=== PATIENT | male | born 1950 | race Caucasian/White ===

== ENCOUNTER → 2018-10-21 | Outpatient (CLI) | payer MEDICARE, OTHER, SELFPAY ==
[2018-10-21 14:57] VITALS: BMI 23.6
[2018-10-21 21:53] LABS: Absolute Neutrophil Count 5.4 X10^3/uL (2.0-7.7); Basophil# 0.03 X10^3/uL; Basophil% 0.3 % (0-1); Eosinophil# 0.18 X10^3/uL; Hematocrit 42.7 % (40-54); Hemoglobin 14.3 g/dl (13.0-16.5); Lymphocyte % 29.5 % (19-41); Mean Corp Hgb Conc 33.5 g/gl (32-36); Mean Corpuscular Hgb 30.6 pg (27.0-32.0); Mean Corpuscular Volume 91.4 fL (80-94); Mean Platelet Vol. 10.9 fl (6.2-12.0); Monocyte# 0.88 X10^3/uL; Monocyte% 9.6 % (0-10); Neutrophil # 5.36 X10^3/uL (2.7-7.7); Neutrophil % 58.5 % (47-70); POSITIVE COUNT NO; POSITIVE DIFFERENTIAL NO; POSITIVE MORPHOLOGY NO; Platelet Count 341 K/mm3 (150-450); RBC Distribution Width CV 13.1 % (11.6-14.6); RBC Distribution Width SD 43.5 fl (35.1-43.9); Red Blood Count 4.67 M/mm3 (4.6-6.2); White Blood Count 9.2 K/mm3 (4.4-11.0)
[2018-10-21 22:00] LABS: ALB/GLOB Ratio 1.2 RATIO (0.9-2.4); AST(SGOT) 18 U/L (15-37); Alanine Aminotransfer ALT/SGPT 17 U/L (16-61); Albumin, Serum 3.7 g/dL (3.2-5.0); Alkaline Phosphatase 93 U/L (45-117); Anion Gap 6 (5-15); BUN 10 mg/dL (7-18); BUN/Creat Ratio 10.4 RATIO (10-20); Calcium,Total 8.8 mg/dL (8.5-10.1); Chloride 107 mmol/L (98-107); Cholesterol 142 mg/dL (200); Creatinine, Serum 0.96 mg/dL (0.70-1.30); EST Glomerular Filtration Rate 82 mL/min (>60); Est Glom Filt Rate - Afr Amer 99 mL/min (>60); Globulin 3.1 g/dL (2.2-4.2); Glucose 111 mg/dL (74-106); High Density Lipoprotein 45 mg/dL; PSA,Total - Annual Screen 0.98 ng/mL (0.00-4.00); Potassium 3.7 mmol/L (3.5-5.1); Protein, Total 6.8 g/dL (6.4-8.2); Sodium Level 141 mmol/L (136-145); Triglycerides 172 mg/dL; Very Low Density Lipoprotein 34 mg/dL (5-40)
== END | disposition home or self-care (01) ==
PROVIDERS: Referring Provider Nurse Practitioner; Visit Provider Nurse Practitioner
DX: J01.00 Acute maxillary sinusitis, unspecified (principal); E78.00 Pure hypercholesterolemia, unspecified; N40.0 Benign prostatic hyperplasia without lower urinary tract symptoms; Z12.5 Encounter for screening for malignant neoplasm of prostate
CPT/HCPCS: 80053; 80061; 84153; 85025; G0103

== ENCOUNTER → 2019-11-19 | Outpatient (CLI) | payer MEDICARE, OTHER, SELFPAY ==
[2019-11-19 18:47] VITALS: BMI 22.7
[2019-11-19 20:58] LABS: Absolute Lymphocyte Count 2.67 X10^3/uL (0.83-4.51); Absolute Neutrophil Count 3.8 X10^3/uL (2.0-7.7); Basophil# 0.08 X10^3/uL; Basophil% 1.1 % (0-1); Eosinophil# 0.17 X10^3/uL; Eosinophils% 2.3 % (0-5); Hematocrit 42.2 % (40-54); Hemoglobin 13.9 g/dL (13.0-16.5); Lymphocyte # 2.67 X10^3/ul (4.0); Lymphocyte % 35.4 % (19-41); Mean Corp Hgb Conc 32.9 g/dL (32-36); Mean Corpuscular Hgb 30.8 pg (27.0-32.0); Mean Corpuscular Volume 93.4 fL (80-94); Mean Platelet Vol. 10.8 fl (6.2-12.0); Monocyte# 0.78 X10^3/uL; Monocyte% 10.3 % (0-10); NRBC Flagged by Analyzer 0 % (0-5); Neutrophil # 3.82 X10^3/uL (2.7-7.7); Neutrophil % 50.6 % (47-70); Platelet Count 313 K/mm3 (150-450); RBC Distribution Width CV 13.2 % (11.6-14.6); RBC Distribution Width SD 45.1 fl (35.1-43.9); Red Blood Count 4.52 M/mm3 (4.6-6.2); White Blood Count 7.5 K/mm3 (4.4-11.0)
[2019-11-19 21:19] LABS: ALB/GLOB Ratio 1.4 RATIO (0.9-2.4); AST(SGOT) 17 U/L (15-37); Alanine Aminotransfer ALT/SGPT 21 U/L (16-61); Albumin, Serum 3.8 g/dL (3.2-5.0); Alkaline Phosphatase 71 U/L (45-117); Anion Gap 3 (5-15); BUN 16 mg/dL (7-18); BUN/Creat Ratio 15.2 RATIO (10-20); Calcium,Total 8.9 mg/dL (8.5-10.1); Chloride 106 mmol/L (98-107); Cholesterol 127 mg/dL (200); Creatinine, Serum 1.05 mg/dL (0.70-1.30); EST Glomerular Filtration Rate 74 mL/min (>60); Est Glom Filt Rate - Afr Amer 90 mL/min (>60); Globulin 2.8 g/dL (2.2-4.2); Glucose 55 mg/dL (74-106); High Density Lipoprotein 43 mg/dL; PSA,Total - Annual Screen 0.87 ng/mL (0.00-4.00); Potassium 3.7 mmol/L (3.5-5.1); Protein, Total 6.6 g/dL (6.4-8.2); Sodium Level 142 mmol/L (136-145); Triglycerides 139 mg/dL; Very Low Density Lipoprotein 28 mg/dL (5-40)
[2019-11-21 16:08] LABS: Endomysial Antibody IgA Negative (Negative)
[2019-11-22 15:53] LABS: Immunoglobulin A 152 mg/dL (61-437); t-Transglutaminase IgA <2 U/mL (0-3)
== END | disposition home or self-care (01) ==
PROVIDERS: Visit Provider Nurse Practitioner
DX: E78.00 Pure hypercholesterolemia, unspecified (principal); K90.9 Intestinal malabsorption, unspecified; M19.90 Unspecified osteoarthritis, unspecified site; N40.0 Benign prostatic hyperplasia without lower urinary tract symptoms
CPT/HCPCS: 80053; 80061; 82784; 83516; 84153; 85025; 86255; G0103

== ENCOUNTER → 2020-11-29 21:59 | Outpatient (CLI) | payer MEDICARE, OTHER, SELFPAY ==
[2020-11-29 16:53] VITALS: BMI 22.7
[2020-11-29 22:14] LABS: Absolute Lymphocyte Count 2.93 X10^3/uL (0.83-4.51); Absolute Neutrophil Count 4.4 X10^3/uL (2.0-7.7); Basophil# 0.06 X10^3/uL; Basophil% 0.7 % (0-1); Eosinophil# 0.22 X10^3/uL; Eosinophils% 2.6 % (0-5); Hematocrit 44.1 % (40-54); Hemoglobin 14.4 g/dL (13.0-16.5); Lymphocyte # 2.93 X10^3/ul (0.83-4.51); Lymphocyte % 35.2 % (19-41); Mean Corp Hgb Conc 32.7 g/dL (32-36); Mean Corpuscular Volume 94.8 fL (80-94); Mean Platelet Vol. 11.3 fl (6.2-12.0); Monocyte# 0.69 X10^3/uL; Monocyte% 8.3 % (0-10); NRBC Flagged by Analyzer 0 % (0-5); Neutrophil # 4.39 X10^3/uL (2.7-7.7); Neutrophil % 52.7 % (47-70); Platelet Count 324 K/mm3 (150-450); RBC Distribution Width CV 13.4 % (11.6-14.6); Red Blood Count 4.65 M/mm3 (4.6-6.2); White Blood Count 8.3 K/mm3 (4.4-11.0)
[2020-11-29 22:35] LABS: ALB/GLOB Ratio 1.4 RATIO (0.9-2.4); AST(SGOT) 17 U/L (15-37); Alanine Aminotransfer ALT/SGPT 22 U/L (16-61); Albumin, Serum 3.9 g/dL (3.2-5.0); Alkaline Phosphatase 75 U/L (45-117); Anion Gap 5 (5-15); BUN 15 mg/dL (7-18); BUN/Creat Ratio 14.7 RATIO (10-20); Calcium,Total 8.9 mg/dL (8.5-10.1); Chloride 104 mmol/L (98-107); Cholesterol 150 mg/dL (200); Creatinine, Serum 1.02 mg/dL (0.70-1.30); EST Glomerular Filtration Rate 76 mL/min (>60); Est Glom Filt Rate - Afr Amer 92 mL/min (>60); Globulin 2.8 g/dL (2.2-4.2); Glucose 131 mg/dL (74-106); High Density Lipoprotein 50 mg/dL; PSA,Total - Annual Screen 0.89 ng/mL (0.00-4.00); Potassium 3.9 mmol/L (3.5-5.1); Protein, Total 6.7 g/dL (6.4-8.2); Sodium Level 139 mmol/L (136-145); Triglycerides 101 mg/dL; Very Low Density Lipoprotein 20 mg/dL (5-40)
== END ==
PROVIDERS: PCP Nurse Practitioner; Referring Provider Nurse Practitioner; Visit Provider Nurse Practitioner
DX: E78.00 Pure hypercholesterolemia, unspecified (principal); N40.0 Benign prostatic hyperplasia without lower urinary tract symptoms; B07.0 Plantar wart; Z12.5 Encounter for screening for malignant neoplasm of prostate
CPT/HCPCS: 80053; 80061; 84153; 85025; G0103

== ENCOUNTER → 2021-11-01 | Outpatient (CLI) | payer MEDICARE, OTHER, SELFPAY ==
[2021-11-01 23:36] LABS: Absolute Lymphocyte Count 3.49 X10^3/uL (0.83-4.51); Absolute Neutrophil Count 4.7 X10^3/uL (2.0-7.7); Basophil# 0.06 X10^3/uL; Basophil% 0.6 % (0-1); Eosinophil# 0.18 X10^3/uL; Eosinophils% 1.9 % (0-5); Hematocrit 42.4 % (40-54); Hemoglobin 14.2 g/dL (13.0-16.5); Lymphocyte # 3.49 X10^3/ul (0.83-4.51); Lymphocyte % 37.5 % (19-41); Mean Corp Hgb Conc 33.5 g/dL (32-36); Mean Corpuscular Hgb 30.3 pg (27.0-32.0); Mean Corpuscular Volume 90.6 fL (80-94); Mean Platelet Vol. 10.7 fl (6.2-12.0); Monocyte# 0.81 X10^3/uL; Monocyte% 8.7 % (0-10); NRBC Flagged by Analyzer 0 % (0-5); Neutrophil # 4.71 X10^3/uL (2.7-7.7); Neutrophil % 50.8 % (47-70); Platelet Count 357 K/mm3 (150-450); RBC Distribution Width CV 12.9 % (11.6-14.6); RBC Distribution Width SD 42.4 fl (35.1-43.9); Red Blood Count 4.68 M/mm3 (4.6-6.2); White Blood Count 9.3 K/mm3 (4.4-11.0)
[2021-11-01 23:39] LABS: ALB/GLOB Ratio 1.3 RATIO (0.9-2.4); AST(SGOT) 16 U/L (15-37); Alanine Aminotransfer ALT/SGPT 19 U/L (16-61); Albumin, Serum 3.7 g/dL (3.2-5.0); Alkaline Phosphatase 71 U/L (45-117); Anion Gap 6 (5-15); BUN 14 mg/dL (7-18); BUN/Creat Ratio 15.7 RATIO (10-20); Calcium,Total 8.8 mg/dL (8.5-10.1); Chloride 106 mmol/L (98-107); Cholesterol 148 mg/dL (200); Creatinine, Serum 0.89 mg/dL (0.70-1.30); EST Glomerular Filtration Rate 89 mL/min (>60); Est Glom Filt Rate - Afr Amer 108 mL/min (>60); Globulin 2.9 g/dL (2.2-4.2); Glucose 83 mg/dL (74-106); High Density Lipoprotein 48 mg/dL; PSA,Total- Diagnostic 1.03 ng/mL (0.0-4.0); Potassium 3.9 mmol/L (3.5-5.1); Protein, Total 6.6 g/dL (6.4-8.2); Sodium Level 138 mmol/L (136-145); Triglycerides 71 mg/dL; Very Low Density Lipoprotein 14 mg/dL (5-40)
== END | disposition home or self-care (01) ==
PROVIDERS: PCP Nurse Practitioner; Visit Provider Nurse Practitioner
DX: E78.00 Pure hypercholesterolemia, unspecified (principal); N40.0 Benign prostatic hyperplasia without lower urinary tract symptoms
CPT/HCPCS: 80053; 80061; 84153; 85025

== ENCOUNTER 2022-06-21 18:37 | Emergency (ER) | payer MEDICARE, OTHER, SELFPAY ==
[2022-06-21 18:38] VITALS: BP 164/120; PULSE 81; RESP 14; TEMP 36.3; O2SAT 96; BMI 24.1
== END 2022-06-21 21:15 | disposition left against medical advice (07) ==
LOC: ED 21:17
PROVIDERS: PCP Nurse Practitioner
DX: Z53.21 Procedure and treatment not carried out due to patient leaving prior to being seen by health care provider (principal)

== ENCOUNTER → 2022-08-03 | Outpatient (CLI) | payer MEDICARE, OTHER, SELFPAY ==
[2022-08-03 22:01] LABS: Absolute Lymphocyte Count 2.27 X10^3/uL (0.83-4.51); Absolute Neutrophil Count 10.2 X10^3/uL (2.0-7.7); Basophil# 0.04 X10^3/uL; Basophil% 0.3 % (0-1); Eosinophil# 0.06 X10^3/uL; Eosinophils% 0.4 % (0-5); Hematocrit 42.4 % (40-54); Hemoglobin 14.2 g/dL (13.0-16.5); Lymphocyte # 2.27 X10^3/ul (0.83-4.51); Lymphocyte % 16.2 % (19-41); Mean Corp Hgb Conc 33.5 g/dL (32-36); Mean Corpuscular Hgb 30.8 pg (27.0-32.0); Mean Platelet Vol. 10.6 fl (6.2-12.0); Monocyte# 1.38 X10^3/uL; Monocyte% 9.8 % (0-10); NRBC Flagged by Analyzer 0 % (0-5); Neutrophil # 10.19 X10^3/uL (2.7-7.7); Neutrophil % 72.5 % (47-70); Platelet Count 379 K/mm3 (150-450); RBC Distribution Width CV 13.2 % (11.6-14.6); Red Blood Count 4.61 M/mm3 (4.6-6.2); White Blood Count 14.1 K/mm3 (4.4-11.0)
[2022-08-03 22:14] LABS: ALB/GLOB Ratio 1.3 RATIO (0.9-2.4); AST(SGOT) 21 U/L (15-37); Alanine Aminotransfer ALT/SGPT 22 U/L (16-61); Albumin, Serum 3.9 g/dL (3.2-5.0); Alkaline Phosphatase 74 U/L (45-117); Anion Gap 6 (5-15); BUN 19 mg/dL (7-18); BUN/Creat Ratio 13.8 RATIO (10-20); Calcium,Total 9.2 mg/dL (8.5-10.1); Chloride 104 mmol/L (98-107); Cholesterol 153 mg/dL (200); Creatinine, Serum 1.38 mg/dL (0.70-1.30); EST Glomerular Filtration Rate 54 mL/min (>60); Est Glom Filt Rate - Afr Amer 65 mL/min (>60); Globulin 3.1 g/dL (2.2-4.2); Glucose 108 mg/dL (74-106); High Density Lipoprotein 58 mg/dL; Potassium 4.3 mmol/L (3.5-5.1); Sodium Level 139 mmol/L (136-145); Triglycerides 65 mg/dL; Very Low Density Lipoprotein 13 mg/dL (5-40)
== END | disposition home or self-care (01) ==
PROVIDERS: PCP Nurse Practitioner; Visit Provider Nurse Practitioner
DX: N20.0 Calculus of kidney (principal); E78.00 Pure hypercholesterolemia, unspecified; R10.9 Unspecified abdominal pain; G89.29 Other chronic pain
CPT/HCPCS: 80053; 80061; 85025; 87086

== ENCOUNTER → 2022-08-04 | Outpatient (CLI) | payer MEDICARE, OTHER, SELFPAY ==
--- NOTE | 2022-08-04 12:43 | RAD_ITS ---
STUDY: X-RAY CHEST REASON FOR EXAM: Male, 72 years old. Leukocytosis. TECHNIQUE: Frontal and lateral views of the chest. COMPARISON: None. FINDINGS: The lungs are clear and expanded. There is no demonstrated pleural abnormality. Normal size heart. Normal mediastinum and sravani. Normal visualized pulmonary arteries. Normal visualized aortic arch and descending thoracic aorta. Mild thoracic spondylosis. Normal visualized ribs, clavicles, and shoulders. There is no demonstrated abnormality of the visualized soft tissue structures of the upper abdomen. RAD/Chest PA and Lateral IMPRESSION: No active or acute cardiopulmonary disease. Electronically Signed: Marv Loya, at 9:50 EST ,
== END | disposition home or self-care (01) ==
LOC: RAD 12:38
PROVIDERS: PCP Nurse Practitioner; Visit Provider Nurse Practitioner
DX: R10.9 Unspecified abdominal pain (principal); G89.29 Other chronic pain
CPT/HCPCS: 71046

== ENCOUNTER → 2022-08-08 | Outpatient (CLI) | payer MEDICARE, OTHER, SELFPAY ==
--- NOTE | 2022-08-08 17:41 | CT_ITS ---
INDICATION: leukocytosis,L flank pain and Luq pain -- looks sick. PRIOR CHOLECYSTECTOMY EXAMINATION: CT ABDOMEN AND PELVIS WITHOUT CONTRAST - CT Abdomen And Pelvis W/O Contrast Injection TECHNIQUE: Helically acquired images were obtained of the abdomen and pelvis without oral or IV contrast. A radiation dose optimization technique was used for this scan. IV Contrast dosage and agent: None. Oral contrast: None. COMPARISON: None. FINDINGS: LOWER CHEST: Lung bases are clear. No cardiomegaly or pericardial effusion. LIVER: Homogeneous. No focal mass. GALLBLADDER AND BILIARY TREE: No calcified gallstones. No gallbladder distension or wall edema. No intra- or extrahepatic biliary ductal dilation. PANCREAS: No focal cystic or solid mass. SPLEEN: Normal size without focal cystic or solid mass. ADRENAL GLANDS: No nodules. KIDNEYS AND URETERS: Normal renal size and position. Moderate left hydronephrosis with normal variant extrarenal pelvis. 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 Right kidney no evidence of hydronephrosis. Abdominal aorta with moderate atherosclerotic vascular calcification with small infrarenal abdominal aortic aneurysm 2.17 x 2.3 cm. PERITONEUM: No ascites or free air. No other fluid collection. BOWEL: No evidence of acute appendicitis. No stomach or bowel distension. No focal inflammatory change. LYMPH NODES: No enlarged mesenteric or retroperitoneal lymph nodes. VESSELS: Aorta is non-dilated. URINARY BLADDER: Unremarkable. REPRODUCTIVE ORGANS: No pelvic masses. ABDOMINAL WALL: No discrete abdominal or pelvic wall hernia. BONES: No lytic or blastic abnormality. Severe degenerative disc disease L4-5 moderate L5-S1 with moderate bilateral facet arthropathy L4-S1. CT/Abdomen/Pelvis without Cont IMPRESSION: Moderate left hydronephrosis with normal variant extrarenal pelvis. 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 Other etiology cannot be excluded. Correlation advised. Small infrarenal abdominal aortic aneurysm. Degenerative changes lower lumbar spine. Electronically Signed: Jose Manuel Solorio MD, JAYSON at 8:07 EST ,
== END | disposition home or self-care (01) ==
LOC: CT 17:40
PROVIDERS: PCP Nurse Practitioner; Visit Provider Nurse Practitioner
DX: G89.29 Other chronic pain (principal); R10.9 Unspecified abdominal pain
CPT/HCPCS: 74176

== ENCOUNTER → 2022-08-21 | Outpatient (CLI) | payer MEDICARE, OTHER, SELFPAY ==
[2022-08-21 11:44] LABS: Anion Gap 4 (5-15); BUN 12 mg/dL (7-18); BUN/Creat Ratio 9.9 RATIO (10-20); Chloride 103 mmol/L (98-107); Creatinine, Serum 1.21 mg/dL (0.70-1.30); EST Glomerular Filtration Rate 62 mL/min (>60); Est Glom Filt Rate - Afr Amer 76 mL/min (>60); Glucose 101 mg/dL (74-106); PSA,Total- Diagnostic 2.01 ng/mL (0.0-4.0); Sodium Level 138 mmol/L (136-145)
== END | disposition home or self-care (01) ==
LOC: LAB 10:12
PROVIDERS: PCP Nurse Practitioner; Referring Provider Urology; Visit Provider Urology
DX: N40.1 Benign prostatic hyperplasia with lower urinary tract symptoms (principal)
CPT/HCPCS: 36415; 80048; 84153

== ENCOUNTER → 2022-08-28 | Outpatient (CLI) | payer MEDICARE, OTHER, SELFPAY ==
--- NOTE | 2022-08-28 11:13 | NM_ITS ---
CLINICAL: 72-year-old male with history of hydronephrosis. 99m Tc MAG3 DIURETIC RENAL SCINTIGRAPHY COMPARISON: CT of the abdomen-pelvis report 08/08/2022 FINDINGS: Following the intravenous administration of 10.2 mCi of 99m Tc MAG3, renal images reveal: 1. The flow study demonstrates delayed arterial phase distribution of the radiopharmaceutical to the bilateral kidneys left worse than right. 2. Immediate static delayed nephrogram images depict relatively prompt and homogeneous radiopharmaceutical concentration noted by the right kidney. Uptake in the left renal unit is delayed and decreased relative to the right kidney.. Collecting structure visualization is noted at 4 minutes post tracer injection bilaterally. Washout of the radiopharmaceutical by the renal compartment of the right kidney appears qualitatively normal. Washout of the radiotracer by the renal parenchyma of the left kidney is delayed and decreased. There is spontaneous drainage of the right kidney collecting system noted prior to progressive minor administration. Prominent collecting system is noted in the left kidney during 20 minutes of pre-Lasix sequential image acquisition. 3. The kzvet-[id number] ratio of total renal parenchymal function was calculated to be 60/40. Furosemide 20 mg was administered intravenously. The post Lasix T ? washout of the residual right kidney collecting system activity was calculated to be < 10 minutes in the right kidney and > 10 and < 20 minutes in the left kidney, (normal < 10 minutes). NM/Renal Scan w/ Pharm Intervent IMPRESSION: 1. There is normal renal parenchymal-cortical function involving the right kidney. Cortical dysfunction is defined in the left renal unit. 2. A normal physiologic response to induced diuresis is demonstrated in the right kidney collecting system. The left kidney collecting system demonstrates an indeterminate response to furosemide administration with the T ? > 10 and < 20 minutes. Electronically Signed: Chaim Thurman, at 22:33 EDT ,
== END | disposition home or self-care (01) ==
LOC: NM 11:03
PROVIDERS: PCP Nurse Practitioner; Visit Provider Urology
DX: Q62.11 Congenital occlusion of ureteropelvic junction (principal)
CPT/HCPCS: 78708; A9562; J1940

== ENCOUNTER → 2022-09-07 | Outpatient (CLI) | payer MEDICARE, OTHER, SELFPAY ==
[2022-09-07 13:06] LABS: Hematocrit 41.6 % (40-54); Mean Corp Hgb Conc 33.7 g/dL (32-36); Mean Platelet Vol. 10.6 fl (6.2-12.0); Platelet Count 308 K/mm3 (150-450); RBC Distribution Width CV 13.2 % (11.6-14.6); RBC Distribution Width SD 44.9 fl (35.1-43.9); Red Blood Count 4.52 M/mm3 (4.6-6.2); White Blood Count 9.9 K/mm3 (4.4-11.0)
[2022-09-07 13:30] LABS: Anion Gap 5 (5-15); BUN 15 mg/dL (7-18); BUN/Creat Ratio 17.1 RATIO (10-20); Calcium,Total 9.1 mg/dL (8.5-10.1); Chloride 108 mmol/L (98-107); Creatinine, Serum 0.88 mg/dL (0.70-1.30); EST Glomerular Filtration Rate 90 mL/min (>60); Est Glom Filt Rate - Afr Amer 109 mL/min (>60); Glucose 105 mg/dL (74-106); Sodium Level 142 mmol/L (136-145)
== END | disposition home or self-care (01) ==
PROVIDERS: PCP Nurse Practitioner; Referring Provider Urology; Visit Provider Urology
DX: Z01.810 Encounter for preprocedural cardiovascular examination (principal)
CPT/HCPCS: 36415; 80048; 85027; 93005

== ENCOUNTER 2022-10-08 08:22 | Observation (INO) | payer MEDICARE, OTHER, SELFPAY ==
[2022-10-08] VITALS (10 sets, daily range): BP systolic 99–157; BP diastolic 58–93; PULSE 59–103; RESP 16–18; TEMP 36.2–36.8; O2SAT 94–98; BMI 24.1
--- NOTE | 2022-10-08 08:32 | CT_ITS ---
EXAM: CT ABDOMEN AND PELVIS WITHOUT INTRAVENOUS CONTRAST CLINICAL INDICATION: Flank pain. TECHNIQUE: Helically acquired images were obtained of the abdomen and pelvis without intravenous contrast. This CT exam was performed using one or more of the following dose reduction techniques: automated exposure control, adjustment of the mA and/or kV according to patient size, and/or use of iterative reconstruction technique. This report was created using [employer] report generation technology. RADIATION DOSE: CTDIvol = 6.13 mGy, DLP = 301.45 mGy-cm COMPARISON: CT abdomen and pelvis without contrast 08/08/2022. FINDINGS: LOWER THORAX: Unremarkable. Lung bases are clear. No cardiomegaly. No significant pericardial effusion. ABDOMEN: LIVER: Unremarkable. Homogeneous. GALLBLADDER AND BILE DUCTS: Unremarkable. No intra- or extrahepatic biliary ductal dilation. No visible gallbladder presumably from laparoscopic cholecystectomy. PANCREAS: Unremarkable. No focal cystic mass. SPLEEN: Unremarkable. Normal size without focal cystic or solid mass. ADRENALS: Unremarkable. No nodules. KIDNEYS AND URETERS: Worsening of left hydronephrosis despite left double-J stent placement. Normal right kidney. Normal renal size and position. STOMACH AND BOWEL: Unremarkable. No stomach or bowel distention. No focal inflammatory change. PELVIS: APPENDIX: Normal. BLADDER: Unremarkable. REPRODUCTIVE: Unremarkable as visualized. No mass. ABDOMEN and PELVIS: INTRAPERITONEAL SPACE: Unremarkable. No ascites or other fluid collection. No free air. BONES/JOINTS: Pronounced L4-5 degenerative disc space height narrowing with endplate sclerosis is unchanged. No suspicious lytic or blastic abnormality. SOFT TISSUES: Unremarkable. No discrete abdominal or pelvic wall hernia. VASCULATURE: Unremarkable. Abdominal aorta is non-dilated. LYMPH NODES: Unremarkable. No enlarged lymph nodes. CT/Abdomen/Pelvis without Cont IMPRESSION: 1. Worsening of now more pronounced left hydronephrosis despite interval placement of left double-J stent. Double-J stent stent exchange will be helpful. 2. No other additional findings or changes. Electronically Signed: Carlitos Dalton MD at 9:53 EDT ,
--- NOTE | 2022-10-08 08:33 | EX.ED.DYSGE1 ---
HPI History of Present Illness Chief Complaint: Complaint Detail of Chief Complaint: Left flank pain, dysuria Informant: patient Narrative Narrative: Patient presents secondary to left flank pain and dysuria that started last evening. 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 He recently underwent CT scan which revealed hydronephrosis consistent with left UPJ obstruction. He had surgery with Dr. Starr on September 29 for balloon dilation and stent placement. Surgical procedure was performed at the outpatient center and I cannot see the surgical note. Patient states he was doing well until last evening when he started having burning with urination. He feels that he cannot empty his bladder. He has pain in the left flank that radiates into the left testicle. No fever or chills. He is not currently on an antibiotic. [facility] Medical History (Updated 10/08/22 @ 11:[address] 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 Ureteral stent present Home Medications tamsulosin 0.4 mg capsule 0.4 mg PO DAILY BPH 10/08/22 [History Last Taken 10/08/22] Allergy/AdvReac Type Severity Reaction Status Date / Time No Known Allergies Allergy Verified 10/08/22 08:25 Family History Other BPH (benign prostatic hyperplasia) Surgical History CHOLECYSTECTOMY W/ INTRAOPERATIVE CHOLANGIOGRAM Social History Smoking Status: Former smoker second hand exposure: No alcohol intake: current substance use type: does not use ROS ROS ED Constitutional Constitutional ED: Denies chills or fever(s) Eyes Eyes: Denies discharge from eye(s) ENT ENT ED: Denies discharge from eye(s), rhinorrhea or sore throat Cardiovascular Cardiovascular: Denies chest pain or palpitations Respiratory/Chest Respiratory/Chest: Denies cough or dyspnea Gastrointestinal Gastrointestinal: Reports abdominal pain; Denies diarrhea, nausea or vomiting Genitourinary Genitourinary ED: Reports difficulty urinating and dysuria Musculoskeletal Musculoskeletal: Reports back pain; Denies extremity pain Integumentary Denies Abrasions or rash Neurologic Neurologic: Denies headache(s) or weakness Allergic/Immunologic Allergic/Immunologic ED: Denies lip swelling or urticaria EXAM Physical Exam Const Vital Signs: 10/08/22 08:24 10/08/22 09:11 10/08/22 10:24 Temperature 97.1 F L 97.8 F Temperature Source Temporal Oral Pulse Rate 103 H 64 Respiratory Rate 16 16 16 Blood Pressure 146/93 H 131/75 H Blood Pressure Mean 110 93 Pulse Ox 97 94 Oxygen Delivery Method Room Air Room Air Positive well nourished and well developed General Appearance ED: well developed HEENT Reports normocephalic and head/scalp atraumatic Eyes PERRL and EOMs intact bilaterally Neck supple Chest Wall inspection of chest normal and palpation of chest normal Resp normal respiratory effort and clear to auscultation bilaterally Cardio regular rate and regular rhythm GI GI Narrative: Abdomen soft with mild suprapubic tenderness. Palpation: soft Extremity normal to inspection Neuro oriented x3 and no sensory deficits noted Sensorium / Orientation: alert Motor Exam: strength 5/5 throughout Psych mental status grossly normal Skin no rashes or lesions noted MDM MDM MDM Narrative Medical decision making narrative: Patient is given morphine and Zofran for pain control. Labwork obtained to evaluate for leukocytosis, anemia, and electrolyte derangement. Urinalysis obtained to evaluate for infection/hematuria. CT flank obtained to evaluate for renal stone, stent position, hydronephrosis. History & Record Review Additional record(s) reviewed:: Prior outpatient record and Prior labs Lab Data Attestation: I reviewed the patient's lab results. Labs: Laboratory Results - last 24 hr 10/08/22 10/08/22 10/08/22 08:47 08:47 08:47 WBC 13.6 H RBC 4.72 Hgb 14.2 Hct 44.5 MCV 94.3 H MCH 30.1 MCHC 31.9 L RDW Std Deviation 45.2 H RDW Coeff of Hector 13.0 Plt Count 348 MPV 10.3 Immature Gran % (Auto) 1.500 H Neut % (Auto) 64.7 Lymph % (Auto) 21.0 [place] % (Auto) 10.4 H Eos % (Auto) 1.4 Baso % (Auto) 1.0 Absolute Neuts (auto) 8.8 H Absolute Lymphs (auto) 2.86 Nucleated RBC % 0 Sodium 139 Potassium 3.8 Chloride 109 H Carbon Dioxide 28.0 Anion Gap 2 L BUN 15 Creatinine 0.98 Estim Creat Clear Calc 64.95 Est GFR (MDRD) Af Amer 96 Est GFR (MDRD) Non-Af 80 BUN/Creatinine Ratio 15.3 Glucose 109 H Calcium 9.2 Urine Color Yellow Urine Clarity Clear Urine pH 6.0 Ur Specific [place] 1.025 Urine Protein 100 H Urine Glucose (UA) Normal Urine Ketones Negative Urine Occult Blood 250 H Urine Nitrite Negative Urine Bilirubin Negative Urine Urobilinogen Normal Ur Leukocyte Esterase 500 H Urine RBC 5-10 SEEN Urine WBC 10-25 SEEN Ur Squamous Epith Cells 0 SEEN Urine Bacteria 1+ Urine Mucus 0 SEEN Radiography Diagnostic Testing: Clinical Impression(s) from Imaging Studies Abdomen/Pelvis CT 10/08/22 08:32 IMPRESSION: 1. Worsening of now more pronounced left hydronephrosis despite interval placement of left double-J stent. Double-J stent stent exchange will be helpful. 2. No other additional findings or changes. Electronically Signed: Carlitos Dalton MD at 9:53 EDT , Treatment and Re-Evaluation :: CBC does reveal a white count of 13.6 with no left shift noted. Chemistry studies unremarkable with normal renal function. Urinalysis does show 1+ bacteria with 25-50 white cells and 500 leukocyte esterase. He was covered with a dose of Rocephin here and urine culture has been sent. CT flank reveals worsening and now more pronounced hydronephrosis on the left despite stent placement. No evidence of ureteral stone. Patient did require second dose of pain medication for comfort. I spoke with Dr. Starr, his urologist. Patient will be admitted overnight with plan to go to the OR tomorrow for stent exchange. Discharge Plan Triage Chief Complaint: Complaint ED Provider: Billie Egan Dx/Rx/DC Orders Clinical Impression: Hydronephrosis Prescriptions: No Action tamsulosin 0.4 mg capsule 0.4 mg PO DAILY Primary Care Provider: Emilia Avina NP Referrals: Emilia Avina NP, [employer] [Primary Care Provider] - Disposition Disposition: Acute Care [facility]
[2022-10-08] MEDS: Ondansetron 4 MG/2 ML Vial IV ×2 (08:48→11:01)
[2022-10-08] MEDS: Morphine 4 MG/ML Syringe IV ×2 (08:50→10:58)
[2022-10-08 08:54] LABS: Mucous, Urine 0 SEEN /hpf (<or=2+); Squamous Epithelial Cells - UA 0 SEEN /hpf (0-5)
[2022-10-08 08:55] LABS: Absolute Lymphocyte Count 2.86 X10^3/uL (0.83-4.51); Absolute Neutrophil Count 8.8 X10^3/uL (2.0-7.7); Basophil# 0.14 X10^3/uL; Eosinophil# 0.19 X10^3/uL; Eosinophils% 1.4 % (0-5); Hematocrit 44.5 % (40-54); Hemoglobin 14.2 g/dL (13.0-16.5); Lymphocyte # 2.86 X10^3/ul (0.83-4.51); Mean Corp Hgb Conc 31.9 g/dL (32-36); Mean Corpuscular Hgb 30.1 pg (27.0-32.0); Mean Corpuscular Volume 94.3 fL (80-94); Mean Platelet Vol. 10.3 fl (6.2-12.0); Monocyte# 1.41 X10^3/uL; Monocyte% 10.4 % (0-10); NRBC Flagged by Analyzer 0 % (0-5); Neutrophil # 8.79 X10^3/uL (2.7-7.7); Neutrophil % 64.7 % (47-70); Platelet Count 348 K/mm3 (150-450); RBC Distribution Width SD 45.2 fl (35.1-43.9); Red Blood Count 4.72 M/mm3 (4.6-6.2); White Blood Count 13.6 K/mm3 (4.4-11.0)
[2022-10-08 08:58] LABS: Color, Urine Yellow (Yellow); Glucose, Dipstick Normal (Normal); Ketone-Dipstick Negative (Negative); Leukocyte Esterase-Dipstick 500 /ul (Negative); Nitrite-Dipstick Negative (Negative); Occult Blood-Urine 250 /ul (Negative); Protein-Dipstick 100 mg/dl (Negative); Specific Gravity, Urine 1.025 (1.002-1.030); Urine Bilirubin Dipstick Negative (Negative); Urine Clarity Clear (Clear); Urine Urobilinogen Normal (Normal)
--- NOTE | 2022-10-08 09:13 | ED.RN ---
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 UNABLE TO FIND BLADDER. DR. SARABIA NOTIFIED.
[2022-10-08 09:16] LABS: Anion Gap 2 (5-15); BUN 15 mg/dL (7-18); BUN/Creat Ratio 15.3 RATIO (10-20); Calcium,Total 9.2 mg/dL (8.5-10.1); Chloride 109 mmol/L (98-107); Creatinine, Serum 0.98 mg/dL (0.70-1.30); EST Glomerular Filtration Rate 80 mL/min (>60); Est Glom Filt Rate - Afr Amer 96 mL/min (>60); Estimated Creatinine Clearance 64.95 ml/min; Glucose 109 mg/dL (74-106); Potassium 3.8 mmol/L (3.5-5.1); Sodium Level 139 mmol/L (136-145)
[2022-10-08 09:26] LABS: Bacteria 1+ /hpf (None Seen); Red Blood Cells-Urine 5-10 SEEN /hpf (0-5); White Blood Cells 10-25 SEEN /hpf (0-5)
[2022-10-08] MEDS: Ceftriaxone 1 GM/50 ML BAG IV (10:23)
[2022-10-08] MEDS: Ketorolac 15 MG/ML Vial IV (11:03)
--- NOTE | 2022-10-08 11:43 | PCM.HP.STD ---
HPI - General HPI Narrative FEDERICO STACK, is a 72 M who presents has aknow UPJ stricture left, repaired long time ago and recurrence s/p balloon dilation and stent recently, I was planning to removed stent in 6 weeks but presented with severe flank pain, stent in proper position but worse hydro, plan to take to surgery today to up size stent. NPO team called. [facility] Medical History (Updated 10/08/22 @ 11:[address] 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 Ureteral stent present Home Medications tamsulosin 0.4 mg capsule 0.4 mg PO DAILY BPH 10/08/22 [History Last Taken 10/08/22] Allergy/AdvReac Type Severity Reaction Status Date / Time No Known Allergies Allergy Verified 10/08/22 08:25 Family History Other BPH (benign prostatic hyperplasia) Surgical History CHOLECYSTECTOMY W/ INTRAOPERATIVE CHOLANGIOGRAM Social History Smoking Status: Former smoker second hand exposure: No alcohol intake: current substance use type: does not use ROS Constitutional Constitutional: Denies chills, fever(s) or malaise Eyes Eyes: Denies blurry vision or change in vision ENT HEENT: Reports none Cardiovascular Cardiovascular: Denies chest pain or palpitations Respiratory/Chest Respiratory/Chest: Denies cough or shortness of breath with exertion Gastrointestinal Gastrointestinal: Denies abdominal pain, constipation or diarrhea Musculoskeletal Musculoskeletal: Denies back pain, joint stiffness or joint swelling Integumentary Integumentary: Denies dry skin, jaundice, lesions or rash Neurologic Neurologic: Denies confusion, syncope or weakness Psychiatric Psychiatric: Reports none; Denies anxiety or depression Endocrine Endocrinology: Denies excessive sweating, fatigue or flushing Hematologic/Lymphatic Hematologic/Lymphatic: Denies anemia, easy bleeding or easy bruising Vital Signs Vital Signs Vital Signs: 10/08/22 08:24 10/08/22 09:11 10/08/22 10:24 Temperature 97.1 F L 97.8 F Temperature Source Temporal Oral Pulse Rate 103 H 64 Respiratory Rate 16 16 16 Blood Pressure 146/93 H 131/75 H Blood Pressure Mean 110 93 Pulse Ox 97 94 Oxygen Delivery Method Room Air Room Air 10/08/22 11:19 Temperature 97.8 F Temperature Source Oral Pulse Rate 65 Respiratory Rate 18 Blood Pressure 133/69 H Blood Pressure Mean 90 Pulse Ox 97 Oxygen Delivery Method Room Air Weight Weight: 72.121 kg Body Mass Index (BMI) 24.1 Physical Exam Const alert and oriented x3 General Appearance: cooperative HEENT normocephalic, head/scalp atraumatic, EAC's normal and TM's normal bilaterally Eyes PERRL and EOMs intact bilaterally Pupil: sluggish Neck no lymphadenopathy, supple and no JVD General: trachea midline Lymph Lymphatic: no lymphadenopathy noted, lymphedema and lymphadenopathy Resp normal respiratory effort, normal air movement and clear to auscultation bilaterally Cardio regular rate, regular rhythm and peripheral pulses 2+ throughout GI soft to palpation, non-tender and non-distended Extremity normal capillary refill and no clubbing, cyanosis or edema General Extremity: no tenderness to palpation of joints or extremities Skin no rashes or lesions noted General Skin Exam: turgor normal Lesions: no lesions Rashes: no rashes Neuro CN's II-XII intact bilaterally Speech: speech normal Motor Exam: strength 5/5 throughout; Negative for general weakness Psych thought process normal, cooperative and affect normal Appearance: appropriate Results Lab / Micro Data Result Diagrams: 10/08/22 08:47 10/08/22 08:47 Labs: Laboratory Results - last 24 hr 10/08/22 08:47: WBC 13.6 H, RBC 4.72, Hgb 14.2, Hct 44.5, MCV 94.3 H, MCH 30.1, MCHC 31.9 L, RDW Std Deviation 45.2 H, RDW Coeff of Hector 13.0, Plt Count 348, MPV 10.3, Immature Gran % (Auto) 1.500 H, Neut % (Auto) 64.7, Lymph % (Auto) 21.0, [place] % (Auto) 10.4 H, Eos % (Auto) 1.4, Baso % (Auto) 1.0, Absolute Neuts (auto) 8.8 H, Absolute Lymphs (auto) 2.86, Nucleated RBC % 0 10/08/22 08:47: Sodium 139, Potassium 3.8, Chloride 109 H, Carbon Dioxide 28.0, Anion Gap 2 L, BUN 15, Creatinine 0.98, Estim Creat Clear Calc 64.95, Est GFR (MDRD) Af Amer 96, Est GFR (MDRD) Non-Af 80, BUN/Creatinine Ratio 15.3, Glucose 109 H, Calcium 9.2 10/08/22 08:47: Urine Color Yellow, Urine Clarity Clear, Urine pH 6.0, Ur Specific [place] 1.025, Urine Protein 100 H, Urine Glucose (UA) Normal, Urine Ketones Negative, Urine Occult Blood 250 H, Urine Nitrite Negative, Urine Bilirubin Negative, Urine Urobilinogen Normal, Ur Leukocyte Esterase 500 H, Urine RBC 5-10 SEEN, Urine WBC 10-25 SEEN, Ur Squamous Epith Cells 0 SEEN, Urine Bacteria 1+, Urine Mucus 0 SEEN Radiology Impression Abdomen/Pelvis CT 10/08/22 08:32 IMPRESSION: 1. Worsening of now more pronounced left hydronephrosis despite interval placement of left double-J stent. Double-J stent stent exchange will be helpful. 2. No other additional findings or changes. Electronically Signed: Carlitos Dalton MD at 9:53 EDT , Assessment & Plan Assessment/Plan (1) Obstruction of left ureteropelvic junction (UPJ): PLAN: plan to take to surgery today to decompress left kidney and place large stent. NPO surgery now
--- NOTE | 2022-10-08 12:25 | ED.RN ---
THIS RN CALLED INPATIENT PHARMACY TO LET THEM KNOW PT BEING TAKEN TO OR. PHARMACY TO SEND CEFAZOLIN STRAIGHT TO OR AT 1225. OR NURSE AWARE.
[2022-10-08] MEDS: Cefazolin 2 GM in 0.9% Normal Saline 100 ML IV (12:34)
[2022-10-08] MEDS: Lidocaine Jelly 2% 20 ML Syringe (URO-JET) 1 APPLIC (12:44)
--- NOTE | 2022-10-08 12:55 | OP.PCM_ITS ---
Report of Operation Date of Procedure: 10/08/22 Pre-Operative Diagnosis: Left UPJ stricture status post balloon dilation and pl acement of a 6 [place] stent Post-Operative Diagnosis: Left hydronephrosis poorly draining kidney Surgery/Procedure Performed:: Cystoscopy left retrograde pyelogram placement of an 8.5 [place] stent Description of Surgical Findings:: Indication is a 72-year-old male has a history of a left UPJ obstruction this was were corrected long time ago with an open repair he had been doing well for many years but then developed left flank pain and a swollen left kidney recently in consultation and we decided to do a balloon dilation of the UPJ stricture and stent placement he understands the success rate was not high but we would want to avoid a surgical procedure so this was done as an outpatient setting and then presented to the emergency room 2 weeks later with worsening left hydronephrosis stent was in good position somata take him to surgery today and exchanged stent from a 6 [place]ibian to an 8.5 [place]ibian to help with better draining hopefully allow the area to heal better to see if we can avoid surgical repair of the UPJ stricture 72-year-old male taken back to the operating room at the smooth induction of MAC local anesthesia by the anesthesiologist he was placed in dorsolithotomy position. The penis and testicles were prepped and draped in usual sterile fashion. Went into the bladder with a 21 [place] rigid cystourethroscope. Grabbed the existing stent with a grasper pulled it out to the meatus I then fed a wire through the stent all the way to the kidney then I backloaded a Pollick catheter over the wire performed a retrograde pyelogram can see contrast filling the kidney confirming that I was in the hydronephrotic kidney I then put a wire through the Pollick catheter backloaded the scope over the wire and then placed an 8.5 [place]ibian 26 cm stent, once I pulled the wire the stent coiled in the good position the kidney and bladder will be discharged home today with antibiotics continue with Flomax and then will follow-up in the office to review hopefully the larger stent will help with the drainage we will see if leaving the stent in for 6 weeks will alleviate the obstruction or if you will need eventual repair of the stricture. Surgeon: Mateus Starr Type of Anesthesia: MAC and Topical Anesth Drains: 8.5 stent x 26cm Estimated Blood Loss (mL): 0 Admit VTE Documentation VTE Present on Admission: No VTE Mechan Device Prophylaxis: SCD's VTE Pharm Prophylaxis ordered?: No
--- NOTE | 2022-10-08 12:55 | DCINST_ITS ---
Discharge Instructions Diet Discharge Diet: No restrictions, Light diet - advance as tolerated and Soft diet Activity Discharge Activity: Return to Normal Activity Follow Up Care Please Follow Up With: Mateus Starr MD When: call for appt. Test Results: Test results from this visit will be discussed in further detail at your follow- up appointment, if applicable. Discharge Plan Admission Primary Reason for Your Visit: stent placement Attending Provider: Mateus Starr Primary Care Provider: Emilia Avina NP Discharge Orders/Prescriptions Prescriptions: New cephalexin 500 mg capsule 500 mg PO BID Qty: 6 0RF No Action tamsulosin 0.4 mg capsule 0.4 mg PO DAILY Referrals / Follow Up: Mateus Starr MD [Med Staff - Active Staff] - Emilia Avina NP, CLINICAL PROGRAM MANAGER-C [Primary Care Provider] - Disposition Disposition (needs filled in before D/C Order can be placed): Home, Self Care
== END 2022-10-08 15:26 | disposition home or self-care (01) ==
LOC: ED 11:19 → SDC 11:49 → ACINP 11:50 → SDC 13:24 → MS3 15:34
PROVIDERS: Admitting Provider Urology; Emergency Provider Emergency Medicine; PCP Nurse Practitioner; Visit Provider Urology
PROC: (CPT 52332; principal; 2022-10-08 12:30)
DX: N40.1 Benign prostatic hyperplasia with lower urinary tract symptoms (principal); R30.0 Dysuria; E78.00 Pure hypercholesterolemia, unspecified; N13.30 Unspecified hydronephrosis; Z87.891 Personal history of nicotine dependence; N13.8 Other obstructive and reflux uropathy; Z79.899 Other long term (current) drug therapy
CPT/HCPCS: 52332; 00910; 74176; 76000; 80048; 81001; 85025; 87086; 87088; 96365; 96375; 96376; 99284; J7050; A4216; C1769; C2617; J2405

== ENCOUNTER 2023-06-30 22:44 | Emergency (ER) | payer MEDICARE, OTHER, SELFPAY ==
[2023-06-30 22:45] VITALS: BP 130/79; PULSE 72; RESP 15; TEMP 36.1; O2SAT 96; BMI 24.1
--- NOTE | 2023-06-30 23:00 | ED.VIS.DYS ---
HPI History of Present Illness Chief Complaint: Shortness of Breath Narrative Narrative: 73-year-old male presenting with cough, dyspnea. Patient states that he has been sick since he flew to [place] on an airplane a few days ago. Has not had a fever, chills, which is but does however complain of some nasal congestion. He tested himself for COVID with a home test but was negative. He also states he is not sure how to use it. Patient denies chest pain. When asked objectively about his shortness of breath he states he was able to walk all the way through both airports without any difficulty. He states his biggest complaint is congestion which is associated with rhinorrhea as well. Patient has tried DayQuil and NyQuil without relief. Patient's cough is not productive of sputum. 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 Ureteral stent present Home Medications gabapentin 100 mg capsule 200 mg (2 x 100 mg) PO .qid PRN burning pain 30 days #240 caps 10/20/22 [Rx Last Taken Unknown] tamsulosin 0.4 mg capsule 0.4 mg PO DAILY BPH #30 caps 10/20/22 [Rx Last Taken Unknown] amoxicillin 875 mg-potassium clavulanate 125 mg tablet 1 tab PO BID #20 tabs 02/14/23 [Rx Last Taken Unknown] prednisone 50 mg tablet 50 mg PO DAILY #4 tabs 07/01/23 [Rx Last Taken Unknown] Allergy/AdvReac Type Severity Reaction Status Date / Time No Known Allergies Allergy Verified 06/30/23 22:48 Family History Other BPH (benign prostatic hyperplasia) Surgical History CHOLECYSTECTOMY W/ INTRAOPERATIVE CHOLANGIOGRAM Social History Smoking Status: Former smoker second hand exposure: No alcohol intake: current substance use type: does not use ROS ROS ED Constitutional Constitutional ED: Denies chills, fever(s) or sweats Eyes Eyes: Denies blurry vision or change in vision ENT ENT ED: Reports rhinorrhea and sore throat; Denies ear pain Cardiovascular Cardiovascular: Denies chest pain, palpitations or racing heartbeat Respiratory/Chest Respiratory/Chest: Reports cough, dyspnea and dyspnea on exertion; Denies sputum Gastrointestinal Gastrointestinal: Denies abdominal pain, constipation, diarrhea, nausea or vomiting Genitourinary Genitourinary ED: Denies dysuria, hematuria or urinary frequency Musculoskeletal Musculoskeletal: Denies arthralgias, myalgias or neck pain Integumentary Denies abscess, Abrasions or rash Neurologic Neurologic: Denies headache(s), paresthesias or weakness Psychiatric Psychiatric: Denies anxiety, depression, suicidal ideation or suicidal thoughts Endocrine Endocrinology: Denies polydipsia or polyuria EXAM Physical Exam Const Vital Signs: 06/30/23 22:45 06/30/23 23:01 06/30/23 23:18 Temperature 97.0 F L Temperature Source Temporal Pulse Rate 72 64 Respiratory Rate 15 13 Respiratory Effort Normal Respiratory Pattern Normal Blood Pressure 130/79 H Blood Pressure Mean 96 Pulse Ox 96 Oxygen Delivery Method Room Air Positive well nourished General Appearance ED: NAD HEENT Reports other other Nose: nasal discharge clear Eyes PERRL and EOMs intact bilaterally Neck no lymphadenopathy and supple Resp normal respiratory effort Auscultation: wheezes scattered wheezes Cardio regular rate Extremity normal to inspection Neuro oriented x3 and CN's II-XII intact bilaterally Sensorium / Orientation: alert Motor Exam: strength 5/5 throughout Psych mental status grossly normal Skin no wounds MDM MDM MDM Narrative Medical decision making narrative: Patient presenting with mild respiratory symptoms. Vital signs are stable he is afebrile. He will be tested for COVID, influenza, RSV. He does have some scant scattered wheezes on examination. He will be treated with Solu-Medrol and breathing treatments. He is given Afrin for his nasal congestion. At this point I do not believe he needs any lab work or imaging. RSV came back positive. After breathing treatments the patient feels better. He states Afrin helped with his congestion. Patient will be given albuterol inhaler and a prednisone burst for home. Impression: 1. RSV 2. Bronchitis Lab Data Attestation: I reviewed the patient's lab results. Discharge Plan Triage Chief Complaint: Shortness of Breath ED Provider: Dario Suazo Dx/Rx/DC Orders Instructions: ED RSV Bronchiolitis, ED Bronchitis with Wheezing (Adult) Prescriptions: New prednisone 50 mg tablet 50 mg PO DAILY Qty: 4 0RF No Action tamsulosin 0.4 mg capsule 0.4 mg PO DAILY Qty: 30 12RF gabapentin 100 mg capsule 200 mg PO .qid PRN (Reason: burning pain ) 30 Days Qty: 240 2RF amoxicillin-pot clavulanate 875-125 mg tablet 1 tab PO BID Qty: 20 0RF Primary Care Provider: Emilia Avina NP Referrals: Emilia Avina NP, CURATORIAL ASSISTANT-C [Primary Care Provider] - Disposition Disposition: Home, Self Care
[2023-06-30] MEDS: MethylPREDNISolone 125 MG/2 ML Vial IV (23:04)
[2023-06-30] MEDS: Oxymetazoline 0.05% 1 SPRAY SPRAY.BTL 2 SPRAY NASAL (23:05)
--- OUTSIDE RECORDS SUMMARY | 2023-06-30 23:13 | XMS RPT_ITS | CCD ---
Author Name Unknown Address [address] [place] [id number] Organization [facility] Results Test Name Value Interpretation Reference Range Facil ity Summary Purpose Family History No Family History Records FoundNo Family History Records FoundNo Family History Records Found Advance Directives No Advanced Directives Records FoundNo Advanced Directives Records FoundNo Advanced Directives Records Found Additional Source Comments (unrecognized sect ion and content) No Status Records FoundNo Status Records FoundNo Status Records Found INFORMATION SOURCE (unrecogn ized section and content) DATE CREATED AUTHOR AUTHOR'S ORGANIZ ATION 03/05/2019 [facility] DATE CREATED AUTHOR AUTHOR'S ORGANIZ ATION 01/04/2020 [facility] FOR RECORDS PERTAINING TO PATIENTS WHO ARE OR HAVE BEEN ENROLLED IN A CHEMICAL DEPENDENCY/SUBSTANCEABUSE PROGRAM, SOME INFORMATION MAY BE OMITTED. This clinical summary was aggregated from multiple sources. Caution should be exercised in using it in the provision of clinical care. This summary normalizes information from multiple sources, and as a consequence, information in this document may materially change the coding, format and clinical context of patient data. In addition, data may be omitted in some cases. CLINICAL DECISIONS SHOULD BE BASED ON THE PRIMARY CLINICAL RECORDS. [employer] provides no warranty or guarantee of the accuracy or completeness of information in this document.
[2023-06-30] MEDS: Albuterol 2.5 MG/3 ML VIAL.NEB. INHALATION (23:17)
[2023-06-30] MEDS: Ipratropium/Albuterol Sulfate 3 ML AMPUL.NEB INHALATION (23:17)
[2023-06-30 23:18] VITALS: PULSE 64; RESP 13
[2023-07-01 00:52] VITALS: BP 102/58; PULSE 81; RESP 18; O2SAT 95
== END 2023-07-01 00:57 | disposition home or self-care (01) ==
PROVIDERS: Emergency Provider Student in an Organized Health Care Education/Training Program; PCP Nurse Practitioner; Visit Provider Student in an Organized Health Care Education/Training Program
DX: R09.81 Nasal congestion (principal); R06.2 Wheezing; B97.4 Respiratory syncytial virus as the cause of diseases classified elsewhere; Z87.891 Personal history of nicotine dependence; E78.00 Pure hypercholesterolemia, unspecified; N40.0 Benign prostatic hyperplasia without lower urinary tract symptoms; Z79.899 Other long term (current) drug therapy; Z90.49 Acquired absence of other specified parts of digestive tract; J40 Bronchitis, not specified as acute or chronic
CPT/HCPCS: 87631; 94640; 96374; 99283; A4216

== ENCOUNTER 2023-07-03 07:20 | Emergency (ER) | payer MEDICARE, OTHER, SELFPAY ==
[2023-07-03 07:21] VITALS: BP 141/75; PULSE 82; RESP 18; TEMP 35.6; O2SAT 95; BMI 24.3
[2023-07-03] MEDS: 0.9% Normal Saline (1000mL) 1,000 ML 999 ML IV ×2 (08:19→10:55)
[2023-07-03 08:24] LABS: Bacteria 0 SEEN /hpf (None Seen); Mucous, Urine 0 SEEN /hpf (<or=2+); Red Blood Cells-Urine 0 SEEN /hpf (0-5)
[2023-07-03 08:30] LABS: Absolute Lymphocyte Count 2.78 X10^3/uL (0.83-4.51); Absolute Neutrophil Count 12.9 X10^3/uL (2.0-7.7); Basophil# 0.04 X10^3/uL; Basophil% 0.2 % (0-1); Eosinophil# 0.01 X10^3/uL; Eosinophils% 0.1 % (0-5); Hematocrit 43.7 % (40-54); Hemoglobin 14.6 g/dL (13.0-16.5); Lymphocyte # 2.78 X10^3/ul (0.83-4.51); Lymphocyte % 15.6 % (19-41); Mean Corp Hgb Conc 33.4 g/dL (32-36); Mean Corpuscular Hgb 30.7 pg (27.0-32.0); Mean Platelet Vol. 10.3 fl (6.2-12.0); Monocyte# 1.88 X10^3/uL; Monocyte% 10.6 % (0-10); NRBC Flagged by Analyzer 0 % (0-5); Neutrophil # 12.93 X10^3/uL (2.7-7.7); Neutrophil % 72.7 % (47-70); POSITIVE DIFFERENTIAL YES; Platelet Count 323 K/mm3 (150-450); Red Blood Count 4.75 M/mm3 (4.6-6.2); White Blood Count 17.8 K/mm3 (4.4-11.0)
[2023-07-03 08:35] LABS: Color, Urine Yellow (Yellow); Glucose, Dipstick Normal (Normal); Ketone-Dipstick Negative (Negative); Leukocyte Esterase-Dipstick 25 /ul (Negative); Nitrite-Dipstick Negative (Negative); Occult Blood-Urine Negative /ul (Negative); Protein-Dipstick 30 mg/dl (Negative); Specific Gravity, Urine 1.025 (1.002-1.030); Urine Bilirubin Dipstick Negative (Negative); Urine Clarity Clear (Clear); Urine Urobilinogen Normal (Normal)
[2023-07-03 08:38] LABS: Anion Gap 3 (5-15); BUN 21 mg/dL (7-18); Calcium,Total 9.2 mg/dL (8.5-10.1); Chloride 105 mmol/L (98-107); EST Glomerular Filtration Rate 53 mL/min (>60); Est Glom Filt Rate - Afr Amer 64 mL/min (>60); Estimated Creatinine Clearance 44.79 ml/min; Glucose 92 mg/dL (74-106); Potassium 3.9 mmol/L (3.5-5.1); Sodium Level 138 mmol/L (136-145)
[2023-07-03 08:40] LABS: Squamous Epithelial Cells - UA 0-5 SEEN /hpf (0-5); White Blood Cells 0-5 SEEN /hpf (0-5)
[2023-07-03 08:41] LABS: Differential Indicated SCAN CRITERIA MET
--- OUTSIDE RECORDS SUMMARY | 2023-07-03 08:53 | XMS RPT_ITS | CCD ---
Author Name Unknown Address [address] [place] [id number] Organization [facility] Results Test Name Value Interpretation [...] DATE CREATED AUTHOR AUTHOR'S ORGANIZ ATION 03/05/2019 [facility] DATE CREATED AUTHOR AUTHOR'S ORGANIZ ATION 01/04/2020 [facility] FOR RECORDS PERTAINING TO PATIENTS WHO ARE [...] BE BASED ON THE PRIMARY CLINICAL RECORDS. [employer] provides no warranty or guarantee of the accuracy or completeness of information in this document.
[2023-07-03 08:57] LABS: Differential Comment SCANNED
--- NOTE | 2023-07-03 09:21 | CT_ITS ---
STUDY: CT ABDOMEN AND PELVIS WITHOUT CONTRAST REASON FOR EXAM: Male, 73 years old. left flank pain. History of kidney stones. RADIATION DOSAGE (If Supplied By Facility): CTDIvol = ( 6.13 ) mGy, DLP = ( 356.81 ) mGycm TECHNIQUE: Transaxial images were obtained from the dome of the diaphragm to the symphysis pubis without oral contrast, and without intravenous contrast. Sagittal and coronal images were reconstructed. Individualized dose optimization techniques were used for this CT. COMPARISON: Comparison is made with prior study dated October 08, 2022. FINDINGS: The visualized lung bases are unremarkable. Coronary artery calcification. Normal liver. The patient is status post cholecystectomy. Normal spleen. Normal pancreas. Normal bilateral adrenal glands. Normal right kidney. Stable marked degree of left hydronephrosis most likely secondary to left ureteropelvic obstruction. No ureteral calculus is seen. Normal visualized stomach. Normal small intestine. Normal colon. The appendix is visualized and appears normal. There is scattered atherosclerotic calcification of the abdominal aorta and its major visceral branches, without a demonstrated aneurysm. Normal inferior vena cava. Normal retroperitoneum. Normal urinary bladder. There is enlargement of the prostate gland. The prostate measures 5.1 cm x 4.2 cm. This causes indentation at the bladder base. There is a small umbilical hernia containing fat. There are degenerative changes of the visualized lumbar spine. CT/Abdomen/Pelvis without Cont IMPRESSION: Stable marked degree of a left hydronephrosis most likely secondary to possible left ureteral pelvic stenosis. No obstructive calculus is seen at this time. Prostatic enlargement. Status post cholecystectomy. Electronically Signed: Sung Durbin MD at 9:58 EST ,
--- NOTE | 2023-07-03 09:30 | ED.VIS.BACK ---
HPI History of Present Illness Chief Complaint: Back Narrative Narrative: 73-year-old male recently seen for treatment of RSV. Apparently had recent travel out of state and developed symptoms of viral URI. He was treated for this. Is been on prednisone as an outpatient and has an albuterol inhaler. He reports back pain which is worse on the left. Patient states that he has a history of hydronephrosis on the left which is not due to kidney stone. Previous had a stent placed by Dr. Starr. He states that he recently was in touch with the office status post to have a outpatient CT scan to assess his stent. Patient denies dysuria or hematuria. He does have some burning in his epigastrium. He states this is new. 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 Ureteral stent present Home Medications gabapentin 100 mg capsule 200 mg (2 x 100 mg) PO .qid PRN burning pain 30 days #240 caps 10/20/22 [Rx Last Taken Unknown] tamsulosin 0.4 mg capsule 0.4 mg PO DAILY BPH #30 caps 10/20/22 [Rx Last Taken Unknown] amoxicillin 875 mg-potassium clavulanate 125 mg tablet 1 tab PO BID #20 tabs 02/14/23 [Rx Last Taken Unknown] prednisone 50 mg tablet 50 mg PO DAILY #4 tabs 07/01/23 [Rx Last Taken Unknown] famotidine 20 mg tablet (Pepcid) 20 mg PO BID PRN epigastric pain 5 days #10 tabs 07/03/23 [Rx Last Taken Unknown] ondansetron 4 mg disintegrating tablet 4 mg PO Q8H PRN PRN Nausea #10 tabs 07/03/23 [Rx Last Taken Unknown] Allergy/AdvReac Type Severity Reaction Status Date / Time No Known Allergies Allergy Verified 06/30/23 22:48 Family History Other BPH (benign prostatic hyperplasia) Surgical History CHOLECYSTECTOMY W/ INTRAOPERATIVE CHOLANGIOGRAM Social History Smoking Status: Former smoker second hand exposure: No alcohol intake: current substance use type: does not use ROS ROS ED Constitutional Constitutional ED: Denies chills, fever(s) or sweats Eyes Eyes: Denies blurry vision or change in vision ENT ENT ED: Denies ear pain or sore throat Cardiovascular Cardiovascular: Denies chest pain, palpitations or racing heartbeat Respiratory/Chest Respiratory/Chest: Denies cough, dyspnea or sputum Gastrointestinal Gastrointestinal: Reports abdominal pain and other Details: Dyspepsia ; Denies constipation, diarrhea or vomiting Genitourinary Genitourinary ED: Denies dysuria, hematuria or urinary frequency Musculoskeletal Musculoskeletal: Reports back pain; Denies arthralgias, myalgias or neck pain Integumentary Denies abscess, Abrasions or rash Neurologic Neurologic: Denies headache(s), paresthesias or weakness Psychiatric Psychiatric: Denies anxiety, depression, suicidal ideation or suicidal thoughts Endocrine Endocrinology: Denies polydipsia or polyuria EXAM Physical Exam Const Vital Signs: 07/03/23 07:21 Temperature 96.0 F L Temperature Source Temporal Pulse Rate 82 Respiratory Rate 18 Blood Pressure 141/75 H Blood Pressure Mean 97 Pulse Ox 95 Oxygen Delivery Method Room Air Positive well nourished General Appearance ED: Negative for pallor HEENT Reports moist mucous membranes Eyes PERRL and EOMs intact bilaterally Resp normal respiratory effort Cardio regular rate and regular rhythm GI GI Narrative: Mild epigastric tenderness. Back/Spine General Back: CVA tenderness left Extremity normal to inspection Neuro oriented x3 Sensorium / Orientation: alert Motor Exam: strength 5/5 throughout Psych mental status grossly normal Skin no rashes or lesions noted General Skin Exam: Negative for jaundice or pallor MDM MDM MDM Narrative Medical decision making narrative: Patient presenting with epigastric tenderness and dyspepsia. He also has lower back pain on the left. He states he has a history of renal stent on the left secondary to hydronephrosis which was not caused by a kidney stone. Previous had a stent placed by Dr. Starr. Patient denies dysuria or hematuria. Differential includes UTI, pyelonephritis, kidney stone, obstructive uropathy, gastritis, GERD, peptic ulcer disease. Patient given GI cocktail. CBC was obtained to assess white blood cell count, hemoglobin, platelets. BMP to assess renal function, electrolytes, glucose. Urinalysis to assess for UTI and occult blood. CBC shows leukocytosis 17.8. Hemoglobin stable at 14.6. Creatinine is elevated 1.40 and patient was given IV fluids. Electrolytes are normal. Urinalysis negative for infection. Will obtain CT of the abdomen pelvis without contrast to assess for urinary outlet obstruction. CBC likely reactive due to recent prednisone. CT of the abdomen pelvis shows left-sided hydronephrosis which appears stable. Discussed the case with urology who recommended outpatient follow-up. Patient given GI cocktail here to help with his epigastric discomfort. Will be discharged home on Pepcid and Zofran. Return precautions discussed. Impression: 1. Gastritis 2. Left-sided hydronephrosis 3. Left ureteral stenosis Lab Data Labs: Laboratory Results - last 24 hr 07/03/23 07/03/23 08:14 08:16 WBC 17.8 H RBC 4.75 Hgb 14.6 Hct 43.7 MCV 92.0 MCH 30.7 MCHC 33.4 RDW Std Deviation 44.0 H RDW Coeff of Hector 13.0 Plt Count 323 MPV 10.3 Immature Gran % (Auto) 0.800 Neut % (Auto) 72.7 H Lymph % (Auto) 15.6 L [place] % (Auto) 10.6 H Eos % (Auto) 0.1 Baso % (Auto) 0.2 Absolute Neuts (auto) 12.9 H Absolute Lymphs (auto) 2.78 Nucleated RBC % 0 Differential Comment SCANNED Diff Path Review May foll Sodium 138 Potassium 3.9 Chloride 105 Carbon Dioxide 30.0 Anion Gap 3 L BUN 21 H Creatinine 1.40 H Estim Creat Clear Calc 44.79 Est GFR (MDRD) Af Amer 64 Est GFR (MDRD) Non-Af 53 L BUN/Creatinine Ratio 15.0 Glucose 92 Calcium 9.2 Urine Color Yellow Urine Clarity Clear Urine pH 6.0 Ur Specific [place] 1.025 Urine Protein 30 H Urine Glucose (UA) Normal Urine Ketones Negative Urine Occult Blood Negative Urine Nitrite Negative Urine Bilirubin Negative Urine Urobilinogen Normal Ur Leukocyte Esterase 25 H Urine RBC 0 SEEN Urine WBC 0-5 SEEN Ur Squamous Epith Cells 0-5 SEEN Urine Bacteria 0 SEEN Urine Mucus 0 SEEN Radiography Diagnostic Testing: Clinical Impression(s) from Imaging Studies Abdomen/Pelvis CT 07/03/23 09:21 IMPRESSION: Stable marked degree of a left hydronephrosis most likely secondary to possible left ureteral pelvic stenosis. No obstructive calculus is seen at this time. Prostatic enlargement. Status post cholecystectomy. Electronically Signed: Sung Durbin MD at 9:58 EST , Discharge Plan Triage Chief Complaint: Back ED Provider: Dario Suazo Dx/Rx/DC Orders Instructions: Understanding Hydronephrosis, ED Dehydration (Adult), ED Gastritis (Adult) Prescriptions: New famotidine [Pepcid] 20 mg tablet 20 mg PO BID PRN (Reason: epigastric pain) 5 Days Qty: 10 0RF ondansetron 4 mg tablet,disintegrating 4 mg PO Q8H PRN PRN (Reason: Nausea) Qty: 10 0RF No Action tamsulosin 0.4 mg capsule 0.4 mg PO DAILY Qty: 30 12RF gabapentin 100 mg capsule 200 mg PO .qid PRN (Reason: burning pain ) 30 Days Qty: 240 2RF amoxicillin-pot clavulanate 875-125 mg tablet 1 tab PO BID Qty: 20 0RF prednisone 50 mg tablet 50 mg PO DAILY Qty: 4 0RF Primary Care Provider: Emilia Avina NP Referrals: Mateus Starr MD [Med Staff - Active Staff] - 3-5 Days Emilia Avina NP, EQUIPMENT SERVICES ASSOCIATE-C [Primary Care Provider] - Disposition Disposition: Home, Self Care Capacity Legal Mounter [employer] Reflex Medical hold order details:: IF a medical hold is selected below, a suggested order for a MEDICAL HOLD will reflex upon signing the document. Next of kin: [place] law dictates a PRIORITY LIST for identifying legal decision-maker/legal next of kin in the following order (LNOK): 1st: The patient?s legal guardian, if any 2nd: The patient's spouse (if status is questionable, consult Risk Management) 3rd: The patient?s adult child(abhay) (majority, if multiple children) 4th: The patient?s parents 5th: The patient?s adult siblings (majority, if multiple children siblings)
[2023-07-03 10:21] VITALS: BP 136/64; PULSE 88; RESP 16; O2SAT 98
[2023-07-03] MEDS: Mag Hydrox/Al Hydrox/Simeth 30 ML UDC PO (10:59)
[2023-07-03 13:09] LABS: Pathologist Review Reviewed
== END 2023-07-03 11:06 | disposition home or self-care (01) ==
PROVIDERS: Emergency Provider Student in an Organized Health Care Education/Training Program; PCP Nurse Practitioner; Visit Provider Student in an Organized Health Care Education/Training Program
DX: K29.70 Gastritis, unspecified, without bleeding (principal); N13.1 Hydronephrosis with ureteral stricture, not elsewhere classified; Z87.891 Personal history of nicotine dependence; Z96.0 Presence of urogenital implants; E78.00 Pure hypercholesterolemia, unspecified; N40.0 Benign prostatic hyperplasia without lower urinary tract symptoms; Z79.899 Other long term (current) drug therapy
CPT/HCPCS: 74176; 80048; 81001; 85025; 96360; 96361; 99283; J7030; A4216

== ENCOUNTER → 2023-07-05 | Outpatient (CLI) | payer MEDICARE, OTHER, SELFPAY ==
--- NOTE | 2023-07-05 11:35 | NM_ITS ---
CLINICAL: 73-year-old male with history of ureteropelvic junction obstruction. 99m Tc MAG3 DIURETIC RENAL SCINTIGRAPHY COMPARISON: Previous diuretic renal scintigraphy study dated 08/28/2022 FINDINGS: Following the intravenous administration of 12.0 mCi of 99m Tc MAG3, renal images reveal: 1. The flow study demonstrates a delayed arterial phase distribution of the radiotracer to the bilateral kidneys. 2. Immediate static delayed nephrogram images depict relatively prompt tracer distribution to the right kidney. Uptake is delayed and decreased in the left renal unit. Washout of the radiopharmaceutical is delayed in the bilateral kidneys. A component of spontaneous drainage of the right kidney collecting system is noted prior to Lasix administration. Persistent collecting system is noted in the left renal unit prior to the provision of furosemide. 3. The yjjeg-ng-[id number] ratio of total renal parenchymal function was calculated to be 63/37 compared to 60/40 recorded on the prior examination. Furosemide 10 mg was administered intravenously. The post Lasix T ? washout of the right kidney collecting system activity was calculated to be < 10 minutes and > 20 minutes in the left kidney, (normal < 10 minutes). Analysis of the left kidney collecting system post Lasix time/activity curve demonstrates minimal decreasing count statistics. NM/Renal Scan w/ Pharm Intervent IMPRESSION: 1. There is scintigraphic evidence of bilateral renal parenchymal-cortical dysfunction, L worse than R. 2. An abnormal response to furosemide administration is demonstrated in the left kidney collecting system consistent with mechanical and/or functional obstruction. 3. Overall compared to the examination dated 08/28/2022, there is interim development of defined obstruction involving the left kidney collecting system as defined above. Electronically Signed: Chaim Thurman DO at 9:49 EST ,
== END | disposition home or self-care (01) ==
LOC: NM 11:30
PROVIDERS: PCP Nurse Practitioner; Referring Provider Urology; Visit Provider Urology
DX: Q62.11 Congenital occlusion of ureteropelvic junction (principal)
CPT/HCPCS: 78708; A9562; J1940

== ENCOUNTER 2023-08-08 14:16 | Inpatient (IN) | payer MEDICARE, OTHER, SELFPAY ==
--- NOTE | 2023-07-30 08:05 | EKG12_ITS ---
Test Reason : PREOP Blood Pressure : / mmHG Vent. Rate : 077 BPM Atrial Rate : 077 BPM P-R Int : 178 ms QRS Dur : 136 ms QT Int : 392 ms P-R-T Axes : 078 -80 055 degrees QTc Int : 443 ms Normal sinus rhythm with sinus arrhythmia Right bundle branch block LAFB Abnormal ECG Confirmed by Emerson Perez ([id number]), greeting card editor SOLOMON MIX ([id number]) on 07/31/2023 9:18:34 AM Referred By: CHERI Confirmed By:Emerson Perez
[2023-08-08] VITALS (12 sets, daily range): BP systolic 96–130; BP diastolic 50–72; PULSE 69–100; RESP 16–18; TEMP 36–37; O2SAT 92–98; BMI 23.6
[2023-08-08] MEDS: Lactated Ringers 1,000 ML 15 ML IV (10:07)
[2023-08-08] MEDS: Cefazolin 2 GM in 0.9% Normal Saline (100mL Bag) 100 ML IV (11:20)
--- NOTE | 2023-08-08 11:30 | URE_PTH ---
PATHOLOGY RESULTS PATIENT: FEDERICO STACK LOC: MS3 U#:[id number] AGE/SX: 73/M [place] [facility] [place]08/09/[address]: Dr. Mateus Starr MD : 1950 BED: 1 DIS: 08/10/2023 SPEC #: [id number] RECD: 08/09/23 07:10 STATUS: DANIELLE MIRTA #: [id number] VICKY: 08/08/23 11:[address]: Mateus Starr DEPT: SURGICAL PATHOLOGY RECD BY: Moon Scales ENTERED: 08/09/23 07:11 SP TYPE: URETER BX OTHR DR: Emilia Avina, OFFICE SUPERVISOR-C Tissues: Ureter, NOS Procedures: Surgery Specimen Level IV HEADER OPERATION: Laparoscopic robotic pyeloplasty, stent placement PRE-OP DIAGNOSIS: Obstruction left kidney collecting system TISSUE SUBMITTED: Ureteropelvic junction segment left side MICROSCOPIC DIAGNOSIS Ureteropelvic junction segment left side, biopsy: Chronic inflammation. Negative for malignancy. BHAKTI:janell 08/10/2023 MICROSCOPIC DESCRIPTION Slides are reviewed. GROSS DESCRIPTION Received in fixative is one container labeled with the patient's name and designated ureteropelvic junction segment left side. The specimen consists of tubular piece of lozada soft tissue measuring 0.5 cm in length and 0.5 cm in diameter. The specimen is inked and submitted entirely in one cassette. / BHAKTI:janell 08/09/2023 TC:3 CPT: 02498
--- NOTE | 2023-08-08 13:32 | PCM.HP.STD ---
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 Prostate disease Ureteral stent present Wears dentures Wears glasses Home Medications tamsulosin 0.4 mg capsule 0.4 mg PO DAILY BPH #30 caps 10/20/22 [Rx Last Taken Unknown] ciprofloxacin HCl 500 mg tablet (Cipro) 500 mg PO Q12H #10 tabs 08/08/23 [Rx Last Taken Unknown] oxycodone 5 mg tablet 5 mg PO Q6H PRN pain 7 days #14 tabs 08/08/23 [Rx Last Taken Unknown] phenazopyridine 100 mg tablet (Pyridium) 100 mg PO TID PRN burning #20 tabs 08/08/23 [Rx Last Taken Unknown] Allergy/AdvReac Type Severity Reaction Status Date / Time No Known Allergies Allergy Verified 08/08/23 09:48 Family History Other BPH (benign prostatic hyperplasia) Surgical History (Updated 07/25/23 @ 11:04 by Patti Keller) CHOLECYSTECTOMY W/ INTRAOPERATIVE CHOLANGIOGRAM History of cystoscopy Social History Smoking Status: Former smoker second hand exposure: No alcohol intake: current substance use type: does not use Vital Signs Vital Signs Vital Signs: 08/08/23 09:48 08/08/23 09:48 Temperature 97.8 F Temperature Source Temporal Pulse Rate 82 Respiratory Rate 16 Respiratory Pattern Normal Blood Pressure 129/71 H Blood Pressure Mean 90 Blood Pressure Source Monitor Blood Pressure Position Semi-Fowlers Blood Pressure Location Left Arm Pulse Ox 98 Oxygen Delivery Method Room Air Weight Weight: 70.307 kg Body Mass Index (BMI) 23.6
--- NOTE | 2023-08-08 13:33 | OP.PCM_ITS ---
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 long time ago via an open flank approach he been doing well with this for a long time and then presented to the emergency room several months ago with severe pain dilated ureter, we did a retrograde pyelogram that demonstrated a kink and stricture at the UPJ area a stent was placed we then tried balloon dilating the ureter and stent placement for 6 weeks the stent was removed he failed this approach had severe pain and we did Lasix renogram that demonstrated mechanical obstruction still good function of the left kidney and therefore recommended we proceed with a laparoscopic robotic assisted reoperative repair of the left UPJ stricture with a pyeloplasty. Patient was taken back to the operating room after smooth induction of general anesthesia he was placed in left flank position with the left flank up and full lateral position with axillary roll in place he was intubated Matthews catheter was placed. We then placed camera trocar right arm trocar left arm trocar after the pneumoperitoneum was obtained we placed an air seal port 8 mm. We used all 8 mm ports. We then started by reflected the colon off the kidney some adhesions were encountered as we are doing this after the colon was completely mobilized off the kidney then the dilated renal pelvis was identified and then I went when I went superiorly dissecting through the renal pelvis I did encounter 1 bleeding arterial branch at the be clipped in order to control this but after this was clipped there was no more bleeding from that. I then dilated the pelvis and is dissected out I then went down to the area of the UPJ basically found the dilated pelvis and an S shaped UPJ that was kinking off with a light dilation of the pelvis. And there was a lot of scar tissue around the anastomosis between the ureter and the UPJ area. I then dissected down the ureter completely so I could see the length of the ureter look like is going the 2 ends were going approximate quite nicely without having to do a flap so I then cut the UPJ stricture and I freshened up and cut the the ureter remove the segment of the UPJ stricture spatulated the ureter and then did anastomosis with 3-0 Monocryl. After 3 stay stitches were placed then I placed a wire down the ureter and over the wire advanced a stent and then once the stent was then pulled the wire and the stent coiled and then we put the coil in the upper part of the kidney I then finished the anastomosis between the ureter and the renal pelvis with i nterrupted 3-0 Monocryl's circumferentially we then checked and there was no major gaps there was 1 more stitch needed posteriorly and then once this was done it was a perfect anastomosis between the ureter and the renal pelvis tension-free watertight. Did not leave a drain. I then undocked the robot we desufflated the abdomen there was no bleeding then we removed all the trocars and patient's anesthetic was being reversed. Successful redo left pyeloplasty and stent placement he understands we will need to go home with a stent and have the stent removed in 6 weeks I will see him in 2 weeks for postop check. Surgeon: Mateus Starr Type of Anesthesia: General Drains: Matthews Estimated Blood Loss (mL): 25cc Admit VTE Documentation VTE Present on Admission: No VTE Mechan Device Prophylaxis: SCD's VTE Pharm Prophylaxis ordered?: No
--- NOTE | 2023-08-08 13:33 | DCINST_ITS ---
Discharge Instructions Diet Discharge Diet: No restrictions, Light diet - advance as tolerated and Soft diet Activity Discharge Activity: Return to Normal Activity Dressing / Incision Suture Line Care: Avoid Pulling/Pushing and Avoid Pinching/Bending Cleanse incision/area with: Soap & Water and Normal Saline Follow Up Care Please Follow Up With: Mateus Starr MD When: 2 weeks Test Results: Test results from this visit will be discussed in further detail at your follow- up appointment, if applicable. Discharge Plan Admission Primary Reason for Your Visit: Left robotic lap laparoscopic pyeloplasty repair Attending Provider: Mateus Starr Primary Care Provider: Emilia Avina NP Discharge Orders/Prescriptions Prescriptions: New oxycodone 5 mg tablet 5 mg PO Q6H PRN (Reason: pain) 7 Days Qty: 14 0RF ciprofloxacin HCl [Cipro] 500 mg tablet 500 mg PO Q12H Qty: 10 0RF phenazopyridine [Pyridium] 100 mg tablet 100 mg PO TID PRN (Reason: burning) Qty: 20 0RF No Action tamsulosin 0.4 mg capsule 0.4 mg PO DAILY Qty: 30 12RF Referrals / Follow Up: Mateus Starr MD [Med Staff - Active Staff] - Emilia Avina NP, FIELD TECHNICAL ASSISTANT-C [Primary Care Provider] - Disposition Disposition (needs filled in before D/C Order can be placed): Home, Self Care
[2023-08-08] MEDS: Bupivacaine Mpf 0.5% 30 ML VIAL (13:35)
--- NOTE | 2023-08-08 14:15 | SUR.PHASEI ---
RESTING QUIETLY, VSS, NO S/S DISTRESS BUT WHEN AROUSED AND ASKED ABOUT PAIN, REPORTS IT'S 9/10. REVIEWED PAIN SCALE w/ PATIENT WHO VERBALIZES UNDERSTANDING. STATES MY BELLY IS ON FIRE.
[2023-08-08] MEDS: Ketorolac 30 MG/ML Syringe IV (14:18)
[2023-08-08] MEDS: Lactated Ringers 1,000 ML 125 ML IV ×2 (16:06→23:55)
[2023-08-08] MEDS: oxyCODONE 5 MG Tablet PO ×3 (16:06→22:48)
[2023-08-08] MEDS: Tamsulosin HCl 0.4 MG Capsule 0.400000000000000022 MG PO (16:56)
[2023-08-08] MEDS: Cefazolin 1 GM/50 ML BAG IV (18:45)
--- OUTSIDE RECORDS SUMMARY | 2023-08-08 18:49 | XMS RPT_ITS | CCD ---
Author Name Unknown Address [address] [place] [id number] Organization [facility] Results Test Name Value Interpretation [...] DATE CREATED AUTHOR AUTHOR'S ORGANIZ ATION 03/05/2019 [facility] DATE CREATED AUTHOR AUTHOR'S ORGANIZ ATION 01/04/2020 [facility] FOR RECORDS PERTAINING TO PATIENTS WHO ARE [...] BE BASED ON THE PRIMARY CLINICAL RECORDS. [employer] provides no warranty or guarantee of the accuracy or completeness of information in this document.
[2023-08-08] MEDS: Ketorolac 15 MG/ML Vial IV (20:30)
[2023-08-08] MEDS: Docusate Sodium 100 MG Capsule 200 MG PO (20:30)
[2023-08-09] VITALS (10 sets, daily range): BP systolic 77–119; BP diastolic 40–96; PULSE 57–94; RESP 16; TEMP 36.6–37.1; O2SAT 92–95
[2023-08-09] MEDS: Cefazolin 1 GM/50 ML BAG IV (02:44)
[2023-08-09] MEDS: Ketorolac 15 MG/ML Vial IV ×4 (02:44→20:49)
[2023-08-09] MEDS: Lactated Ringers 1,000 ML 125 ML IV ×3 (06:57→22:32)
--- NOTE | 2023-08-09 07:24 | DCINST_ITS ---
Discharge Instructions Diet Discharge Diet: No restrictions, Light diet - advance as tolerated and Soft diet Dressing / Incision Suture Line Care: Avoid Pulling/Pushing and Avoid Pinching/Bending Cleanse incision/area with: Soap & Water and Normal Saline Catheter: Matthews to leg bag and Matthews to large bag Drain: [place] Follow Up Care Please Follow Up With: Mateus Starr MD When: 1 week for follow up Test Results: Test results from this visit will be discussed in further detail at your follow- up appointment, if applicable. Discharge Plan Admission Admit Date/Time: 08/08/23 14:16 Primary Reason for Your Visit: Left robotic lap laparoscopic pyeloplasty repair Attending Provider: Mateus Starr Primary Care Provider: Emilia Avina NP Discharge Orders/Prescriptions Prescriptions: New oxycodone 5 mg tablet 5 mg PO Q6H PRN (Reason: pain) 7 Days Qty: 14 0RF ciprofloxacin HCl [Cipro] 500 mg tablet 500 mg PO Q12H Qty: 10 0RF phenazopyridine [Pyridium] 100 mg tablet 100 mg PO TID PRN (Reason: burning) Qty: 20 0RF No Action tamsulosin 0.4 mg capsule 0.4 mg PO DAILY Qty: 30 12RF Referrals / Follow Up: Mateus Starr MD [Med Staff - Active Staff] - Emilia Avina NP, CHAIRMAN & CEO-C [Primary Care Provider] -
--- NOTE | 2023-08-09 07:24 | PCM.PN.GU ---
Subjective Subjective doing well s/p redo pyeloplasty repair. home wiht santo to leg bag Objective Data Objective Data Vital Signs: Vital Signs Temp Pulse Resp BP Pulse Ox O2 Del Method O2 Flow Rate 98 F 57 L 16 106/52 L 95 Room Air 2 08/09/23 06:42 08/09/23 06:42 08/09/23 06:42 08/09/23 06:42 08/09/23 06:42 08/09/23 06:42 08/08/23 14:58 Oxygen Flow Rate (L/min) 2 Oxygen Delivery Method Room Air Weight: 70.307 kg Body Mass Index (BMI) 23.6 Intake & Output: Intake and Output for Last 24 Hours 08/07/23 08/08/23 08/09/23 23:59 23:59 23:59 Intake Total 2430.92 / 2630.92 1329.17 / 1329.17 Output Total 475 / 825 1050 / 1050 Balance 1955.92 / 1805.92 279.17 / 279.17
--- NOTE | 2023-08-09 09:11 | CASEMGMT ---
MEY CM met with pt to discuss discharge. Pt is from home, independent at baseline. Pt feels comfortable managing the santo at home, is aware of the needed follow ups, and has no issues obtaining his medications. Pt reports he plans to stay with his daughter post discharge as her home is all one level. Pt reports he has a cane that he can use if needed. Pt has transportation home. Pt reports no concerns with discharge. Shira Esteves MSN, RN, CCM
[2023-08-09] MEDS: Docusate Sodium 100 MG Capsule 200 MG PO ×2 (10:01→21:00)
--- NOTE | 2023-08-09 10:47 | PHA.DC.MC.R ---
Pharmacy [facility] Pharmacy Service has performed discharge medication reconciliation and counseling for this patient. The patient's discharge medication list was reviewed for discrepancies and discrepancies were resolved. The patient was counseled on the following discharge medications and changes in medications for homegoing were reviewed. 1. CIPRO 2. PYRIDIUM 3. OXYCODONE The Reason for Use, instructions for use, and potential side effects were reviewed for all new medications. The patient's questions regarding all of their medications were answered. The patient was able to verbally demonstrate an understanding of their discharge medications. The patient was counselled by [place] PharmD Candidate
[2023-08-09 10:58] LABS: Absolute Lymphocyte Count 2.24 X10^3/uL (0.83-4.51); Basophil# 0.03 X10^3/uL; Basophil% 0.2 % (0-1); Eosinophil# 0.01 X10^3/uL; Eosinophils% 0.1 % (0-5); Hematocrit 35.8 % (40-54); Hemoglobin 11.8 g/dL (13.0-16.5); Lymphocyte # 2.24 X10^3/ul (0.83-4.51); Lymphocyte % 16.4 % (19-41); Mean Corpuscular Hgb 29.9 pg (27.0-32.0); Mean Corpuscular Volume 90.9 fL (80-94); Mean Platelet Vol. 10.6 fl (6.2-12.0); Monocyte# 1.36 X10^3/uL; Monocyte% 9.9 % (0-10); NRBC Flagged by Analyzer 0 % (0-5); Neutrophil # 9.98 X10^3/uL (2.7-7.7); Neutrophil % 72.8 % (47-70); Platelet Count 273 K/mm3 (150-450); RBC Distribution Width CV 12.6 % (11.6-14.6); RBC Distribution Width SD 41.8 fl (35.1-43.9); Red Blood Count 3.94 M/mm3 (4.6-6.2); White Blood Count 13.7 K/mm3 (4.4-11.0)
[2023-08-09 11:28] LABS: Anion Gap 2 (5-15); BUN 15 mg/dL (7-18); BUN/Creat Ratio 12.6 RATIO (10-20); Calcium,Total 8.8 mg/dL (8.5-10.1); Chloride 106 mmol/L (98-107); Creatinine, Serum 1.19 mg/dL (0.70-1.30); EST Glomerular Filtration Rate 63 mL/min (>60); Est Glom Filt Rate - Afr Amer 77 mL/min (>60); Estimated Creatinine Clearance 52.69 ml/min; Glucose 110 mg/dL (74-106); Sodium Level 137 mmol/L (136-145)
[2023-08-10] VITALS (10 sets, daily range): BP systolic 104–136; BP diastolic 60–80; PULSE 57–86; RESP 16; TEMP 36.5–37; O2SAT 82–96
[2023-08-10] MEDS: Ketorolac 15 MG/ML Vial IV (02:22)
[2023-08-10] MEDS: 0.9% Saline Lock 10 ML Syringe IV (02:23)
[2023-08-10] MEDS: Lactated Ringers 1,000 ML 125 ML IV (06:46)
--- NOTE | 2023-08-10 07:36 | PCM.PN.GU ---
Subjective Subjective pt kept one more night b/c low bp, h/h was okay this am bp is much better, pt doing well d/c zachary today Objective Data Objective Data Vital Signs: Vital Signs Temp Pulse Resp BP Pulse Ox O2 Del Method O2 Flow Rate 98 F 60 16 121/74 H 91 Room Air 2 08/10/23 05:29 08/10/23 05:29 08/10/23 05:29 08/10/23 05:29 08/10/23 06:48 08/10/23 06:48 08/10/23 06:19 Oxygen Flow Rate (L/min) 2 Oxygen Delivery Method Room Air Weight: 70.307 kg Body Mass Index (BMI) 23.6 Intake & Output: Intake and Output for Last 24 Hours 08/08/23 08/09/23 08/10/23 23:59 23:59 23:59 Intake Total 2430.92 / 2630.92 4027.09 / 4227.09 1400 / 1400 Output Total 475 / 825 1350 / 2000 1550 / 1550 Balance 1955.92 / 1805.92 2677.09 / 2227.09 -150 / -150 Lab / Micro Data 08/09/23 10:20 08/09/23 10:20 Labs: Laboratory Results - last 24 hr 08/09/23 10:20: WBC 13.7 H, RBC 3.94 L, Hgb 11.8 L, Hct 35.8 L, MCV 90.9, MCH 29.9, MCHC 33.0, RDW Std Deviation 41.8, RDW Coeff of Hector 12.6, Plt Count 273, MPV 10.6, Immature Gran % (Auto) 0.600, Neut % (Auto) 72.8 H, Lymph % (Auto) 16.4 L, [place] % (Auto) 9.9, Eos % (Auto) 0.1, Baso % (Auto) 0.2, Absolute Neuts (auto) 10.0 H, Absolute Lymphs (auto) 2.24, Nucleated RBC % 0, Sodium 137, Potassium 4.0, Chloride 106, Carbon Dioxide 29.0, Anion Gap 2 L, BUN 15, Creatinine 1.19, Estim Creat Clear Calc 52.69, Est GFR (MDRD) Af Amer 77, Est GFR (MDRD) Non-Af 63, BUN/Creatinine Ratio 12.6, Glucose 110 H, Calcium 8.8
== END 2023-08-10 09:03 | disposition home or self-care (01) | DRG 690 ==
LOC: SDC 14:36 → MS3 14:36
PROVIDERS: Admitting Provider Urology; PCP Nurse Practitioner; Referring Provider Urology; Visit Provider Urology
PROC: 8E0W4CZ Robotic Assisted Procedure of Trunk Region, Percutaneous Endoscopic Approach (ICD-10-PCS; CPT 50544; principal; 2023-08-08 11:00)
DX: N13.5 Crossing vessel and stricture of ureter without hydronephrosis (principal); Z87.891 Personal history of nicotine dependence; Z92.241 Personal history of systemic steroid therapy; Z96.0 Presence of urogenital implants
CPT/HCPCS: 36415; 80048; 85025; 88305; 93005; J7120; A4216; C1769; C2617; J2405

== ENCOUNTER 2023-08-24 03:16 | Inpatient (IN) | payer MEDICARE, OTHER, SELFPAY ==
[2023-08-24] VITALS (8 sets, daily range): BP systolic 109–143; BP diastolic 59–88; PULSE 61–81; RESP 13–18; TEMP 36.2–36.7; O2SAT 92–96; BMI 23.9; BMI 23.2
--- NOTE | 2023-08-24 03:23 | EKG12_ITS ---
Test Reason : CHEST/ABDOMINAL PAIN Blood Pressure : / mmHG Vent. Rate : 057 BPM Atrial Rate : 057 BPM P-R Int : 174 ms QRS Dur : 134 ms QT Int : 438 ms P-R-T Axes : 081 -71 045 degrees QTc Int : 426 ms Sinus bradycardia Right bundle branch block Left anterior fascicular block Bifascicular block Abnormal ECG Confirmed by Emerson Perez ([id number]), assistant editor ADAM BOWLING ([id number]) on 08/27/2023 2:11:23 PM Referred By: MASON Confirmed By:Emerson Perez
--- NOTE | 2023-08-24 03:23 | CT_ITS ---
INDICATION: upper abd pain s/p surgery COMPARISON: Abdominal CT 07/03/2023. IV Contrast dosage and agent: 100 cc [id number] IV. A radiation dose optimization technique was used for this scan. RADIATION DOSAGE (If Supplied By Facility): CTDIvol/DLP = ( 14.31 ) / ( 667.26 ) mGy/mGycm FINDINGS: Contrast enhanced serial CT axial images through the abdomen and pelvis with coronal and sagittal reformatted series. PANCREAS: No peripancreatic fat stranding. BOWEL/MESENTERY: No dilated bowel loops. No significant free fluid. No free air. GALLBLADDER: No pericholecystic fat stranding. LIVER/STOMACH: No obvious abnormality. URINARY COLLECTING SYSTEM/ KIDNEYS: No obstructing ureteral calculus. Left lower renal pole focal atrophy/scarring. Left-sided double-J stent is in place, which appears appropriately positioned, proximal pigtail coiled within the left renal pelvis and distal pigtail within the urinary bladder. Mild left hydronephrosis with associated peripelvic fat stranding. Urothelial enhancement as well. APPENDIX: Normal caliber gas containing appendix. SPLEEN: Wedge-shaped areas of diminished perfusion of the superior aspect of the spleen, consistent with splenic infarcts. No obvious associated splenic vascular abnormality of the large vessels. LUNG BASES: Thick linear consolidation bilaterally, likely atelectasis versus scarring, although somewhat atypical appearing. BONES: Unremarkable for age. CT/Abdomen/Pelvis W IV Cont ONLY IMPRESSION: Splenic infarcts. Left-sided double-J stent is in place, which appears appropriately positioned. Mild left hydronephrosis with associated peripelvic inflammatory change, which may be related to stent in place, although infection should be considered. Thick linear consolidation bilaterally, likely atelectasis versus scarring, although somewhat atypical appearing. Recommend follow-up to resolution is neoplastic process is not excluded. Electronically Signed: Yordan Spangler MD at 4:20 EST ,
--- NOTE | 2023-08-24 03:25 | EDS_ITS ---
HPI HPI - GI History of Present Illness Chief Complaint: Abd Pain Detail of Chief Complaint: Epigastric pain at 1 AM that awoke him from sleep. Informant: patient Abdominal Pain/Flank Pain Onset: Today and Hours Context: Sudden Onset Timing: Continuous Quality: Aching Location: Epigastric Current Severity: Moderate Maximum Severity: Moderate Worsened by: Nothing Relieved by: Nothing Nausea/Vomiting/Emesis GI Symptom: Positive for Nausea Severity: Mild Diarrhea/Melena/Hematochezia GI Symptom: Negative for Diarrhea, Melena or Hematochezia Associated Symptoms Associated Symptoms: Negative for Dysuria, Frequency, Hematuria or Urgency Narrative Narrative: 73-year-old male history of cholecystectomy and recent left ureter surgery due to stenosis and hydronephrosis on the left. That surgery was done here by urology and he was hospitalized for 2 days. Patient states has been doing well. He went to bed he was fine last night. At 1 AM this morning he awoke with epigastric abdominal pain. No radiation to his back. No prior history. Possibly some mild radiation to his lower chest. He has been peeing well. Having bowel movements. Denies any fever. He has been doing well since the surgery. Prior similar symptoms: No Recent Illness/Hospitalization: Yes PFSH PFSH Medical History (Updated 08/24/23 @ 04:[address] 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 Abel Reid MD) CHOLECYSTECTOMY W/ INTRAOPERATIVE CHOLANGIOGRAM History of cystoscopy S/P ureteral stent placement Social History household members: none Smoking Status: Former smoker second hand exposure: No alcohol intake: current substance use type: does not use ROS ROS ED ROS Narrative Epigastric pain. Mild nausea. Review of Systems ROS Unobtainable: Denies due to encephalopathy Constitutional Constitutional ED: Denies chills or fever(s) ENT ENT ED: Denies ear pain Cardiovascular Cardiovascular: Denies chest pain Respiratory/Chest Respiratory/Chest: Denies cough or dyspnea Gastrointestinal Gastrointestinal: Reports abdominal pain and nausea; Denies constipation, diarrhea, melena or vomiting Genitourinary Genitourinary ED: Denies dysuria or hematuria Musculoskeletal Musculoskeletal: Denies arthralgias or back pain Integumentary Denies abscess or Abrasions Neurologic Neurologic: Denies headache(s) Psychiatric Psychiatric: Denies anxiety or depression Endocrine Endocrinology: Denies polydipsia or polyphagia Hematologic/Lymphatic Hematologic/Lymphatic: Denies easy bleeding, easy bruising or lymphadenopathy Allergic/Immunologic Allergic/Immunologic ED: Denies mouth swelling, tongue swelling or urticaria EXAM Physical Exam Narrative Exam Narrative: 73-year-old male no acute distress. Vital signs stable afebrile. Pulse ox 93% on room air no signs hypoxia. HEENT exam unremarkable. Moist weeks membranes. Neck nontender no JVD. No lymphadenopathy. Lungs clear to auscultation bilaterally. Heart regular rhythm rate about 80 no murmur. Chest wall and ribs nontender. Abdomen soft nondistended normal bowel sounds no peritoneal signs. Well-healed laparoscopic incisions. Mild epigastric tenderness. No pulsatile mass. No right upper or right lower quadrant tenderness. No obstruction. Moving all 4 extremities. Nontender no edema no cords. Neurologically is awake and alert with no focal motor deficits. Answering questions and following commands. Const Vital Signs: 08/24/23 03:16 Temperature 97.5 F L Temperature Source Oral Pulse Rate 81 Respiratory Rate 14 Blood Pressure 143/88 H Blood Pressure Mean 106 Pulse Ox 93 Oxygen Delivery Method Room Air Positive well nourished and well developed; Negative for obese, cachectic, contractures or unkempt General Appearance ED: well developed and NAD; Negative for unkempt, cachectic, contractures or pallor Nutritional Appearance: Negative for cachectic or obese HEENT Reports moist mucous membranes; Denies dry mucous membranes normocephalic and atraumatic; Negative for trauma or tenderness Mouth ED: No dry mucous membranes Mouth: No dry mucous membranes Eyes PERRL and EOMs intact bilaterally General Eye ED: Negative for pale conjunctiva or scleral icterus Neck no lymphadenopathy, supple and no JVD General: Negative for tenderness Carotids: Negative for other Resp normal respiratory effort and clear to auscultation bilaterally Effort and Inspection: Negative for respiratory distress Auscultation: Negative for rales, rhonchi, wheezes or diminished lung sounds Cardio regular rate, regular rhythm, S1 normal heart sound, S2 normal heart sound and no murmurs Rate: Negative for bradycardia or tachycardic Rhythm: Negative for abnormal rhythm GI non-distended and no masses; Negative for non-tender Inspection: Negative for abdominal distention Auscultation: normoactive bowel sounds Palpation: soft and tender; Negative for guarding or rebound tenderness present Back/Spine no CVA tenderness General Back: Negative for CVA tenderness Cervical Spine: Negative for cervical spine tenderness Thoracic Spine / Upper Back: Negative for thoracic spinal tenderness Lumbar Spine / Lower Back: Negative for lumbar spinal tenderness Coccyx: Negative for other Extremity full ROM General Extremety ED: Negative for edema or tenderness General Extremity: Negative for edema Neuro CN's II-XII intact bilaterally and moves all extremities Sensorium / Orientation: alert, oriented to person, oriented to place and oriented to time; Negative for orientation impaired, confused, lethargic or stuporous Motor Exam: strength 5/5 throughout Psych mental status grossly normal and thought process normal Appearance: Negative for unkempt Attitude: No agitated Mood & Affect: Negative for depressed, anxious or tearful Skin no wounds General Skin Exam: Negative for jaundice or pallor Lesions: no lesions Rashes: no rashes Trauma: Negative for abrasion Nails: Negative for discolored MDM MDM MDM Narrative Medical decision making narrative: 73-year-old male status post recent left ureter surgery with a stent. Complain of epigastric abdominal pain that began abruptly tonight around 1 AM that awoke him from sleep. No prior history. Differential is wide. Could include gastritis, pancreatitis. His gallbladder is out. Could be a postop complication. I do not think this is cardiac but that is in the differential. Will undergo abdominal cardiac workup with an EKG and troponin. Abdominal labs and a CAT scan with IV contrast. Patient being treated with morphine and Zofran for pain and nausea. Repeat exam patient is doing well. I will give him a second dose of IV pain medication. The patient's CAT scan shows what appears to be a new splenic infarct. I have already discussed this with the patient the hospitalist. He will be admitted on a heparin bolus and drip. I will make his urologist aware since he had recent surgery. The urine does not look grossly infected nor is he having urinary symptoms. The inflammation is most likely from the stent. I will send a urine culture. Hospitalist will be down to evaluate the patient and admit him. History & Record Review Discussion w/independent historian: Patient Additional record(s) reviewed:: Prior inpatient record, Prior outpatient record, Prior ED visit and Prior labs Lab Data Attestation: I reviewed the patient's lab results. Lab results narrative: CBC unremarkable. White count of 10. H&H of 15 and 46. Platelets 405. EKG unchanged from prior Chemistries show a gap of 6. BUN 19 creatinine 1.1. Glucose 118. Liver enzymes unremarkable. Lipase normal at 39. Urinalysis is positive nitrates 10-25 red cells no white cells 1+ bacteria he does have a ureteral stent. Labs: Laboratory Results - last 24 hr 08/24/23 08/24/23 03:25 03:28 WBC 10.6 RBC 5.10 Hgb 15.3 Hct 46.8 MCV 91.8 MCH 30.0 MCHC 32.7 RDW Std Deviation 43.3 RDW Coeff of Hector 12.8 Plt Count 405 MPV 10.1 Immature Gran % (Auto) 1.200 H Neut % (Auto) 62.9 Lymph % (Auto) 25.1 [place] % (Auto) 8.1 Eos % (Auto) 1.7 Baso % (Auto) 1.0 Absolute Neuts (auto) 6.7 Absolute Lymphs (auto) 2.66 Nucleated RBC % 0 Sodium 140 Potassium 3.9 Chloride 104 Carbon Dioxide 30.0 Anion Gap 6 BUN 19 H Creatinine 1.10 Estim Creat Clear Calc 57.00 Est GFR (MDRD) Af Amer 84 Est GFR (MDRD) Non-Af 70 BUN/Creatinine Ratio 17.3 Glucose 118 H Calcium 9.5 Total Bilirubin 1.90 H AST 13 L ALT 14 L Alkaline Phosphatase 88 Troponin I High Sens 30 Total Protein 6.9 Albumin 3.7 Globulin 3.2 Albumin/Globulin Ratio 1.2 Lipase 39 Urine Color Shira Urine Clarity Clear Urine pH 5.0 Ur Specific Maxwell 1.030 Urine Protein 100 H Urine Glucose (UA) Normal Urine Ketones Negative Urine Occult Blood 250 H Urine Nitrite Positive H Urine Bilirubin 6 H Urine Urobilinogen 8 H Ur Leukocyte Esterase 25 H Urine RBC 10-25 SEEN Urine WBC 0-5 SEEN Ur Squamous Epith Cells 0 SEEN Urine Bacteria 1+ Urine Mucus 0 SEEN Radiography Chest X-Ray - ED: 1 View, Read by ED Physician, Heart, Lungs, Mediastinum, Bony Structures, No Acute Disease and Chronic Changes Diagnostic Testing: Clinical Impression(s) from Imaging Studies Abdomen/Pelvis CT 08/24/23 03:23 IMPRESSION: Splenic infarcts. Left-sided double-J stent is in place, which appears appropriately positioned. Mild left hydronephrosis with associated peripelvic inflammatory change, which may be related to stent in place, although infection should be considered. Thick linear consolidation bilaterally, likely atelectasis versus scarring, although somewhat atypical appearing. Recommend follow-up to resolution is neoplastic process is not excluded. Electronically Signed: Yordan Spangler MD at 4:20 EST , Rhythm Strip Rhythm Strip: Sinus bradycardia Rate: 57 Ectopy: None EKG Initial EKG: Attestation: I personally reviewed and interpreted this EKG as follows: Interpretation: Sinus Rhythm and Sinus Bradycardia Comments: Sinus bradycardia rate of 57. Right bundle branch block and left anterior fascicular block. No acute signs of [place] or ischemia. No acute change from prior EKG from July. Prior EKG tracings: available for review Prior: Unchanged Discharge Plan Triage Chief Complaint: Abd Pain ED Provider: Abel Reid Dx/Rx/DC Orders Clinical Impression: History of urologic surgery, Splenic infarct Prescriptions: No Action tamsulosin 0.4 mg capsule 0.4 mg PO DAILY Qty: 30 12RF phenazopyridine [Pyridium] 100 mg tablet 100 mg PO TID PRN (Reason: burning) Qty: 20 0RF Primary Care Provider: Emilia Avina NP Referrals: Emilia Avina NP, RELATIONS DIRECTOR-C [Primary Care Provider] - Disposition Disposition: Acute Care [facility]
[2023-08-24] MEDS: Ondansetron 4 MG/2 ML Vial IV (03:32)
[2023-08-24] MEDS: Morphine 4 MG/ML Syringe IV (03:32)
[2023-08-24 03:34] LABS: Mucous, Urine 0 SEEN /hpf (<or=2+); Squamous Epithelial Cells - UA 0 SEEN /hpf (0-5)
[2023-08-24 03:35] LABS: Absolute Lymphocyte Count 2.66 X10^3/uL (0.83-4.51); Absolute Neutrophil Count 6.7 X10^3/uL (2.0-7.7); Basophil# 0.11 X10^3/uL; Eosinophil# 0.18 X10^3/uL; Eosinophils% 1.7 % (0-5); Hematocrit 46.8 % (40-54); Hemoglobin 15.3 g/dL (13.0-16.5); Lymphocyte # 2.66 X10^3/ul (0.83-4.51); Lymphocyte % 25.1 % (19-41); Mean Corp Hgb Conc 32.7 g/dL (32-36); Mean Corpuscular Volume 91.8 fL (80-94); Mean Platelet Vol. 10.1 fl (6.2-12.0); Monocyte# 0.86 X10^3/uL; Monocyte% 8.1 % (0-10); NRBC Flagged by Analyzer 0 % (0-5); Neutrophil # 6.66 X10^3/uL (2.7-7.7); Neutrophil % 62.9 % (47-70); Platelet Count 405 K/mm3 (150-450); RBC Distribution Width CV 12.8 % (11.6-14.6); RBC Distribution Width SD 43.3 fl (35.1-43.9); White Blood Count 10.6 K/mm3 (4.4-11.0)
[2023-08-24 03:37] LABS: Color, Urine Amber (Yellow); Glucose, Dipstick Normal (Normal); Ketone-Dipstick Negative (Negative); Leukocyte Esterase-Dipstick 25 /ul (Negative); Nitrite-Dipstick Positive (Negative); Occult Blood-Urine 250 /ul (Negative); Protein-Dipstick 100 mg/dl (Negative); Urine Clarity Clear (Clear); Urine Urobilinogen 8 mg/dl (Normal)
[2023-08-24 03:52] LABS: Bacteria 1+ /hpf (None Seen); Red Blood Cells-Urine 10-25 SEEN /hpf (0-5); Urine Bilirubin Dipstick 6 mg/dL (Negative); White Blood Cells 0-5 SEEN /hpf (0-5)
--- NOTE | 2023-08-24 03:52 | RAD_ITS ---
INDICATION: post op epigastric pain EXAMINATION/TECHNIQUE: X-RAY - XR Chest 1 View COMPARISON: 08/04/2022 chest radiograph. Findings: Single frontal view of the chest. LUNG PARENCHYMA: No acute focal airspace disease or mass lesion. PLEURA: No pleural effusion. No pneumothorax. HEART/GREAT VESSELS: Cardiomediastinal silhouette is unremarkable. BONES: Osseous structures are unremarkable for age. RAD/Chest 1 View (Portable) IMPRESSION: Chest with no acute disease. Electronically Signed: Yordan Spangler MD at 4:42 EST ,
[2023-08-24 04:09] LABS: ALB/GLOB Ratio 1.2 RATIO (0.9-2.4); AST(SGOT) 13 U/L (15-37); Alanine Aminotransfer ALT/SGPT 14 U/L (16-61); Albumin, Serum 3.7 g/dL (3.2-5.0); Alkaline Phosphatase 88 U/L (45-117); Anion Gap 6 (5-15); BUN 19 mg/dL (7-18); BUN/Creat Ratio 17.3 RATIO (10-20); Calcium,Total 9.5 mg/dL (8.5-10.1); Chloride 104 mmol/L (98-107); EST Glomerular Filtration Rate 70 mL/min (>60); Est Glom Filt Rate - Afr Amer 84 mL/min (>60); Globulin 3.2 g/dL (2.2-4.2); Glucose 118 mg/dL (74-106); Lipase 39 U/L (13-75); Potassium 3.9 mmol/L (3.5-5.1); Protein, Total 6.9 g/dL (6.4-8.2); Sodium Level 140 mmol/L (136-145); Troponin-I HS 30 pg/mL (3.0-78.0)
--- OUTSIDE RECORDS SUMMARY | 2023-08-24 04:10 | XMS RPT_ITS | CCD ---
Author Name Unknown Address [address] [place] [id number] Organization [facility] Results Test Name Value Interpretation [...] DATE CREATED AUTHOR AUTHOR'S ORGANIZ ATION 03/05/2019 [facility] DATE CREATED AUTHOR AUTHOR'S ORGANIZ ATION 01/04/2020 [facility] FOR RECORDS PERTAINING TO PATIENTS WHO [...] BE BASED ON THE PRIMARY CLINICAL RECORDS. [employer] provides no warranty or guarantee of the accuracy or completeness of information in this document.
--- NOTE | 2023-08-24 04:50 | PCM.HP.STD ---
HPI - General General Date of Admission: 08/24/23 Date of Service: 08/24/23 Chief Complaint: Abdominal pain, nausea. HPI Narrative The patient is a 73 y/o M w/ PMHx: BPH, OA, Former tobacco use, HLD, Hx Hawkins's palsy, recent 08/08/23 laparoscopic robotic assisted left pyeloplasty and antegrade stent placement secondary to left UPJ obstruction recurrent who presents to the [facility] ED on 08/24/23 with history of onset of epigastric discomfort at approximately 1 AM that awoke him from sleep noted to be continuous, aching in nature with associated nausea with no emesis with mild radiation just to the lower chest with no recent dysuria or any issues with urination reporting that he has been doing well since surgery with no fevers however given ongoing discomfort prompted ED evaluation. He notes when the pain first woke him up it was 10 out of 10 in severity and has mildly improved since ED interventions currently rating it 4 out of 10 in severity. He denies any worsening of the pain with deep inspiratory effort. Workup in the ED included T97.5, heart rate 81, BP 143/88, respiratory rate 14, 93% on room air, CBC with WBC 10.6, and 115.3, platelets 405 with increased immature granulocytes, CMP with BUN/creatinine 19/1.10, glucose 118, T. bili 1.90, AST/ALT 13/14 otherwise hepatic profile not marked appearing, lipase 39, troponin 30, urinalysis with specific gravity 1.030, protein 100, ketone negative, occult blood 250, urine nitrite positive, urine bilirubin 6, urine urobilinogen 8, leukocyte Estrace 25, urine RBCs 10-25, urine WBC 0-5 with 1+ bacteria, urine culture pending per ED, CT abdomen and pelvis with splenic infarcts, left-sided double J stent in place appropriately positioned, mild left hydronephrosis with peripelvic inflammatory change possibly related to the stent in place although infection could be considered, thick linear consolidation bilaterally likely atelectasis versus scarring, although somewhat atypical appearing, chest x-ray with no acute cardiopulmonary findings. Discussed plan of care with ED physician and patient will be initiated on heparin drip with bolus. Additionally in the ED patient administered Zofran 4 mg IV x 1 and morphine 4 mg IV x 1. PENDING SALE TO [facility] Medical History (Updated 08/24/23 @ 04:[address] Debora Lamb MD) Arthritis BPH (benign prostatic hyperplasia) Former smoker Gastric reflux High cholesterol History of nephrolithiasis Hydronephrosis (Unknown) Left-sided Hawkins's palsy Ureteral stent present Wears dentures Wears glasses Home Medications tamsulosin 0.4 mg capsule 0.4 mg PO DAILY BPH #30 caps 10/20/22 [Rx Last Taken Unknown] phenazopyridine 100 mg tablet (Pyridium) 100 mg PO TID PRN burning #20 tabs 08/08/23 [Rx Last Taken Unknown] Allergy/AdvReac Type Severity Reaction Status Date / Time No Known Allergies Allergy Verified 08/24/23 03:19 Family History (Updated 08/24/23 @ 05:[address] Debora Lamb MD) Mother Parkinson's disease Father Lung disease, emphysema Surgical History CHOLECYSTECTOMY W/ INTRAOPERATIVE CHOLANGIOGRAM History of cystoscopy S/P ureteral stent placement Social History household members: none Smoking Status: Former smoker second hand exposure: No alcohol intake: current substance use type: does not use ROS ROS Narrative Admission Review of Systems: CONSTITUTIONAL: No weight loss, fever, chills, + weakness or fatigue. HEENT: Eyes: No visual loss, blurred vision, double vision or yellow sclerae. Ears, Nose, Throat: No hearing loss, sneezing, congestion, runny nose or sore throat. SKIN: No rash or itching, lesions, wounds. CARDIOVASCULAR: No chest pain, chest pressure or chest discomfort, palpitations, edema, orthopnea, syncopal events. RESPIRATORY: No shortness of breath, cough or sputum, wheezing, hemoptysis. GASTROINTESTINAL: + Nausea, abdominal pain, anorexia. No vomiting, diarrhea, melena, BRBPR. GENITOURINARY: + History of recent ureteral stent. Denies any recent dysuria, frequency, urgency or retention. NEUROLOGICAL: No headache, dizziness, syncope, paralysis, ataxia, numbness or tingling in the extremities, focal weakness, change in bowel or bladder control, seizure. MUSCULOSKELETAL: + muscle, back pain, joint pain or stiffness. HEMATOLOGIC: No anemia, bleeding or bruising. LYMPHATICS: No enlarged nodes. No history of splenectomy. PSYCHIATRIC: No history of depression or anxiety. ENDOCRINOLOGIC: No reports of sweating, cold or heat intolerance. No polyuria or polydipsia. ALLERGIES: No history of asthma, hives, eczema or rhinitis. Vital Signs Vital Signs Vital Signs: 08/24/23 03:16 Temperature 97.5 F L Temperature Source Oral Pulse Rate 81 Respiratory Rate 14 Blood Pressure 143/88 H Blood Pressure Mean 106 Pulse Ox 93 Oxygen Delivery Method Room Air Weight Weight: 157 lb 6.561 oz Body Mass Index (BMI) 23.9 Physical Exam Narrative Physical Examination: General: Awake, alert, oriented x 3 and cooperative, seated upright in the ED bed in no apparent distress, currently rates pain 4-10 in severity. Skin: Normal color, normal turgor, no icterus, no cyanosis. HEENT: AT/NC, EOMI, PERRLA, mildly dry MM, no carotid bruits or JVD noted. Lungs: CTA bilaterally, moderate effort, mild decrease BL bases, no rales, ronchi or wheezing. Heart: Regular rate and rhythm; no gallop, rub audible. Abdomen: Soft, unable to elicit any discomfort with palpation, no rebound or guarding, no distention, distant bowel sounds, no appreciated HSM. He describes his pain is more internal and unable to be reproduced with palpation even including again palpation of the left upper quadrant. He points primarily to the pain being in the right upper quadrant just beneath his ribs in the mid region. Extremities: No cyanosis, clubbing, or edema, no pain with calf palpation. Neurological: Patient awake, alert, oriented as noted, cognitive function intact; pupils equally reactive to light and accommodation, cranial nerves II-XII grossly normal, moving all 4 extremities, no focal deficits, strength mildly globally decreased secondary to acute presentation complaints. Psychiatric: Affect appears fatigued otherwise normal, no acute evidence of depressive or anxiety feelings. Results Lab / Micro Data 08/24/23 03:25 08/24/23 03:25 Labs: Laboratory Results - last 24 hr 08/24/23 03:25: WBC 10.6, RBC 5.10, Hgb 15.3, Hct 46.8, MCV 91.8, MCH 30.0, MCHC 32.7, RDW Std Deviation 43.3, RDW Coeff of Hector 12.8, Plt Count 405, MPV 10.1, Immature Gran % (Auto) 1.200 H, Neut % (Auto) 62.9, Lymph % (Auto) 25.1, [place] % (Auto) 8.1, Eos % (Auto) 1.7, Baso % (Auto) 1.0, Absolute Neuts (auto) 6.7, Absolute Lymphs (auto) 2.66, Nucleated RBC % 0, Sodium 140, Potassium 3.9, Chloride 104, Carbon Dioxide 30.0, Anion Gap 6, BUN 19 H, Creatinine 1.10, Estim Creat Clear Calc 57.00, Est GFR (MDRD) Af Amer 84, Est GFR (MDRD) Non-Af 70, BUN/Creatinine Ratio 17.3, Glucose 118 H, Calcium 9.5, Total Bilirubin 1.90 H, AST 13 L, ALT 14 L, Alkaline Phosphatase 88, Troponin I High Sens 30, Total Protein 6.9, Albumin 3.7, Globulin 3.2, Albumin/Globulin Ratio 1.2, Lipase 39 08/24/23 03:28: Urine Color Shira, Urine Clarity Clear, Urine pH 5.0, Ur Specific Sunflower 1.030, Urine Protein 100 H, Urine Glucose (UA) Normal, Urine Ketones Negative, Urine Occult Blood 250 H, Urine Nitrite Positive H, Urine Bilirubin 6 H, Urine Urobilinogen 8 H, Ur Leukocyte Esterase 25 H, Urine RBC 10-25 SEEN, Urine WBC 0-5 SEEN, Ur Squamous Epith Cells 0 SEEN, Urine Bacteria 1+, Urine Mucus 0 SEEN Rhythm Strip Rhythm Strip: Sinus bradycardia Rate: 57 Ectopy: None Imaging Radiology Impression Abdomen/Pelvis CT 08/24/23 03:23 IMPRESSION: Splenic infarcts. Left-sided double-J stent is in place, which appears appropriately positioned. Mild left hydronephrosis with associated peripelvic inflammatory change, which may be related to stent in place, although infection should be considered. Thick linear consolidation bilaterally, likely atelectasis versus scarring, although somewhat atypical appearing. Recommend follow-up to resolution is neoplastic process is not excluded. Electronically Signed: Yordan Spangler MD at 4:20 EST , Chest X-Ray 08/24/23 03:52 IMPRESSION: Chest with no acute disease. Electronically Signed: Yordan Spangler MD at 4:42 EST , Assessment & Plan Assessment/Plan (1) Splenic infarct: PLAN: Plan The patient is a 73 y/o M w/ PMHx: BPH, OA, Former tobacco use, HLD, Hx Hawkins's palsy, recent 08/08/23 laparoscopic robotic assisted left pyeloplasty and antegrade stent placement secondary to left UPJ obstruction recurrent who presents to the [facility] ED on 08/24/23 with history of onset of epigastric discomfort at approximately 1 AM that awoke him from sleep noted to be continuous, aching in nature with associated nausea with no emesis with mild radiation just to the lower chest with no recent dysuria or any issues with urination reporting that he has been doing well since surgery with no fevers however given ongoing discomfort prompted ED evaluation. #1. Abdominal pain, discomfort suspected secondary to acute splenic infarct: Will admit to PCU, maintain on cardiac telemetry, will continue heparin bolus with drip initiated in the ED pending further evaluation with plan transition following to NOAC once appropriate with case management/social work input for oral regimen cost, to be cautious would plan to obtain CTPA in 24 hours with continue judicious hydration to protect the kidneys, troponin 30, BNP will also be requested, will have as needed pain regimen and antiemetic regimen. #2. Recent left UPJ obstruction, recurrent: 08/08/23 laparoscopic robotic assisted left pyeloplasty and antegrade stent placement, will continue ED initiated consultation given CT imaging with noted peripelvic inflammatory changes possibly related with a stent to assure no antibiotic therapy necessary, UA not marked appearing, urine culture pending per ED. Urology consulted, pending. #3. Elevated BP without hypertensive diagnosis: BP mildly elevated upon presentation, likely pain related given acute presentation, will continue to monitor and if appropriate add oral regimen, in the interim as needed IV hydralazine. #4. Hyperlipidemia: Not on regimen, defer to outpatient. #5. Former tobacco use: Encourage continued tobacco cessation. #6. GERD: Not on any chronic regimen, will have as needed Mylanta. #7. BPH: We will continue patient home Flomax regimen. #8. DVT prophylaxis: Will continue heparin drip as noted. #9. CODE STATUS: Full code. Charges/Coding Visit Charges Inpatient E&M: 31069 Init Hosp L3
[2023-08-24 05:02] LABS: Prothrombin Time (Protime)PT. 12.8 SECONDS (11.7-14.9)
[2023-08-24 05:03] LABS: Partial Thromboplast Time 33.8 Seconds (24.1-36.2)
[2023-08-24] MEDS: HEPARIN/D5w 25,000 UNITS 25,000 UNITS/250 ML IV.SOLN. 11 UNITS CONT INF (05:09)
[2023-08-24] MEDS: Heparin Injection (Vial) 5,000 UNIT/ML VIAL 5000 UNIT IV (05:09)
--- OUTSIDE RECORDS SUMMARY | 2023-08-24 05:49 | XMS RPT_ITS | CCD ---
Author Name Unknown Address [address] [place] [id number] Organization [facility] Results Test Name Value Interpretation [...] DATE CREATED AUTHOR AUTHOR'S ORGANIZ ATION 03/05/2019 [facility] DATE CREATED AUTHOR AUTHOR'S ORGANIZ ATION 01/04/2020 [facility] FOR RECORDS PERTAINING TO PATIENTS WHO ARE [...] BE BASED ON THE PRIMARY CLINICAL RECORDS. [employer] provides no warranty or guarantee of the accuracy or completeness of information in this document.
[2023-08-24] MEDS: 0.9% Normal Saline (1000mL) 1,000 ML 100 ML IV ×2 (06:21→16:25)
[2023-08-24 07:37] LABS: Procalcitonin < 0.04 ng/mL (0.00-0.09)
--- NOTE | 2023-08-24 07:51 | ECHOD_ITS ---
Reason For Study: Emboli Procedure This was a 2D Doppler, Color Flow transthoracic echocardiogram. Exam performed portable in patient room. Left Ventricle Normal LV size. The estimated ejection fraction is 60 %. No evidence for diastolic dysfunction. No regional wall motion abnormalities noted. Right Ventricle Normal RV size. Normal systolic function. Atria The left and right atria are normal. No doppler evidence for ASD. Mitral Valve There is no mitral valve stenosis. Trivial mitral valve insufficiency. Tricuspid Valve There is no tricuspid stenosis. No tricuspid valve insufficiency. Aortic Valve Trisinus/trileaflet aortic valve. There is no aortic stenosis. Trivial aortic valve insufficiency. Pulmonic Valve There is no pulmonic valvular stenosis. No pulmonic valve insufficiency. Great Vessels Normal aortic root. Pericardium/Pleural No pericardial effusion. MMode/2D Measurements & Calculations LVIDd: 4.4 cm IVSd: 1.0 cm Ao root diam: 3.9 cm LVIDs: 2.8 cm LVPWd: 0.77 cm LA dimension: 3.5 cm FS: 36.1 % LAV(MOD-bp): 43.5 ml LA A4 area: 14.5 cm2 RA A4 area: 13.7 cm2 LAV(MOD-bp) Indexed: 23.9 ml/m2 LAV(MOD-sp2): 47.5 ml LAV(MOD-sp4): 35.3 ml TAPSE: 2.0 cm Doppler Measurements & Calculations Lat Peak E' Hernandez: 10.5 cm/sec Med Peak E' Hernandez: 9.4 cm/sec Ao V2 max: 84.5 cm/sec Ao max P.9 mmHg Ao V2 mean: 55.1 cm/sec Ao mean P.4 mmHg Ao V2 VTI: 19.9 cm AV (velocity ratio): 0.98 LV V1 max: 83.1 cm/sec PA V2 max: 73.3 cm/sec LV V1 max P.8 mmHg LV V1 mean P.4 mmHg LV V1 mean: 55.1 cm/sec LV V1 VTI: 19.5 cm ECHO/Echo Complete Interpretation Summary The estimated ejection fraction is 60 %. No evidence for diastolic dysfunction. Trivial mitral valve insufficiency. Trivial aortic valve insufficiency. Ordering Physician: Lalo Lindsay Performed By: Azar Espinal RCS
[2023-08-24] MEDS: Tamsulosin HCl 0.4 MG Capsule 0.400000000000000022 MG PO (09:43)
[2023-08-24] MEDS: Acetaminophen 325 MG Tablet 650 MG PO (09:43)
[2023-08-24 11:14] LABS: Partial Thromboplast Time 114.8 Seconds (24.1-36.2)
--- NOTE | 2023-08-24 11:46 | CASEMGMT ---
Social Work As per admitting RN, pt does not have LW/POA and declined additional information. DIMA Grace
--- NOTE | 2023-08-24 13:20 | CASEMGMT ---
RN CM ice cream server CM noted that the pt was here within the past 30 days and was on MS3. This RN CM noted that there is no assessment documentation on this pt from previous stay. This RN CM to pt room for initial assessment and review of readmission. See [facility] for readmission note. Face to Face with patient for initial transition planning/care coordination assessment. RN CM introduced self and role at [facility], pt voices understanding. Pt is A&Ox4 and is resting comfortably in bed and is calm. Care providers, pharmacy, and demographics verified. Admitting dx: ABD Pain, Splenic Infarct LACE Strata: 1 PCP: Emilia Avina ([employer]IDENT [employer]ELOPMENT) Specialists: Dr. Chaim Moctezuma (Gen Surgeon) [facility] Preferred Pharmacy: [facility] Insurance: [facility] A/B, [facility] Prescription Benefit: Yes LNOK: Sophia Lopez (AVILA) Living Arrangements: Pt lives with his AVILA and BHAVYA in a split level home with a single floor setup. Pt states that there are 6 steps he needs to manage to get down to his floor where he resides. Pt denies issues using these. Pt states there are 2 steps in the front of the home to enter. Pt states he also has access to entering his main floor through a side door with a flat entrance. ADLs/IADLs: Ind Transportation: Self, Family DME: Cane but does not use. Walk-in shower with GB and seat. Raised toilet seat. Pt denies all other DME uses or needs. HHC/SNF: Denies SNF history or needs. States history of HHC (PT) x 4 years ago for his knee. Pt?s goal: Home no additional needs. Plan: 6 click is 20. No therapy ordered on pt. Pt denies HHC or OP therapy at this time. Pt states that he feels safe and comfortable discharging home once medically ready. CM to follow for safe DC home. Azeem Richards RN, CM
--- NOTE | 2023-08-24 17:00 | CT_ITS ---
EXAM: CT ANGIOGRAPHY CHEST WITHOUT AND WITH INTRAVENOUS CONTRAST CLINICAL INDICATION: PE TECHNIQUE: Helically acquired angiography images were obtained of the chest without and with intravenous contrast. This CT exam was performed using one or more of the following dose reduction techniques: automated exposure control, adjustment of the mA and/or kV according to patient size, and/or use of iterative reconstruction technique. MIP reconstructed images were created and reviewed. CONTRAST: IV 100mL Isovue-370 RADIATION DOSE: CTDIvol = 13.39 mGy, DLP = 359.94 mGy-cm COMPARISON: No relevant prior studies available. FINDINGS: PULMONARY ARTERIES: Unremarkable. No demonstrated pulmonary embolism or arterial dissection. AORTA: There is atherosclerotic calcification of the aortic arch with tortuosity and elongation of the aortic arch and descending thoracic aorta. Normal in caliber. No evidence of dissection. GREAT VESSELS OF AORTIC ARCH: Unremarkable. Normal in caliber. No evidence of dissection. LUNGS AND PLEURAL SPACES: There is a right lower lobe infiltrate suggesting a pneumonia. No mass. No pleural effusion or thickening. HEART: There are calcifications of the coronary arteries. Heart size is normal. No pericardial effusion. MEDIASTINUM: Unremarkable. No mediastinal or hilar adenopathy. Esophagus is unremarkable. No hiatal hernia. THYROID: Unremarkable. No thyroid lesions. BONES/JOINTS: There are degenerative changes of the shoulders. There are multi-level degenerative changes of the thoracic spine. No suspicious lytic or blastic abnormality. OTHER FINDINGS: Post-processing of the angiographic images was performed, with axial imaging and 3D reconstruction. MIPS images were obtained. CT/CTA Chest W/WO Contrast IMPRESSION: 1. No demonstrated pulmonary embolism or arterial dissection. 2. There is a right lower lobe infiltrate suggesting a pneumonia. Electronically Signed: Ricky Uribe MD at 18:12 EST ,
--- NOTE | 2023-08-24 18:27 | PCM.HOSP.N ---
Hospitalist Note Patient presented earlier this morning with acute onset epigastric abdominal pain. He was found to have a splenic infarct on imaging of unclear etiology. He was given IV pain medications in the ED with good resolution of his pain. Was then started on heparin drip and admitted for further evaluation. I saw patient at the bedside later in the morning. At that time he was sitting up comfortably in bed, conversing normally and in no acute distress. Stated that his abdominal pain had essentially resolved at this point. He denied any pain or discomfort with urination. No other acute concerns at this time. Patient had TTE done today that showed a normal EF, no other concerning findings. Will continue heparin drip for now and plan to transition to an oral anticoagulant tomorrow if he remains stable overnight. Possible discharge tomorrow. Full progress note to follow tomorrow.
[2023-08-24 19:32] LABS: Partial Thromboplast Time 41.4 Seconds (24.1-36.2)
[2023-08-24] MEDS: HEPARIN/D5w 25,000 UNITS 25,000 UNITS/250 ML IV.SOLN. 8 UNITS CONT INF (20:30)
[2023-08-24] MEDS: Heparin Injection (Vial) 5,000 UNIT/ML VIAL IV (20:35)
[2023-08-24] MEDS: Temazepam 15 MG Capsule PO (22:17)
[2023-08-25 03:08] LABS: Absolute Lymphocyte Count 2.81 X10^3/uL (0.83-4.51); Absolute Neutrophil Count 5.7 X10^3/uL (2.0-7.7); Eosinophil# 0.21 X10^3/uL; Eosinophils% 2.1 % (0-5); Hematocrit 39.2 % (40-54); Hemoglobin 12.8 g/dL (13.0-16.5); Lymphocyte # 2.81 X10^3/ul (0.83-4.51); Lymphocyte % 28.6 % (19-41); Mean Corp Hgb Conc 32.7 g/dL (32-36); Mean Corpuscular Hgb 29.4 pg (27.0-32.0); Mean Corpuscular Volume 90.1 fL (80-94); Mean Platelet Vol. 10.4 fl (6.2-12.0); Monocyte# 0.99 X10^3/uL; Monocyte% 10.1 % (0-10); NRBC Flagged by Analyzer 0 % (0-5); Neutrophil # 5.66 X10^3/uL (2.7-7.7); Neutrophil % 57.6 % (47-70); Platelet Count 327 K/mm3 (150-450); RBC Distribution Width SD 43.1 fl (35.1-43.9); Red Blood Count 4.35 M/mm3 (4.6-6.2); White Blood Count 9.8 K/mm3 (4.4-11.0)
[2023-08-25 03:22] VITALS: BP 99/59; PULSE 66; RESP 18; TEMP 36.4; O2SAT 93
[2023-08-25 03:26] LABS: ALB/GLOB Ratio 1.1 RATIO (0.9-2.4); AST(SGOT) 16 U/L (15-37); Alanine Aminotransfer ALT/SGPT 11 U/L (16-61); Alkaline Phosphatase 69 U/L (45-117); Anion Gap 5 (5-15); BUN 12 mg/dL (7-18); BUN/Creat Ratio 13.4 RATIO (10-20); Calcium,Total 8.8 mg/dL (8.5-10.1); Chloride 107 mmol/L (98-107); EST Glomerular Filtration Rate 88 mL/min (>60); Est Glom Filt Rate - Afr Amer 107 mL/min (>60); Estimated Creatinine Clearance 69.67 ml/min; Globulin 2.7 g/dL (2.2-4.2); Glucose 84 mg/dL (74-106); Potassium 3.7 mmol/L (3.5-5.1); Protein, Total 5.7 g/dL (6.4-8.2); Sodium Level 140 mmol/L (136-145)
[2023-08-25] MEDS: Heparin Injection (Vial) 5,000 UNIT/ML VIAL IV (03:49)
[2023-08-25 05:01] VITALS: BMI 23.6
[2023-08-25 07:12] VITALS: O2SAT 95
[2023-08-25 09:18] VITALS: BP 122/77; PULSE 77; RESP 14; TEMP 36.6; O2SAT 96
[2023-08-25] MEDS: Tamsulosin HCl 0.4 MG Capsule 0.400000000000000022 MG PO (09:31)
[2023-08-25 10:21] LABS: Partial Thromboplast Time 60.8 Seconds (24.1-36.2)
[2023-08-25 10:33] VITALS: BP 111/63; PULSE 104; RESP 14; TEMP 36.6; O2SAT 92
--- NOTE | 2023-08-25 10:35 | EKG12_ITS ---
Test Reason : Blood Pressure : / mmHG Vent. Rate : 100 BPM Atrial Rate : 100 BPM P-R Int : 170 ms QRS Dur : 126 ms QT Int : 362 ms P-R-T Axes : 062 -75 052 degrees QTc Int : 466 ms Normal sinus rhythm Right bundle branch block Left anterior fascicular block Bifascicular block Cannot rule out Inferior infarct (masked by fascicular block?) , age undetermined Abnormal ECG When compared with ECG of 24-AUG-2023 03:29, MANUAL COMPARISON REQUIRED, DATA IS UNCONFIRMED Confirmed by Emerson Perez ([id number]), associate editor ADAM BOWLING ([id number]) on 08/28/2023 11:39:41 AM Referred By: Confirmed By:Emerson Perez
--- NOTE | 2023-08-25 11:59 | DCINST_ITS ---
Discharge Instructions Diet Discharge Diet: No restrictions Activity Discharge Activity: No Restrictions Weight Bearing Status: Full weight bearing Follow Up Care Test Results: Test results from this visit will be discussed in further detail at your follow- up appointment, if applicable. Discharge Plan Admission Admit Date/Time: 08/24/23 04:52 Primary Reason for Your Visit: abdominal pain Attending Provider: Lalo Lindsay Primary Care Provider: Emilia Avina NP Consulting Providers: Mateus Starr; Debora Lamb Instructions Additional Instructions / Restrictions: The 30-day event recorder will be mailed to you in the next few days, please use as instructed. Follow-up with your primary care doctor as needed. Discharge Orders/Prescriptions Prescriptions: Continued tamsulosin 0.4 mg capsule 0.4 mg PO DAILY Qty: 30 12RF phenazopyridine [Pyridium] 100 mg tablet 100 mg PO TID PRN (Reason: burning) Qty: 20 0RF Other Ambulatory Orders: 30 Day Event Recorder Preventi (Urgent) Timeframe: 1 Month Facility: [facility] - Location: Cardiovascular Services Ordered By: Dr. Lalo Lindsay Referrals / Follow Up: Emilia Avina NP, PIPELINE DISPATCH OPERATOR-C [Primary Care Provider] - Disposition Disposition (needs filled in before D/C Order can be placed): Home, Self Care
--- NOTE | 2023-08-25 12:01 | DS.PCM_ITS ---
Providers Date of Admission: 08/24/23 Date of Discharge: 08/25/23 Primary Care Physician: AGAPITO Craft Consultations 08/24/23 05:41 Consult: Urology Routine Consulting Provider: Mateus Starr Reason for Consult: mild left hydronephrosis with peripelvic inflammatory change EMERGENT Consult: No MD Notified: Yes Date Notified: 08/24/23 Time Notified: 04:53 Method of Notification: ED Physician Initiated Reason For Visit: ABDOMINAL PAIN, SPLENIC INFARCT Diagnosis Discharge Diagnosis (1) Splenic infarct: Status: Acute Code(s): D73.5 - Infarction of spleen Medications at Discharge Home Medications tamsulosin 0.4 mg capsule 0.4 mg PO DAILY BPH #30 caps 10/20/22 phenazopyridine 100 mg tablet (Pyridium) 100 mg PO TID PRN burning #20 tabs 08/08/23 Hospital Course Operations None Procedures EKG, Transthoracic echo and - (CTA chest, CT abdomen pelvis with IV contrast, chest x-ray) Summary of Care Provided Minutes Spent on Discharge: 35 Hospital Course: Patient is a 73-year-old male who presented to [facility] ED on 08/24/2023 with acute onset epigastric pain. Short hospital course as noted below. Patient was discharged home with no therapy needs in stable condition on 08/24. 1. Acute splenic infarcts with abdominal pain ? Presented with acute onset epigastric abdominal pain that woke him from sleep. Hemodynamically stable, labs fairly benign on admit. Found on CT abdomen pelvis w/ IV contrast to have wedge shaped areas of diminished perfusion in the superior aspect of the spleen consistent with splenic infarcts. ? Unclear etiology for the splenic infarcts. Patient was noninfectious appearing, minimal concern for infectious emboli. Patient had recent abdominal procedure as noted below that may have contributed to these infarcts but this is unclear. Other main consideration was for cardiac emboli or aortic or other large vessel disease causing his emboli. However, CT abdomen pelvis showed no obvious associated splenic vascular abnormality of the large vessels. CTA chest showed atherosclerotic calcification of the aortic arch with some tortuosity and elongation of the arch and descending thoracic aorta, but no evidence of dissection. TTE showed normal EF, no other abnormalities. Patient remained on telemetry during hospitalization and no A-fib was noted. ? Patient was started on anticoagulation on admission. I discussed with Dr. Perez with cardiology briefly over the phone regarding recommendations on disc aditi. He has no A-fib was noted during this admission and patient has no history of A-fib, he did not recommend anticoagulation on discharge. Ordered 30-day event monitor for the patient on discharge for further evaluation. 2. Recent recurrent left UPJ obstruction ? S/p laparoscopic robotic assisted left pyeloplasty and antegrade stent placement with urology on 08/08/2023. UA was benign on admit, urine culture with no growth. No urology needs while inpatient, okay for outpatient follow-up with urology as previously scheduled. Chronic medical conditions: ? BPH with obstructive symptoms: Continued home Flomax. ? Former tobacco use: Encouraged continued cessation. Total clinical time spent by myself addressing the patient's medical issues, reviewing all the data, and collaborating with patient's care team: 35 minutes. Physical Exam Const alert, oriented x3, no apparent distress, average body habitus, healthy appearing and well nourished General Appearance: cooperative, comfortable, well kempt and well developed HEENT normocephalic, head/scalp atraumatic, hearing grossly normal bilaterally, nasal mucous membranes and turbinates normal and moist oral mucous membranes Eyes PERRL, EOMs intact bilaterally and conjunctivae normal Neck full ROM Chest inspection of chest normal Resp normal respiratory effort, normal air movement, no use of accessory muscles and clear to auscultation bilaterally Cardio regular rate, regular rhythm, no murmurs and peripheral pulses 2+ throughout GI normal to inspection, nondistended, normoactive bowel sounds, soft to palpation, non-tender and non-distended Back/Spine normal ROM Extremity normal to inspection, full ROM and no pedal edema Skin no rashes or lesions noted Neuro no focal motor deficits and no sensory deficits noted Speech: speech normal Psych mental status grossly normal Weight / BMI Weight Weight: 70.3 kg Body Mass Index (BMI) 23.6 ABG / Lab / Microbiology Data 08/25/23 02:32 08/25/23 02:32 Laboratory: Laboratory Results - last 24 hr 08/24/23 19:10: APTT 41.4 H 08/25/23 02:32: WBC 9.8, RBC 4.35 L, Hgb 12.8 L, Hct 39.2 L, MCV 90.1, MCH 29.4, MCHC 32.7, RDW Std Deviation 43.1, RDW Coeff of Hector 13.0, Plt Count 327, MPV 10.4, Immature Gran % (Auto) 0.600, Neut % (Auto) 57.6, Lymph % (Auto) 28.6, [place] % (Auto) 10.1 H, Eos % (Auto) 2.1, Baso % (Auto) 1.0, Absolute Neuts (auto) 5.7, Absolute Lymphs (auto) 2.81, Nucleated RBC % 0, APTT 50.0 H, Sodium 140, Potassium 3.7, Chloride 107, Carbon Dioxide 28.0, Anion Gap 5, BUN 12, Creatinine 0.90, Estim Creat Clear Calc 69.67, Est GFR (MDRD) Af Amer 107, Est GFR (MDRD) Non-Af 88, BUN/Creatinine Ratio 13.4, Glucose 84, Calcium 8.8, Total Bilirubin 1.70 H, AST 16, ALT 11 L, Alkaline Phosphatase 69, Total Protein 5.7 L , Albumin 3.0 L, Globulin 2.7, Albumin/Globulin Ratio 1.1 08/25/23 09:30: APTT 60.8 H Microbiology: Microbiology 08/24/23 03:28 Urine, Clean Catch Urine Culture - Preliminary Culture exhibits no growth. Radiography Diagnostic Testing: Radiology Impression Echocardiogram 08/24/23 07:51 Interpretation Summary The estimated ejection fraction is 60 %. No evidence for diastolic dysfunction. Trivial mitral valve insufficiency. Trivial aortic valve insufficiency. Ordering Physician: Lalo Lindsay Performed By: Azar Espinal RCS Chest CTA 08/24/23 17:00 IMPRESSION: 1. No demonstrated pulmonary embolism or arterial dissection. 2. There is a right lower lobe infiltrate suggesting a pneumonia. Electronically Signed: Ricky Uribe MD at 18:12 EST , D/C Instructions Discharge Diet: No restrictions Weight Bearing Status: Full weight bearing Meaningful Use Info Meaningful Use Diagnoses (Choose all that apply): None applicable Discharge Plan Admission Admit Date/Time: 08/24/23 04:52 Primary Reason for Your Visit: abdominal pain Attending Provider: Lalo Lindsay Primary Care Provider: Emilia Avina NP Consulting Providers: Mateus Starr; Debora Lamb Instructions Additional Instructions / Restrictions: The 30-day event recorder will be mailed to you in the next few days, please use as instructed. Follow-up with your primary care doctor as needed. Discharge Orders/Prescriptions Prescriptions: Continued tamsulosin 0.4 mg capsule 0.4 mg PO DAILY Qty: 30 12RF phenazopyridine [Pyridium] 100 mg tablet 100 mg PO TID PRN (Reason: burning) Qty: 20 0RF Other Ambulatory Orders: 30 Day Event Recorder Preventi (Urgent) Timeframe: 1 Month Facility: [facility] - Location: Cardiovascular Services Ordered By: Dr. Lalo Lindsay Referrals / Follow Up: Emilia Avina NP, T[employer] PROTECTION SPECIALIST-C [Primary Care Provider] - Disposition Disposition (needs filled in before D/C Order can be placed): Home, Self Care Charges/Coding Visit Charges Inpatient E&M: 70277 Disch Hosp >30min
== END 2023-08-25 13:34 | disposition home or self-care (01) | DRG 815 ==
LOC: ED 04:47 → PCU 05:08
PROVIDERS: Admitting Provider Family Medicine; Emergency Provider Emergency Medicine; PCP Nurse Practitioner; Visit Provider Hospitalist
DX: D73.5 Infarction of spleen (principal); N13.8 Other obstructive and reflux uropathy; E78.00 Pure hypercholesterolemia, unspecified; K21.9 Gastro-esophageal reflux disease without esophagitis; Z87.891 Personal history of nicotine dependence; N40.0 Benign prostatic hyperplasia without lower urinary tract symptoms; Z79.899 Other long term (current) drug therapy; Z96.0 Presence of urogenital implants; Z90.49 Acquired absence of other specified parts of digestive tract; R10.9 Unspecified abdominal pain; R03.0 Elevated blood-pressure reading, without diagnosis of hypertension
CPT/HCPCS: 36415; 71045; 71275; 74177; 80053; 81001; 83690; 84145; 84484; 85025; 85610; 85730; 87086; 93005; 93306; 94668; 99283; J7030; Q9957; Q9967; A4216; J2405

== ENCOUNTER → 2023-10-31 | Outpatient (CLI) | payer MEDICARE, OTHER, SELFPAY ==
[2023-10-31 21:00] LABS: Absolute Lymphocyte Count 2.64 X10^3/uL (0.83-4.51); Absolute Neutrophil Count 5.8 X10^3/uL (2.0-7.7); Basophil# 0.08 X10^3/uL; Basophil% 0.8 % (0-1); Eosinophil# 0.21 X10^3/uL; Eosinophils% 2.2 % (0-5); Hematocrit 42.9 % (40-54); Hemoglobin 13.8 g/dL (13.0-16.5); Lymphocyte # 2.64 X10^3/ul (0.83-4.51); Lymphocyte % 27.1 % (19-41); Mean Corp Hgb Conc 32.2 g/dL (32-36); Mean Corpuscular Hgb 29.6 pg (27.0-32.0); Mean Corpuscular Volume 91.9 fL (80-94); Mean Platelet Vol. 11.1 fl (6.2-12.0); Monocyte# 0.97 X10^3/uL; Monocyte% 9.9 % (0-10); NRBC Flagged by Analyzer 0 % (0-5); Neutrophil # 5.83 X10^3/uL (2.7-7.7); Neutrophil % 59.8 % (47-70); Platelet Count 334 K/mm3 (150-450); RBC Distribution Width CV 13.3 % (11.6-14.6); RBC Distribution Width SD 45.2 fl (35.1-43.9); Red Blood Count 4.67 M/mm3 (4.6-6.2); White Blood Count 9.8 K/mm3 (4.4-11.0)
[2023-10-31 21:08] LABS: ALB/GLOB Ratio 1.2 RATIO (0.9-2.4); AST(SGOT) 15 U/L (15-37); Alanine Aminotransfer ALT/SGPT 15 U/L (16-61); Albumin, Serum 3.8 g/dL (3.2-5.0); Alkaline Phosphatase 84 U/L (45-117); Anion Gap 2 (5-15); BUN 18 mg/dL (7-18); BUN/Creat Ratio 16.5 RATIO (10-20); Calcium,Total 9.1 mg/dL (8.5-10.1); Chloride 109 mmol/L (98-107); Cholesterol 164 mg/dL (200); Creatinine, Serum 1.09 mg/dL (0.70-1.30); EST Glomerular Filtration Rate 70 mL/min (>60); Est Glom Filt Rate - Afr Amer 85 mL/min (>60); Globulin 3.2 g/dL (2.2-4.2); Glucose 94 mg/dL (74-106); High Density Lipoprotein 46 mg/dL; PSA,Total - Annual Screen 2.77 ng/mL (0.00-4.00); Potassium 4.2 mmol/L (3.5-5.1); Sodium Level 140 mmol/L (136-145); Triglycerides 170 mg/dL; Very Low Density Lipoprotein 34 mg/dL (5-40)
== END | disposition home or self-care (01) ==
PROVIDERS: PCP Nurse Practitioner; Visit Provider Nurse Practitioner
DX: E78.00 Pure hypercholesterolemia, unspecified (principal); N40.0 Benign prostatic hyperplasia without lower urinary tract symptoms; M47.27 Other spondylosis with radiculopathy, lumbosacral region; K21.9 Gastro-esophageal reflux disease without esophagitis; J40 Bronchitis, not specified as acute or chronic; Z12.5 Encounter for screening for malignant neoplasm of prostate
CPT/HCPCS: 80053; 80061; 84153; 85025; G0103

== ENCOUNTER → 2023-11-29 | Outpatient (CLI) | payer MEDICARE, OTHER, SELFPAY ==
[2023-11-29 11:06] LABS: Thyroid Stim Hormone (TSH) 1.49 uIU/mL (0.358-3.74)
== END | disposition home or self-care (01) ==
PROVIDERS: PCP Nurse Practitioner; Referring Provider Internal Medicine Cardiovascular Disease; Visit Provider Internal Medicine Cardiovascular Disease
DX: R00.1 Bradycardia, unspecified (principal); I49.5 Sick sinus syndrome; R00.2 Palpitations; R06.09 Other forms of dyspnea; I47.10 Supraventricular tachycardia, unspecified
CPT/HCPCS: 36415; 84443

== ENCOUNTER → 2023-12-13 | Outpatient (CLI) | payer MEDICARE, OTHER, SELFPAY ==
--- NOTE | 2023-12-13 09:58 | STRESSREP ---
Stress Test Report Date: 12/13/2023 Procedure: Exercise tolerance test/imaging study Indications: Palpitations Consent: Per the patient Procedure: The patient exercised on a Artie protocol for 9 minutes achieving a peak heart rate of 142 bpm (97% predicted maximal heart rate) with a peak blood pressure 172/58 mmHg and a peak MET capacity of 10.4 METs. The baseline ECG demonstrated sinus rhythm with right bundle branch block. The peak exercise ECG demonstrated no diagnostic ischemic changes. There were no cardiac dysrhythmias pretest, during exercise, or recovery. The functional capacity was considered excellent for age. There was no complaint of chest discomfort during exercise or recovery. The examination was discontinued secondary to target heart rate being achieved. The patient was injected with 11.4 mCi of technetium 99m Cardiolite and subsequently rest SPECT Cardiolite nuclear imaging was obtained in the horizontal long, vertical long, and short axis views. Post-exercise, the patient was injected with 33.1 mCi of technetium 99m Cardiolite and subsequently stress SPECT Cardiolite nuclear imaging was obtained in the horizontal long, vertical long, and short axis views. A gated Cardiolite study at peak stress was obtained. Rest and stress SPECT Cardiolite nuclear imaging status post realignment, normalization, and attenuation correction, demonstrates the appearance of relative uniform tracer uptake and myocardial perfusion appearing within normal limits. There is end systolic thickening and brightening. The gated Cardiolite study demonstrates myocardial thickening and inward wall motion. The reported LVEF is 71%. Impression: 1. Technically adequate (percent predicted maximal heart rate greater than 85%) exercise tolerance test 2. Peak exercise ECG with no diagnostic ischemic changes. Good chronotropic response to exercise 3. There were no cardiac dysrhythmias pretest, during exercise, or recovery 4. Rest and stress SPECT Cardiolite nuclear imaging demonstrate relative uniform tracer uptake and myocardial perfusion appearing within normal limits. 5. The gated Cardiolite study reports an LVEF of 71%. This note was generated with SocialF5ation software. It may contain incorrect words, spelling, and punctuation that were not noted in checking the note before signing.
== END | disposition home or self-care (01) ==
LOC: CVS 06:45
PROVIDERS: PCP Nurse Practitioner; Referring Provider Internal Medicine Cardiovascular Disease; Visit Provider Internal Medicine Cardiovascular Disease
DX: R00.1 Bradycardia, unspecified (principal); I49.5 Sick sinus syndrome; I47.10 Supraventricular tachycardia, unspecified; R06.09 Other forms of dyspnea; R00.2 Palpitations
CPT/HCPCS: 78452; 93017; A9500

== ENCOUNTER → 2024-07-15 | Outpatient (CLI) | payer MEDICARE, OTHER, SELFPAY ==
[2024-07-15 13:31] LABS: Cholesterol 159 mg/dL (200); High Density Lipoprotein 59 mg/dL; Triglycerides 109 mg/dL; Very Low Density Lipoprotein 22 mg/dL (5-40)
== END | disposition home or self-care (01) ==
LOC: LAB 11:49
PROVIDERS: PCP Nurse Practitioner; Referring Provider Internal Medicine Cardiovascular Disease; Visit Provider Internal Medicine Cardiovascular Disease
DX: E78.00 Pure hypercholesterolemia, unspecified (principal)
CPT/HCPCS: 36415; 80061

== ENCOUNTER → 2024-11-04 | Outpatient (CLI) | payer MEDICARE, OTHER, SELFPAY ==
[2024-11-04 10:09] LABS: PSA,Total - Annual Screen 0.91 ng/mL (0.02-4.00)
== END | disposition home or self-care (01) ==
LOC: LAB 09:04
PROVIDERS: PCP Nurse Practitioner; Referring Provider Urology; Visit Provider Urology
DX: Z12.5 Encounter for screening for malignant neoplasm of prostate (principal)
CPT/HCPCS: 36415; 84153; G0103

== ENCOUNTER → 2024-11-19 | Outpatient (CLI) | payer MEDICARE, OTHER, SELFPAY ==
--- OUTSIDE RECORDS SUMMARY | 2024-11-19 22:57 | XMS RPT_ITS | CCD ---
Author Organization [facility] CliniSyvt Care Team Providers Care Freight Trucker Name Role Phone Fabrice POST PRODUCTION ASSISTANT, POST PRODUCTION ASSISTANT-C Esperanza Primary Care Provider Dr. Felicita Suh Attending Provider [phone] Mateus Starr Referring Provider [phone] Fabrice GIBSON, POST PRODUCTION ASSISTANT-C Esperanza Primary Care Provider Dr. Emerson Perez Attending Provider Dr. Gavin Porter Referring Provider Dr. Kody Mcallister Attending Provider [phone] RANDY AVINAA Ladi Primary Care Unavailable Fabrice MARINE FIRER.INCIDENT HANDLER, Esperanza L Primary Care Provide r Felicita Suh MD Unavailable Group, [facility] Unavailable FABRICE ESPERANZA L Primary Care Unavailable GRANT, FELICITA Referring Unavailable GLORIA GRAVES Attending Unavailable Grant, Felicita Attending Unavailable Grant, Felicita Referring Unavailable Fabrice POST PRODUCTION ASSISTANT, Esperanza Primary Care Unavailable Grant, Felicita Attending Unavailable Grant, Felicita Referring Unavailable Fabrice POST PRODUCTION ASSISTANT, Esperanza Primary Care Unavailable Fabrice POST PRODUCTION ASSISTANT, Esperanza Primary Care Unavailable Grant, Felicita Referring Unavailable Grant, Felicita Attending Unavailable Mateus Starr Referring Unavailable Fabrice POST PRODUCTION ASSISTANT, Esperanza Primary Care Unavailable Mateus Starr Attending Unavailable Fabrice POST PRODUCTION ASSISTANT, Esperanza Referring Unavailable Grant, Felicita Attending Unavailable Fabrice POST PRODUCTION ASSISTANT, Esperanza Primary Care Unavailable Grant, Felicita Referring Unavailable Grant, Felicita Consulting Unavailable Grant, Felicita Attending Unavailable Fabrice POST PRODUCTION ASSISTANT, Esperanza Primary Care Unavailable Fabrice POST PRODUCTION ASSISTANT, Esperanza Primary Care Unavailable Esperanza Avina NP Referring Unavailable Felicita Suh Attending Unavailable Medications Current Medications Medication Drug Class(es) Dates Sig (Normalized) Sig (Original) aspirin 81 mg oral tablet (1 source) Platelet Aggregation Inhibitor, Nonsteroidal Anti-inflammatory Drug take 1 capsule by mouth once daily aspirin 81 mg cap Take 1 capsule by mouth once daily. 0 Active famotidine 20 mg oral tablet (2 sources) Histamine-2 Receptor Antagonist Start: 07-03-2023 take 1 tablet by mouth twice daily Famotidine (Pepcid) 20 mg tablet Active 20 MG PO TWICE A DAY 03 22July 03, 2023 10:44am folic acid 1 mg oral tablet (1 source) Start: 10-04-2023 take 1 tablet by mouth once daily folic acid 1 mg tablet Take 1 mg by mouth once daily. 0 10/04/2023 Active gabapentin 100 mg oral capsule (3 sources) Anti-epileptic Agent Start: 10-20-2022 take 200 mg by mouth four times daily Gabapentin Active 200 MG PO .qid 240 October 19, 2022 11:00pm ondansetron 4 mg disintegrating oral tablet (2 sources) Serotonin-3 Receptor Antagonist Start: 07-03-2023 take 4 mg by mouth every eight hours as needed Ondansetron Active 4 MG PO EVERY 8 HOURS NEEDED July 03, 2023 12:00am phenazopyridine hydrochloride 100 mg oral tablet (3 sources) Start: 08-08-2023 take 1 tablet by mouth three times daily Phenazopyridine (Pyridium) 100 mg tablet Active 100 MG PO THREE TIMES A DAY August 08, 2023 1:30pm Completed/Discontinued Medications Medication Drug Class(es) Dates Sig (Normalized) Sig (Original) acetaminophen 325 mg / HYDROcodone bitartrate 5 mg oral tablet (16 sources) Opioid Agonist Start: 03-05-2019 End: 07-30-2019 take 1 tablet by mouth every six hours Hydrocodone-Acetam inophen Discontinued 1 TABLET PO EVERY 6 HOURS March 04, 2019 11:00pm July 30, 2019 3:47pm amoxicillin 875 mg / clavulanate 125 mg oral tablet (20 sources) Penicillin-class Antibacterial Start: 02-14-2023 End: 07-03-2023 take 1 tablet by mouth twice daily Amoxicillin-Pot Clavulanate Discontinued 1 TABLET PO TWICE A DAY February 14, 2023 5:39pm July 03, 2023 4:36pm Start: 08-26-2018 End: 10-21-2018 take 1 tablet by mouth twice daily Amoxicillin-Pot Clavulanate Discontinued 1 TABLET PO TWICE A DAY August 25, 2018 11:00pm October 21, 2018 2:01pm azithromycin 250 mg oral tablet (16 sources) Macrolide Antimicrobial Start: 07-30-2019 End: 08-04-2019 Azithromycin Discontinued 250 MG PO daily 6 5 July 30, 2019 12:00am August 04, 2019 12:08am 2 po qd for 1 day then 1 po qd for 4 days with food or after eating cephalexin 500 mg oral capsule (20 sources) Cephalosporin Antibacterial Start: 10-08-2022 End: 10-20-2022 take 500 mg by mouth twice daily Cephalexin Discontinued 500 MG PO TWICE A DAY October 07, 2022 11:00pm October 20, 2022 2:57pm Start: 05-29-2018 End: 10-21-2018 take 500 mg by mouth twice daily Cephalexin Discontinued 500 MG PO TWICE A DAY May 29, 2018 12:00am October 21, 2018 2:01pm ciprofloxacin 500 mg oral tablet (10 sources) Quinolone Antimicrobial Start: 08-08-2023 End: 08-24-2023 take 1 tablet by mouth every twelve hours Ciprofloxacin Hcl (Cipro) 500 mg tablet Discontinued 500 MG PO Q12H August 08, 2023 12:00am August 24, 2023 3:24am Start: 07-03-2023 take 1 tablet by nilsa th twice daily Ciprofloxacin Hcl (Cipro) 500 mg tablet Active 500 MG PO TWICE A DAY July 03, 2023 12:00am Start: 08-03-2022 take 1 tablet by nilsa th twice daily Ciprofloxacin Hcl (Cipro) 500 mg tablet Active 500 MG PO TWICE A DAY August 03, 2022 1:00am citalopram 10 mg oral tablet (16 sources) Serotonin Reuptake Inhibitor Start: 05-29-2018 End: 10-21-2018 take 10 mg by mouth once daily Citalopram Discontinued 10 MG PO DAILY May 29, 2018 12:00am October 21, 2018 2:00pm cyclobenzaprine hydrochloride 7.5 mg oral tablet (20 sources) Muscle Relaxant Start: 08-03-2022 End: 09-02-2022 take 7.5 mg by mouth three times daily Cyclobenzaprine Discontinued 7.5 MG PO THREE TIMES A DAY August 03, 2022 12:00am September 01, 2022 11:13pm Start: 03-05-2019 End: 07-30-2019 take 10 mg by mouth three times daily Cyclobenzaprine Discontinued 10 MG PO THREE TIMES A DAY March 04, 2019 11:00pm July 30, 2019 3:47pm ibuprofen 600 mg oral tablet (16 sources) Nonsteroidal Anti-inflammatory Drug Start: 03-05-2019 End: 11-19-2019 take 600 mg by mouth every six hours Ibuprofen Discontinued 600 MG PO EVERY 6 HOURS March 04, 2019 11:00pm November 19, 2019 5:49pm lidocaine 0.05 mg/mg medicated patch (16 sources) Antiarrhythmic, Amide Local Anesthetic Start: 03-05-2019 End: 11-01-2021 apply 1 dose topically once daily Lidocaine Discontinued 1 PATCH TOPICAL DAILY March 04, 2019 11:00pm November 01, 2021 6:34pm meloxicam 15 mg oral tablet (16 sources) Nonsteroidal Anti-inflammatory Drug Start: 05-29-2018 End: 10-21-2018 take 1 tablet by mouth once daily Meloxicam (Mobic) 15 mg tablet Discontinued 15 MG PO DAILY May 29, 2018 12:00am October 21, 2018 2:01pm omeprazole 40 mg delayed release oral capsule (1 source) Proton Pump Inhibitor Start: 12-02-2019 End: 12-16-2023 take 1 capsule by mouth once daily omeprazole 40 mg capsule Take 1 capsule by mouth once daily. 30 capsule 2 12/02/2019 12/16/2023 Discontinued (Course of therapy completed) oseltamivir 75 mg oral capsule (16 sources) Neuraminidase Inhibitor Start: 08-19-2019 End: 11-19-2019 take 75 mg by mouth once daily Oseltamivir Discontinued 75 MG PO DAILY August 19, 2019 12:00am November 19, 2019 5:49pm oxyCODONE hydrochloride 5 mg oral tablet (3 sources) Opioid Agonist Start: 08-08-2023 End: 08-24-2023 take 5 mg by mouth every six hours Oxycodone Discontinued 5 MG PO EVERY 6 HOURS 14 7 August 08, 2023 August 24, 2023 3:24am predniSONE 50 mg oral tablet (20 sources) Start: 07-01-2023 End: 07-03-2023 take 50 mg by mouth once daily Prednisone Discontinued 50 MG PO DAILY July 01, 2023 12:00am July 03, 2023 4:37pm Start: 03-05-2019 End: 07-30-2019 take 20 mg by mouth once daily Prednisone Discontinued 20 MG PO DAILY March 04, 2019 11:00pm July 30, 2019 3:47pm tamsulosin hydrochloride 0.4 mg oral capsule (20 sources) alpha-Adrenergic Leroy Start: 07-02-2017 End: 10-20-2022 take 0.4 mg by mouth once daily Tamsulosin Discontinued 0.4 MG PO DAILY October 08, 2022 7:58am October 20, 2022 2:58pm Problems Active Problems Problem Classification Problem Date Documented Da te Episodic/Chronic Biliary tract disease (1 source) Gallstone; Translations: [Calculus of gallbladder without cholecystitis without obstruction] 05-14-2017 Episodic Calculus of urinary tract (14 sources) Kidney stone; Translations: [Calculus of kidney] 08-03-2022 Episodic Cardiac dysrhythmias (8 sources) Sick sinus syndrome; Translations: [Sick sinus syndrome] Onset: 4 12-16-2023 Chronic Chronic obstructive pulmonary disease and bronchiectasis (16 sources) Bronchitis; Translations: [Bronchitis, not specified as acute or chronic] 07-30-2019 Episodic Conduction disorders (3 sources) Right bundle branch block AND left anterior fascicular block; Translations: [Bifascicular block] Onset: 4 12-16-2023 Chronic Deficiency and other anemia (1 source) Anemia, unspecified; Translations: [Anemia, unspecified type] Onset: 4 Episodic Disorders of lipid metabolism (18 sources) Hypercholesterolemia; Translations: [Pure hypercholesterolemia, unspecified] Onset: 4 10-21-2018 Chronic Hyperplasia of prostate (20 sources) Benign prostatic hyperplasia; Translations: [Benign prostatic hyperplasia without lower urinary tract symptoms] Onset: 4 10-21-2018 Chronic Immunizations and screening for infectious disease (16 sources) Needs influenza immunization; Translations: [Encounter for immunization] 04-05-2020 Episodic Influenza (16 sources) Influenza due to Influenza B virus; Translations: [Influenza due to other identified influenza virus with other respiratory manifestations] 07-30-2019 Episodic Osteoarthritis (17 sources) Osteoarthritis; Translations: [Unspecified osteoarthritis, unspecified site] Onset: 4 03-05-2019 Chronic Other diseases of kidney and ureters (8 sources) Hydronephrosis; Translations: [Unspecified hydronephrosis] 10-08-2022 Episodic Other diseases of kidney and ureters (8 sources) Obstruction of pelviureteric junction; Translations: [Crossing vessel and stricture of ureter without hydronephrosis] 10-08-2022 Episodic Other diseases of kidney and ureters (2 sources) Unspecified hydronephrosis; Translations: [Hydronephrosis] 10-08-2022 Episodic Other diseases of kidney and ureters (2 sources) Crossing vessel and stricture of ureter without hydronephrosis; Translations: [Other ureteric obstruction] 10-08-2022 Episodic Other ear and sense organ disorders (1 source) Bilateral hearing loss; Translations: [Unspecified hearing loss, bilateral] Onset: 4 12-16-2023 Chronic Other ear and sense organ disorders (16 sources) Bilateral hearing loss; Translations: [Impacted cerumen, bilateral] 05-29-2018 Episodic Other gastrointestinal disorders (16 sources) Diarrhea; Translations: [Diarrhea, unspecified] 11-19-2019 Episodic Other gastrointestinal disorders (1 source) Diarrhea, unspecified; Translations: [Diarrhea of presumed infectious origin] Onset: 4 Episodic Other hematologic conditions (3 sources) Splenic infarction; Translations: [Infarction of spleen] Onset: 4 08-24-2023 Episodic Other hematologic conditions (2 sources) Infarction of spleen; Translations: [Other diseases of spleen] 08-24-2023 Episodic Other nervous system disorders (16 sources) Compression injury of nerve; Translations: [Other specified mononeuropathies] 03-05-2019 Chronic Other screening for suspected conditions (not mental disorders or infectious disease) (1 source) Encounter for screening for malignant neoplasm of prostate; Translations: [Encounter for screening for malignant neoplasm of prostate] Onset: 5 Episodic Other upper respiratory infections (16 sources) Acute maxillary sinusitis; Translations: [Acute maxillary sinusitis, unspecified] 08-26-2018 Episodic Otitis media and related conditions (20 sources) Otitis media; Translations: [Otitis media, unspecified, left ear] 07-30-2019 Episodic Peripheral and visceral atherosclerosis (1 source) Unspecified atherosclerosis; Translations: [Unspecified atherosclerosis] Onset: 4 Chronic Residual codes; unclassified (2 sources) Other specified postprocedural states; Translations: [Personal history of surgery to other organs] 08-24-2023 Episodic Unclassified (2 sources) Supraventricular tachycardia, unspecified; Translations: [Supraventricular tachycardia, unspecified] Onset: 4 Viral infection (16 sources) Verruca plantaris; Translations: [Plantar wart] 11-29-2020 Episodic Past or Other Problems Problem Classification Problem Date Documented Da te Episodic/Chronic Abdominal pain (15 sources) Left flank pain; Translations: [Unspecified abdominal pain] Onset: 09-09-2015 08-03-2022 Episodic Cardiac dysrhythmias (10 sources) Sinus bradycardia; Translations: [Bradycardia, unspecified] Onset: 11-29-2023 12-16-2023 Episodic Other and unspecified benign neoplasm (1 source) History of polyp of colon; Translations: [Personal history of colonic polyps] Onset: 09-09-2015 09-09-2015 Episodic Other circulatory disease (1 source) Elevated blood-pressure reading, without diagnosis of hypertension; Translations: [Elevated blood-pressure reading, without diagnosis of hypertension] Onset: 11-29-2023 Episodic Other gastrointestinal disorders (1 source) Abdominal bloating; Translations: [Abdominal distension (gaseous)] Onset: 09-09-2015 09-09-2015 Episodic Other lower respiratory disease (2 sources) Other forms of dyspnea; Translations: [Other forms of dyspnea] Onset: 11-29-2023 Episodic Unclassified (15 sources) CHOLECYSTECTOMY W/ INTRAOPERATIVE CHOLANGIOGRAM 01-16-2022 Unclassified (15 sources) MCA YEARS OLD FX LEG 01-16-2022 Results Test Name Value Interpretation Reference Range Facility PSA,Total - Annual Screenon 11-04-2024 PSA,TOT SCREEN 0.91 ng/mL Normal 0.02-4.00 [facility] Comment on above: Result Comment: This test was performed using the Liana Addy tPSA method. Measured values of a patient??sample can vary depending on the testing procedure used. PSA values determined on patient samples by different testing procedures cannot be used interchangeably. If there is a change in PSA assays while monitoring therapy, sequential testing should be performed to confirm baseline values. Performed By: #### L 501.9910 #### [facility] [address] [place], [address] Lipid Profileon 07-15-2024 Cholesterol [Mass/Vol] 159 mg/dL Normal 200 [facility] Comment on above: Result Comment: <200 mg/dL Desirable 200-240 mg/dL Borderline >240 mg/dL High Risk Performed By: #### L [id number] #### [facility] [address] [place], [address] Cholesterol in HDL [Mass/Vol] 59 mg/dL Normal [facility] Comment on above: Result Comment: The drugs N-Acetylcysteine and Metamizole may falsely depress this assay. Reference Range HDL <40 mg/dL Low HDL Cholesterol HDL >or= 60 mg/dL High HDL Cholesterol Performed By: #### L [id number] #### [facility] [address] [place], [address] Cholesterol in LDL [Mass/Vol] 78 mg/dL Normal 0-130 [facility] Comment on above: Performed By: #### L [id number] #### [facility] [address] [place], [address] Cholesterol in VLDL [Mass/Vol] 22 mg/dL Normal 5-40 [facility] Comment on above: Performed By: #### L [id number] #### [facility] [address] [place], [address] Triglyceride [Mass/Vol] 109 mg/dL Normal [facility] Comment on above: Result Comment: The drugs N-Acetylcysteine and Metamizole may falsely depress this assay. Serum Triglycerides Reference Interval Normal <150 mg/dL Borderline high 150 - 199 mg/dL High 200 - 499 mg/dL Very High > or = 500 mg/dL Performed By: #### L [id number] #### [facility] [address] [place], [address] Cardiology Visit Reporton Cardiology Visit Report [facility] [address] [place] [address] OFFICE VISIT Date of Service: 07/14/24 MR#: [id number] Acct: [id number] Name: FEDERICO LAMB Rep #: [id number] : 1950 Provider: Dr. Felicita Suh MD Age/Sex: 74/M Location: [facility] Status: Signed HPI HPI History of Present Illness Details: This gentleman is here for follow-up visit. Denies any complaints. No chest pains. No shortness of breath. Denies any palpitations. No lightheadedness or dizziness. No syncope or presyncope. 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 Accompanied by: Self Is patient in pain?: No Allergies No Known Allergies Allergy (Verified 07/14/24 12:51) Medications ???Medication ???Instructions ???Recorded ???Confirmed ???Type omeprazole 20 mg capsule,delayed 20 mg PO DAILY 10/31/23 07/14/24 History release tamsulosin 0.4 mg capsule 0.4 mg PO DAILY BPH #30 caps 10/31/23 07/14/24 Rx aspirin 81 mg tablet,delayed 81 mg PO DAILY #90 tabs 11/29/23 07/14/24 Rx release Ejection fraction %: 60 Have you fallen in the past year?: No PFSH Medical History Arthritis Bilateral hearing loss due to cerumen impaction BPH (benign prostatic hyperplasia) BPH (benign prostatic hyperplasia) Bronchitis Diarrhea Former smoker Gastric reflux High cholesterol History of nephrolithiasis Hydronephrosis (Unknown) Influenza B Left flank pain, chronic Left otitis media Left-sided Hawkins's palsy Maxillary sinusitis, acute Need for influenza vaccination Obstruction of left ureteropelvic junction (UPJ) Osteoarthritis Pinched vertebral nerve Plantar wart of right foot Right otitis media Splenic infarct SVT (supraventricular tachycardia) Ureteral stent present Wears dentures Wears glasses Surgical History CHOLECYSTECTOMY W/ INTRAOPERATIVE CHOLANGIOGRAM History of cystoscopy History of urologic surgery S/P ureteral stent placement Family History Mother Parkinson's disease Father Lung disease, emphysema Heart disease Social History household members: children and none housing: house number of children: 3 current occupational status: retired Smoking Status: Former smoker second hand exposure: No alcohol intake: current alcohol intake frequency: a few times a week substance use type: does not use caffeine: Yes Type: coffee Number of servings: 2 ROS Const Const: Negative for fatigue, weakness, headache(s) or weight gain ENT ENT: Negative for headache(s), dizziness, Nosebleed/epistaxis or balance problems Cardio Chest Pain: No Palpitations: No Edema: Bilateral (occasional) Muscle aches with walking: None Resp Respiratory: Positive for SOB with activity (w/extreme exertion); Negative for SOB at rest or SOB orthopnea SOB lying down GI GI: Positive for heartburn (diet dependent); Negative nausea or vomiting Musc Musc: Negative for muscle aches/ myalgia, muscle weakness, joint pain or balance problems Neuro Neuro: Negative for dizziness, lightheadedness, near syncope, syncope, headache(s) or weakness Endo Endo: Negative for fatigue Cardiology Exam Const Appearance: comfortable and no acute distress Nutritional Appearance: well nourished Neck Neck: no JVD Carotids: Negative bruit Chest Auscultation: Bilateral: Diminished Lung Sounds Cardio Rate: regular rate Rhythm: regular rhythm Heart sounds: S1 normal and S2 normal Neuro General: patient alert, patient awake and patient oriented x3 Extremities Lower Extremity Edema: None: Bilateral Supplemental Info Supplemental Information ECHOCARDIOGRAM 08/24/23: Interpretation Summary The estimated ejection fraction is 60 %. No evidence for diastolic dysfunction. Trivial mitral valve insufficiency. Trivial aortic valve insufficiency. Stress Test Report 12/13/2023 Procedure: Exercise tolerance test/imaging study Indications: Palpitations Consent: Per the patient Procedure: The patient exercised on a Artie protocol for 9 minutes achieving a peak heart rate of 142 bpm (97% predicted maximal heart rate) with a peak blood pressure 172/58 mmHg and a peak MET capacity of 10.4 METs. The baseline ECG demonstrated sinus rhythm with right bundle branch block. The peak exercise ECG demonstrated no diagnostic isch (more content not included)... Normal [facility] CNOVon 12-17-2023 CN Office Visit (AGCARDPOB) FEDERICO LAMB ([id number]) 1950 M Date Time Provider Department 12/17/23 10:20 AM GLORIA GRAVES AGCARDFELICIA During your visit today, we recorded the following information about you: Pulse Blood pressure Weight 64/minute 145/86 72.7 kg Gloria Graves MD 12/20/2023 10:36 AM Signed PRIMARY CARE PHYSICIAN: Esperanza Avina ([facility]) [address] [address] REFERRING PHYSICIAN: Felicita Suh [address] [place] [id number] Patient Care Team: Esperanza Avina, ERIN.INCIDENT HANDLER as PCP - General (Family Medicine) Felicita Suh MD as Specialty Filter Helper (Cardiology) Group, [facility] as Specialty Filter Helper (Cardiology) CHIEF COMPLAINT: Evaluation for arrhythmia HISTORY OF PRESENT ILLNESS: Mr. Lamb is a 73 year old male who presents today for evaluation of arrhythmia, referred by Dr. Suh of [facility]. He states at age 18 or 19 years of age he had kidney problem, had surgery on ureter. This became a chronic issue. He was having backaches last year, he needed to have a ureteral stent but didn't work. He had surgery to have the tube fixed. A few days after the surgery had abdominal pain, he states he had blood clots in his spleen. This was [facility]. He had some type of arrhythmia. He wore heart monitor for a few weeks. The monitor showed some abnormality so he was evaluated at [facility]. There is mention in Dr. Suh's notes that EKG showed sinus bradycardia, competing junctional rhythm. Mr. Lamb states Dr. Suh was concerned about his heart chambers and valves not being in sync. Dr. Suh was concerned about sinus node dysfunction and chronotropic incompetence. He had stress test completed 12/13/2023 (this was treadmill study to evaluate for chronotropic incompetence). He states that during the stress test he was told that he reached the target heart rate (presumably this was the usual 85% MPHR target). Cardiac monitoring for about 14 days in August 2023 revealed some moderate bradycardia, no high degree heart blocks, some brief PSVT (? Atrial tachycardia). Overall Mr. Lamb states he typically feels ok. No exertional symptoms, not unusually limited in his activities. He does get short of breath with more extreme physical activities, like running up the side of a mountain when he is hunting. No severe lightheadedness, near syncope or syncope. He has only occasional brief palpitations or rapid heart beats, not much bothered by this. I have confirmed and edited as necessary, the PFSH and ROS obtained by others. 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/16/2023 SSS (sick sinus syndrome) (HCC) 12/16/2023 SVT (supraventricular tachycardia) (HCC) 12/16/2023 PAST SURGICAL HISTORY Procedure Laterality Date ARTHRP KNE CONDYLEANDPLATU MEDIALANDLAT COMPARTMENTS Left 2019 COLONOSCOPY FLX DX W/COLLJ SPEC WHEN PFRMD 12/02/2019 Colonoscopy COLSC FLX W/RMVL OF TUMOR POLYP LESION SNARE TQ 2010 2 polyps - recommened follow up in 2014 COLSC FLX W/RMVL OF TUMOR POLYP LESION SNARE TQ 09/28/15 small adenomatous polyp - 5 year follow up EGD TRANSORAL BIOPSY SINGLE/MULTIPLE 09/28/15 normal ESOPHAGOGASTRODUODEN OSCOPY TRANSORAL DIAGNOSTIC 12/02/2019 EGD LAPAROSCOPY SURG CHOLECYSTECTOMY 05/23/2017 [place] TREAT LOWER LEG FRACTURE multiple additional fractures URETER DISSECTION Left 1968 SOCIAL HISTORY Social History Tobacco Use Smoking status: Former Packs/day: 1.25 Years: 40.00 Additional pack years: 0.00 Total pack years: 50.00 Types: Cigarettes Quit date: 06/18/2014 Years since quittin.5 Smokeless tobacco: Never Substance Use Topics Alcohol use: Yes Comment: occasional with bowling Drug use: No FAMILY HISTORY Problem Relation Age of Onset Arthritis Mother Parkinson?s Disease Mother other (Heart valve issue) Father Heart disease Father Emphysema Father worked in [employer], also a smoker No Known Problems Sister other ( in infancy) Brother Colon Cancer Daughter No Known Problems Son ALLERGIES: ALLERGIES No Known Allergies MEDICATIONS: folic acid 1 mg tablet Take 1 mg by mouth once daily. aspirin 81 mg cap Take 1 capsule by mouth once daily. tamsulosin ER (FLOMAX) 0.4 mg cp24 REVIEW OF SYSTEMS: Review of Systems Constitutional: Negative for chills and fever. Respiratory: Negative for cough, hemoptysis, sputum production and shortness of breath. Cardiovascular: Positive for palpitations. Negative for chest pain, orthopnea, (more content not included)... Normal [facility] ECG B/O W INTERP (MED OFFICE )on 12-17-2023 Interpretation and review of laboratory results Abnormal [facility] Unusual P wave axis, possible ectopic atrial bradycardia 54 bpm; normal IA interval 170 ms; right bundle branch block and left anterior fascicular block (QRS 130 ms); QTc 417 ms [facility] Stress Reporton 12-13-2023 Stress Report [facility] [address] [place] [address] MR#: [id number] Acct: [id number] Name: FEDERICO LAMB Rep #: [id number] : 1950 73 From: Felicita Suh MD Primary Care: AGAPITO Craft Status: REG CLI Referring Dr: Felicita Suh MD Sex: M C Stress Test Report Date: 12/13/2023 Procedure: Exercise tolerance test/imaging study Indications: Palpitations Consent: Per the patient Procedure: The patient exercised on a Artie protocol for 9 minutes achieving a peak heart rate of 142 bpm (97% predicted maximal heart rate) with a peak blood pressure 172/58 mmHg and a peak MET capacity of 10.4 METs. The baseline ECG demonstrated sinus rhythm with right bundle branch block. The peak exercise ECG demonstrated no diagnostic ischemic changes. There were no cardiac dysrhythmias pretest, during exercise, or recovery. The functional capacity was considered excellent for age. There was no complaint of chest discomfort during exercise or recovery. The examination was discontinued secondary to target heart rate being achieved. The patient was injected with 11.4 mCi of technetium 99m Cardiolite and subsequently rest SPECT Cardiolite nuclear imaging was obtained in the horizontal long, vertical long, and short axis views. Post-exercise, the patient was injected with 33.1 mCi of technetium 99m Cardiolite and subsequently stress SPECT Cardiolite nuclear imaging was obtained in the horizontal long, vertical long, and short axis views. A gated Cardiolite study at peak stress was obtained. Rest and stress SPECT Cardiolite nuclear imaging status post realignment, normalization, and attenuation correction, demonstrates the appearance of relative uniform tracer uptake and myocardial perfusion appearing within normal limits. There is end systolic thickening and brightening. The gated Cardiolite study demonstrates myocardial thickening and inward wall motion. The reported LVEF is 71%. Impression: 1. Technically adequate (percent predicted maximal heart rate greater than 85%) exercise tolerance test 2. Peak exercise ECG with no diagnostic ischemic changes. Good chronotropic response to exercise 3. There were no cardiac dysrhythmias pretest, during exercise, or recovery 4. Rest and stress SPECT Cardiolite nuclear imaging demonstrate relative uniform tracer uptake and myocardial perfusion appearing within normal limits. 5. The gated Cardiolite study reports an LVEF of 71%. This note was generated with [employer] Engines[employer] software. It may contain incorrect words, spelling, and punctuation that were not noted in checking the note before signing. 12/13/23 1001 Date Felicita Suh MD CC: AGAPITO Avina; Dr. Felicita Suh MD Date Dictated: 12/13/23957 Date Transcribed: 12/13/23957 Unix Consultant: RITESH Signed Normal [facility] 12 Lead EKG performed by [facility] on 11-29-2023 12 Lead EKG performed by [facility] [address] [place] [address] 12 Lead EKG performed by [facility] 11/29/23929 MR#: [id number] Acct: [id number] Name: FEDERICO LAMB Rep #: [id number] : 1950 73 From: Felicita Suh MD Attending Dr: Dr. Felicita Suh MD Status: DEP AMB Ordering Dr: Felicita Suh MD Date: 11/29/23 [place] [facility] [place] M C Admitted: [facility]/12 Lead EKG performed by [facility] ECG Report Interpretation ------Marked sinus Bradycardia -Right bundle branch block with left axis -bifascicular block. ABNORMAL Electronically signed on 07/14/2024 at 09:[address] Felicita Suh [employer] Software Version [id number] 07/14/24923 Date Felicita Suh MD CC: AGAPITO Avina Date Dictated: 11/29/23929 Date Transcribed: 11/29/23929 Unix Consultant: RITESH Signed Normal [facility] Cardiology Visit Reporton Cardiology Visit Report [facility] [address] [place] [address] OFFICE VISIT Date of Service: 11/29/23 MR#: [id number] Acct: [id number] Name: FEDERICO LAMB Rep #: [id number] : 1950 Provider: Dr. Felicita Suh MD Age/Sex: 73/M [facility] Status: Signed HPI [facility] History of Present Illness Details: This gentleman has been referred to us for evaluation and management of his SVT, discovered on an event monitor. Patient was admitted to the hospital with complaints of acute abdominal pain. He was noted to have splenic infarct. A 30-day event monitor was recommended after discharge to ensure that the patient does not have any atrial fibrillation. The event monitoring reported no atrial fibrillation however an episode of SVT was noted. Patient denies any chest pains either at rest or with exertion. He does complain of shortness of breath with strenuous exertion. No orthopnea PND. No ankle edema. Occasional palpitations that he describes as maybe once every 2 weeks or so. Last for a minute or less. Occasional lightheadedness, particularly in the mornings. No syncope or presyncope. 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) [employer] Required: No Accompanied by: Self Is patient in pain?: No Allergies No Known Allergies Allergy (Verified 11/29/23 09:23) Medications ???Medication ???Instructions ???Recorded ???Confirmed ???Type omeprazole 20 mg capsule,delayed 20 mg PO DAILY 10/31/23 11/06/23 History release tamsulosin 0.4 mg capsule 0.4 mg PO DAILY BPH #30 caps 10/31/23 11/06/23 Rx aspirin 81 mg tablet,delayed 81 mg PO DAILY #90 tabs 11/29/23 11/29/23 Rx release Ejection fraction %: 60 PFSH Medical History Bilateral hearing loss due to cerumen impaction Right otitis media Maxillary sinusitis, acute BPH (benign prostatic hyperplasia) Pinched vertebral nerve Osteoarthritis Influenza B Bronchitis Left otitis media Diarrhea Need for influenza vaccination Left flank pain, chronic Plantar wart of right foot 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 SVT (supraventricular tachycardia) High cholesterol History of nephrolithiasis Wears dentures Wears glasses Arthritis Gastric reflux Former smoker Hydronephrosis (Unknown) Ureteral stent present BPH (benign prostatic hyperplasia) Left-sided Hawkins's palsy Surgical History History of urologic surgery S/P ureteral stent placement History of cystoscopy CHOLECYSTECTOMY W/ INTRAOPERATIVE CHOLANGIOGRAM Family History Mother Parkinson's disease Father Lung disease, emphysema Heart disease Social History household members: children and none housing: house number of children: 3 current occupational status: retired Smoking Status: Former smoker second hand exposure: No alcohol intake: current alcohol intake frequency: a few times a week substance use type: does not use caffeine: Yes Type: coffee Number of servings: 2 ROS Const Const: Positive for fatigue, headache(s) and daytime sleepiness; Negative for weakness, frequent falls, difficulty sleeping or excessive sweating Eyes Eyes: Negative for loss of peripheral vision, transient loss of vision, blurry vision, double vision or tunnel vision ENT ENT: Positive for headache(s) and balance problems; Negative for dizziness or Nosebleed/epistaxis Cardio Chest Pain: No Palpitations: Yes feels like its: fast Edema: None Muscle aches with walking: None Resp Respiratory: Positive for SOB with activity; Negative for SOB at rest, SOB orthopnea SOB lying down, Cough or paroxysmal nocturnal dyspnea GI GI: Positive for heartburn; Negative nausea, vomiting or black,tarry stools : Negative for hematuria Musc Musc: Positive for joint pain and balance problems; Negative for muscle aches/ myalgia or muscle weakness Skin Skin: Negative non-healing lesions, rash or unusual bruising Neuro Neuro: Positive for lightheadedness (occ when gets up too fast ) and headache(s); Negative for dizziness, near syncope, syncope, frequent falls, weakness, blurry vision, double vision or lack of coordination Jason Hematologic/Lymphati c: Negative for easy bleeding or easy bruising Endo Endo: Positive for fatigue; Negative for excessive sweating or increased thirst/drinking Psych Psych: Negative for anxiety or depression (more content not included)... Normal [facility] Thyroid Stim Hormone (TSH)on 11-29-2023 TSH 1.49 uIU/mL Normal 0.358-3.74 [facility] Comment on above: Performed By: #### L [phone] #### [facility] [place], [address] C diff Tox gens Stl Ql JAS+p robeon 10-15-2023 C. difficile toxin genes JAS+probe Ql (Stl) Negative Normal Negative for C. difficile toxin by PCR [facility] Comment on above: Order Comment: Speci men Type: STOOL SPECIMEN Ordering Facility: [facility] Address: [address] [place] [address] Performed By: #### 4 8059-0, 11402-0 #### [facility] IA [id number] [address] [place] [address] [place] FECAL LACTOFERRIN/LEUKOCYTES on 10-15-2023 Lactoferrin IA Ql (Stl) Negative for lactoferrin, which may indicate the absence of fecal white blood cells Normal Negative [facility] Comment on above: Order Comment: Speci men Type: STOOL SPECIMEN Ordering Facility: [facility] Address: [address] [place] [address] Performed By: #### F ECWBC #### [facility] IA [id number] [address] [place] [address] [place] G lamblia+Cryptosp Ag Stl Ql IAon 10-15-2023 G. lamblia+Cryptosporidium sp Ag IA Ql (Stl) CRYPTOSPORIDIUM ANTIGEN BY EIA: Negative for Cryptosporidium by EIA. GIARDIA ANTIGEN BY EIA: Negative for Giardia lamblia by EIA. Normal [facility] Comment on above: Performed By: #### 4 8059-0, 08916-9 #### [facility] CLIA [id number] [address] [place] [address] [place] Gastrointestinal pathogens i dentified JAS+probe Nom (Stl)on 10-15-2023 Campylobacter sp DNA JAS+probe Nom (Unsp spec) Not detected Normal Not Detected [facility] Comment on above: Order Comment: Speci men Type: BLOOD SPECIMEN Ordering Facility: [facility] Address: [address] [place] [address] Performed By: #### 2 132-9, 2283-8 #### [facility] CLIA [id number] [address] Salmonella sp DNA JAS+probe Ql (Unsp spec) Not detected Normal Not Detected [facility] Comment on above: Order Comment: Speci men Type: BLOOD SPECIMEN Ordering Facility: [facility] Address: [address] [place] [address] Performed By: #### 2 132-9, 8 #### [facility] CLIA [id number] [address] Shiga toxin stx gene JAS+probe Nom (Unsp spec) Not detected Normal Not Detected [facility] Comment on above: Order Comment: [place] farooq Type: BLOOD SPECIMEN Ordering Facility: [facility] Address: [address] [place] [address] Performed By: #### 2 1329, 8 #### [facility] CLIA [id number] [address] Shigella sp DNA JAS+probe Ql (Unsp spec) Not detected Normal Not Detected [facility] Comment on above: Order Comment: Franciscoi men Type: BLOOD SPECIMEN Ordering Facility: [facility] Address: [address] [place] [address] Performed By: #### 2 1329, 8 #### [facility] CLIA [id number] [address] CBC W Auto Differential pane l (Bld)on 10-01-2023 Basophils (Bld) [#/Vol] 0.09 10*3/uL Normal <0.11 [facility] Comment on above: Order Comment: [place] men Type: BLOOD SPECIMEN Ordering Facility: [facility] Address: [address] [place] [address] Performed By: #### 2 132-9, 8 #### [facility] CLIA [id number] [address] Basophils/100 WBC (Bld) 1.2 % Normal [facility] Comment on above: Order Comment: Speci men Type: BLOOD SPECIMEN Ordering Facility: [facility] Address: [address] [place] [address] Performed By: #### 2 132-9, 2284-01 #### [facility] CLIA [id number] [address] [place] [address] [place] Differential cell count method Nom (Bld) Auto Normal [facility] Comment on above: Order Comment: Speci men Type: BLOOD SPECIMEN Ordering Facility: [facility] Address: [address] [place] [address] Performed By: #### 2 132-9, 2284-01 #### [facility] CLIA [id number] [address] [place] [address] [place] Eosinophils (Bld) [#/Vol] 0.44 10*3/uL Normal <0.46 [facility] Comment on above: Order Comment: Speci men Type: BLOOD SPECIMEN Ordering Facility: [facility] Address: [address] [place] [address] Performed By: #### 2 1329, 2284-01 #### [facility] CLIA [id number] [address] Eosinophils/100 WBC (Bld) 6.0 % Normal [facility] Comment on above: Order Comment: Speci men Type: BLOOD SPECIMEN Ordering Facility: [facility] Address: [address] [place] [address] Performed By: #### 2 1329, 2284-01 #### [facility] CLIA [id number] [address] [place] Erythrocyte distribution width (RBC) [Ratio] 13.4 % Normal 11.5-15.0 [facility] Comment on above: Order Comment: Speci men Type: BLOOD SPECIMEN Ordering Facility: [facility] Address: [address] [place] [address] Performed By: #### 2 132-9, 2284-01 #### [facility] CLIA [id number] [address] [place] [address] [place] Hematocrit (Bld) [Volume fraction] 42.6 % Normal 39.0-51.0 [facility] Comment on above: Order Comment: Speci men Type: BLOOD SPECIMEN Ordering Facility: [facility] Address: [address] [place] [address] Performed By: #### 2 1329, 2284-01 #### [facility] CLIA [id number] [address] [place] Hemoglobin (Bld) [Mass/Vol] 13.8 g/dL Normal 13.0-17.0 [facility] Comment on above: Order Comment: Franciscoi men Type: BLOOD SPECIMEN Ordering Facility: [facility] Address: [address] [place] [address] Performed By: #### 2 1329, 2284-01 #### [facility] CLIA [id number] [address] [place] Immature granulocytes (Bld) [#/Vol] 0.09 10*3/uL Normal <0.10 [facility] Comment on above: Order Comment: Speci men Type: BLOOD SPECIMEN Ordering Facility: [facility] Address: [address] [place] [address] Performed By: #### 2 1329, 2284-01 #### [facility] CLIA [id number] [address] Immature granulocytes/100 WBC (Bld) 1.2 % Normal [facility] Comment on above: Order Comment: Speci men Type: BLOOD SPECIMEN Ordering Facility: [facility] Address: [address] [place] [address] Performed By: #### 2 1329, 2284-01 #### [facility] CLIA [id number] [address] [place] [address] [place] Lymphocytes (Bld) [#/Vol] 2.39 10*3/uL Normal 1.00-4.0 0 [facility] Comment on above: Order Comment: Speci men Type: BLOOD SPECIMEN Ordering Facility: [facility] Address: [address] [place] [address] Performed By: #### 2 1329, 8 #### [facility] CLIA [id number] [address] [place] [address] [place] Lymphocytes/100 WBC (Bld) 32.5 % Normal [facility] Comment on above: Order Comment: Speci men Type: BLOOD SPECIMEN Ordering Facility: [facility] Address: [address] [place] [address] Performed By: #### 2 132-9, 8 #### [facility] CLIA [id number] [address] [place] MCH (RBC) [Entitic mass] 29.8 pg Normal 26.0-34.0 [facility] Comment on above: Order Comment: Speci men Type: BLOOD SPECIMEN Ordering Facility: [facility] Address: [address] [place] [address] Performed By: #### 2 132-9, 8 #### [facility] CLIA [id number] [address] [place] MCHC (RBC) [Mass/Vol] 32.4 g/dL Normal 30.5-36.0 [facility] Comment on above: Order Comment: Speci men Type: BLOOD SPECIMEN Ordering Facility: [facility] Address: [address] [place] [address] Performed By: #### 2 132-9, 8 #### [facility] CLIA [id number] [address] [place] MCV (RBC) [Entitic vol] 92.0 fL Normal 80.0-100.0 [facility] Comment on above: Order Comment: Speci men Type: BLOOD SPECIMEN Ordering Facility: [facility] Address: [address] [place] [address] Performed By: #### 2 132-9, 8 #### [facility] CLIA [id number] [address] [place] Monocytes (Bld) [#/Vol] 1.04 10*3/uL High <0.87 [facility] Comment on above: Order Comment: Speci men Type: BLOOD SPECIMEN Ordering Facility: [facility] Address: [address] [place] [address] Performed By: #### 2 132-9, 8 #### [facility] CLIA [id number] [address] [place] [address] [place] Monocytes/100 WBC (Bld) 14.1 % Normal [facility] Comment on above: Order Comment: Speci men Type: BLOOD SPECIMEN Ordering Facility: [facility] Address: [address] [place] [address] Performed By: #### 2 132-9, 2284-01 #### [facility] CLIA [id number] [address] [place] [address] [place] Neutrophils (Bld) [#/Vol] 3.31 10*3/uL Normal 1.45-7.5 0 [facility] Comment on above: Order Comment: Speci men Type: BLOOD SPECIMEN Ordering Facility: [facility] Address: [address] [place] [address] Performed By: #### 2 1329, 2284-01 #### [facility] CLIA [id number] [address] [place] [address] [place] Neutrophils/100 WBC (Bld) 45.0 % Normal [facility] Comment on above: Order Comment: Speci men Type: BLOOD SPECIMEN Ordering Facility: [facility] Address: [address] [place] [address] Performed By: #### 2 1329, 2284-01 #### [facility] CLIA [id number] [address] [place] [address] [place] Nucleated RBC (Bld) [#/Vol] 10*3/uL Normal <0.01 [facility] Comment on above: Order Comment: Speci men Type: BLOOD SPECIMEN Ordering Facility: [facility] Address: [address] [place] [address] Performed By: #### 2 1329, 2284-01 #### [facility] CLIA [id number] [address] [place] [address] [place] Nucleated RBC/100 WBC (Bld) [Ratio] 0.0 /100 WBC Normal [facility] Comment on above: Order Comment: Speci men Type: BLOOD SPECIMEN Ordering Facility: [facility] Address: [address] [place] [address] Performed By: #### 2 132-9, 8 #### [facility] CLIA [id number] [address] [place] Platelet mean volume (Bld) [Entitic vol] 10.5 fL Normal 9.0-12.7 [facility] Comment on above: Order Comment: Speci men Type: BLOOD SPECIMEN Ordering Facility: [facility] Address: [address] [place] [address] Performed By: #### 2 132-9, 2284-01 #### [facility] CLIA [id number] [address] [facility] Platelets (Bld) [#/Vol] 384 10*3/uL Normal 150-400 [facility] Comment on above: Order Comment: Speci men Type: BLOOD SPECIMEN Ordering Facility: [facility] Address: [address] [place] [address] Performed By: #### 2 132-9, 8 #### [facility] CLIA [id number] [address] [place] [address] [place] RBC (Bld) [#/Vol] 4.63 10*6/uL Normal 4.20-6.00 [facility] Comment on above: Order Comment: Speci men Type: BLOOD SPECIMEN Ordering Facility: [facility] Address: [address] [place] [address] Performed By: #### 2 132-9, 2284-01 #### [facility] CLIA [id number] [address] [place] WBC (Bld) [#/Vol] 7.36 10*3/uL Normal 3.70-11.00 [facility] Comment on above: Order Comment: Speci men Type: BLOOD SPECIMEN Ordering Facility: [facility] Address: [address] [place] [address] Performed By: #### 2 132-9, 8 #### [facility] CLIA [id number] [address] [place] [address] [place] CELIAC SCREENon 10-01-2023 GLIAD DEAMIDATED IGA QUAL Negative Normal Ne gative, Test not Indicated [facility] Comment on above: Order Comment: [place] farooq Type: BLOOD SPECIMEN Ordering Facility: [facility] Address: [address] [place] [address] Result Comment: This is used as an aid in diagnosis of celiac disease. Clinical correlation is required. The following results were obtained with an [employer] QUANTA Lite Gliadin IgA GET Gliadin. Gliadin IgA values obtained with different manufacturers' assay methods may not be used interchangeably. The magnitude of the reported IgA levels cannot be correlated to an endpoint titer. Performed By: #### L [id number] #### [facility] CLIA [id number] [address] [place] [address] [place] Gliadin peptide IgA Qn (S) 5 Units Normal <20 [facility] Comment on above: Order Comment: [place] [facility] Type: BLOOD SPECIMEN Ordering Facility: [facility] Address: [address] [place] [address] Performed By: #### L [id number] #### [facility] CLIA [id number] [address] [place] [address] [place] INTERPRETATION No serological evidence of celiac disease, however, if celiac disease is clinically suspected and patient is not on gluten-free diet, histological diagnosis may be considered. HLA testing may help with risk assessment. Normal [facility] Comment on above: Order Comment: [place] farooq Type: BLOOD SPECIMEN Ordering Facility: [facility] Address: [address] [place] [address] Performed By: #### L [id number] #### [facility] CLIA [id number] [address] [place] [address] [place] TRANSGLUTAMINASE IGA ABS INTERPRETATION Negative Normal Negative [facility] Comment on above: Order Comment: [place] [facility] Type: BLOOD SPECIMEN Ordering Facility: [facility] Address: [address] [place] [address] Result Comment: The following results were obtained with [employer] QUANTA Lite R h-tTG IgA GET.???R h-tTG IgA values obtained with different manufacturers' assay methods may not be used interchangeably. The magnitude of the reported IgA levels cannot be corelated to an endpoint???concentration. This is used as an aid in diagnosis of celiac disease. Clinical correlation is required. Performed By: #### L [id number] #### [facility] CLIA [id number] [address] [place] [address] [place] tTG IgA Qn (S) <2 Normal <4 [facility] Comment on above: Order Comment: [place] farooq Type: BLOOD SPECIMEN [facility] [facility] Address: [address] [place] [address] Performed By: #### L [id number] #### [facility] CLIA [id number] [address] [place] [address] [place] Ferritin SerPl-mCncon 2023 Ferritin [Mass/Vol] 259.4 ng/mL Normal 30.3-565.7 [facility] Comment on above: Order Comment: [place] farooq Type: BLOOD SPECIMEN Ordering Facility: [facility] Address: [address] [place] [address] Performed By: #### 5 0190-8, 2276-4, 3016-3 #### [facility] CLIA [id number] [address] [place] [address] [place] Folate SerPl-mCncon 10-01-19 Folate [Mass/Vol] 3.7 ng/mL Low >4.7 [facility] Comment on above: Order Comment: [place] farooq Type: BLOOD SPECIMEN Ordering Facility: [facility] Address: [address] [place] [address] Performed By: #### 2 132-9, 2284-8 #### [facility] CLIA [id number] [address] [place] [address] [place] IgA SerPl-mCncon 10-01-2023 IgA [Mass/Vol] 174 mg/dL Normal 70-400 [facility] Comment on above: Order Comment: Speci men Type: BLOOD SPECIMEN Ordering Facility: [facility] Address: [address] [place] [address] Performed By: #### 2 458-8 #### [facility] CLIA [id number] [address] [place] [address] [place] Iron and Iron binding capaci ty panelon 10-01-2023 Iron [Mass/Vol] 47 ug/dL Normal 41-186 [facility] Comment on above: Order Comment: Speci men Type: BLOOD SPECIMEN Ordering Facility: [facility] Address: [address] [place] [address] Performed By: #### 5 0190-8, 2276-4, 3016-3 #### [facility] CLIA [id number] [address] Iron binding capacity [Mass/Vol] 299 ug/dL Normal 232-386 [facility] Comment on above: Order Comment: Franciscoi men Type: BLOOD SPECIMEN Ordering Facility: [facility] Address: [address] [place] [address] Performed By: #### 5 0190-8, 2276-4, 3016-3 #### [facility] CLIA [id number] [address] Iron/TIBC [Molar ratio] 15.7 % Normal 15.0-57.0 [facility] Comment on above: Order Comment: [place] men Type: BLOOD SPECIMEN Ordering Facility: [facility] Address: [address] [place] [address] Performed By: #### 5 0190-8, 2276-4, 3016-3 #### [facility] CLIA [id number] [address] [place] bilirubin panel [Ma ss/Vol]on 10-01-2023 Bilirubin [Mass/Vol] 0.6 mg/dL Normal 0.2-1.3 [facility] Comment on above: Order Comment: Franciscoi men Type: BLOOD SPECIMEN Ordering Facility: [facility] Address: [address] [place] [address] Performed By: #### 2 132-9, 2284-8 #### [facility] CLIA [id number] [address] Bilirubin.conjugated [Mass/Vol] mg/dL Normal <0.2 [facility] Comment on above: Order Comment: [place] farooq Type: BLOOD SPECIMEN Ordering Facility: [facility] Address: [address] [place] [address] Performed By: #### 2 132-9, 228-8 #### [facility] CLIA [id number] [address] Bilirubin.indirect [Mass/Vol] mg/dL Normal <1.4 [facility] Comment on above: Order Comment: [place] farooq Type: BLOOD SPECIMEN Ordering Facility: [facility] Address: [address] [place] [address] Performed By: #### 2 132-9, 228-8 #### [facility] CLIA [id number] [address] [facility] TSH SerPl-aCncon 10-01-2023 TSH Qn 1.990 m[IU]/L Normal 0.270-4.200 [facility] Comment on above: Order Comment: [place] farooq Type: BLOOD SPECIMEN Ordering Facility: [facility] Address: [address] [place] [address] Performed By: #### 5 0190-8, 2276-4, 3016-3 #### [facility] CLIA [id number] [address] [facility] Vit B12 SerPl-mCncon 024 Cobalamin (Vitamin B12) [Mass/Vol] 467 pg/mL Normal 232-1245 [facility] Comment on above: Order Comment: [place] farooq Type: BLOOD SPECIMEN Ordering Facility: [facility] Address: [address] [place] [address] Performed By: #### 2 132-9, 2284-8 #### [facility] CLIA [id number] [address] Absolute lymphocyte countOrd ered By: Debora Lamb on 08-25-2023 Lymphocytes Auto (Unsp spec) [#/Vol] 2.81 10*3/uL 0.83-4.51 [facility] Activated partial thrombopla stin time (aPTT) in platelet poor plasma by coagulation aOrdered By: Debora Lamb on 08-25-2023 aPTT Coag (PPP) [Time] 60.8 s 24.1-36.2 [facility] Automated lymphocyte count a s percentage of total leukocytesOrdered By: Debora Adonis on 08-25-2023 Lymphocytes/100 WBC Auto (Unsp spec) 28.6 % 19-41 [facility] Basophil percentageOrdered B y: Debora Lamb on 08-25-2023 Basophils/100 WBC (Bld) 1.0 % 0-1 [facility] Bilirubin [Mass/Vol] 1.70 mg/dL 0.20-1.00 [facility] Comment on above: For patients on eltr ombopag therapy, use of Dimension [place] TBIL is not recommended. Chloride [Moles/Vol] 107 mmol/L 98-107 [facility] Eosinophils/100 WBC (Bld) 2.1 % 0-5 [facility] Glucose [Mass/Vol] 84 mg/dL 74-106 [facility] Hemoglobin (Bld) [Mass/Vol] 12.8 g/dL 13.0-16.5 [facility] Monocytes/100 WBC (Bld) 10.1 % 0-10 [facility] Neutrophils (Bld) [#/Vol] 5.7 10*3/uL 2.0-7.7 [facility] Neutrophils/100 WBC (Bld) 57.6 % 47-70 [facility] Potassium [Moles/Vol] 3.7 mmol/L 3.5-5.1 [facility] Protein [Mass/Vol] 5.7 g/dL 6.4-8.2 [facility] Sodium [Moles/Vol] 140 mmol/L 136-145 [facility] WBC (Bld) [#/Vol] 9.8 10*3/uL 4.4-11.0 [facility] Determination of erythrocyte mean corpuscular volume (MCV)Ordered By: Debora Lamb on 03-09-2024 MCV (RBC) [Entitic vol] 90.1 fL 80-94 [facility] Erythrocyte distribution wid th ratioOrdered By: Debora Adonis on 08-25-2023 Erythrocyte distribution width (RBC) [Ratio] 13.0 % 11.6-14.6 [facility] Erythrocyte distribution wid th standard deviationOrdered By: Debora Adonis on 08-25-2023 Erythrocyte distribution width (RBC) [Entitic vol] 43.1 fL 35.1-43.9 [facility] Hematocrit Auto (Bld) [Volum e fraction]Ordered By: Debora Lamb on 08-25-2023 Hematocrit (Bld) [Volume fraction] 39.2 % 40-54 [facility] Immature granulocytes/100 WB C Auto (Bld)Ordered By: [facility] Adonis on 08-25-2023 Immature granulocytes/100 WBC (Bld) 0.600 % 0.0-0.9 [facility] Comment on above: IG% - Immature Granu locytes (promyelocytes, myelocytes and metamyelocytes) > 1% indicates that a LEFT SHIFT is Present. Laboratory - Chemistry and C hemistry - challengeOrdered By: [facility] Adonis on 08-25-2023 Albumin/Globulin [Mass ratio] 1.1 {ratio} 0.9-2.4 [facility] ALP [Catalytic activity/Vol] 69 U/L 45-117 [facility] ALT [Catalytic activity/Vol] 11 U/L 16-61 [facility] CO2 [Moles/Vol] 28.0 mmol/L 21.0-32.0 [facility] Globulin (S) [Mass/Vol] 2.7 g/dL 2.2-4.2 [facility] Urea nitrogen/Creatinine [Mass ratio] 13.4 mg/mg 10-20 [facility] - Hematology and Cell countsOrdered By: [facility] Adonis on 08-25-2023 MCH (RBC) [Entitic mass] 29.4 pg 27.0-32.0 [facility] MCHC (RBC) [Mass/Vol] 32.7 g/dL 32-36 [facility] Nucleated RBC/100 WBC (Bld) [Ratio] 0 % 0-5 [facility] Platelet mean volume (Bld) [Entitic vol] 10.4 fL 6.2-12.0 [facility] Platelets (Bld) [#/Vol] 327 10*3/uL 150-450 [facility] No Panel InformationOrdered By: Debora Lamb on 08-25-2023 Estimated Creatinine Clearance Calc 69.67 ml/min [facility] Estimated GFR (MDRD) Amer 107 mL/min >60 [facility] Comment on above: GFR Calc Estimated GFR (MDRD) Non-Af Amer 88 mL/min >60 [facility] Comment on above: Non- GFR Calc RBC Auto (Bld) [#/Vol]Ordere d By: Debora Lamb on 08-25-2023 RBC (Bld) [#/Vol] 4.35 10*6/uL 4.6-6.2 [facility] Serum or plasma calcium carly urement (mass/volume)Ordered By: Debora Lamb on 08-25-2023 Calcium [Mass/Vol] 8.8 mg/dL 8.5-10.1 [facility] Serum or plasma creatinine m easurement (mass/volume)Ordered By: Debora Lamb on 08-25-2023 Creatinine [Mass/Vol] 0.90 mg/dL 0.70-1.30 [facility] Comment on above: The validity of the calculated GFR & GFRAA in patients over 70 years has not been determined. Clinical correlation is essential. Serum or plasma urea nitroge n measurement (mass/volume)Ordered By: Debora Lamb on 08-25-2023 Urea nitrogen [Mass/Vol] 12 mg/dL 7-18 [facility] Thin prep Papanicolaou smear with manual screeningOrdered By: Debora Lamb on 08-25-2023 Thin prep Papanicolaou smear with manual screening 3.0 g/dL 3.2-5.0 [facility] Thin prep Papanicolaou smear with manual screening 16 U/L 15-37 [facility] Thin prep Papanicolaou smear with manual screening 5 5-15 [facility] Absolute lymphocyte countOrd ered By: Abel Reid on 08-24-2023 Lymphocytes Auto (Unsp spec) [#/Vol] 2.66 10*3/uL 0.83-4.51 [facility] Activated partial thrombopla stin time (aPTT) in platelet poor plasma by coagulation aOrdered By: Abel Reid on 08-24-2023 aPTT Coag (PPP) [Time] 33.8 s 24.1-36.2 [facility] Automated lymphocyte count a s percentage of total leukocytesOrdered By: Abel Reid on 08-24-2023 Lymphocytes/100 WBC Auto (Unsp spec) 25.1 % 19-41 [facility] Basophil percentageOrdered B y: Abel Reid on 08-24-2023 Basophil percentage 0-5 SEEN /hpf 0-5 [facility] Basophils/100 WBC (Bld) 1.0 % 0-1 [facility] Bilirubin [Mass/Vol] 1.90 mg/dL 0.20-1.00 [facility] Comment on above: For patients on eltr ombopag therapy, use of Dimension [place] TBIL is not recommended. Chloride [Moles/Vol] 104 mmol/L 98-107 [facility] Eosinophils/100 WBC (Bld) 1.7 % 0-5 [facility] Glucose [Mass/Vol] 118 mg/dL 74-106 [facility] Comment on above: Fasting Glucose resu lt from 100 to 125 mg/dL suggests IMPAIRED HOMEOSTASIS per A.D.A. criteria. Hemoglobin (Bld) [Mass/Vol] 15.3 g/dL 13.0-16.5 [facility] Monocytes/100 WBC (Bld) 8.1 % 0-10 [facility] Neutrophils (Bld) [#/Vol] 6.7 10*3/uL 2.0-7.7 [facility] Neutrophils/100 WBC (Bld) 62.9 % 47-70 [facility] Potassium [Moles/Vol] 3.9 mmol/L 3.5-5.1 [facility] Protein [Mass/Vol] 6.9 g/dL 6.4-8.2 [facility] Sodium [Moles/Vol] 140 mmol/L 136-145 [facility] WBC (Bld) [#/Vol] 10.6 10*3/uL 4.4-11.0 [facility] Bilirubin Test strip Ql (U)O rdered By: Abel Reid on 08-24-2023 Bilirubin Ql (U) 6 mg/dL Negative [facility] Comment on above: COLOR OF URINE MAY A FFECT DIPSTICK RESULTS. Determination of erythrocyte mean corpuscular volume (MCV)Ordered By: Abel Reid on 08-24-2023 MCV (RBC) [Entitic vol] 91.8 fL 80-94 [facility] Erythrocyte distribution wid th ratioOrdered By: Abel Reid on 08-24-2023 Erythrocyte distribution width (RBC) [Ratio] 12.8 % 11.6-14.6 [facility] Erythrocyte distribution wid th standard deviationOrdered By: Abel Reid on 08-24-2023 Erythrocyte distribution width (RBC) [Entitic vol] 43.3 fL 35.1-43.9 [facility] Hematocrit Auto (Bld) [Volum e fraction]Ordered By: Abel Reid on 08-24-2023 Hematocrit (Bld) [Volume fraction] 46.8 % 40-54 [facility] Immature granulocytes/100 WB C Auto (Bld)Ordered By: Abel Reid on 08-24-2023 Immature granulocytes/100 WBC (Bld) 1.200 % 0.0-0.9 [facility] Comment on above: IG% - Immature Granu locytes (promyelocytes, myelocytes and metamyelocytes) > 1% indicates that a LEFT SHIFT is Present. Ketones Test strip Ql (U)Ord ered By: Abel Reid on 08-24-2023 Ketones Ql (U) Negative Negative [facility] - Chemistry and C hemistry - challengeOrdered By: Abel Reid on 08-24-2023 Albumin/Globulin [Mass ratio] 1.2 {ratio} 0.9-2.4 [facility] ALP [Catalytic activity/Vol] 88 U/L 45-117 [facility] ALT [Catalytic activity/Vol] 14 U/L 16-61 [facility] CO2 [Moles/Vol] 30.0 mmol/L 21.0-32.0 [facility] Globulin (S) [Mass/Vol] 3.2 g/dL 2.2-4.2 [facility] Lipase [Catalytic activity/Vol] 39 U/L 13-75 [facility] Comment on above: Please note:LIPASE r evised reference range effective 22. New Lipase methodology. Expected to produce lower values than the previous assay method. NEW Reference Range: 13 - 75 U/L Urea nitrogen/Creatinine [Mass ratio] 17.3 mg/mg 10-20 [facility] - CoagulationOrde red By: Abel Reid on 08-24-2023 INR Coag (Bld) [Relative time] 1.0 {INR} [facility] PT Coag (PPP) [Time] 12.8 s 11.7-14.9 [facility] - Hematology and Cell countsOrdered By: Abel Reid on 08-24-2023 MCH (RBC) [Entitic mass] 30.0 pg 27.0-32.0 [facility] MCHC (RBC) [Mass/Vol] 32.7 g/dL 32-36 [facility] Nucleated RBC/100 WBC (Bld) [Ratio] 0 % 0-5 [facility] Platelet mean volume (Bld) [Entitic vol] 10.1 fL 6.2-12.0 [facility] Platelets (Bld) [#/Vol] 405 10*3/uL 150-450 [facility] Mucus LM Ql (Urine sed)Order ed By: Abel Reid on 08-24-2023 Mucus Ql (Urine sed) 0 SEEN /hpf [facility] Nitrite Test strip Ql (U)Ord ered By: Abel Reid on 08-24-2023 Nitrite Ql (U) Positive Negative [facility] No Panel InformationOrdered By: Abel Reid on 08-24-2023 Urine RBC 10-25 SEEN /hpf 0-5 [facility] Estimated Creatinine Clearance Calc 57.00 ml/min [facility] Estimated GFR (MDRD) Amer 84 mL/min >60 [facility] Comment on above: GFR Calc Estimated GFR (MDRD) Non-Af Amer 70 mL/min >60 [facility] Comment on above: Non- GFR Calc Troponin I High Sensitivity 30 pg/mL 3.0-78.0 [facility] Comment on above: Please Note: New Monique t Units and Gender Specific Reference Ranges. For more information see Policy Stat Procedure [place] High Sensitivity Troponin (TNIH) and attachments. Protein Test strip Ql (U)Ord ered By: Abel Reid on 08-24-2023 Protein Ql (U) 100 mg/dl Negative [facility] RBC Auto (Bld) [#/Vol]Ordere d By: Abel Reid on 08-24-2023 RBC (Bld) [#/Vol] 5.10 10*6/uL 4.6-6.2 [facility] Serum or plasma calcium carly urement (mass/volume)Ordered By: Abel Reid on 08-24-2023 Calcium [Mass/Vol] 9.5 mg/dL 8.5-10.1 [facility] Serum or plasma creatinine m easurement (mass/volume)Ordered By: Abel Reid on 08-24-2023 Creatinine [Mass/Vol] 1.10 mg/dL 0.70-1.30 [facility] Comment on above: The validity of the calculated GFR & GFRAA in patients over 70 years has not been determined. Clinical correlation is essential. Serum or plasma urea nitroge n measurement (mass/volume)Ordered By: Abel Reid on 08-24-2023 Urea nitrogen [Mass/Vol] 19 mg/dL 7-18 [facility] Serum procalcitonin measurem entOrdered By: Debora Lamb on 08-24-2023 Procalcitonin [Mass/Vol] ng/mL 0.00-0.09 [facility] Comment on above: A procalcitonin (PCT ) level above 2.0 ng/mL on the first day of ICU admission is associated with a high risk for progression to severe sepsis and/or septic shock. A PCT level below 0.5 ng/mL on the first day of ICU admission is associated with a low risk for progression to severe and/or septic shock. Note: Concentrations <0.5 ng/mL do not exclude an infection on account of localized infections (without systemic signs) which can be associated with such low concentrations, or a systemic infection in its initial stages (<6 hours). Furthermore, increased procalcitonin can occur without infection. PCT concentrations between 0.5 and 2.0 ng/mL should be interpreted taking into account the patient's history. It is recommended to retest PCT within 6-24 hours if any concentrations <2 ng/mL are obtained. Squamous epithelial cells de tection in urine sediment by light microscopyOrdered By: Abel Reid on 08-24-2023 Epithelial cells.squamous LM Ql (Urine sed) 0 SEEN /hpf 0-5 [facility] Thin prep Papanicolaou smear with manual screeningOrdered By: Abel Reid on 08-24-2023 Thin prep Papanicolaou smear with manual screening 3.7 g/dL 3.2-5.0 [facility] Thin prep Papanicolaou smear with manual screening 13 U/L 15-37 [facility] Thin prep Papanicolaou smear with manual screening 6 5-15 [facility] Urine blood detectionOrdered By: Abel Reid on 08-24-2023 RBC Ql (U) 250 /ul Negative [facility] Urine clarityOrdered By: Jack Reid on 08-24-2023 Clarity (U) Clear Clear [facility] Urine color determinationOrd ered By: Abel Reid on 08-24-2023 Color (U) Shira Yellow [facility] Urine glucose detectionOrder ed By: Abel Reid on 08-24-2023 Glucose Ql (U) Normal mg/dl Normal [facility] Urine leukocyte esterase det ection by dipstickOrdered By: Abel Reid on 08-24-2023 Leukocyte esterase Test strip Ql (U) 25 /ul Negative [facility] Urine pHOrdered By: Abel shin on 08-24-2023 pH (U) 5.0 [pH] 5.0 - 8.0 [facility] Urine sediment bacteria coun t by microscopy (number/high power field)Ordered By: Abel Reid on 08-24-2023 Bacteria LM.HPF (Urine sed) [#/Area] 1 /[HPF] None Seen [facility] Urine specific gravity measu rementOrdered By: Abel Reid on 08-24-2023 Specific gravity (U) [Rel density] 1.030 1.002-1.030 [facility] Urine urobilinogen measureme ntOrdered By: Abel Reid on 08-24-2023 Urobilinogen Ql (U) 8 mg/dl Normal [facility] Absolute lymphocyte countOrd ered By: Mateus Starr on 08-09-2023 Lymphocytes Auto (Unsp spec) [#/Vol] 2.24 10*3/uL 0.83-4.51 [facility] Automated lymphocyte count a s percentage of total leukocytesOrdered By: Mateus Starr on 08-09-2023 Lymphocytes/100 WBC Auto (Unsp spec) 16.4 % 19-41 [facility] Basophil percentageOrdered B y: Mateus Starr on 08-09-2023 Basophils/100 WBC (Bld) 0.2 % 0-1 [facility] Chloride [Moles/Vol] 106 mmol/L 98-107 [facility] Eosinophils/100 WBC (Bld) 0.1 % 0-5 [facility] Glucose [Mass/Vol] 110 mg/dL 74-106 [facility] Comment on above: Fasting Glucose resu lt from 100 to 125 mg/dL suggests IMPAIRED HOMEOSTASIS per A.D.A. criteria. Hemoglobin (Bld) [Mass/Vol] 11.8 g/dL 13.0-16.5 [facility] Monocytes/100 WBC (Bld) 9.9 % 0-10 [facility] Neutrophils (Bld) [#/Vol] 10.0 10*3/uL 2.0-7.7 [facility] Neutrophils/100 WBC (Bld) 72.8 % 47-70 [facility] Potassium [Moles/Vol] 4.0 mmol/L 3.5-5.1 [facility] Sodium [Moles/Vol] 137 mmol/L 136-145 [facility] WBC (Bld) [#/Vol] 13.7 10*3/uL 4.4-11.0 [facility] Determination of erythrocyte mean corpuscular volume (MCV)Ordered By: Mateus Starr on 08-09-2023 MCV (RBC) [Entitic vol] 90.9 fL 80-94 [facility] Erythrocyte distribution wid th ratioOrdered By: Mateus Starr on 08-09-2023 Erythrocyte distribution width (RBC) [Ratio] 12.6 % 11.6-14.6 [facility] Erythrocyte distribution wid th standard deviationOrdered By: Mateus Starr on 08-09-2023 Erythrocyte distribution width (RBC) [Entitic vol] 41.8 fL 35.1-43.9 [facility] Hematocrit Auto (Bld) [Volum e fraction]Ordered By: Mateus Starr on 08-09-2023 Hematocrit (Bld) [Volume fraction] 35.8 % 40-54 [facility] Immature granulocytes/100 WB C Auto (Bld)Ordered By: Mateus Starr on 08-09-2023 Immature granulocytes/100 WBC (Bld) 0.600 % 0.0-0.9 [facility] Comment on above: IG% - Immature Granu locytes (promyelocytes, myelocytes and metamyelocytes) > 1% indicates that a LEFT SHIFT is Present. Laboratory - Chemistry and C hemistry - challengeOrdered By: Mateus Starr on 08-09-2023 CO2 [Moles/Vol] 29.0 mmol/L 21.0-32.0 [facility] Urea nitrogen/Creatinine [Mass ratio] 12.6 mg/mg 10-20 [facility] - Hematology and Cell countsOrdered By: Mateus Starr on 08-09-2023 MCH (RBC) [Entitic mass] 29.9 pg 27.0-32.0 [facility] MCHC (RBC) [Mass/Vol] 33.0 g/dL 32-36 [facility] Nucleated RBC/100 WBC (Bld) [Ratio] 0 % 0-5 [facility] Platelet mean volume (Bld) [Entitic vol] 10.6 fL 6.2-12.0 [facility] Platelets (Bld) [#/Vol] 273 10*3/uL 150-450 [facility] No Panel InformationOrdered By: Mateus Starr on 08-09-2023 Estimated Creatinine Clearance Calc 52.69 ml/min [facility] Estimated GFR (MDRD) Amer 77 mL/min >60 [facility] Comment on above: GFR Calc Estimated GFR (MDRD) Non-Af Amer 63 mL/min >60 [facility] Comment on above: Non- GFR Calc RBC Auto (Bld) [#/Vol]Ordere d By: Mateus Starr on 08-09-2023 RBC (Bld) [#/Vol] 3.94 10*6/uL 4.6-6.2 [facility] Serum or plasma calcium carly urement (mass/volume)Ordered By: Mateus Starr on 08-09-2023 Calcium [Mass/Vol] 8.8 mg/dL 8.5-10.1 [facility] Serum or plasma creatinine m easurement (mass/volume)Ordered By: Mateus Starr on 08-09-2023 Creatinine [Mass/Vol] 1.19 mg/dL 0.70-1.30 [facility] Comment on above: The validity of the calculated GFR & GFRAA in patients over 70 years has not been determined. Clinical correlation is essential. Serum or plasma urea nitroge n measurement (mass/volume)Ordered By: Mateus Starr on 08-09-2023 Urea nitrogen [Mass/Vol] 15 mg/dL 7-18 [facility] Thin prep Papanicolaou smear with manual screeningOrdered By: Mateus Starr on 08-09-2023 Thin prep Papanicolaou smear with manual screening 2 5-15 [facility] Absolute lymphocyte countOrd ered By: Dario Suazo on 07-03-2023 Lymphocytes Auto (Unsp spec) [#/Vol] 2.78 10*3/uL 0.83-4.51 [facility] Basophil percentageOrdered B y: Dario Suazo on 07-03-2023 Basophil percentage 0-5 SEEN /hpf 0-5 [facility] Basophils/100 WBC (Bld) 0.2 % 0-1 [facility] Chloride [Moles/Vol] 105 mmol/L 98-107 [facility] Eosinophils/100 WBC (Bld) 0.1 % 0-5 [facility] Glucose [Mass/Vol] 92 mg/dL 74-106 [facility] Neutrophils (Bld) [#/Vol] 12.9 10*3/uL 2.0-7.7 [facility] Neutrophils/100 WBC (Bld) 72.7 % 47-70 [facility] Potassium [Moles/Vol] 3.9 mmol/L 3.5-5.1 [facility] Sodium [Moles/Vol] 138 mmol/L 136-145 [facility] WBC (Bld) [#/Vol] 17.8 10*3/uL 4.4-11.0 [facility] Bilirubin Test strip Ql (U)O rdered By: Dario Suazo on 07-03-2023 Bilirubin Ql (U) Negative Negative [facility] Blood erythrocytes count (nu mber/volume)Ordered By: Dario Suazo on 07-03-2023 RBC (Bld) [#/Vol] 4.75 10*6/uL 4.6-6.2 [facility] Blood hemoglobin measurement (mass/volume)Ordered By: Dario Suazo on 07-03-2023 Hemoglobin (Bld) [Mass/Vol] 14.6 g/dL 13.0-16.5 [facility] Blood lymphocytes/100 leukoc ytesOrdered By: Dario Suazo on 07-03-2023 Lymphocytes/100 WBC (Bld) 15.6 % 19-41 [facility] Blood manual differential co mment interpretation (narrative result)Ordered By: Dario Suazo on 07-03-2023 Manual differential comment Luis Angel (Bld) [Interp] SCANNED [facility] Blood monocytes/100 leukocyt esOrdered By: Dario Suazo on 07-03-2023 Monocytes/100 WBC (Bld) 10.6 % 0-10 [facility] Blood platelet mean volumeOr dered By: Dario Suazo on 07-03-2023 Platelet mean volume (Bld) [Entitic vol] 10.3 fL 6.2-12.0 [facility] Determination of erythrocyte mean corpuscular volume (MCV)Ordered By: Dario Suazo on 07-03-2023 MCV (RBC) [Entitic vol] 92.0 fL 80-94 [facility] Hematocrit Auto (Bld) [Volum e fraction]Ordered By: Dario Suazo on 07-03-2023 Hematocrit (Bld) [Volume fraction] 43.7 % 40-54 [facility] Ketones Test strip Ql (U)Ord ered By: Dario Suazo on 07-03-2023 Ketones Ql (U) Negative Negative [facility] Laboratory - Chemistry and C hemistry - challengeOrdered By: Dario Suazo on 07-03-2023 CO2 [Moles/Vol] 30.0 mmol/L 21.0-32.0 [facility] Urea nitrogen/Creatinine [Mass ratio] 15.0 mg/mg 10-20 [facility] - Hematology and Cell countsOrdered By: Dario Suazo on 07-03-2023 Erythrocyte distribution width (RBC) [Entitic vol] 44.0 fL 35.1-43.9 [facility] Erythrocyte distribution width (RBC) [Ratio] 13.0 % 11.6-14.6 [facility] Immature granulocytes/100 WBC (Bld) 0.800 % 0.0-0.9 [facility] Comment on above: IG% - Immature Granu locytes (promyelocytes, myelocytes and metamyelocytes) > 1% indicates that a LEFT SHIFT is Present. MCH (RBC) [Entitic mass] 30.7 pg 27.0-32.0 [facility] Nucleated RBC/100 WBC (Bld) [Ratio] 0 % 0-5 [facility] MCHC Auto (RBC) [Mass/Vol]Or dered By: Dario Suazo on 07-03-2023 MCHC (RBC) [Mass/Vol] 33.4 g/dL 32-36 [facility] Mucus LM Ql (Urine sed)Order ed By: Dario Suazo on 07-03-2023 Mucus Ql (Urine sed) 0 SEEN /hpf [facility] Nitrite Test strip Ql (U)Ord ered By: Dario Suazo on 07-03-2023 Nitrite Ql (U) Negative Negative [facility] No Panel InformationOrdered By: Dario Suazo on 07-03-2023 Estimated Creatinine Clearance Calc 44.79 ml/min [facility] Estimated GFR (MDRD) Amer 64 mL/min >60 [facility] Comment on above: GFR Calc Estimated GFR (MDRD) Non-Af Amer 53 mL/min >60 [facility] Comment on above: Non- GFR Calc Platelets bldOrdered By: Waqas Suazo on 07-03-2023 Platelets (Bld) [#/Vol] 323 10*3/uL 150-450 [facility] Protein Test strip Ql (U)Ord ered By: Dario Suazo on 07-03-2023 Protein Ql (U) 30 mg/dl Negative [facility] Review by pathologistOrdered By: Dario Suazo on 07-03-2023 Pathologist review Luis Angel (Unsp spec) [Interp] Cande fan [facility] Pathologist review Luis Angel (Unsp spec) [Interp] Reviewed [facility] Comment on above: Previous reported re sult: Cande fan Edited by: RGOABENA on 07/03/23:1309Neutrophilic leukocytosis.Clinical correlation necessary.Howie Peres M.D. 07/03/23 AMENDED REPORT 07/03/23 1309 PATH REV previously reported as: Cande fan Serum or plasma calcium carly urement (mass/volume)Ordered By: Dario Suazo on 07-03-2023 Calcium [Mass/Vol] 9.2 mg/dL 8.5-10.1 [facility] Serum or plasma creatinine m easurement (mass/volume)Ordered By: Dario Suazo on 07-03-2023 Creatinine [Mass/Vol] 1.40 mg/dL 0.70-1.30 [facility] Comment on above: The validity of the calculated GFR & GFRAA in patients over 70 years has not been determined. Clinical correlation is essential. Serum or plasma urea nitroge n measurement (mass/volume)Ordered By: Dario Suazo on 07-03-2023 Urea nitrogen [Mass/Vol] 21 mg/dL 7-18 [facility] Squamous epithelial cells de tection in urine sediment by light microscopyOrdered By: Dario Suazo on 07-03-2023 Epithelial cells.squamous LM Ql (Urine sed) 0-5 SEEN /hpf 0-5 [facility] Thin prep Papanicolaou smear with manual screeningOrdered By: Dario Suazo on 07-03-2023 Thin prep Papanicolaou smear with manual screening 3 5-15 [facility] Urine blood detectionOrdered By: Dario Suazo on 07-03-2023 RBC Ql (U) Negative Negative [facility] RBC Ql (U) 0 SEEN /hpf 0-5 [facility] Urine clarityOrdered By: Waqas Suazo on 07-03-2023 Clarity (U) Clear Clear [facility] Urine color determinationOrd ered By: Dario Suazo on 07-03-2023 Color (U) Yellow Yellow [facility] Urine glucose detectionOrder ed By: Dario Suazo on 07-03-2023 Glucose Ql (U) Normal mg/dl Normal [facility] Urine leukocyte esterase det ection by dipstickOrdered By: Dario Suazo on 07-03-2023 Leukocyte esterase Test strip Ql (U) 25 /ul Negative [facility] Urine pHOrdered By: Dario guevara on 07-03-2023 pH (U) 6.0 [pH] 5.0 - 8.0 [facility] Urine sediment bacteria coun t by microscopy (number/high power field)Ordered By: Dario Suazo on 07-03-2023 Bacteria LM.HPF (Urine sed) [#/Area] 0 /[HPF] None Seen [facility] Urine specific gravity measu rementOrdered By: Dario Suazo on 07-03-2023 Specific gravity (U) [Rel density] 1.025 1.002-1.030 [facility] Urobilinogen Auto test strip Ql (U)Ordered By: Dario Suazo on 07-03-2023 Urobilinogen Ql (U) Normal mg/dl Normal [facility] Laboratory - Microbiology an d Antimicrobial susceptibilityOrdered By: Dario Suazo on 06-30-2023 SARS-CoV-2 (COVID-19) RNA JAS+probe Ql (Unsp spec) RSV [facility] Absolute lymphocyte countOrd ered By: Dr. Egan on 10-08-2022 Lymphocytes Auto (Unsp spec) [#/Vol] 2.86 10*3/uL 0.83-4.51 [facility] Basophil percentageOrdered B y: Dr. Egan on 10-08-2022 Basophil percentage 10-25 SEEN /hpf 0-5 [facility] Basophils/100 WBC (Bld) 1.0 % 0-1 [facility] Chloride [Moles/Vol] 109 mmol/L 98-107 [facility] Eosinophils/100 WBC (Bld) 1.4 % 0-5 [facility] Glucose [Mass/Vol] 109 mg/dL 74-106 [facility] Comment on above: Fasting Glucose resu lt from 100 to 125 mg/dL suggests IMPAIRED HOMEOSTASIS per A.D.A. criteria. Neutrophils (Bld) [#/Vol] 8.8 10*3/uL 2.0-7.7 [facility] Neutrophils/100 WBC (Bld) 64.7 % 47-70 [facility] Potassium [Moles/Vol] 3.8 mmol/L 3.5-5.1 [facility] Sodium [Moles/Vol] 139 mmol/L 136-145 [facility] WBC (Bld) [#/Vol] 13.6 10*3/uL 4.4-11.0 [facility] Bilirubin Test strip Ql (U)O rdered By: Dr. Egan on 10-08-2022 Bilirubin Ql (U) Negative Negative [facility] Blood erythrocytes count (nu mber/volume)Ordered By: Dr. Egan on 10-08-2022 RBC (Bld) [#/Vol] 4.72 10*6/uL 4.6-6.2 [facility] Blood hemoglobin measurement (mass/volume)Ordered By: Dr. Egan on 10-08-2022 Hemoglobin (Bld) [Mass/Vol] 14.2 g/dL 13.0-16.5 [facility] Blood lymphocytes/100 leukoc ytesOrdered By: Dr. Egan on 10-08-2022 Lymphocytes/100 WBC (Bld) 21.0 % 19-41 [facility] Blood monocytes/100 leukocyt esOrdered By: Dr. Egan on 10-08-2022 Monocytes/100 WBC (Bld) 10.4 % 0-10 [facility] Blood platelet mean volumeOr dered By: Dr. Egan on 10-08-2022 Platelet mean volume (Bld) [Entitic vol] 10.3 fL 6.2-12.0 [facility] Determination of erythrocyte mean corpuscular volume (MCV)Ordered By: Dr. Egan on 10-08-2022 MCV (RBC) [Entitic vol] 94.3 fL 80-94 [facility] Hematocrit Auto (Bld) [Volum e fraction]Ordered By: Dr. Egan on 10-08-2022 Hematocrit (Bld) [Volume fraction] 44.5 % 40-54 [facility] Ketones Test strip Ql (U)Ord ered By: Dr. Egan on 10-08-2022 Ketones Ql (U) Negative Negative [facility] Laboratory - Chemistry and C hemistry - challengeOrdered By: Dr. Egan on 10-08-2022 CO2 [Moles/Vol] 28.0 mmol/L 21.0-32.0 [facility] Urea nitrogen/Creatinine [Mass ratio] 15.3 mg/mg 10-20 [facility] - Hematology and Cell countsOrdered By: Dr. Egan on 10-08-2022 Erythrocyte distribution width (RBC) [Entitic vol] 45.2 fL 35.1-43.9 [facility] Erythrocyte distribution width (RBC) [Ratio] 13.0 % 11.6-14.6 [facility] Immature granulocytes/100 WBC (Bld) 1.500 % 0.0-0.9 [facility] Comment on above: IG% - Immature Granu locytes (promyelocytes, myelocytes and metamyelocytes) > 1% indicates that a LEFT SHIFT is Present. MCH (RBC) [Entitic mass] 30.1 pg 27.0-32.0 [facility] Nucleated RBC/100 WBC (Bld) [Ratio] 0 % 0-5 [facility] MCHC Auto (RBC) [Mass/Vol]Or dered By: Dr. Egan on 10-08-2022 MCHC (RBC) [Mass/Vol] 31.9 g/dL 32-36 [facility] Mucus LM Ql (Urine sed)Order ed By: Dr. Egan on 10-08-2022 Mucus Ql (Urine sed) 0 SEEN /hpf [facility] Nitrite Test strip Ql (U)Ord ered By: Dr. Egan on 10-08-2022 Nitrite Ql (U) Negative Negative [facility] No Panel InformationOrdered By: Dr. Egan on 10-08-2022 Estimated Creatinine Clearance Calc 64.95 ml/min [facility] Estimated GFR (MDRD) Amer 96 mL/min >60 [facility] Comment on above: GFR Calc Estimated GFR (MDRD) Non-Af Amer 80 mL/min >60 [facility] Comment on above: Non- GFR Calc Platelets bldOrdered By: Dr. Egan on 10-08-2022 Platelets (Bld) [#/Vol] 348 10*3/uL 150-450 [facility] Protein Test strip Ql (U)Ord ered By: Dr. Egan on 10-08-2022 Protein Ql (U) 100 mg/dl Negative [facility] Serum or plasma calcium carly urement (mass/volume)Ordered By: Dr. Egan on 10-08-2022 Calcium [Mass/Vol] 9.2 mg/dL 8.5-10.1 [facility] Serum or plasma creatinine m easurement (mass/volume)Ordered By: Dr. Egan on 10-08-2022 Creatinine [Mass/Vol] 0.98 mg/dL 0.70-1.30 [facility] Comment on above: The validity of the calculated GFR & GFRAA in patients over 70 years has not been determined. Clinical correlation is essential. Serum or plasma urea nitroge n measurement (mass/volume)Ordered By: Dr. Egan on 10-08-2022 Urea nitrogen [Mass/Vol] 15 mg/dL 7-18 [facility] Squamous epithelial cells de tection in urine sediment by light microscopyOrdered By: Dr. Egan on 10-08-2022 Epithelial cells.squamous LM Ql (Urine sed) 0 SEEN /hpf 0-5 [facility] Thin prep Papanicolaou smear with manual screeningOrdered By: Dr. Egan on 10-08-2022 Thin prep Papanicolaou smear with manual screening 2 5-15 [facility] Urine blood detectionOrdered By: Dr. Egan on 10-08-2022 RBC Ql (U) 250 /ul Negative [facility] RBC Ql (U) 5-10 SEEN /hpf 0-5 [facility] Urine clarityOrdered By: Dr. Egan on 10-08-2022 Clarity (U) Clear Clear [facility] Urine color determinationOrd ered By: Dr. Egan on 10-08-2022 Color (U) Yellow Yellow [facility] Urine glucose detectionOrder ed By: Dr. Egan on 10-08-2022 Glucose Ql (U) Normal mg/dl Normal [facility] Urine leukocyte esterase det ection by dipstickOrdered By: Dr. Egan on 10-08-2022 Leukocyte esterase Test strip Ql (U) 500 /ul Negative [facility] Urine pHOrdered By: Dr. Maynor alexandra on 10-08-2022 pH (U) 6.0 [pH] 5.0 - 8.0 [facility] Urine sediment bacteria coun t by microscopy (number/high power field)Ordered By: Dr. Egan on 10-08-2022 Bacteria LM.HPF (Urine sed) [#/Area] 1 /[HPF] None Seen [facility] Urine specific gravity measu rementOrdered By: Dr. Egan on 10-08-2022 Specific gravity (U) [Rel density] 1.025 1.002-1.030 [facility] Urobilinogen Auto test strip Ql (U)Ordered By: Dr. Egan on 10-08-2022 Urobilinogen Ql (U) Normal mg/dl Normal [facility] Basophil percentageOrdered B y: Dr. Starr on 09-07-2022 Chloride [Moles/Vol] 108 mmol/L 98-107 [facility] Glucose [Mass/Vol] 105 mg/dL 74-106 [facility] Comment on above: Fasting Glucose resu lt from 100 to 125 mg/dL suggests IMPAIRED HOMEOSTASIS per A.D.A. criteria. Potassium [Moles/Vol] 4.0 mmol/L 3.5-5.1 [facility] Sodium [Moles/Vol] 142 mmol/L 136-145 [facility] WBC (Bld) [#/Vol] 9.9 10*3/uL 4.4-11.0 [facility] Blood erythrocytes count (nu mber/volume)Ordered By: Dr. Starr on 09-07-2022 RBC (Bld) [#/Vol] 4.52 10*6/uL 4.6-6.2 [facility] Blood hemoglobin measurement (mass/volume)Ordered By: Dr. Starr on 09-07-2022 Hemoglobin (Bld) [Mass/Vol] 14.0 g/dL 13.0-16.5 [facility] Blood platelet mean volumeOr dered By: Dr. Starr on 09-07-2022 Platelet mean volume (Bld) [Entitic vol] 10.6 fL 6.2-12.0 [facility] Determination of erythrocyte mean corpuscular volume (MCV)Ordered By: Dr. Starr on 09-07-2022 MCV (RBC) [Entitic vol] 92.0 fL 80-94 [facility] Hematocrit Auto (Bld) [Volum e fraction]Ordered By: Dr. Starr on 09-07-2022 Hematocrit (Bld) [Volume fraction] 41.6 % 40-54 [facility] Laboratory - Chemistry and C hemistry - challengeOrdered By: Dr. Starr on 09-07-2022 CO2 [Moles/Vol] 29.0 mmol/L 21.0-32.0 [facility] Urea nitrogen/Creatinine [Mass ratio] 17.1 mg/mg 10-20 [facility] - Hematology and Cell countsOrdered By: Dr. Starr on 09-07-2022 Erythrocyte distribution width (RBC) [Entitic vol] 44.9 fL 35.1-43.9 [facility] Erythrocyte distribution width (RBC) [Ratio] 13.2 % 11.6-14.6 [facility] MCH (RBC) [Entitic mass] 31.0 pg 27.0-32.0 [facility] MCHC Auto (RBC) [Mass/Vol]Or dered By: Dr. Starr on 09-07-2022 MCHC (RBC) [Mass/Vol] 33.7 g/dL 32-36 [facility] No Panel InformationOrdered By: Dr. Starr on 09-07-2022 Estimated GFR (MDRD) Amer 109 mL/min >60 [facility] Comment on above: GFR Calc Estimated GFR (MDRD) Non-Af Amer 90 mL/min >60 [facility] Comment on above: Non- GFR Calc Platelets bldOrdered By: Dr. Starr on 09-07-2022 Platelets (Bld) [#/Vol] 308 10*3/uL 150-450 [facility] Serum or plasma calcium carly urement (mass/volume)Ordered By: Dr. Starr on 09-07-2022 Calcium [Mass/Vol] 9.1 mg/dL 8.5-10.1 [facility] Serum or plasma creatinine m easurement (mass/volume)Ordered By: Dr. Starr on 09-07-2022 Creatinine [Mass/Vol] 0.88 mg/dL 0.70-1.30 [facility] Comment on above: The validity of the calculated GFR & GFRAA in patients over 70 years has not been determined. Clinical correlation is essential. Serum or plasma urea nitroge n measurement (mass/volume)Ordered By: Dr. Starr on 09-07-2022 Urea nitrogen [Mass/Vol] 15 mg/dL 7-18 [facility] Thin prep Papanicolaou smear with manual screeningOrdered By: Dr. Starr on 09-07-2022 Thin prep Papanicolaou smear with manual screening 5 5-15 [facility] Basophil percentageOrdered B y: Dr. Strar on 08-21-2022 Chloride [Moles/Vol] 103 mmol/L 98-107 [facility] Glucose [Mass/Vol] 101 mg/dL 74-106 [facility] Comment on above: Fasting Glucose resu lt from 100 to 125 mg/dL suggests IMPAIRED HOMEOSTASIS per A.D.A. criteria. Potassium [Moles/Vol] 4.0 mmol/L 3.5-5.1 [facility] Sodium [Moles/Vol] 138 mmol/L 136-145 [facility] Laboratory - Chemistry and C hemistry - challengeOrdered By: Dr. Starr on 08-21-2022 CO2 [Moles/Vol] 31.0 mmol/L 21.0-32.0 [facility] Urea nitrogen/Creatinine [Mass ratio] 9.9 mg/mg 10-20 [facility] No Panel InformationOrdered By: Dr. Starr on 08-21-2022 Estimated GFR (MDRD) Amer 76 mL/min >60 [facility] Comment on above: GFR Calc Estimated GFR (MDRD) Non-Af Amer 62 mL/min >60 [facility] Comment on above: Non- GFR Calc Prostate Specific Antigen Total 2.01 ng/mL 0.0-4.0 [facility] Comment on above: This test was perfor med using the TPSA assay method for the[employer] chemistry system. Values obtained with differentassay methods cannot be used interchangably.When changing PSA assays in the course of monitoring apatient, additional sequential testing should be carriedout to confirm baseline values. Serum or plasma calcium carly urement (mass/volume)Ordered By: Dr. Starr on 08-21-2022 Calcium [Mass/Vol] 9.0 mg/dL 8.5-10.1 [facility] Serum or plasma creatinine m easurement (mass/volume)Ordered By: Dr. Starr on 08-21-2022 Creatinine [Mass/Vol] 1.21 mg/dL 0.70-1.30 [facility] Comment on above: The validity of the calculated GFR & GFRAA in patients over 70 years has not been determined. Clinical correlation is essential. Serum or plasma urea nitroge n measurement (mass/volume)Ordered By: Dr. Starr on 08-21-2022 Urea nitrogen [Mass/Vol] 12 mg/dL 7-18 [facility] Thin prep Papanicolaou smear with manual screeningOrdered By: Dr. Starr on 08-21-2022 Thin prep Papanicolaou smear with manual screening 4 5-15 [facility] Culture, urineOrdered By: Do ra Avina on 08-05-2022 Bacteria identified Cx Nom (U) Culture exhibits no growth. [facility] Absolute lymphocyte countOrd ered By: Esperanza Avina on 08-03-2022 Lymphocytes Auto (Unsp spec) [#/Vol] 2.27 10*3/uL 0.83-4.51 [facility] Basophil percentageOrdered B y: Esperanza Avina on 08-03-2022 Basophils/100 WBC (Bld) 0.3 % 0-1 [facility] Bilirubin [Mass/Vol] 1.80 mg/dL 0.20-1.00 [facility] Comment on above: For patients on eltr ombopag therapy, use of Dimension [place] TBIL is not recommended. Chloride [Moles/Vol] 104 mmol/L 98-107 [facility] Cholesterol [Mass/Vol] 153 mg/dL <200 [facility] Comment on above: <200 mg/dL Desirable 200-240 mg/dL Borderline >240 mg/dL High Risk Eosinophils/100 WBC (Bld) 0.4 % 0-5 [facility] Glucose [Mass/Vol] 108 mg/dL 74-106 [facility] Comment on above: Fasting Glucose resu lt from 100 to 125 mg/dL suggests IMPAIRED HOMEOSTASIS per A.D.A. criteria. Neutrophils (Bld) [#/Vol] 10.2 10*3/uL 2.0-7.7 [facility] Neutrophils/100 WBC (Bld) 72.5 % 47-70 [facility] Potassium [Moles/Vol] 4.3 mmol/L 3.5-5.1 [facility] Protein [Mass/Vol] 7.0 g/dL 6.4-8.2 [facility] Sodium [Moles/Vol] 139 mmol/L 136-145 [facility] Triglyceride [Mass/Vol] 65 mg/dL <199 [facility] Comment on above: The drugs N-Acetylcy steine and Metamizole may falsely depress this assay.Serum Triglycerides Reference Interval Normal <150 mg/dL Borderline high 150 - 199 mg/dL High 200 - 499 mg/dL Very High > or = 500 mg/dL WBC (Bld) [#/Vol] 14.1 10*3/uL 4.4-11.0 [facility] Blood erythrocytes count (nu mber/volume)Ordered By: Esperanza Avina on 08-03-2022 RBC (Bld) [#/Vol] 4.61 10*6/uL 4.6-6.2 [facility] Blood hemoglobin measurement (mass/volume)Ordered By: Esperanza Avina on 08-03-2022 Hemoglobin (Bld) [Mass/Vol] 14.2 g/dL 13.0-16.5 [facility] Blood lymphocytes/100 leukoc ytesOrdered By: Esperanza Avina on 08-03-2022 Lymphocytes/100 WBC (Bld) 16.2 % 19-41 [facility] Blood monocytes/100 leukocyt esOrdered By: Esperanza Avina on 08-03-2022 Monocytes/100 WBC (Bld) 9.8 % 0-10 [facility] Blood platelet mean volumeOr dered By: Esperanza Avina on 08-03-2022 Platelet mean volume (Bld) [Entitic vol] 10.6 fL 6.2-12.0 [facility] Determination of erythrocyte mean corpuscular volume (MCV)Ordered By: Esperanza Avina on 08-03-2022 MCV (RBC) [Entitic vol] 92.0 fL 80-94 [facility] Hematocrit Auto (Bld) [Volum e fraction]Ordered By: Esperanza Avina on 08-03-2022 Hematocrit (Bld) [Volume fraction] 42.4 % 40-54 [facility] - Chemistry and C hemistry - challengeOrdered By: Esperanza Avina on 08-03-2022 ALP [Catalytic activity/Vol] 74 U/L 45-117 [facility] ALT [Catalytic activity/Vol] 22 U/L 16-61 [facility] CO2 [Moles/Vol] 29.0 mmol/L 21.0-32.0 [facility] Globulin (S) [Mass/Vol] 3.1 g/dL 2.2-4.2 [facility] Urea nitrogen/Creatinine [Mass ratio] 13.8 mg/mg 10-20 [facility] - Chemistry and C hemistry - challengeon 08-03-2022 Bilirubin Ql (U) Negative [facility] Glucose Ql (U) Negative [facility] Ketones Ql (U) Small (15+) [facility] pH (U) 7.0 [pH] [facility] Specific gravity (U) [Rel density] 1.020 [facility] Urobilinogen (U) [Mass/Vol] 0.2466761 mg/dL [facility] Laboratory - Hematology and Cell countsOrdered By: Esperanza Avina on 08-03-2022 Erythrocyte distribution width (RBC) [Entitic vol] 45.0 fL 35.1-43.9 [facility] Erythrocyte distribution width (RBC) [Ratio] 13.2 % 11.6-14.6 [facility] Immature granulocytes/100 WBC (Bld) 0.800 % 0.0-0.9 [facility] Comment on above: IG% - Immature Granu locytes (promyelocytes, myelocytes and metamyelocytes) > 1% indicates that a LEFT SHIFT is Present. MCH (RBC) [Entitic mass] 30.8 pg 27.0-32.0 [facility] Nucleated RBC/100 WBC (Bld) [Ratio] 0 % 0-5 [facility] - Hematology and Cell countson 08-03-2022 Hemoglobin Ql (U) Negative [facility] - Specimen inform ationon 08-03-2022 Clarity (U) Clear [facility] Color (U) SHIRA [facility] Laboratory - Urinalysison Nitrite Ql (U) Negative [facility] Protein Ql (U) 2+ [facility] MCHC Auto (RBC) [Mass/Vol]Or dered By: Esperanza Avina on 08-03-2022 MCHC (RBC) [Mass/Vol] 33.5 g/dL 32-36 [facility] No Panel InformationOrdered By: Esperanza Avina on 08-03-2022 Estimated GFR (MDRD) Amer 65 mL/min >60 [facility] Comment on above: GFR Calc Estimated GFR (MDRD) Non-Af Amer 54 mL/min >60 [facility] Comment on above: Non- GFR Calc No Panel Informationon 08-03 Urine Leukocytes Negatve [facility] Urine Non-Hemolyzed Blood [facility] Platelets bldOrdered By: Randy Avina on 08-03-2022 Platelets (Bld) [#/Vol] 379 10*3/uL 150-450 [facility] Serum or plasma albumin carly urement (mass/volume)Ordered By: Esperanza Avina on 08-03-2022 Albumin [Mass/Vol] 3.9 g/dL 3.2-5.0 [facility] Serum or plasma albumin/glob ulin mass ratioOrdered By: Esperanza Avina on 08-03-2022 Albumin/Globulin [Mass ratio] 1.3 {ratio} 0.9-2.4 [facility] Serum or plasma calcium carly urement (mass/volume)Ordered By: Esperanza Avina on 08-03-2022 Calcium [Mass/Vol] 9.2 mg/dL 8.5-10.1 [facility] Serum or plasma cholesterol in HDL measurement (mass/volume)Ordered By: Esperanza Avina on 08-03-2022 Cholesterol in HDL [Mass/Vol] 58 mg/dL >40 [facility] Comment on above: The drugs N-Acetylcy steine and Metamizole may falsely depress this assay. Reference Range HDL <40 mg/dL Low HDL Cholesterol HDL >or= 60 mg/dL High HDL Cholesterol Serum or plasma cholesterol in VLDL measurement (mass/volume)Ordered By: Esperanza Avina on 08-03-2022 Cholesterol in VLDL [Mass/Vol] 13 mg/dL 5-40 [facility] Serum or plasma creatinine m easurement (mass/volume)Ordered By: Esperanza Avina on 08-03-2022 Creatinine [Mass/Vol] 1.38 mg/dL 0.70-1.30 [facility] Comment on above: The validity of the calculated GFR & GFRAA in patients over 70 years has not been determined. Clinical correlation is essential. Serum or plasma low density lipoprotein (LDL) cholesterol measurement (mass/volume)Ordered By: Esperanza Avina on 08-03-2022 Cholesterol in LDL [Mass/Vol] 82 mg/dL 0-130 [facility] Serum or plasma urea nitroge n measurement (mass/volume)Ordered By: Esperanza Avina on 08-03-2022 Urea nitrogen [Mass/Vol] 19 mg/dL 7-18 [facility] Thin prep Papanicolaou smear with manual screeningOrdered By: Esperanza Avina on 08-03-2022 Thin prep Papanicolaou smear with manual screening 21 U/L 15-37 [facility] Thin prep Papanicolaou smear with manual screening 6 5-15 [facility] Absolute lymphocyte counton 11-01-2021 Lymphocytes Auto (Unsp spec) [#/Vol] 3.49 10*3/uL 0.83-4.51 [facility] Work Phone: Basophil percentageon 2021 Basophils/100 WBC (Bld) 0.6 % 0-1 [facility] Work Phone: Bilirubin [Mass/Vol] 1.70 mg/dL 0.20-1.00 [facility] Work Phone: Comment on above: For patients on eltr ombopag therapy, use of [employer] [place] TBIL is not recommended. Chloride [Moles/Vol] 106 mmol/L 98-107 [facility] Work Phone: Cholesterol [Mass/Vol] 148 mg/dL <200 [facility] Work Phone: Comment on above: <200 mg/dL Desirable 200-240 mg/dL Borderline >240 mg/dL High Risk Eosinophils/100 WBC (Bld) 1.9 % 0-5 [facility] Work Phone: Glucose [Mass/Vol] 83 mg/dL 74-106 [facility] Work Phone: Neutrophils (Bld) [#/Vol] 4.7 10*3/uL 2.0-7.7 [facility] Work Phone: Neutrophils/100 WBC (Bld) 50.8 % 47-70 [facility] Work Phone: Potassium [Moles/Vol] 3.9 mmol/L 3.5-5.1 [facility] Work Phone: Protein [Mass/Vol] 6.6 g/dL 6.4-8.2 [facility] Work Phone: Sodium [Moles/Vol] 138 mmol/L 136-145 [facility] Work Phone: [phone] Triglyceride [Mass/Vol] 71 mg/dL [facility] Work Phone: [phone] Comment on above: The drugs N-Acetylcy steine and Metamizole may falsely depress this assay.Serum Triglycerides Reference Interval Normal <150 mg/dL Borderline high 150 - 199 mg/dL High 200 - 499 mg/dL Very High > or = 500 mg/dL WBC (Bld) [#/Vol] 9.3 10*3/uL 4.4-11.0 [facility] Work Phone: Blood erythrocytes count (nu mber/volume)on 11-01-2021 RBC (Bld) [#/Vol] 4.68 10*6/uL 4.6-6.2 [facility] Work Phone: [phone] Blood hemoglobin measurement (mass/volume)on 11-01-2021 Hemoglobin (Bld) [Mass/Vol] 14.2 g/dL 13.0-16.5 [facility] Work Phone: [phone] Blood lymphocytes/100 leukoc yteson 11-01-2021 Lymphocytes/100 WBC (Bld) 37.5 % 19-41 [facility] Work Phone: [phone] Blood monocytes/100 leukocyt eson 11-01-2021 Monocytes/100 WBC (Bld) 8.7 % 0-10 [facility] Work Phone: [phone] Blood platelet mean volumeon 11-01-2021 Platelet mean volume (Bld) [Entitic vol] 10.7 fL 6.2-12.0 [facility] Work Phone: [phone] Determination of erythrocyte mean corpuscular volume (MCV)on 11-01-2021 MCV (RBC) [Entitic vol] 90.6 fL 80-94 [facility] Work Phone: Hematocrit Auto (Bld) [Volum e fraction]on 11-01-2021 Hematocrit (Bld) [Volume fraction] 42.4 % 40-54 [facility] Work Phone: [phone] Laboratory - Chemistry and C hemistry - challengeon 11-01-2021 ALP [Catalytic activity/Vol] 71 U/L 45-117 [facility] Work Phone: [phone] ALT [Catalytic activity/Vol] 19 U/L 16-61 [facility] Work Phone: [phone] CO2 [Moles/Vol] 26.0 mmol/L 21.0-32.0 [facility] Work Phone: [phone] Globulin (S) [Mass/Vol] 2.9 g/dL 2.2-4.2 [facility] Work Phone: [phone] Urea nitrogen/Creatinine [Mass ratio] 15.7 mg/mg 10-20 [facility] Work Phone: [phone] Laboratory - Hematology and Cell countson 11-01-2021 Erythrocyte distribution width (RBC) [Entitic vol] 42.4 fL 35.1-43.9 [facility] Work Phone: [phone] Erythrocyte distribution width (RBC) [Ratio] 12.9 % 11.6-14.6 [facility] Work Phone: [phone] Immature granulocytes/100 WBC (Bld) 0.500 % 0.0-0.9 [facility] Work Phone: [phone] Comment on above: IG% - Immature Granu locytes (promyelocytes, myelocytes and metamyelocytes) > 1% indicates that a LEFT SHIFT is Present. MCH (RBC) [Entitic mass] 30.3 pg 27.0-32.0 [facility] Work Phone: [phone] Nucleated RBC/100 WBC (Bld) [Ratio] 0 % 0-5 [facility] Work Phone: [phone] MCHC Auto (RBC) [Mass/Vol]on 11-01-2021 MCHC (RBC) [Mass/Vol] 33.5 g/dL 32-36 [facility] Work Phone: [phone] No Panel Informationon 11-01 Estimated GFR (MDRD) Amer 108 mL/min >60 [facility] Work Phone: Comment on above: GFR Calc Estimated GFR (MDRD) Non-Af Amer 89 mL/min >60 [facility] Work Phone: Comment on above: Non- GFR Calc Prostate Specific Antigen Total 1.03 ng/mL 0.0-4.0 [facility] Work Phone: Comment on above: This test was perfor med using the TPSA assay method for [employer] chemistry system. Values obtained with differentassay methods cannot be used interchangably.When changing PSA assays in the course of monitoring apatient, additional sequential testing should be carriedout to confirm baseline values. Platelets bldon 11-01-2021 Platelets (Bld) [#/Vol] 357 10*3/uL 150-450 [facility] Work Phone: Serum or plasma albumin carly urement (mass/volume)on 11-01-2021 Albumin [Mass/Vol] 3.7 g/dL 3.2-5.0 [facility] Work Phone: [phone] Serum or plasma albumin/glob ulin mass ratioon 11-01-2021 Albumin/Globulin [Mass ratio] 1.3 {ratio} 0.9-2.4 [facility] Work Phone: Serum or plasma calcium carly urement (mass/volume)on 11-01-2021 Calcium [Mass/Vol] 8.8 mg/dL 8.5-10.1 [facility] Work Phone: [phone] Serum or plasma cholesterol in HDL measurement (mass/volume)on 11-01-2021 Cholesterol in HDL [Mass/Vol] 48 mg/dL [facility] Work Phone: [phone] Comment on above: The drugs N-Acetylcy steine and Metamizole may falsely depress this assay. Reference Range HDL <40 mg/dL Low HDL Cholesterol HDL >or= 60 mg/dL High HDL Cholesterol Serum or plasma cholesterol in VLDL measurement (mass/volume)on 11-01-2021 Cholesterol in VLDL [Mass/Vol] 14 mg/dL 5-40 [facility] Work Phone: [phone] Serum or plasma creatinine m easurement (mass/volume)on 11-01-2021 Creatinine [Mass/Vol] 0.89 mg/dL 0.70-1.30 [facility] Work Phone: Comment on above: The validity of the calculated GFR & GFRAA in patients over 70 years has not been determined. Clinical correlation is essential. Serum or plasma low density lipoprotein (LDL) cholesterol measurement (mass/volume)on 11-01-2021 Cholesterol in LDL [Mass/Vol] 86 mg/dL 0-130 [facility] Work Phone: Serum or plasma urea nitroge n measurement (mass/volume)on 11-01-2021 Urea nitrogen [Mass/Vol] 14 mg/dL 7-18 [facility] Work Phone: Thin prep Papanicolaou smear with manual screeningon 11-01-2021 Thin prep Papanicolaou smear with manual screening 16 U/L 15-37 [facility] Work Phone: Thin prep Papanicolaou smear with manual screening 6 5-15 [facility] Work Phone: PROGRESSon 12-16-2019 PROGRESS HNO ID: [id number] Author: Marilu Piedra Service: ? Author Type: Physician Desktop Manager Type: Progress Notes Filed: 12/15/2019 10:44 PM Note Text: In lieu of an in-person visit due to COVID-19 concerns, a telephone visit was performed on the patient. Patient is aware that I am not fully able to assess symptoms and do a full physical examination including vital signs assessment at this time. Patient consents to this encounter. No video was used in the evaluation of this patient, as the patient preferred a telephone call. I personally called patient by telephone. FOLLOW UP VISIT - ENDOSCOPY NAME: Federico Bledsoe [facility] NO.: [id number] DATE OF SERVICE: 12/08/2019 : 1950 REFERRING PHYSICIAN: Esperanza Avina NP Federico is a patient I am following with Dr. Moctezuma for diarrhea and history of adenomatous colon polyp. Dr. Moctezuma performed upper and lower endoscopy on 12/02/2019. The patient was found to have gastritis, normal appearing esophagus and normal examined portions of the jejunum and duodenum. Pathology demonstrated: FINAL DIAGNOSIS 1. Jejunum, biopsy (A) ?Duodenal mucosa with no diagnostic abnormality. - Villous architecture is preserved and there is no increase in intraepithelial lymphocytes. 2. Stomach, antrum, biopsy (B) ?Gastric antral and oxyntic mucosa with no diagnostic abnormality. - There is no evidence of active Helicobacter pylori infection. 3. Esophagus, distal, biopsy (C) ?Squamous mucosa with no diagnostic abnormality. 4. Esophagus, mid, biopsy (D) ?Squamous mucosa with no diagnostic abnormality. 5. Colon, biopsy (E) ?Colonic mucosa with no diagnostic abnormality. - Negative for active, granulomatous, and microscopic colitis. The patient notes no complaints since the procedure. No exam-telephone encounter Assessment IMPRESSION: gastritis, normal colonoscopy with prior history of adenomatous polyp PLAN: The operative findings and pathology report were reviewed with the patient, and the patient has had the opportunity to ask questions and have questions answered. Reviewed recommended dietary and lifestyle modifications for gastritis, in addition to treatment with PPI for 2-3 months. Recommend daily fiber supplement and probiotic. Follow up if symptoms worsen or persist despite these measures. If the patient notes any problems or changes in bowel function, the patient should contact me immediately. Otherwise I recommend follow up endoscopy in 5 years. HM updated and recall letter generated. Patient verbalized understanding of all above and agreed with the plan 9 minutes spent in phone call Diagnoses: (Z86.010) History of colonic polyps (primary encounter diagnosis) (R19.7) Diarrhea, unspecified type Marilu Piedra PA[facility] Office Visit (GENSWS) FEDERICO LAMB ([id number]) 1950 M Date Time Provider Department 12/08/19 2:30 PM MARILU PIEDRA During your visit today, we recorded the following information about you: Marilu Piedra PA-C 12/15/2019 10:44 PM Signed In lieu of an in-person visit due to COVID-19 concerns, a telephone visit was performed on the patient. Patient is aware that I am not fully able to assess symptoms and do a full physical examination including vital signs assessment at this time. Patient consents to this encounter. No video was used in the evaluation of this patient, as the patient preferred a telephone call. I personally called patient by telephone. FOLLOW UP VISIT - ENDOSCOPY NAME: Federico Lamb [facility] NO.: [id number] DATE OF SERVICE: 12/08/2019 : 1950 REFERRING PHYSICIAN: Esperanza Avina NP Federico is a patient I am following with Dr. Moctezuma for diarrhea and history of adenomatous colon polyp. Dr. Moctezuma performed upper and lower endoscopy on 12/02/2019. The patient was found to have gastritis, normal appearing esophagus and normal examined portions of the jejunum and duodenum. Pathology demonstrated: FINAL DIAGNOSIS 1. Jejunum, biopsy (A) ?Duodenal mucosa with no diagnostic abnormality. - Villous architecture is preserved and there is no increase in intraepithelial lymphocytes. 2. Stomach, antrum, biopsy (B) ?Gastric antral and oxyntic mucosa with no diagnostic abnormality. - There is no evidence of active Helicobacter pylori infection. 3. Esophagus, distal, biopsy (C) ?Squamous mucosa with no diagnostic abnormality. 4. Esophagus, mid, biopsy (D) ?Squamous mucosa with no diagnostic abnormality. 5. Colon, biopsy (E) ?Colonic mucosa with no diagnostic abnormality. - Negative for active, granulomatous, and microscopic colitis. The patient notes no complaints since the procedure. No exam-telephone encounter Assessment IMPRESSION: gastritis, normal colonoscopy with prior history of adenomatous polyp PLAN: The operative findings and pathology report were reviewed with the patient, and the patient has had the opportunity to ask questions and have questions answered. Reviewed recommended dietary and lifestyle modifications for gastritis, in addition to treatment with PPI for 2-3 months. Recommend daily fiber supplement and probiotic. Follow up if symptoms worsen or persist despite these measures. If the patient notes any problems or changes in bowel function, the patient should contact me immediately. Otherwise I recommend follow up endoscopy in 5 years. HM updated and recall letter generated. Patient verbalized understanding of all above and agreed with the plan 9 minutes spent in phone call Diagnoses: (Z86.010) History of colonic polyps (primary encounter diagnosis) (R19.7) Diarrhea, unspecified type Marilu Piedra PA-C Referring Provider: MARILU PIEDRA [[id number]] Allergies As of Date: 12/08/2019 (No Known Allergies) Date Reviewed: 12/08/2019 Reviewed by: Elisa Ruth LPN - Fully Assessed Reason for Visit: Post Op [174] Primary Visit Diagnosis:History of colonic polyps [Z86.010] Other Visit Diagnosis:Diarrhea, unspecified type [R19.7] Prescriptions as of 12/08/2019 Sig: OMEPRAZOLE 40 MG CAPSULE,KIRK* Take 1 capsule by mouth once * TAMSULOSIN 0.4 MG CAPSULE Problem List As Of Date 12/08/2019 Noted Resolved Personal history of colonic polyps [Z86.010] 09/09/2015 Abdominal bloating [R14.0] 09/09/2015 Epigastric pain [R10.13] 09/09/2015 Gallstones [K80.20] Medications Discontinued During This Encounter citalopram hydrobromide (CELEXA) 10 * 07/02/2017 12/15/2019 Class: Historical Med Sig: Disc: Reason for discontinue is not on file. lidocaine (LIDODERM) 5 % 7 Pa* 0 02/27/2019 12/15/2019 Class: Print RX Route: TRANSDERMAL Sig: Apply 1 Patch as directed every 24 hours. Disc: Reason for discontinue is not on file. predniSONE (DELTASONE) 20 mg tablet 10 t* 0 02/27/2019 12/15/2019 Class: Print RX Route: ORAL Sig: Take 1 tablet by mouth twice daily. Disc: Reason for discontinue is not on file. Encounter Status:Closed by MARILU PIEDRA PA-C on 12/15/19 [facility] HISTORY PHYSICALon 0 HISTORY PHYSICAL HNO ID: [id number] Author: Shyanne Moctezuma Service: General Surgery Author Type: Physician Type: HANDP Filed: 12/02/2019 10:09 AM Note Text: HISTORY AND PHYSICAL ? Federico Lamb 1950 ? REFERRING PHYSICIAN: Self ? CHIEF COMPLAINT: Consult (consult Diarrhea) ? HPI: The patient is a 69 year old male referred for diarrhea. The patient will note 5-7 bowel movements per day this is generally loose. It typically occurs after eating. He did note some blood which he thought was from anal irritation over the weekend but this is resolved. He denies black tarry stools. ? The patient denies any current upper GI complaints. ? Federico has undergone prior endoscopy. The patient went colonoscopy in 2016. At the time is for complaints of abdominal bloating and also some loose stools. The patient was found to have gastritis distal reflux esophagitis and a small polyp in the colon. BIopsy returned as chronic inactive gastritis. There is also distal esophagitis and the polyp returned as an adenomatous polyp. ? I performed laparoscopic cholecystectomy in 2017 and hemorrhoidal banding for hemorrhoidal bleeding in 2018 ? PAST MEDICAL HISTORY PAST MEDICAL HISTORY Diagnosis Date - Colonic polyp ? - Gallstones ? ? ? PAST SURGICAL HISTORY PAST SURGICAL HISTORY Procedure Laterality Date - COLONOS W/REM POLYP SNARE ? 2010 ? 2 polyps - recommened follow up in 2014 - COLONOS W/REM POLYP SNARE ? 09/28/15 ? small adenomatous polyp - 5 year follow up - EGD W/O [facility] SPECIMEN W/BX ? 09/28/15 ? normal - LAPAROSCOPIC CHOLEYCYSTECTOMY ? 05/23/2017 ? [facility] - TOTAL KNEE REPLACEMENT Left 2018 - TREAT LOWER LEG FRACTURE ? ? ? multiple additional fractures - URETER DISSECTION Left 1967 ? ? CURRENT MEDICATIONS Current Outpatient Medications Medication Sig - tamsulosin ER (FLOMAX) 0.4 mg cp24 ? - predniSONE (DELTASONE) 20 mg tablet Take 1 tablet by mouth twice daily. - lidocaine (LIDODERM) 5 % Apply 1 Patch as directed every 24 hours. - citalopram hydrobromide (CELEXA) 10 mg tablet ? - Omeprazole 40 mg capsule Take 1 capsule by mouth once daily. ? No current facility-administere d medications for this visit. ? ALLERGIES: Patient has no known allergies. ? PERSONAL HISTORY: SOCIAL HISTORY Social History ? Tobacco Use - Smoking status: Former Smoker ? ? Packs/day: 1.25 ? ? Years: 40.00 ? ? Pack years: 50.00 ? ? Types: Cigarettes ? ? Last attempt to quit: 06/18/2014 ? ? Years since quittin.4 - Smokeless tobacco: Never Used Substance Use Topics - Alcohol use: Yes ? ? Comment: occasional with bowling - Drug use: No ? FAMILY HISTORY: FAMILY HISTORY FAMILY HISTORY Problem Relation Age of Onset - Arthritis Mother ? - other (Heart valve issue) Father ? ? REVIEW OF SYMPTOMS: Review of systems noted below PHYSICAL EXAMINATION: ? General: The patient is 69 year old male, well nourished, well hydrated in no acute distress. The patient is oriented to time, place, and person. ? VITALS: Blood pressure 114/62, pulse 87, temperature 37.1 ?C (98.7 ?F), temperature source Temporal Artery, height 176.5 cm (5' 9.5), weight 69 kg (152 lb 3.2 oz), SpO2 96 %. Body mass index is 22.15 kg/m?. ? HEENT: Normal cephalic, ataumatic, pupils are equally round, sclera are anicteric, mucous membranes are moist, oropharynx is clear. Neck has no masses, asymmetry or lymphadenopathy. Thyroid is unremarkable. ? Respiratory: Clear to auscultation and percussion. Normal respiratory excursion and pattern. ? Cardiac: Examination is regular rate and rhythm. ? Abdominal exam: Soft, nontender, with no palpable masses. No hepatosplenomegaly. No palpable hernias. ? Rectal exam: exam deferred ? Extremities: no clubbing, cyanosis or edema. No adenopathy. ? Other: ? LABORATORY VALUES: As Noted ? RADIOLOGIC STUDIES: As Noted ? Assessment IMPRESSION: Loose stools, previous history of gastritis and distal esophagitis, history of adenomatous polyp ? PLAN: I plan to perform upper and lower endoscopy. We discussed the risks and benefits of the planned endoscopy. I have informed the patient that complications can occur including failure to complete the endoscopy and perforation. The patient had the opportunity to ask questions concerning the planned endoscopy. My staff has also explained the procedure to the patient in understandable terms and has given the patient printed material concerning the procedure. The patient freely consents to surgery. ? I plan to use golytely bowel preparation for endoscopy ? As a result of the 09/02/19 order by [facility] Director Ekta Suarez M.D. to cancel non-essential surgeries that would use PPE, unless special criteria are met, I have reviewed the clinical record for this patient and have determined that the scheduled procedure meets the criteria to go forward because there is a risk of rapidly worsening to severe symptoms if delayed. ? The patient was offered a surgery/procedure at a [facility] facility. The surgeon/proceduralis t and patient have discussed in detail the risk of exposure to and/or potential harm posed by the COVID-19 virus with having a surgery/procedure at this time versus the risk of? delaying the surgery/procedure. It is not possible to know either the risk of delaying the surgery or procedure or chance of getting an infection with perfect accuracy, but a joint decision was made between the patient and the surgeon/proceduralis t ?to proceed at this time with the scheduled surgery/procedure as indicated on the consent form. ? Diagnoses: (R19.7) Diarrhea, unspecified type (primary encounter diagnosis) (D12.5) Adenomatous polyp of sigmoid colon ? A letter was sent to Esperanza Avina NP indicating the above finding for this patient. Return to Clinic: The patient is instructed to follow-up with me after the testing has been completed. ? Shyanne Moctezuma MD ? [facility] NURSING PROGon 12-02-2019 NURSING PROG HNO ID: [id number] Author: Pato Ballard RN Service: Nursing Author Type: Registered Nurse Type: Nursing Progress Note Filed: 12/02/2019 12:37 PM Note Text: Patient did not experience a fall prior to discharge. Patient did not experience a burn prior to discharge. Pato Ballard RN [facility] NURSING PROG HNO ID: [id number] Author: Pato Ballard RN Service: Nursing Author Type: Registered Nurse Type: Nursing Progress Note Filed: 12/02/2019 12:20 PM Note Text: POST OP LEARNING RESPONSE INSTRUCTION PROVIDED TO: Patient METHOD OF INSTRUCTION: Individual instruction Group class instruction Written instruction - handouts PATIENT / FAMILY RESPONSE: Information received as demonstrated by interest and questions also given to dgtr. FOLLOW-UP PLAN: Patient instructed to call with any further issues SUPPLEMENTAL MATERIAL: None REFERRAL (RECOMMENDATION): None Electronically Signed By: Pato Ballard RN In Department: AMBULATORY SURGERY [facility] NURSING PROG HNO ID: [id number] Author: Pato Ballard RN Service: Nursing Author Type: Registered Nurse Type: Nursing Progress Note Filed: 12/02/2019 12:14 PM Note Text: Tolerating snack now. [facility] NURSING PROG HNO ID: [id number] Author: Pato Ballard RN Service: Nursing Author Type: Registered Nurse Type: Nursing Progress Note Filed: 12/02/2019 11:44 AM Note Text: Pt into Endo recovery room in satisfactory condition. Resting on left side. Pt. sleepy but arousable. Abdomen soft, no complaints. Will continue to monitor. [facility] NURSING PROG HNO ID: [id number] Author: Dee Ash RN Service: ? Author Type: Registered Nurse Type: Nursing Progress Note Filed: 12/02/2019 11:30 AM Note Text: Patient did not experience a fall within the Intraoperative area. Patient did not experience a burn within the Intraoperative area. Dee Ash RN [facility] NURSING PROG HNO ID: [id number] Author: Pato Ballard RN Service: Nursing Author Type: Registered Nurse Type: Nursing Progress Note Filed: 12/02/2019 10:58 AM Note Text: [facility] PRE-OP NURSING HAND OFF NOTE SBAR Hand off given to Dee Ash RN. Hand off was communicated verbally and at the patient's bedside and all questions were answered. FALLS/JANE Patient did not experience a fall within the Preoperative area. Patient did not experience a burn within the Preoperative area. Pato Ballard RN [facility] PT EDon 12-02-2019 PT ED HNO ID: [id number] Author: Pato Ballard RN Service: Nursing Author Type: Registered Nurse Type: Patient Education Filed: 12/02/2019 9:47 AM Note Text: PRE OP LEARNING ASSESSMENT PROCEDURE/SURGERY: GI PROCEDURES: Colonoscopy and EGD READINESS TO LEARN COGNITIVE ABILITY: Alert and oriented MOTIVATION TO LEARN: Eager Interested FAMILY SUPPORT: None - Unavailable/disinter ested PATIENT LEARNS BEST BY: Individual Instruction Verbal Instruction FACTORS AFFECTING LEARNING: None PHYSICAL LIMITATIONS AFFECTING LEARNING: None Electronically Signed By: Pato Ballard RN In Department: AMBULATORY SURGERY [facility] SURGICAL PATHOLOGYon 020 SURGICAL PATHOLOGY Specimen originated from [facility] Specimen #: [id number] Submitting Physician: SHYANNE MOCTEZUMA ([id number]) FINAL DIAGNOSIS 1. Jejunum, biopsy (A) Duodenal mucosa with no diagnostic abnormality. - Villous architecture is preserved and there is no increase in intraepithelial lymphocytes. 2. Stomach, antrum, biopsy (B) Gastric antral and oxyntic mucosa with no diagnostic abnormality. - There is no evidence of active Helicobacter pylori infection. 3. Esophagus, distal, biopsy (C) Squamous mucosa with no diagnostic abnormality. 4. Esophagus, mid, biopsy (D) Squamous mucosa with no diagnostic abnormality. 5. Colon, biopsy (E) Colonic mucosa with no diagnostic abnormality. - Negative for active, granulomatous, and microscopic colitis. Colin Moreira M.D., PhD (Electronic Signature) SPECIMEN SUBMITTED A: JEJUNUM, BIOPSY B: ANTRUM, BIOPSY H/H C: DISTAL ESOPHAGUS, BIOPSY D: MID ESOPHAGUS, BIOPSY E: RANDOM COLON, BIOPSY CLINICAL DATA D12.5, R19.7 GROSS DESCRIPTION A. Received in formalin is one piece of lozada, soft tissue measuring 0.4 x 0.2 x 0.2 cm. Totally submitted in one cassette. B. Received in formalin is one piece of lozada, soft tissue measuring 0.2 x 0.2 x 0.2 cm. Totally submitted in one cassette. C. Received in formalin is one piece of lozada-white, soft tissue measuring 0.3 x 0.2 x 0.2 cm. Totally submitted in one cassette. D. Received in formalin is one piece of lozada-white, soft tissue measuring 0.3 x 0.3 x 0.1 cm. Totally submitted in one cassette. E. Received in formalin are multiple pieces of lozada, soft tissue aggregating to 0.7 x 0.3 x 0.2 cm. Totally submitted in one cassette. Gross examination performed at [facility], [address] [address] JT 12/03/2019 1:24:28 AM Date of Report: 12/03/2019 Date of Procedure: 12/02/2019 Date of Receipt: 12/02/2019 Submitted by: SHYANNE MOCTEZUMA ([id number]) Location: W010 Diagnostic interpretation performed at [facility], [address] [place] [address]. CLIA Number: [id number] Normal [facility] 11-19-2019 CNPN Telephone (MelonS) FEDERICO LAMB ([id number]) 1950 M Date Time Provider Department 11/19/19 SHYANNE MOCTEZUMA During your visit today, we recorded the following information about you: Viji Whitten 11/19/2019 10:31 AM Signed 12-02-2019 Colon EGD, left message for patient to see if this date of service will work. Patient to return call to confirm Viji Whitten Allergies As of Date: 11/19/2019 (No Known Allergies) Date Reviewed: 11/19/2019 Reviewed by: Shyanne Moctezuma - Fully Assessed Reason for Visit: 12-02-2019 Colon EGD [facility] [Other] Prescriptions as of 11/19/2019 Sig: OMEPRAZOLE 40 MG CAPSULE,KIRK* Take 1 capsule by mouth once * PREDNISONE 20 MG TABLET Take 1 tablet by mouth twice * LIDOCAINE 5 % TOPICAL PATCH Apply 1 Patch as directed timmy* TAMSULOSIN 0.4 MG CAPSULE CITALOPRAM 10 MG TABLET X OMEPRAZOLE 40 MG CAPSULE,KIRK* Take 1 capsule by mouth once * Problem List As Of Date 11/19/2019 Noted Resolved Personal history of colonic polyps [Z86.010] 09/09/2015 Abdominal bloating [R14.0] 09/09/2015 Epigastric pain [R10.13] 09/09/2015 Gallstones [K80.20] Encounter Status:Closed by WHITTEN, VIJI on 12/12/19 Normal [facility] 11-19-2019 HOSP Patient:Federico Lamb MRN: Height:5' 9.5(1.765 m) Weight:152 lb 1.9 oz (69 kg) Outpatient Medications as of 12/02/19: predniSONE (DELTASONE) 20 mg tablet lidocaine (LIDODERM) 5 % tamsulosin ER (FLOMAX) 0.4 mg cp24 citalopram hydrobromide (CELEXA) 10 mg tablet Omeprazole 40 mg capsule Admission/Clinic Administered Medications as of 12/02/19: lactated ringers infusion Problem List: Personal history of colonic polyps [Z86.010] Abdominal bloating [R14.0] Epigastric pain [R10.13] Gallstones [K80.20] Allergies: No Known Allergies Date Verified:12/02/19 Lab Values No results within the last 30 days for the following basenames: K,HCT Progress Notes ([facility]): Viji Whitten 11/19/2019 10:31 AM Signed 12-02-2019 Colon EGD, left message for patient to see if this date of service will work. Patient to return call to confirm Viji Whitten Progress Notes ([facility]): Shyanne Moctezuma MD 11/18/2019 4:09 PM Signed Bowel Preparation Instructions for: Golytely, Nulytely, Trilyte or Colyte (polyethylene glycol 3350 and electrolytes) IF YOU DO NOT FOLLOW THESE DIRECTIONS, YOUR COLONOSCOPY WILL BE CANCELLED. Klein Instructions: ? Your bowel must be empty so that your doctor can clearly view your colon. Follow all of the instructions in this handout EXACTLY as they are written. ? Do NOT eat any solid food the ENTIRE day before your colonoscopy. Drink only clear liquids. ? Buy your bowel preparation at least 5 days before your colonoscopy. TRANSPORTATION on the Day of Your Exam A responsible person MUST be present with you at Check In prior to your colonoscopy and REMAIN in the endoscopy area until you are discharged. You are NOT ALLOWED to drive, take a taxi or bus, or leave the Endoscopy Center ALONE. If you do not have a responsible motor pool driver (family member or friend) with you to take you home, your exam cannot be done with sedation and will be cancelled. Please bring a list of all of your current medications, including any Over-the Counter medications with you. Medications If you take insulin, diabetic medications or blood thinners such as Coumadin (warfarin), Plavix (clopidogrel), Ticlid (ticlopidine hydrochloride), Agrylin (anagrelide), Xarelto (Rivaroxaban), Pradaxa (Dabigatran), Eliquis (Apixaban), and Effient (Prasugrel). You MUST call the doctors who orders those medicines for instructions on altering the dosage before your colonoscopy. All other medications should be taken the day of the exam with a sip of water including ASPIRIN. Five (5) Days Before Your Colonoscopy ? Do NOT take medicines that stop diarrhea - such as Imodium, Kaopectate, or Pepto Bismol. ? Do NOT take fiber supplements - such as Metamucil, Citrucel, or Perdiem. ? Do NOT take products that contain iron - such as multi-vitamins (the label lists what is in the products). ? Do NOT take Vitamin E. Buy the prescription bowel preparation solution at your local pharmacy or drugstore pharmacy. 05/2019 Bowel Preparation Instructions for: Golytely, Nulytely, Trilyte or Colyte (polyethylene glycol 3350 and electrolytes) Three (3) Days Before Your Colonoscopy ? Do NOT eat high-fiber foods - such as popcorn, beans, seeds (flax, sunflower, quinoa), multigrain bread, nuts, salad/vegetables, or fresh and dried fruit. One (1) Day Before Your Colonoscopy ? Only drink clear liquids the ENTIRE DAY before your colonoscopy. Do NOT eat any solid foods. Drink at least 8 ounces of clear liquids every hour after waking up. The clear liquids you can drink include: Clear Liquid (NO RED LIQUIDS) DO NOT DRINK Gatorade, Pedialyte or Powerade Clear broth or bouillon Coffee or tea (no milk or non-dairy creamer) Carbonated and non-carbonated soft drinks Jon-Aid or other fruit flavored drinks Strained fruit juices (no pulp) Jell-O, popsicles, hard candy Water Alcohol Milk or non-dairy creamers Noodles or vegetables in soup Juice with pulp Liquid you cannot see through The bowel preparation solution will be consumed in two parts. Mix the solution the evening before your colonoscopy and refrigerate before drinking. You may add the flavor pack that came with the bowel preparation. Do NOT add ice, sugar or any other flavorings to the solution. Part 1 ? At 6:00 PM - Evening before your colonoscopy ? Drink an 8-oz glass of bowel preparation every 10 minutes for a total of 8 glasses. ? You may continue to drink clear liquids until midnight. Part 2 ? On the day of your colonoscopy you may drink clear liquids up to (three) 3 hours before your procedure. ? 4 hours before your colonoscopy ? Drink an 8-oz glass of bowel preparation every 10 minutes for a total of 8 glasses. ? Fifteen (15) minutes later, drink an 8-oz glass of clear liquids every 15 minutes for a total of 2 glasses. ? You may continue to drink clear liquids up to (three) 3 hours before your exam. 3 05/2019 Shyanne Moctezuma MD 11/19/2019 9:02 AM Signed HISTORY AND PHYSICAL Federico Lamb 1950 REFERRING PHYSICIAN: Self CHIEF COMPLAINT: Consult (consult Diarrhea) HPI: The patient is a 69 year old male referred for diarrhea. The patient will note 5-7 bowel movements per day this is generally loose. It typically occurs after eating. He did note some blood which he thought was from anal irritation over the weekend but this is resolved. He denies black tarry stools. The patient denies any current upper GI complaints. Federico has undergone prior endoscopy. The patient went colonoscopy in 2015. At the time is for complaints of abdominal bloating and also some loose stools. The patient was found to have gastritis distal reflux esophagitis and a small polyp in the colon. BIopsy returned as chronic inactive gastritis. There is also distal esophagitis and the polyp returned as an adenomatous polyp. I performed laparoscopic cholecystectomy in 2016 and hemorrhoidal banding for hemorrhoidal bleeding in 2018 PAST MEDICAL HISTORY Diagnosis Date - Colonic polyp - Gallstones PAST SURGICAL HISTORY Procedure Laterality Date - COLONOS W/REM POLYP SNARE 2010 2 polyps - recommened follow up in 2014 - COLONOS W/REM POLYP SNARE 09/28/15 small adenomatous polyp - 5 year follow up - EGD W/O [facility] SPECIMEN W/BX 09/28/15 normal - LAPAROSCOPIC CHOLEYCYSTECTOMY 05/23/2017 [facility] - TOTAL KNEE REPLACEMENT Left 2019 - TREAT LOWER LEG FRACTURE multiple additional fractures - URETER DISSECTION Left 1967 Current Outpatient Medications Medication Sig - tamsulosin ER (FLOMAX) 0.4 mg cp24 - predniSONE (DELTASONE) 20 mg tablet Take 1 tablet by mouth twice daily. - lidocaine (LIDODERM) 5 % Apply 1 Patch as directed every 24 hours. - citalopram hydrobromide (CELEXA) 10 mg tablet - Omeprazole 40 mg capsule Take 1 capsule by mouth once daily. No current facility-administere d medications for this visit. ALLERGIES: Patient has no known allergies. PERSONAL HISTORY: Social History Tobacco Use - Smoking status: Former Smoker Packs/day: 1.25 Years: 40.00 Pack years: 50.00 Types: Cigarettes Last attempt to quit: 06/18/2014 Years since quittin.4 - Smokeless tobacco: Never Used Substance Use Topics - Alcohol use: Yes Comment: occasional with bowling - Drug use: No FAMILY HISTORY: FAMILY HISTORY Problem Relation Age of Onset - Arthritis Mother - other (Heart valve issue) Father REVIEW OF SYMPTOMS: Review of systems noted below PHYSICAL EXAMINATION: General: The patient is 69 year old male, well nourished, well hydrated in no acute distress. The patient is oriented to time, place, and person. VITALS: Blood pressure 114/62, pulse 87, temperature 37.1 ?C (98.7 ?F), temperature source Temporal Artery, height 176.5 cm (5' 9.5), weight 69 kg (152 lb 3.2 oz), SpO2 96 %. Body mass index is 22.15 kg/m?. HEENT: Normal cephalic, ataumatic, pupils are equally round, sclera are anicteric, mucous membranes are moist, oropharynx is clear. Neck has no masses, asymmetry or lymphadenopathy. Thyroid is unremarkable. Respiratory: Clear to auscultation and percussion. Normal respiratory excursion and pattern. Cardiac: Examination is regular rate and rhythm. Abdominal exam: Soft, nontender, with no palpable masses. No hepatosplenomegaly. No palpable hernias. Rectal exam: exam deferred Extremities: no clubbing, cyanosis or edema. No adenopathy. Other: LABORATORY VALUES: As Noted RADIOLOGIC STUDIES: As Noted Assessment IMPRESSION: Loose stools, previous history of gastritis and distal esophagitis, history of adenomatous polyp PLAN: I plan to perform upper and lower endoscopy. We discussed the risks and benefits of the planned endoscopy. I have informed the patient that complications can occur including failure to complete the endoscopy and perforation. The patient had the opportunity to ask questions concerning the planned endoscopy. My staff has also explained the procedure to the patient in understandable terms and has given the patient printed material concerning the procedure. The patient freely consents to surgery. I plan to use golytely bowel preparation for endoscopy As a result of the 09/02/19 order by [facility] Director Ekta Suarez M.D. to cancel non-essential surgeries that would use PPE, unless special criteria are met, I have reviewed the clinical record for this patient and have determined that the scheduled procedure meets the criteria to go forward because there is a risk of rapidly worsening to severe symptoms if delayed. The patient was offered a surgery/procedure at a [facility] facility. The surgeon/proceduralis t and patient have discussed in detail the risk of exposure to and/or potential harm posed by the COVID-19 virus with having a surgery/procedure at this time versus the risk of delaying the surgery/procedure. It is not possible to know either the risk of delaying the surgery or procedure or chance of getting an infection with perfect accuracy, but a joint decision was made between the patient and the surgeon/proceduralis t to proceed at this time with the scheduled surgery/procedure as indicated on the consent form. Diagnoses: (R19.7) Diarrhea, unspecified type (primary encounter diagnosis) (D12.5) Adenomatous polyp of sigmoid colon A letter was sent to Esperanza Avina NP indicating the above finding for this patient. Return to Clinic: The patient is instructed to follow-up with me after the testing has been completed. Shyanne Moctezuma MD REVIEW OF SYSTEMS: General: The patient denies fatigue, denies weight loss, denies weight gain, denies feeling hot, and denies feelings of cold. Eyes: The patient denies glaucoma, denies eye injury/surgery, wears glasses or contacts. Ear/Nose/Throat: The patient denies allergies, denies hayfever, denies ear infections, and denies bloody noses. Cardiovascular: The patient denies chest pain, denies heart disease, denies high blood pressure,denies cardiac stent, denies prior heart attack, denies irregular heart beat, denies high cholesterol, denies poor circulation, denies heart failure, other cardiac issues, denies claudication, denies cold feet, denies peripheral arterial stent. Respiratory: The patient denies tuberculosis, denies pneumonia, denies frequent cough, denies pulmonary embolism, denies shortness of breath, and denies coughing up blood. Gastrointestinal: The patient denies difficulty swallowing, denies acid reflux, denies ulcers, denies vomiting, denies jaundice/hepatitis, NOTES gallbladder problems, denies black or tarry stools, NOTES hemorrhoids, denies bleeding from rectum, denies diverticulitis, denies constipation, NOTES diarrhea, denies loss of stool control, and denies hernias. Kidney/Bladder: The patient denies kidney stones, denies urine infections, and denies bloody urine. Skin: The patient denies a history of skin cancer, denies bleeding/changing moles, and denies a history of skin rash. Neurologic: The patient denies a history of epilepsy/convulsions , denies headaches, denies head/spinal injuries, and denies stroke/TIA. Psychiatric: The patient denies psychiatric medications, denies depression, and denies voices, denies substance abuse. Endocrine: The patient denies thyroid disorders, denies diabetes, and denies hormonal problems. Hematologic: The patient denies a history of bruising, denies bleeding, and denies anemia, denies blood clots. Infections: The patient denies a history of measles and mumps, denies rheumatic fever, and denies sexually transmitted diseases. Musculoskeletal: The patient denies back pain/injury, denies back problems, denies sciatica, NOTES knee/foot trouble, denies arthritis, or denies gout. When was patient's last Mammogram screening? N/A Last Colonoscopy: 2015 Elisa Ruth LPN Previous Version Elisa Ruth LPN 11/19/2019 8:24 AM Signed REVIEW OF SYSTEMS: General: The patient denies fatigue, denies weight loss, denies weight gain, denies feeling hot, and denies feelings of cold. Eyes: The patient denies glaucoma, denies eye injury/surgery, wears glasses or contacts. Ear/Nose/Throat: The patient denies allergies, denies hayfever, denies ear infections, and denies bloody noses. Cardiovascular: The patient denies chest pain, denies heart disease, denies high blood pressure,denies cardiac stent, denies prior heart attack, denies irregular heart beat, denies high cholesterol, denies poor circulation, denies heart failure, other cardiac issues, denies claudication, denies cold feet, denies peripheral arterial stent. Respiratory: The patient denies tuberculosis, denies pneumonia, denies frequent cough, denies pulmonary embolism, denies shortness of breath, and denies coughing up blood. Gastrointestinal: The patient denies difficulty swallowing, denies acid reflux, denies ulcers, denies vomiting, denies jaundice/hepatitis, NOTES gallbladder problems, denies black or tarry stools, NOTES hemorrhoids, denies bleeding from rectum, denies diverticulitis, denies constipation, NOTES diarrhea, denies loss of stool control, and denies hernias. Kidney/Bladder: The patient denies kidney stones, denies urine infections, and denies bloody urine. Skin: The patient denies a history of skin cancer, denies bleeding/changing moles, and denies a history of skin rash. Neurologic: The patient denies a history of epilepsy/convulsions , denies headaches, denies head/spinal injuries, and denies stroke/TIA. Psychiatric: The patient denies psychiatric medications, denies depression, and denies voices, denies substance abuse. Endocrine: The patient denies thyroid disorders, denies diabetes, and denies hormonal problems. Hematologic: The patient denies a history of bruising, denies bleeding, and denies anemia, denies blood clots. Infections: The patient denies a history of measles and mumps, denies rheumatic fever, and denies sexually transmitted diseases. Musculoskeletal: The patient denies back pain/injury, denies back problems, denies sciatica, NOTES knee/foot trouble, denies arthritis, or denies gout. When was patient's last Mammogram screening? N/A Last Colonoscopy: 2015 Elisa Ruth LPN Normal [facility] CNOVon 11-18-2019 CNOV Office Visit (GENSWS) FEDERICO LAMB ([id number]) 1950 M Date Time Provider Department 11/18/19 3:00 PM SHYANNE MOCTEZUMA During your visit today, we recorded the following information about you: Temperature Pulse Blood pressure Weight 98.7 degrees 87/minute 114/62 69 kg Height 1.765 m Shyanne Moctezuma MD 11/18/2019 4:09 PM Signed Bowel Preparation Instructions for: Golytely, Nulytely, Trilyte or Colyte (polyethylene glycol 3350 and electrolytes) IF YOU DO NOT FOLLOW THESE DIRECTIONS, YOUR COLONOSCOPY WILL BE CANCELLED. Klein Instructions: ? Your bowel must be empty so that your doctor can clearly view your colon. Follow all of the instructions in this handout EXACTLY as they are written. ? Do NOT eat any solid food the ENTIRE day before your colonoscopy. Drink only clear liquids. ? Buy your bowel preparation at least 5 days before your colonoscopy. TRANSPORTATION on the Day of Your Exam A responsible person MUST be present with you at Check In prior to your colonoscopy and REMAIN in the endoscopy area until you are discharged. You are NOT ALLOWED to drive, take a taxi or bus, or leave the Endoscopy Center ALONE. If you do not have a responsible motor pool driver (family member or friend) with you to take you home, your exam cannot be done with sedation and will be cancelled. Please bring a list of all of your current medications, including any Over-the Counter medications with you. Medications If you take insulin, diabetic medications or blood thinners such as Coumadin (warfarin), Plavix (clopidogrel), Ticlid (ticlopidine hydrochloride), Agrylin (anagrelide), Xarelto (Rivaroxaban), Pradaxa (Dabigatran), Eliquis (Apixaban), and Effient (Prasugrel). You MUST call the doctors who orders those medicines for instructions on altering the dosage before your colonoscopy. All other medications should be taken the day of the exam with a sip of water including ASPIRIN. Five (5) Days Before Your Colonoscopy ? Do NOT take medicines that stop diarrhea - such as Imodium, Kaopectate, or Pepto Bismol. ? Do NOT take fiber supplements - such as Metamucil, Citrucel, or Perdiem. ? Do NOT take products that contain iron - such as multi-vitamins (the label lists what is in the products). ? Do NOT take Vitamin E. Buy the prescription bowel preparation solution at your local pharmacy or drugstore pharmacy. 05/2019 Bowel Preparation Instructions for: Golytely, Nulytely, Trilyte or Colyte (polyethylene glycol 3350 and electrolytes) Three (3) Days Before Your Colonoscopy ? Do NOT eat high-fiber foods - such as popcorn, beans, seeds (flax, sunflower, quinoa), multigrain bread, nuts, salad/vegetables, or fresh and dried fruit. One (1) Day Before Your Colonoscopy ? Only drink clear liquids the ENTIRE DAY before your colonoscopy. Do NOT eat any solid foods. Drink at least 8 ounces of clear liquids every hour after waking up. The clear liquids you can drink include: Clear Liquid (NO RED LIQUIDS) DO NOT DRINK Gatorade, Pedialyte or Powerade Clear broth or bouillon Coffee or tea (no milk or non-dairy creamer) Carbonated and non-carbonated soft drinks Jon-Aid or other fruit flavored drinks Strained fruit juices (no pulp) Jell-O, popsicles, hard candy Water Alcohol Milk or non-dairy creamers Noodles or vegetables in soup Juice with pulp Liquid you cannot see through The bowel preparation solution will be consumed in two parts. Mix the solution the evening before your colonoscopy and refrigerate before drinking. You may add the flavor pack that came with the bowel preparation. Do NOT add ice, sugar or any other flavorings to the solution. Part 1 ? At 6:00 PM - Evening before your colonoscopy ? Drink an 8-oz glass of bowel preparation every 10 minutes for a total of 8 glasses. ? You may continue to drink clear liquids until midnight. Part 2 ? On the day of your colonoscopy you may drink clear liquids up to (three) 3 hours before your procedure. ? 4 hours before your colonoscopy ? Drink an 8-oz glass of bowel preparation every 10 minutes for a total of 8 glasses. ? Fifteen (15) minutes later, drink an 8-oz glass of clear liquids every 15 minutes for a total of 2 glasses. ? You may continue to drink clear liquids up to (three) 3 hours before your exam. 3 05/2019 Shyanne Moctezuma MD 11/19/2019 9:02 AM Signed HISTORY AND PHYSICAL Federico Lamb 1950 REFERRING PHYSICIAN: Self CHIEF COMPLAINT: Consult (consult Diarrhea) HPI: The patient is a 69 year old male referred for diarrhea. The patient will note 5-7 bowel movements per day this is generally loose. It typically occurs after eating. He did note some blood which he thought was from anal irritation over the weekend but this is resolved. He denies black tarry stools. The patient denies any current upper GI complaints. Federico has undergone prior endoscopy. The patient went colonoscopy in 2015. At the time is for complaints of abdominal bloating and also some loose stools. The patient was found to have gastritis distal reflux esophagitis and a small polyp in the colon. BIopsy returned as chronic inactive gastritis. There is also distal esophagitis and the polyp returned as an adenomatous polyp. I performed laparoscopic cholecystectomy in 2016 and hemorrhoidal banding for hemorrhoidal bleeding in 2018 PAST MEDICAL HISTORY Diagnosis Date - Colonic polyp - Gallstones PAST SURGICAL HISTORY Procedure Laterality Date - COLONOS W/REM POLYP SNARE 2010 2 polyps - recommened follow up in 2014 - COLONOS W/REM POLYP SNARE 09/28/15 small adenomatous polyp - 5 year follow up - EGD W/O [facility] SPECIMEN W/BX 09/28/15 normal - LAPAROSCOPIC CHOLEYCYSTECTOMY 05/23/2017 [place] - TOTAL KNEE REPLACEMENT Left 2019 - TREAT LOWER LEG FRACTURE multiple additional fractures - URETER DISSECTION Left 1967 Current Outpatient Medications Medication Sig - tamsulosin ER (FLOMAX) 0.4 mg cp24 - predniSONE (DELTASONE) 20 mg tablet Take 1 tablet by mouth twice daily. - lidocaine (LIDODERM) 5 % Apply 1 Patch as directed every 24 hours. - citalopram hydrobromide (CELEXA) 10 mg tablet - Omeprazole 40 mg capsule Take 1 capsule by mouth once daily. No current facility-administere d medications for this visit. ALLERGIES: Patient has no known allergies. PERSONAL HISTORY: Social History Tobacco Use - Smoking status: Former Smoker Packs/day: 1.25 Years: 40.00 Pack years: 50.00 Types: Cigarettes Last attempt to quit: 06/18/2014 Years since quittin.4 - Smokeless tobacco: Never Used Substance Use Topics - Alcohol use: Yes Comment: occasional with bowling - Drug use: No FAMILY HISTORY: FAMILY HISTORY Problem Relation Age of Onset - Arthritis Mother - other (Heart valve issue) Father REVIEW OF SYMPTOMS: Review of systems noted below PHYSICAL EXAMINATION: General: The patient is 69 year old male, well nourished, well hydrated in no acute distress. The patient is oriented to time, place, and person. VITALS: Blood pressure 114/62, pulse 87, temperature 37.1 ?C (98.7 ?F), temperature source Temporal Artery, height 176.5 cm (5' 9.5), weight 69 kg (152 lb 3.2 oz), SpO2 96 %. Body mass index is 22.15 kg/m?. HEENT: Normal cephalic, ataumatic, pupils are equally round, sclera are anicteric, mucous membranes are moist, oropharynx is clear. Neck has no masses, asymmetry or lymphadenopathy. Thyroid is unremarkable. Respiratory: Clear to auscultation and percussion. Normal respiratory excursion and pattern. Cardiac: Examination is regular rate and rhythm. Abdominal exam: Soft, nontender, with no palpable masses. No hepatosplenomegaly. No palpable hernias. Rectal exam: exam deferred Extremities: no clubbing, cyanosis or edema. No adenopathy. Other: LABORATORY VALUES: As Noted RADIOLOGIC STUDIES: As Noted Assessment IMPRESSION: Loose stools, previous history of gastritis and distal esophagitis, history of adenomatous polyp PLAN: I plan to perform upper and lower endoscopy. We discussed the risks and benefits of the planned endoscopy. I have informed the patient that complications can occur including failure to complete the endoscopy and perforation. The patient had the opportunity to ask questions concerning the planned endoscopy. My staff has also explained the procedure to the patient in understandable terms and has given the patient printed material concerning the procedure. The patient freely consents to surgery. I plan to use golytely bowel preparation for endoscopy As a result of the 09/02/19 order by [facility] Director Ekta Suarez M.D. to cancel non-essential surgeries that would use PPE, unless special criteria are met, I have reviewed the clinical record for this patient and have determined that the scheduled procedure meets the criteria to go forward because there is a risk of rapidly worsening to severe symptoms if delayed. The patient was offered a surgery/procedure at a [facility] facility. The surgeon/proceduralis t and patient have discussed in detail the risk of exposure to and/or potential harm posed by the COVID-19 virus with having a surgery/procedure at this time versus the risk of delaying the surgery/procedure. It is not possible to know either the risk of delaying the surgery or procedure or chance of getting an infection with perfect accuracy, but a joint decision was made between the patient and the surgeon/proceduralis t to proceed at this time with the scheduled surgery/procedure as indicated on the consent form. Diagnoses: (R19.7) Diarrhea, unspecified type (primary encounter diagnosis) (D12.5) Adenomatous polyp of sigmoid colon A letter was sent to Esperanza Avina NP indicating the above finding for this patient. Return to Clinic: The patient is instructed to follow-up with me after the testing has been completed. Shyanne Moctezuma MD REVIEW OF SYSTEMS: General: The patient denies fatigue, denies weight loss, denies weight gain, denies feeling hot, and denies feelings of cold. Eyes: The patient denies glaucoma, denies eye injury/surgery, wears glasses or contacts. Ear/Nose/Throat: The patient denies allergies, denies hayfever, denies ear infections, and denies bloody noses. Cardiovascular: The patient denies chest pain, denies heart disease, denies high blood pressure,denies cardiac stent, denies prior heart attack, denies irregular heart beat, denies high cholesterol, denies poor circulation, denies heart failure, other cardiac issues, denies claudication, denies cold feet, denies peripheral arterial stent. Respiratory: The patient denies tuberculosis, denies pneumonia, denies frequent cough, denies pulmonary embolism, denies shortness of breath, and denies coughing up blood. Gastrointestinal: The patient denies difficulty swallowing, denies acid reflux, denies ulcers, denies vomiting, denies jaundice/hepatitis, NOTES gallbladder problems, denies black or tarry stools, NOTES hemorrhoids, denies bleeding from rectum, denies diverticulitis, denies constipation, NOTES diarrhea, denies loss of stool control, and denies hernias. Kidney/Bladder: The patient denies kidney stones, denies urine infections, and denies bloody urine. Skin: The patient denies a history of skin cancer, denies bleeding/changing moles, and denies a history of skin rash. Neurologic: The patient denies a history of epilepsy/convulsions , denies headaches, denies head/spinal injuries, and denies stroke/TIA. Psychiatric: The patient denies psychiatric medications, denies depression, and denies voices, denies substance abuse. Endocrine: The patient denies thyroid disorders, denies diabetes, and denies hormonal problems. Hematologic: The patient denies a history of bruising, denies bleeding, and denies anemia, denies blood clots. Infections: The patient denies a history of measles and mumps, denies rheumatic fever, and denies sexually transmitted diseases. Musculoskeletal: The patient denies back pain/injury, denies back problems, denies sciatica, NOTES knee/foot trouble, denies arthritis, or denies gout. When was patient's last Mammogram screening? N/A Last Colonoscopy: 2015 Elisa Ruth LPN 11/19/2019 8:24 AM Signed REVIEW OF SYSTEMS: General: The patient denies fatigue, denies weight loss, denies weight gain, denies feeling hot, and denies feelings of cold. Eyes: The patient denies glaucoma, denies eye injury/surgery, wears glasses or contacts. Ear/Nose/Throat: The patient denies allergies, denies hayfever, denies ear infections, and denies bloody noses. Cardiovascular: The patient denies chest pain, denies heart disease, denies high blood pressure,denies cardiac stent, denies prior heart attack, denies irregular heart beat, denies high cholesterol, denies poor circulation, denies heart failure, other cardiac issues, denies claudication, denies cold feet, denies peripheral arterial stent. Respiratory: The patient denies tuberculosis, denies pneumonia, denies frequent cough, denies pulmonary embolism, denies shortness of breath, and denies coughing up blood. Gastrointestinal: The patient denies difficulty swallowing, denies acid reflux, denies ulcers, denies vomiting, denies jaundice/hepatitis, NOTES gallbladder problems, denies black or tarry stools, NOTES hemorrhoids, denies bleeding from rectum, denies diverticulitis, denies constipation, NOTES diarrhea, denies loss of stool control, and denies hernias. Kidney/Bladder: The patient denies kidney stones, denies urine infections, and denies bloody urine. Skin: The patient denies a history of skin cancer, denies bleeding/changing moles, and denies a history of skin rash. Neurologic: The patient denies a history of epilepsy/convulsions , denies headaches, denies head/spinal injuries, and denies stroke/TIA. Psychiatric: The patient denies psychiatric medications, denies depression, and denies voices, denies substance abuse. Endocrine: The patient denies thyroid disorders, denies diabetes, and denies hormonal problems. Hematologic: The patient denies a history of bruising, denies bleeding, and denies anemia, denies blood clots. Infections: The patient denies a history of measles and mumps, denies rheumatic fever, and denies sexually transmitted diseases. Musculoskeletal: The patient denies back pain/injury, denies back problems, denies sciatica, NOTES knee/foot trouble, denies arthritis, or denies gout. When was patient's last Mammogram screening? N/A Last Colonoscopy: 2015 Elisa Ruth LPN Referring Provider: SELF [[id number]] Allergies As of Date: 11/18/2019 (No Known Allergies) Date Reviewed: 11/18/2019 Reviewed by: Basim Tomlinson LPN - Fully Assessed Reason for Visit: Consult [173] Cmt: consult Diarrhea Reason For Visit History Recorded Primary Visit Diagnosis:Diarrhea, unspecified type [R19.7] Other Visit Diagnosis:Adenomatou s polyp of sigmoid colon [D12.5] Order(s):[] peg 3350-Electrolytes (GOLYTELY) 236-22.74-6.74 -5.86 gram suspensionTake 4,000 mL by mouth one time only for 1 dose. Refer to printed prep instructions from your doctor.Disp: 1 BottleRfl: 0 INSERT IV ([place]) [[id number]] Order #: [id number]: 1 FUTURE IV DISCONTINUE [[id number]] Order #: [id number]: 1 FUTURE INSERT IV ([place]) [[id number]] Order #: [id number]: 1 COLONOSCOPY - DIAGNOSTIC [[id number]] Order #: [id number] FUTURE EGD [[id number]] Order #: [id number] FUTURE Prescriptions as of 11/18/2019 Sig: TAMSULOSIN 0.4 MG CAPSULE PEG 3350-ELECTROLYTES 236 GRA* Take 4,000 mL by mouth one ti* PREDNISONE 20 MG TABLET Take 1 tablet by mouth twice * LIDOCAINE 5 % TOPICAL PATCH Apply 1 Patch as directed timmy* CITALOPRAM 10 MG TABLET OMEPRAZOLE 40 MG CAPSULE,KIRK* Take 1 capsule by mouth once * Medication notes this encounter PREDNISONE 20 MG TABLET >> Basim Tomlinson LPN 11/18/2019 3:28 PM >> BASIM TOMLINSON LPN SunNov 18, 2019 3:28 PM please d/c LIDOCAINE 5 % TOPICAL PATCH >> Basim Tomlinson CRM COORDINATOR 11/18/2019 3:29 PM >> BASIM TOMLINSON LPN SunNov 18, 2019 3:29 PM Please dvictor manuel CITALOPRAM 10 MG TABLET >> Basim Tomlinson CRM COORDINATOR 11/18/2019 3:29 PM >> BASIM TOMLINSON LPN e Nov 18, 2019 3:29 PM Please d.nhi OMEPRAZOLE 40 MG CAPSULE,DELAYED RELEASE >> Basim Tomlinson LPN 11/18/2019 3:29 PM >> BASIM TOMLINSON LPN SunNov 18, 2019 3:29 PM Please annette Problem List As Of Date 11/18/2019 Noted Resolved Personal history of colonic polyps [Z86.010] 09/09/2015 Abdominal bloating [R14.0] 09/09/2015 Epigastric pain [R10.13] 09/09/2015 Gallstones [K80.20] Other instructions from your clinician: Bowel Preparation Instructions for: Golytely, Nulytely, Trilyte or Colyte (polyethylene glycol 3350 and electrolytes) IF YOU DO NOT FOLLOW THESE DIRECTIONS, YOUR COLONOSCOPY WILL BE CANCELLED. Klein Instructions: ? Your bowel must be empty so that your doctor can clearly view your colon. Follow all of the instructions in this handout EXACTLY as they are written. ? Do NOT eat any solid food the ENTIRE day before your colonoscopy. Drink only clear liquids. ? Buy your bowel preparation at least 5 days before your colonoscopy. TRANSPORTATION on the Day of Your Exam A responsible person MUST be present with you at Check In prior to your colonoscopy and REMAIN in the endoscopy area until you are discharged. You are NOT ALLOWED to drive, take a taxi or bus, or leave the Endoscopy Center ALONE. If you do not have a responsible motor pool driver (family member or friend) with you to take you home, your exam cannot be done with sedation and will be cancelled. Please bring a list of all of your current medications, including any Over-the Counter medications with you. Medications If you take insulin, diabetic medications or blood thinners such as Coumadin (warfarin), Plavix (clopidogrel), Ticlid (ticlopidine hydrochloride), Agrylin (anagrelide), Xarelto (Rivaroxaban), Pradaxa (Dabigatran), Eliquis (Apixaban), and Effient (Prasugrel). You MUST call the doctors who orders those medicines for instructions on altering the dosage before your colonoscopy. All other medications should be taken the day of the exam with a sip of water including ASPIRIN. Five (5) Days Before Your Colonoscopy ? Do NOT take medicines that stop diarrhea - such as Imodium, Kaopectate, or Pepto Bismol. ? Do NOT take fiber supplements - such as Metamucil, Citrucel, or Perdiem. ? Do NOT take products that contain iron - such as multi-vitamins (the label lists what is in the products). ? Do NOT take Vitamin E. Buy the prescription bowel preparation solution at your local pharmacy or drugstore pharmacy. 05/2019 Bowel Preparation Instructions for: Golytely, Nulytely, Trilyte or Colyte (polyethylene glycol 3350 and electrolytes) Three (3) Days Before Your Colonoscopy ? Do NOT eat high-fiber foods - such as popcorn, beans, seeds (flax, sunflower, quinoa), multigrain bread, nuts, salad/vegetables, or fresh and dried fruit. One (1) Day Before Your Colonoscopy ? Only drink clear liquids the ENTIRE DAY before your colonoscopy. Do NOT eat any solid foods. Drink at least 8 ounces of clear liquids every hour after waking up. The clear liquids you can drink include: Clear Liquid (NO RED LIQUIDS) DO NOT DRINK Gatorade, Pedialyte or Powerade Clear broth or bouillon Coffee or tea (no milk or non-dairy creamer) Carbonated and non-carbonated soft drinks Jon-Aid or other fruit flavored drinks Strained fruit juices (no pulp) Jell-O, popsicles, hard candy Water Alcohol Milk or non-dairy creamers Noodles or vegetables in soup Juice with pulp Liquid you cannot see through The bowel preparation solution will be consumed in two parts. Mix the solution the evening before your colonoscopy and refrigerate before drinking. You may add the flavor pack that came with the bowel preparation. Do NOT add ice, sugar or any other flavorings to the solution. Part 1 ? At 6:00 PM - Evening before your colonoscopy ? Drink an 8-oz glass of bowel preparation every 10 minutes for a total of 8 glasses. ? You may continue to drink clear liquids until midnight. Part 2 ? On the day of your colonoscopy you may drink clear liquids up to (three) 3 hours before your procedure. ? 4 hours before your colonoscopy ? Drink an 8-oz glass of bowel preparation every 10 minutes for a total of 8 glasses. ? Fifteen (15) minutes later, drink an 8-oz glass of clear liquids every 15 minutes for a total of 2 glasses. ? You may continue to drink clear liquids up to (three) 3 hours before your exam. 3 05/2019 Visit Notes: >> Elisa Ruth LPN Wed Nov 19, 2019 8:24 AM Status: Signed REVIEW OF SYSTEMS: General: The patient denies fatigue, denies weight loss, denies weight gain, denies feeling hot, and denies feelings of cold. Eyes: The patient denies glaucoma, denies eye injury/surgery, wears glasses or contacts. Ear/Nose/Throat: The patient denies allergies, denies hayfever, denies ear infections, and denies bloody noses. Cardiovascular: The patient denies chest pain, denies heart disease, denies high blood pressure,denies cardiac stent, denies prior heart attack, denies irregular heart beat, denies high cholesterol, denies poor circulation, denies heart failure, other cardiac issues, denies claudication, denies cold feet, denies peripheral arterial stent. Respiratory: The patient denies tuberculosis, denies pneumonia, denies frequent cough, denies pulmonary embolism, denies shortness of breath, and denies coughing up blood. Gastrointestinal: The patient denies difficulty swallowing, denies acid reflux, denies ulcers, denies vomiting, denies jaundice/hepatitis, NOTES gallbladder problems, denies black or tarry stools, NOTES hemorrhoids, denies bleeding from rectum, denies diverticulitis, denies constipation, NOTES diarrhea, denies loss of stool control, and denies hernias. Kidney/Bladder: The patient denies kidney stones, denies urine infections, and denies bloody urine. Skin: The patient denies a history of skin cancer, denies bleeding/changing moles, and denies a history of skin rash. Neurologic: The patient denies a history of epilepsy/convulsions , denies headaches, denies head/spinal injuries, and denies stroke/TIA. Psychiatric: The patient denies psychiatric medications, denies depression, and denies voices, denies substance abuse. Endocrine: The patient denies thyroid disorders, denies diabetes, and denies hormonal problems. Hematologic: The patient denies a history of bruising, denies bleeding, and denies anemia, denies blood clots. Infections: The patient denies a history of measles and mumps, denies rheumatic fever, and denies sexually transmitted diseases. Musculoskeletal: The patient denies back pain/injury, denies back problems, denies sciatica, NOTES knee/foot trouble, denies arthritis, or denies gout. When was patient's last Mammogram screening? N/A Last Colonoscopy: 2015 Elisa Ruth CRM COORDINATOR Prescriptions ordered this encounter Disp Refills Start End PEG 3350-ELECTROLYTES 236 GRAM-22.74* 1 Herbie* 0 11/18/2019 11/18/2019 Route: ORAL Sig: Take 4,000 mL by mouth one time only for 1 dose. Refer to printed prep instructions from your doctor. Letter Text Encounter Status:Closed by SHYANNE MOCTEZUMA MD on 11/19/19 Normal [facility] PROGRESSon 11-18-2019 PROGRESS HNO ID: [id number] Author: Shyanne Moctezuma Service: ? Author Type: Physician Type: Progress Notes Filed: 11/19/2019 9:02 AM Note Text: HISTORY AND PHYSICAL Federico Lamb 1950 REFERRING PHYSICIAN: Self CHIEF COMPLAINT: Consult (consult Diarrhea) HPI: The patient is a 69 year old male referred for diarrhea. The patient will note 5-7 bowel movements per day this is generally loose. It typically occurs after eating. He did note some blood which he thought was from anal irritation over the weekend but this is resolved. He denies black tarry stools. The patient denies any current upper GI complaints. Federico has undergone prior endoscopy. The patient went colonoscopy in 2015. At the time is for complaints of abdominal bloating and also some loose stools. The patient was found to have gastritis distal reflux esophagitis and a small polyp in the colon. BIopsy returned as chronic inactive gastritis. There is also distal esophagitis and the polyp returned as an adenomatous polyp. I performed laparoscopic cholecystectomy in 2016 and hemorrhoidal banding for hemorrhoidal bleeding in 2018 PAST MEDICAL HISTORY Diagnosis Date - Colonic polyp - Gallstones PAST SURGICAL HISTORY Procedure Laterality Date - COLONOS W/REM POLYP SNARE 2010 2 polyps - recommened follow up in 2014 - COLONOS W/REM POLYP SNARE 09/28/15 small adenomatous polyp - 5 year follow up - EGD W/O BRSH SPECIMEN W/BX 09/28/15 normal - LAPAROSCOPIC CHOLEYCYSTECTOMY 05/23/2017 [facility] - TOTAL KNEE REPLACEMENT Left 2018 - TREAT LOWER LEG FRACTURE multiple additional fractures - URETER DISSECTION Left 1967 Current Outpatient Medications Medication Sig - tamsulosin ER (FLOMAX) 0.4 mg cp24 - predniSONE (DELTASONE) 20 mg tablet Take 1 tablet by mouth twice daily. - lidocaine (LIDODERM) 5 % Apply 1 Patch as directed every 24 hours. - citalopram hydrobromide (CELEXA) 10 mg tablet - Omeprazole 40 mg capsule Take 1 capsule by mouth once daily. No current facility-administere d medications for this visit. ALLERGIES: Patient has no known allergies. PERSONAL HISTORY: Social History Tobacco Use - Smoking status: Former Smoker Packs/day: 1.25 Years: 40.00 Pack years: 50.00 Types: Cigarettes Last attempt to quit: 06/18/2014 Years since quittin.4 - Smokeless tobacco: Never Used Substance Use Topics - Alcohol use: Yes Comment: occasional with bowling - Drug use: No FAMILY HISTORY: FAMILY HISTORY Problem Relation Age of Onset - Arthritis Mother - other (Heart valve issue) Father REVIEW OF SYMPTOMS: Review of systems noted below PHYSICAL EXAMINATION: General: The patient is 69 year old male, well nourished, well hydrated in no acute distress. The patient is oriented to time, place, and person. VITALS: Blood pressure 114/62, pulse 87, temperature 37.1 ?C (98.7 ?F), temperature source Temporal Artery, height 176.5 cm (5' 9.5), weight 69 kg (152 lb 3.2 oz), SpO2 96 %. Body mass index is 22.15 kg/m?. HEENT: Normal cephalic, ataumatic, pupils are equally round, sclera are anicteric, mucous membranes are moist, oropharynx is clear. Neck has no masses, asymmetry or lymphadenopathy. Thyroid is unremarkable. Respiratory: Clear to auscultation and percussion. Normal respiratory excursion and pattern. Cardiac: Examination is regular rate and rhythm. Abdominal exam: Soft, nontender, with no palpable masses. No hepatosplenomegaly. No palpable hernias. Rectal exam: exam deferred Extremities: no clubbing, cyanosis or edema. No adenopathy. Other: LABORATORY VALUES: As Noted RADIOLOGIC STUDIES: As Noted Assessment IMPRESSION: Loose stools, previous history of gastritis and distal esophagitis, history of adenomatous polyp PLAN: I plan to perform upper and lower endoscopy. We discussed the risks and benefits of the planned endoscopy. I have informed the patient that complications can occur including failure to complete the endoscopy and perforation. The patient had the opportunity to ask questions concerning the planned endoscopy. My staff has also explained the procedure to the patient in understandable terms and has given the patient printed material concerning the procedure. The patient freely consents to surgery. I plan to use golytely bowel preparation for endoscopy As a result of the 09/02/19 order by [facility] Director Ekta Suarez M.D. to cancel non-essential surgeries that would use PPE, unless special criteria are met, I have reviewed the clinical record for this patient and have determined that the scheduled procedure meets the criteria to go forward because there is a risk of rapidly worsening to severe symptoms if delayed. The patient was offered a surgery/procedure at a [facility]. The surgeon/proceduralis t and patient have discussed in detail the risk of exposure to and/or potential harm posed by the COVID-19 virus with having a surgery/procedure at this time versus the risk of delaying the surgery/procedure. It is not possible to know either the risk of delaying the surgery or procedure or chance of getting an infection with perfect accuracy, but a joint decision was made between the patient and the surgeon/proceduralis t to proceed at this time with the scheduled surgery/procedure as indicated on the consent form. Diagnoses: (R19.7) Diarrhea, unspecified type (primary encounter diagnosis) (D12.5) Adenomatous polyp of sigmoid colon A letter was sent to Esperanza Avina NP indicating the above finding for this patient. Return to Clinic: The patient is instructed to follow-up with me after the testing has been completed. Shyanne Moctezuma MD REVIEW OF SYSTEMS: General: The patient denies fatigue, denies weight loss, denies weight gain, denies feeling hot, and denies feelings of cold. Eyes: The patient denies glaucoma, denies eye injury/surgery, wears glasses or contacts. Ear/Nose/Throat: The patient denies allergies, denies hayfever, denies ear infections, and denies bloody noses. Cardiovascular: The patient denies chest pain, denies heart disease, denies high blood pressure,denies cardiac stent, denies prior heart attack, denies irregular heart beat, denies high cholesterol, denies poor circulation, denies heart failure, other cardiac issues, denies claudication, denies cold feet, denies peripheral arterial stent. Respiratory: The patient denies tuberculosis, denies pneumonia, denies frequent cough, denies pulmonary embolism, denies shortness of breath, and denies coughing up blood. Gastrointestinal: The patient denies difficulty swallowing, denies acid reflux, denies ulcers, denies vomiting, denies jaundice/hepatitis, NOTES gallbladder problems, denies black or tarry stools, NOTES hemorrhoids, denies bleeding from rectum, denies diverticulitis, denies constipation, NOTES diarrhea, denies loss of stool control, and denies hernias. Kidney/Bladder: The patient denies kidney stones, denies urine infections, and denies bloody urine. Skin: The patient denies a history of skin cancer, denies bleeding/changing moles, and denies a history of skin rash. Neurologic: The patient denies a history of epilepsy/convulsions , denies headaches, denies head/spinal injuries, and denies stroke/TIA. Psychiatric: The patient denies psychiatric medications, denies depression, and denies voices, denies substance abuse. Endocrine: The patient denies thyroid disorders, denies diabetes, and denies hormonal problems. Hematologic: The patient denies a history of bruising, denies bleeding, and denies anemia, denies blood clots. Infections: The patient denies a history of measles and mumps, denies rheumatic fever, and denies sexually transmitted diseases. Musculoskeletal: The patient denies back pain/injury, denies back problems, denies sciatica, NOTES knee/foot trouble, denies arthritis, or denies gout. When was patient's last Mammogram screening? N/A Last Colonoscopy: 2016 Elisa Ruth LPN Normal [facility] Basic Panelon 02-26-2019 Calcium [Mass/Vol] 9.8 mg/dL Normal 8.5-10.1 [facility] Comment on above: Performed By: #### L P8 #### [place] [address] CO2 Blood 32 mEq/L Normal 21-32 [facility] Comment on above: Performed By: #### L P8 #### [place] [address] Creatinine [Mass/Vol] 0.98 mg/dL Normal 0.67-1.17 [facility] Comment on above: Performed By: #### L P8 #### [address] [address] Glucose [Mass/Vol] 106 mg/dL High 70-99 [facility] Comment on above: Performed By: #### L P8 #### [place] [address] Urea nitrogen [Mass/Vol] 15 mg/dL Normal 7-18 [facility] Comment on above: Performed By: #### L P8 #### [address] [address] Chloride [Moles/Vol] 101 mmol/L Normal 98-109 [facility] Comment on above: Result Comment: Test ing performed on an [employer] i-STAT. Performed By: #### L P8 #### [address] [address] Potassium [Moles/Vol] 4.0 mmol/L Normal 3.5-4.9 [facility] Comment on above: Result Comment: Test ing performed on an [employer] i-STAT. Performed By: #### L P8 #### [facility] [address], [place] [address] Sodium [Moles/Vol] 139 mmol/L Normal 138-146 [facility] Comment on above: Result Comment: Test ing performed on an citysocializer i-STAT. Performed By: #### L P8 #### [facility] [address], [place] [address] CT FLANK WO IVCONon 02-27-[address] FLANK WO IVCON * * *Final Report* * * DATE OF EXAM: Feb 26 2019 6:13PM [facility] 0529 - CT FLANK WO IVCON / PROCEDURE REASON: Flank pain, stone disease suspected * * * * Physician Interpretation * * * * EXAMINATION: CT ABDOMEN AND PELVIS WITHOUT IV CONTRAST, 02/26/2019 CLINICAL HISTORY: Left flank pain. Stone disease suspected. TECHNIQUE: Non-IV contrast imaging of the abdomen and pelvis was performed using standard technique, scanning from just above the dome of the diaphragm to the symphysis pubis. Unenhanced imaging is limited for the evaluation of some intra-abdominal and pelvic pathology. MQ: [id number]_3 Contrast: IV: None Oral: None CT Radiation dose: Integrated Dose-length product (DLP) for this visit = 940.06 mGy*cm. CT Dose Reduction Employed: Automated exposure control (AEC) COMPARISON: CT chest 09/07/2015. RESULT: Abdomen / Pelvis: Liver: Normal size. Evaluation of liver and other solid organs is limited without IV contrast. Biliary: Status post cholecystectomy. Spleen: Normal size. Small accessory splenule. Pancreas: Normal size. No peripancreatic inflammatory change. Adrenals: Normal bilateral adrenal glands. Kidneys: Normal size kidneys. 2 mm nonobstructing stone right mid kidney. No left renal stones, ureteral stones, or bladder stones. No hydronephrosis. Prominent left extrarenal pelvis, consistent with normal variant, unchanged since 09/07/2015. Mild chronic cortical thinning lower pole left kidney. Evaluation of renal parenchyma limited without contrast. GI Tract: No bowel distention or focal bowel abnormalities seen. Normal appendix. Lymph Nodes: No lymphadenopathy. Mesentery/peritoneum : No ascites. Retroperitoneum: No mass. Vasculature: Aorta normal caliber. Moderate atherosclerotic calcifications. Pelvis: Bladder nondistended. No free fluid or focal fluid collection. Bones/Soft Tissues: Osseous structures intact. No lytic or blastic bone lesions. Prominent degenerative changes L4/L5 disc space. Partial sacralization L5. No acute abnormality. Lower thorax: Within normal limits. No acute changes. IMPRESSION: 1. 2 mm nonobstructing stone right kidney. No other urinary tract stones. No hydronephrosis. 2. No acute changes seen in the abdomen or pelvis. Evaluation limited without contrast. 3. Status post cholecystectomy. 4. Moderate degenerative changes in the lower lumbar spine. Unix Consultant: PSCB Transcribe Date/Time: Feb 26 2019 6:32P Dictated by : LEWIS HENRY MD This examination was interpreted and the report reviewed and electronically signed by: LEWIS HNERY MD on Feb 26 2019 6:42PM EST Normal [facility] ED NOTEon 02-26-2019 ED NOTE HNO ID: [id number] Author: Sadaf MaiRn) MEY [place]brook Service: Emergency Medicine Author Type: Registered Nurse Type: ED Notes Filed: 02/27/2019 10:11 AM Note Text: Patient Call Back Information ? How are you doing ? no change ? Did we appropriately manage your pain? Yes ? Did you understand your discharge instructions? Yes ? Did you get your prescriptions filled? n/a Were you able to make a follow-up appointment with your physician? Yes, today ? Were you comfortable during your stay here? Yes ? Did a member of the ER nursing team round on you during your visit? Yes ? You will receive a patient satisfaction survey in the mail in the nest 2 weeks, please take the time to fill out the survey as your input from your ER visit is very important to us. Yes ? Can we do anything else to help you? No Normal [facility] ED NOTE HNO ID: [id number] Author: Thuy MaiRn) MEY Chase Service: Emergency Medicine Author Type: Registered Nurse Type: ED Notes Filed: 02/26/2019 8:13 PM Note Text: Dc instr to leroy marshall pmd, return prn. Family at bedside with questions about diagnosis. Answered by physician to the satisfaction of patient and family. Verb will fu w pcp. Pt reports improved pain. Ambulates from ER. Normal [facility] ED NOTE HNO ID: [id number] Author: Thuy MaiRn) MEY Chase Service: Emergency Medicine Author Type: Registered Nurse Type: ED Notes Filed: 02/26/2019 7:55 PM Note Text: Patient informed: the name of medication, why we are giving it, possible side effects, what they may expect to feel, and was offered a chance to ask questions, prior to the administration of morphine Normal [facility] ED NOTE HNO ID: [id number] Author: Devante MaiRn) MEY Rosado Service: Emergency Medicine Author Type: Registered Nurse Type: ED Notes Filed: 02/26/2019 7:17 PM Note Text: Change of shift report received from MEY Castro. This RN assumed patient care at this time. [facility] ED NOTE HNO ID: [id number] Author: Matthew MaiRn) MEY Chavarria Service: Emergency Medicine Author Type: Registered Nurse Type: ED Notes Filed: 02/26/2019 6:04 PM Note Text: Patient transported to radiology with Tech. [facility] INR Coag (Bld) [Relative time] HNO ID: [id number] Author: Matthew MaiRnRamon Chavarria RN Service: Emergency Medicine Author Type: Registered Nurse Type: ED Notes Filed: 02/26/2019 5:54 PM Note Text: Patient informed: the name of medication, why we are giving it, possible side effects, what they may expect to feel, and was offered a chance to ask questions, prior to the administration of toradol Normal [facility] ED NOTE HNO ID: [id number] Author: Matthew MaiRnRamon Chavarria RN Service: Emergency Medicine Author Type: Registered Nurse Type: ED Notes Filed: 02/26/2019 5:54 PM Note Text: Clean catch urine specimen obtained and sent. [facility] ED NOTE HNO ID: [id number] Author: Matthew Chavarria RN Service: Emergency Medicine Author Type: Registered Nurse Type: ED Notes Filed: 02/26/2019 5:02 PM Note Text: Pt presents with left sided pain from back to groin after playing golf over the weekend. [facility] ED PROV NOTEon 02-26-2019 ED PROV NOTE HNO ID: [id number] Author: Karis West Service: Emergency Medicine Author Type: Physician Type: ED Provider Notes Filed: 02/26/2019 8:12 PM Note Text: ED Provider Note Patient Name: Federico Lamb SERVICE DATE: 02/26/19 History Patient presents with: Back Pain Federico Lamb is a 68 year old male with history of no chronic medical problems who presents with Back Pain. Patient took nothing for this prior to arrival. - Symptoms began 1 weeks prior to arrival. - Severity: moderate - Timing: constant - Quality: sore and aching - Back Pain is exacerbated by movement palpation. - Back Pain is not exacerbated by rest. - Symptoms are associated with back pain. - Symptoms are not associated with chills and fever. - Improved by rest. - Not improved by palpation. PAST MEDICAL HISTORY Diagnosis Date - Colonic polyp - Gallstones PAST SURGICAL HISTORY Procedure Laterality Date - COLONOS W/REM POLYP SNARE 2010 2 polyps - recommened follow up in 2014 - COLONOS W/REM POLYP SNARE 09/28/15 small adenomatous polyp - 5 year follow up - EGD W/O BRSH SPECIMEN W/BX 09/28/15 normal - LAPAROSCOPIC CHOLEYCYSTECTOMY 05/23/2017 [place] - TREAT LOWER LEG FRACTURE multiple additional fractures - URETER DISSECTION Left 1968 FAMILY HISTORY Problem Relation Age of Onset - Arthritis Mother - other (Heart valve issue) Father Social History Tobacco Use - Smoking status: Former Smoker Packs/day: 1.25 Years: 40.00 Pack years: 50.00 Types: Cigarettes Last attempt to quit: 06/18/2014 Years since quittin.6 - Smokeless tobacco: Never Used Substance and Sexual Activity - Alcohol use: Yes Comment: occasional with bowling - Drug use: No - Sexual activity: Not on file ALLERGIES No Known Allergies Review of Systems Constitutional: Negative for chills and fatigue. HENT: Negative for congestion and ear pain. Eyes: Negative for pain and redness. Respiratory: Negative for cough and shortness of breath. Cardiovascular: Negative for chest pain and palpitations. Gastrointestinal: Negative for abdominal pain and constipation. Genitourinary: Negative for difficulty urinating and dysuria. Musculoskeletal: Positive for back pain. Neurological: Negative for dizziness and headaches. Psychiatric/Behavior al: Negative for agitation and confusion. All other systems reviewed and are negative. Physical Exam BP 122/74 Pulse 84 Temp 98 Resp 18 Ht 5' 9 (1.75m) Wt 159 lb (72.1kg) SpO2 97% BMI 23.47 kg/(m2). O2 Therapy: Room Air Physical Exam Constitutional: He is oriented to person, place, and time. He appears well-developed and well-nourished. HENT: Head: Normocephalic and atraumatic. Right Ear: External ear normal. Left Ear: External ear normal. Nose: Nose normal. Mouth/Throat: Oropharynx is clear and moist. Eyes: Pupils are equal, round, and reactive to light. Conjunctivae and EOM are normal. Neck: Normal range of motion. Neck supple. Cardiovascular: Normal rate, regular rhythm, normal heart sounds and intact distal pulses. Pulmonary/Chest: Effort normal and breath sounds normal. Abdominal: Soft. Bowel sounds are normal. Musculoskeletal: He exhibits tenderness. Arms: Neurological: He is alert and oriented to person, place, and time. Skin: Skin is warm. Capillary refill takes less than 2 seconds. Psychiatric: He has a normal mood and affect. His behavior is normal. Nursing note and vitals reviewed. Diagnostic Testing ED Labs Ordered and Reviewed - No data to display Procedures ED Course / Clinical Impression Clinical Impressions as of Feb 26 2003 Flank pain MDM / Disposition / Plan Patient presents with flank pain. His UA does not show any acute changes. Ct abdomen/pelvis no acute changes kidney stone in the right kidney. The patients CBC and BMP was reviewed and does not show any acute changes. The patient was given Tordol 15mg IV for pain and 1 liter NS for pain. Morphine 4mg IV given because the patient still had pain. He will be discharged home and will follow up in 2 days with his doctor. If his symptoms change or get worse he will return to the ER. The patient was DISCHARGED: Counseled patient regarding lab results AND radiology results AND suspected diagnosis AND need for follow-up. Discharged home with verbal and written instructions. They were instructed to return as needed for persistent or worsening symptoms or any new concerns. Condition at time of disposition: stable SIGNATURE: DO Karis Ellsworth 02/26/192011 Normal [facility] Hemogram/Diffon 02-26-2019 Abs. Baso 0.03 thou/cmm Normal 0.00-0.08 [facility] Comment on above: Performed By: #### L CBCD #### [facility] [address] [address] Abs. [place] 1.22 thou/cmm High 0.20-1.00 [facility] Comment on above: Performed By: #### L CBCD #### [facility] [address] [address] Abs. Neut (ANC) 8.11 thou/cmm High 3.00-5.67 [facility] Comment on above: Performed By: #### L CBCD #### [facility] [address] [address] Basophils/100 WBC (Bld) 0.2 % Normal [facility] Comment on above: Performed By: #### L CBCD #### [facility] [address] [address] Eosinophils (Bld) [#/Vol] 0.23 thou/cmm Normal 0.00-0. 41 [facility] Comment on above: Performed By: #### L CBCD #### [place] [address] Eosinophils/100 WBC (Bld) 1.8 % Normal [facility] Comment on above: Performed By: #### L CBCD #### [facility] [address] [address] Erythrocyte distribution width (RBC) [Ratio] 14.0 % Normal 11.5-15.9 [facility] Comment on above: Performed By: #### L CBCD #### [facility] [address] [address] Hematocrit (Bld) [Volume fraction] 48.1 % Normal 42.0-52.0 [facility] Comment on above: Performed By: #### L CBCD #### [facility] [address] [address] Hemoglobin (Bld) [Mass/Vol] 16.0 g/dL Normal 14.0-18.0 [facility] Comment on above: Performed By: #### L CBCD #### [place] [address] Lymphocytes (Bld) [#/Vol] 3.11 thou/cmm Normal 1.50-3. 65 [facility] Comment on above: Performed By: #### L CBCD #### [facility] [address], [place] [address] Lymphocytes/100 WBC (Bld) 24.5 % Normal [facility] Comment on above: Performed By: #### L CBCD #### [facility] [address] [address] MCH (RBC) [Entitic mass] 30.1 pg Normal 27.0-31.0 [facility] Comment on above: Performed By: #### L CBCD #### [facility] [address] [address] MCHC (RBC) [Mass/Vol] 33.3 % Normal 32.0-36.0 [facility] Comment on above: Performed By: #### L CBCD #### [place] [address] MCV (RBC) [Entitic vol] 90.4 fL Normal 80.0-94.0 [facility] Comment on above: Performed By: #### L CBCD #### [place] [address] Monocytes/100 WBC (Bld) 9.6 % Normal [facility] Comment on above: Performed By: #### L CBCD #### [place] [address] Platelet mean volume (Bld) [Entitic vol] 10.7 fL High 7.1-10.5 [facility] Comment on above: Performed By: #### L CBCD #### [facility] [address] [address] Platelets (Bld) [#/Vol] 373 thou/cmm Normal 150-400 [facility] Comment on above: Performed By: #### L CBCD #### [place] [address] RBC (Bld) [#/Vol] 5.32 mil/cmm Normal 4.60-6.20 [facility] Comment on above: Performed By: #### L CBCD #### [facility] [address] [place] [address] Seg Neutrophil 63.9 % Normal [facility] Comment on above: Performed By: #### L CBCD #### [facility] [address] [address] WBC (Bld) [#/Vol] 12.7 thou/cmm High 4.8-10.5 [facility] Comment on above: Performed By: #### L CBCD #### [facility] [address] [address] MDRD eGFRon 02-26-2019 GFR/1.73 sq M predicted among non-blacks MDRD (S/P/Bld) [Vol rate/Area] mL/min/{1.73_m2} Normal >60mL/min/1.7 3m2 [facility] Comment on above: Result Comment: If t he patient is , multiply the result by 1.210. Performed By: #### L GFR #### [place] [address] Macroscopic Urinalysison Appearance (U) CLEAR Normal [facility] Comment on above: Performed By: #### L MACU #### [place] [address] Bilirubin Urine Negative Normal Negative [facility] Comment on above: Performed By: #### L MACU #### [place] [address] Color (U) YELLOW Normal [facility] Comment on above: Performed By: #### L MACU #### [place] [address] Glucose Ql (U) Negative Normal Negative [facility] Comment on above: Performed By: #### L MACU #### [place] [address] Hemoglobin,Urine Negative Normal Negative [facility] Comment on above: Performed By: #### L MACU #### [place] [id number] Ketone Urine Negative Normal Negative [facility] Comment on above: Performed By: #### L MACU #### [facility] [address] [place] [address] Leukocytes Esterase Negative Normal Negative [facility] Comment on above: Performed By: #### L MACU #### [facility] [address] [place] [address] Nitrites Urine Negative Normal Negative [facility] Comment on above: Performed By: #### L MACU #### [facility] [address] [address] pH (U) 5.0 [pH] Normal 5.0-8.0 [facility] Comment on above: Performed By: #### L MACU #### [facility] [address] [address] Protein (U) [Mass/Vol] Negative Normal Negative [facility] Comment on above: Performed By: #### L MACU #### [place] [address] Specific [place], Ur >=1.030 Normal 1.005-1.030 [facility] Comment on above: Performed By: #### L MACU #### [facility] [address] [place] [address] Urobilinogen,Ur 0.2 EU/dL Normal 0.2-1.0 [facility] Comment on above: Performed By: #### L MACU #### [place] [address] Vital Signs Date Time Vital Sign Value Performing Clinician Ildefonso lares 12-17-2023 10:10 Body mass index (BMI) [Ratio] 23.32 kg/m2 Gloria Graves MD Work Phone: [facility] 12-17-2023 10:10-040 Body weight 72.67 kg Gloria Graves MD Work Phone: [facility] 12-17-2023 10:10-040 Diastolic blood pressure 86 mm[Hg] Gloria Graves MD Work Phone: [facility] 12-17-2023 10:10-0400 Heart rate 64 /min Gloria Graves MD Work Phone: [facility] 12-17-2023 10:10-0400 SaO2% (BldA) [Mass fraction] 95 % Gloria Graves MD Work Phone: [facility] 12-17-2023 10:10-0400 Systolic blood pressure 145 mm[Hg] Gloria Graves MD Work Phone: [facility] 08-25-2023 10:33-0500 Body temperature 97.9 [degF] POST PRODUCTION ASSISTANT-C Esperanza Avina POST PRODUCTION ASSISTANT Work Phone: [facility] 08-25-2023 10:33-0500 Diastolic blood pressure 63 mm[Hg] POST PRODUCTION ASSISTANT-C Esperanza Avina POST PRODUCTION ASSISTANT Work Phone: [facility] 08-25-2023 10:33-0500 Heart rate 104 /min POST PRODUCTION ASSISTANT-C Esperanza Avina POST PRODUCTION ASSISTANT Work Phone: [facility] 08-25-2023 10:33-0500 Respiratory rate 14 /min POST PRODUCTION ASSISTANT-C Esperanza Avina POST PRODUCTION ASSISTANT Work Phone: [facility] 08-25-2023 10:33-0500 SaO2% (BldA) [Mass fraction] 92 % POST PRODUCTION ASSISTANT-C Esperanza Avina POST PRODUCTION ASSISTANT Work Phone: [facility] 08-25-2023 10:33-0500 Systolic blood pressure 111 mm[Hg] POST PRODUCTION ASSISTANT-C Esperanza Avina POST PRODUCTION ASSISTANT Work Phone: [facility] 08-25-2023 05:01-0500 Body mass index (BMI) [Ratio] 23.6 kg/m2 POST PRODUCTION ASSISTANT-C Esperanza Avina POST PRODUCTION ASSISTANT Work Phone: [facility] 08-25-2023 05:01-0500 Body weight 70.3 kg POST PRODUCTION ASSISTANT-C Esperanza Avina POST PRODUCTION ASSISTANT Work Phone: [facility] 08-24-2023 05:42-0500 Body height 172.72 cm POST PRODUCTION ASSISTANT-C Esperanza Avina POST PRODUCTION ASSISTANT Work Phone: [facility] 08-24-2023 05:22-0500 Diastolic blood pressure 69 mm[Hg] POST PRODUCTION ASSISTANT-C Esperanza Avina POST PRODUCTION ASSISTANT Work Phone: [facility] 08-24-2023 05:22-0500 Heart rate 70 /min POST PRODUCTION ASSISTANT-C Esperanza Avina POST PRODUCTION ASSISTANT Work Phone: [facility] 08-24-2023 05:22-0500 Respiratory rate 13 /min POST PRODUCTION ASSISTANT-C Esperanza Avina POST PRODUCTION ASSISTANT Work Phone: [facility] 08-24-2023 05:22-0500 SaO2% (BldA) [Mass fraction] 94 % POST PRODUCTION ASSISTANT-C Esperanza Avina POST PRODUCTION ASSISTANT Work Phone: [facility] 08-24-2023 05:22-0500 Systolic blood pressure 135 mm[Hg] POST PRODUCTION ASSISTANT-C Esperanza Avina POST PRODUCTION ASSISTANT Work Phone: [facility] 08-24-2023 04:51-0500 Body temperature 97.5 [degF] POST PRODUCTION ASSISTANT-C Esperanza Avina POST PRODUCTION ASSISTANT Work Phone: [facility] 08-24-2023 03:16-0500 Body height 172.72 cm POST PRODUCTION ASSISTANT-C Esperanza Avina POST PRODUCTION ASSISTANT Work Phone: [facility] 08-24-2023 03:16-0500 Body mass index (BMI) [Ratio] 23.9 kg/m2 POST PRODUCTION ASSISTANT-C Esperanza Avina POST PRODUCTION ASSISTANT Work Phone: [facility] 08-24-2023 03:16-0500 Body weight 71.4 kg POST PRODUCTION ASSISTANT-C Esperanza Avina POST PRODUCTION ASSISTANT Work Phone: [facility] 08-10-2023 08:24-0500 Body temperature 97.7 [degF] POST PRODUCTION ASSISTANT-C Esperanza Avina POST PRODUCTION ASSISTANT Work Phone: [facility] 08-10-2023 08:24-0500 Diastolic blood pressure 80 mm[Hg] POST PRODUCTION ASSISTANT-C Esperanza Avina POST PRODUCTION ASSISTANT Work Phone: [facility] 08-10-2023 08:24-0500 Heart rate 57 /min POST PRODUCTION ASSISTANT-C Esperanza Avina POST PRODUCTION ASSISTANT Work Phone: [facility] 08-10-2023 08:24-0500 Respiratory rate 16 /min POST PRODUCTION ASSISTANT-C Esperanza Avina POST PRODUCTION ASSISTANT Work Phone: [facility] 08-10-2023 08:24-0500 SaO2% (BldA) [Mass fraction] 95 % POST PRODUCTION ASSISTANT-C Esperanza Avina POST PRODUCTION ASSISTANT Work Phone: [facility] 08-10-2023 08:24-0500 Systolic blood pressure 136 mm[Hg] POST PRODUCTION ASSISTANT-C Esperanza Avina POST PRODUCTION ASSISTANT Work Phone: [facility] 08-10-2023 06:19-0500 Inhaled oxygen flow rate 2 L/min POST PRODUCTION ASSISTANT-C Esperanza Avina POST PRODUCTION ASSISTANT Work Phone: [facility] 08-08-2023 15:27-0500 Body height 172.72 cm POST PRODUCTION ASSISTANT-C Esperanza Avina POST PRODUCTION ASSISTANT Work Phone: [facility] 08-08-2023 15:27-0500 Body mass index (BMI) [Ratio] 23.6 kg/m2 POST PRODUCTION ASSISTANT-C Esperanza Avina POST PRODUCTION ASSISTANT Work Phone: [facility] 08-08-2023 15:27-0500 Body weight 70.3 kg POST PRODUCTION ASSISTANT-C Esperanza Avina POST PRODUCTION ASSISTANT Work Phone: [facility] 07-03-2023 10:21-0500 Diastolic blood pressure 64 mm[Hg] [facility] 07-03-2023 10:21-0500 Heart rate 88 /min [facility] 07-03-2023 10:21-0500 Respiratory rate 16 /min [facility] 07-03-2023 10:21-0500 SaO2% (BldA) [Mass fraction] 98 % [facility] 07-03-2023 10:21-0500 Systolic blood pressure 136 mm[Hg] [facility] 07-03-2023 07:21-0500 Body height 172.72 cm [facility] 07-03-2023 07:21-0500 Body mass index (BMI) [Ratio] 24.3 kg/m2 [facility] 07-03-2023 07:21-0500 Body temperature 96 [degF] [facility] 07-03-2023 07:21-0500 Body weight 72.4 kg [facility] 07-01-2023 00:52-0500 Diastolic blood pressure 58 mm[Hg] [facility] 07-01-2023 00:52-0500 Heart rate 81 /min [facility] 07-01-2023 00:52-0500 Respiratory rate 18 /min [facility] 07-01-2023 00:52-0500 SaO2% (BldA) [Mass fraction] 95 % [facility] 07-01-2023 00:52-0500 Systolic blood pressure 102 mm[Hg] [facility] 06-30-2023 22:45-0500 Body height 172.72 cm [facility] 06-30-2023 22:45-0500 Body mass index (BMI) [Ratio] 24.1 kg/m2 [facility] 06-30-2023 22:45-0500 Body temperature 97 [degF] [facility] 06-30-2023 22:45-0500 Body weight 72.12 kg [facility] 10-08-2022 13:37-0400 Body height 172.72 cm AGAPITO Avina POST PRODUCTION ASSISTANT Work Phone: [facility] 10-08-2022 13:37-0400 Body mass index (BMI) [Ratio] 24.1 kg/m2 AGAPITO Avina POST PRODUCTION ASSISTANT Work Phone: [facility] 10-08-2022 13:37-0400 Body temperature 97.7 [degF] AGAPITO Avina POST PRODUCTION ASSISTANT Work Phone: [facility] 10-08-2022 13:37-0400 Body weight 72.12 kg AGAPITO Avina POST PRODUCTION ASSISTANT Work Phone: [facility] 10-08-2022 13:37-0400 Diastolic blood pressure 58 mm[Hg] POST PRODUCTION ASSISTANT-C Esperanza Avina POST PRODUCTION ASSISTANT Work Phone: [facility] 10-08-2022 13:37-0400 Heart rate 59 /min POST PRODUCTION ASSISTANT-C Esperanza Avina POST PRODUCTION ASSISTANT Work Phone: [facility] 10-08-2022 13:37-0400 Respiratory rate 18 /min POST PRODUCTION ASSISTANT-C Esperanza Avina POST PRODUCTION ASSISTANT Work Phone: [facility] 10-08-2022 13:37-0400 SaO2% (BldA) [Mass fraction] 96 % POST PRODUCTION ASSISTANT-C Esperanza Avina POST PRODUCTION ASSISTANT Work Phone: [facility] 10-08-2022 13:37-0400 Systolic blood pressure 103 mm[Hg] POST PRODUCTION ASSISTANT-C Esperanza Avina POST PRODUCTION ASSISTANT Work Phone: [facility] 10-08-2022 11:52-0400 Body height 172.72 cm POST PRODUCTION ASSISTANT-C Esperanza Avina POST PRODUCTION ASSISTANT Work Phone: [facility] 10-08-2022 11:52-0400 Body mass index (BMI) [Ratio] 24.1 kg/m2 POST PRODUCTION ASSISTANT-C Esperanza Avina POST PRODUCTION ASSISTANT Work Phone: [facility] 10-08-2022 11:52-0400 Body temperature 97.9 [degF] POST PRODUCTION ASSISTANT-C Esperanza Avina POST PRODUCTION ASSISTANT Work Phone: [facility] 10-08-2022 11:52-0400 Body weight 72.12 kg POST PRODUCTION ASSISTANT-C Esperanza Avina POST PRODUCTION ASSISTANT Work Phone: [facility] 10-08-2022 11:52-0400 Diastolic blood pressure 75 mm[Hg] POST PRODUCTION ASSISTANT-C Esperanza Avina POST PRODUCTION ASSISTANT Work Phone: [facility] 10-08-2022 11:52-0400 Heart rate 94 /min POST PRODUCTION ASSISTANT-C Esperanza Avina POST PRODUCTION ASSISTANT Work Phone: [facility] 10-08-2022 11:52-0400 Respiratory rate 18 /min POST PRODUCTION ASSISTANT-C Esperanza Ruckerson POST PRODUCTION ASSISTANT Work Phone: [facility] 10-08-2022 11:52-0400 SaO2% (BldA) [Mass fraction] 97 % POST PRODUCTION ASSISTANTIdris Avina POST PRODUCTION ASSISTANT Work Phone: [facility] 10-08-2022 11:52-0400 Systolic blood pressure 157 mm[Hg] POST PRODUCTION ASSISTANTIdris Avina POST PRODUCTION ASSISTANT Work Phone: [facility] 08-03-2022 19:29-0500 Body height 172.72 cm [facility] 08-03-2022 19:29-0500 Body mass index (BMI) [Ratio] 22.5 kg/m2 [facility] 08-03-2022 19:29-0500 Body temperature 97.3 [degF] [facility] 08-03-2022 19:29-0500 Body weight 67.13 kg [facility] 08-03-2022 19:29-0500 Diastolic blood pressure 60 mm[Hg] [facility] 08-03-2022 19:29-0500 Heart rate 90 /min [facility] 08-03-2022 19:29-0500 Respiratory rate 18 /min [facility] 08-03-2022 19:29-0500 SaO2% (BldA) [Mass fraction] 95 % [facility] 08-03-2022 19:29-0500 Systolic blood pressure 130 mm[Hg] [facility] 06-21-2022 18:38-0500 Body height 172.72 cm [facility] Work Phone: 06-21-2022 18:38-0500 Body mass index (BMI) [Ratio] 24.1 kg/m2 [facility] 06-21-2022 18:38-0500 Body temperature 97.3 [degF] [facility] 06-21-2022 18:38-0500 Body weight 72.12 kg [facility] 06-21-2022 18:38-0500 Diastolic blood pressure 120 mm[Hg] [facility] 06-21-2022 18:38-0500 Heart rate 81 /min [facility] 06-21-2022 18:38-0500 Respiratory rate 14 /min [facility] 06-21-2022 18:38-0500 SaO2% (BldA) [Mass fraction] 96 % [facility] 06-21-2022 18:38-0500 Systolic blood pressure 164 mm[Hg] [facility] 11-01-2021 16:31-0400 Body height 175.26 cm [facility] Work Phone: 11-01-2021 16:31-0400 Body mass index (BMI) [Ratio] 22.1 kg/m2 [facility] Work Phone: 11-01-2021 16:31-0400 Body temperature 97.5 [degF] [facility] Work Phone: 11-01-2021 16:31-0400 Body weight 68.03 kg [facility] Work Phone: 11-01-2021 16:31-0400 Diastolic blood pressure 80 mm[Hg] [facility] Work Phone: 11-01-2021 16:31-0400 Heart rate 67 /min [facility] Work Phone: 11-01-2021 16:31-0400 Respiratory rate 18 /min [facility] Work Phone: 11-01-2021 16:31-0400 SaO2% (BldA) [Mass fraction] 97 % [facility] Work Phone: 11-01-2021 16:31-0400 Systolic blood pressure 128 mm[Hg] [facility] Work Phone: Encounters Encounter Date Encounter Type Care Provider Facility Start: 11-04-2024 End: 11-04-2024 ambulatory Mateus Starr Facility:[facility] Start: 07-14-2024 End: 07-15-2024 ambulatory Esperanza Avina NP Facility:[facility] Start: 12-17-2023 End: 12-17-2023 Office outpatient new 45 minutes Gloria Graves MD Work Phone: [facility] Cardiology [place] Comment on above: SSS (sick sinus synd abrahan) (HCC) (Primary Dx); Sinus bradycardia; SVT (supraventricular tachycardia) (HCC); Palpitations; Right bundle branch block (RBBB) with left anterior fascicular block (LAFB) Start: 12-17-2023 End: 12-17-2023 ambulatory ESPERANZA AVINA Facility:[facility] Start: 12-13-2023 ambulatory Felicita Grant Facility:[facility] Start: 12-13-2023 End: 12-13-2023 ambulatory Felicita Grant Facility:[facility] Start: 11-29-2023 End: 11-29-2023 ambulatory Esperanza Avina POST PRODUCTION ASSISTANT Facility:[facility] Start: 11-29-2023 End: 11-29-2023 ambulatory Felicita Grant Facility:[facility] Start: 10-01-2023 End: 10-02-2023 ambulatory ESPERANZA AVINA Facility:[facility] Start: 08-24-2023 Non-patient / Non-visit POST PRODUCTION ASSISTANT-C Figueroa Avina POST PRODUCTION ASSISTANT Work Phone: [facility] Start: 08-24-2023 End: 08-25-2023 Evaluation and management of inpatient POST PRODUCTION ASSISTANT-C Esperanza Avina POST PRODUCTION ASSISTANT Work Phone: [facility]-Progressive Care Unit Work Phone: Start: 08-09-2023 End: 08-10-2023 Evaluation and management of inpatient POST PRODUCTION ASSISTANT-C Esperanza Avina POST PRODUCTION ASSISTANT Work Phone: [facility]-Medical Surgical 3 Work Phone: Start: 07-30-2023 End: 07-30-2023 Non-patient / Non-visit POST PRODUCTION ASSISTANT-C Esperanza Avina POST PRODUCTION ASSISTANT Work Phone: [facility] Work Phone: Start: 07-05-2023 End: 07-05-2023 ambulatory [facility] Work Phone: Start: 07-05-2023 End: 07-05-2023 Patient encounter procedure [facility]-Nuclear Medicine, [facility] Work Phone: Start: 07-03-2023 End: 07-03-2023 Emergency department patient visit [facility]Emergency Department Work Phone: Start: 06-30-2023 End: 07-01-2023 Emergency department patient visit [facility]Emergency Department Work Phone: Start: 10-08-2022 End: 10-08-2022 Evaluation and management of inpatient POST PRODUCTION ASSISTANT-C Esperanza Avina POST PRODUCTION ASSISTANT Work Phone: [facility]Medical Surgical 3 Start: 10-08-2022 End: 10-08-2022 observation encounter POST PRODUCTION ASSISTANT-C Esperanza Avina POST PRODUCTION ASSISTANT Work Phone: [facility] Work Phone: Start: 10-08-2022 [facility] POST PRODUCTION ASSISTANT-C Esperanza Avina POST PRODUCTION ASSISTANT Work Phone: [facility]-Production Editor Inpatients Start: 10-08-2022 ambulatory POST PRODUCTION ASSISTANT-C Esperanza cruz POST PRODUCTION ASSISTANT Work Phone: [facility] Work Phone: Start: 09-07-2022 End: 09-07-2022 Non-patient / Non-visit POST PRODUCTION ASSISTANT-C Esperanza Avina POST PRODUCTION ASSISTANT Work Phone: [facility] Start: 09-07-2022 End: 09-07-2022 ambulatory POST PRODUCTION ASSISTANT-C Esperanza Avina POST PRODUCTION ASSISTANT Work Phone: [facility] Work Phone: Start: 09-07-2022 End: 09-07-2022 Patient encounter procedure POST PRODUCTION ASSISTANT-C Esperanza Avina POST PRODUCTION ASSISTANT Work Phone: [facility]-Pulmonary Services/Neurology Start: 08-28-2022 End: 08-28-2022 ambulatory [facility] Work Phone: Start: 08-28-2022 End: 08-28-2022 Patient encounter procedure [facility]-Nuclear Medicine, [facility] Start: 08-21-2022 End: 08-21-2022 ambulatory [facility] Work Phone: Start: 08-21-2022 End: 08-21-2022 Patient encounter procedure [facility]-Laboratory Start: 08-08-2022 End: 08-08-2022 ambulatory [facility] Work Phone: Start: 08-08-2022 End: 08-08-2022 Patient encounter procedure [facility]-Cat Scan, [facility] Start: 08-04-2022 End: 08-04-2022 ambulatory [facility] Work Phone: Start: 08-04-2022 End: 08-04-2022 Patient encounter procedure [facility]-Radiology, [facility] Start: 08-03-2022 End: 08-03-2022 ambulatory [facility] Work Phone: Start: 08-03-2022 End: 08-03-2022 Patient encounter procedure [facility]-Laboratory, Specimen Start: 06-21-2022 End: 06-21-2022 Emergency department patient visit [facility]-Emergency Department Start: 11-01-2021 End: 11-01-2021 [facility] Procedures Date Procedure Procedure Detail Performing Clinician Start: 12-17-2023 Ecg routine ecg w/le ast 12 lds w/i&r Gloria Graves MD Work Phone: Start: 08-24-2023 CT angiography of ch est with contrast POST PRODUCTION ASSISTANTIdris Avina POST PRODUCTION ASSISTANT Work Phone: Start: 08-24-2023 Plain chest X-ray POST PRODUCTION ASSISTANTIdris Avina POST PRODUCTION ASSISTANT Work Phone: Start: 08-24-2023 Computed tomography of abdomen and pelvis with intravenous contrast AGAPITO Avina POST PRODUCTION ASSISTANT Work Phone: Start: 08-08-2023 Lap Robotic Pyelopla sty (Left) POST PRODUCTION ASSISTANTIdris Avina POST PRODUCTION ASSISTANT Work Phone: Start: 07-05-2023 Renal isotope studies Start: 07-03-2023 CT of abdomen and pe lvis without contrast Start: 06-30-2023 SARS-CoV-2, Influenz a & RSV (PCR) Start: 10-08-2022 Introduction to urin darby tract POST PRODUCTION ASSISTANTIdris Avina POST PRODUCTION ASSISTANT Work Phone: Start: 10-08-2022 Fluoroscopic guidance N P-Nhi Avina POST PRODUCTION ASSISTANT Work Phone: Start: 10-08-2022 CT of abdomen and pe lvis without contrast POST PRODUCTION ASSISTANTIdris Avina POST PRODUCTION ASSISTANT Work Phone: Start: 08-28-2022 Renal isotope studies Start: 08-08-2022 CT of abdomen and pe lvis without contrast Start: 08-04-2022 Plain chest X-ray Start: 12-02-2019 Colonoscopy Gloria ramirez MD Work Phone: H/O: surgery History of urolo gic surgery POST PRODUCTION ASSISTANTIdris Avina POST PRODUCTION ASSISTANT Work Phone: Urine culture Plan of Treatment Date Care Activity Detail Author Start: 12-01-2024 Screening for malignant neoplasm of colon [facility] Start: 02-17-2024 Influenza vaccination Influenza Vaccine (#1) [facility] Start: 09-24-2023 Covid-19 Vaccine ( season) Covid-19 Vaccine ( season) [facility] Start: 08-25-2023 Patient discharge [facility] Start: 08-24-2023 Urine culture Urine Culture [facility] Start: 08-24-2023 Following clinical pathway protocol [facility] Start: 08-24-2023 Assessment of risk of venous thromboembolism [facility] Start: 08-24-2023 Consultation [facility] Start: 08-24-2023 Inhalation therapy procedure [facility] Start: 08-24-2023 Insertion of catheter into peripheral vein [facility] Start: 08-24-2023 Introduction of urinary catheter [facility] Start: 08-24-2023 Measuring intake and output [facility] Start: 08-24-2023 Oxygen therapy [facility] Start: 08-24-2023 Providing care according to standard [facility] Start: 08-24-2023 Provision of activity privileges [facility] Start: 08-24-2023 Referral to service [facility] Start: 08-24-2023 End: 08-24-2023 [facility] Start: 08-24-2023 Verification routine [facility] Start: 08-24-2023 Admission procedure [facility] Start: 08-24-2023 Hospital admission, emergency, from emergency room, medical nature [facility] Start: 08-24-2023 [facility] Start: 08-10-2023 Patient discharge [facility] Start: 08-10-2023 Oxygen therapy [facility] Start: 08-09-2023 Admission procedure [facility] Start: 08-08-2023 Application of intermittent pneumatic compression device [facility] Start: 08-08-2023 Following clinical pathway protocol [facility] Start: 08-08-2023 Measuring intake and output [facility] Start: 08-08-2023 Patient education [facility] Start: 08-08-2023 Taking patient vital signs [facility] Start: 08-08-2023 Vital signs measurements [facility] Start: 08-08-2023 [facility] Start: 08-08-2023 Admission procedure [facility] Start: 08-08-2023 [facility] Start: 07-03-2023 End: 07-03-2023 [facility] Start: 07-01-2023 [facility] Start: 06-18-2023 Advance Directive Discussion Advance Directive Discussion [facility] Start: 06-18-2023 Behavioral Health Screening Behavioral Health Screening [facility] Start: 10-08-2022 Admission procedure [facility] Start: 10-08-2022 Following clinical pathway protocol [facility] Start: 10-08-2022 Introduction to urinary tract Cysto,Insertion Stent (Left) [facility] Start: 10-08-2022 Fluoroscopic guidance O.R. Fluoro for C-Arm [facility] Start: 10-08-2022 [facility] Start: 10-08-2022 Patient discharge [facility] Start: 06-21-2022 Blood chemistry [facility] Work Phone: Start: 02-26-2022 Diabetes Screening Diabetes Screening [facility] Start: 2014 Pneumococcal Vaccine: 65+ (1 of 1 - PCV) Pneumococcal Vaccine: 65+ (1 of 1 - PCV) [facility] Start: 2009 RSV Vaccine (1 - 1-dose 60+ series) RSV Vaccine (1 - 1-dose 60+ series) [facility] Start: 1999 Screening for malignant neoplasm of lung Lung Cancer Screening [facility] Start: 1999 Shingrix Vaccine (1 of 2) Shingrix Vaccine (1 of 2) [facility] Start: 1994 Screening for malignant neoplasm of colon [facility] Start: 1984 Lipid panel Lipid Screening [facility] Start: 1968 Urine microalbumin profile DTaP,Tdap,Td Vaccine (1 - Tdap) [facility] Start: 1967 Hepatitis C screening Hepatitis C Screening [facility] Start: 1949 Abdominal aortic aneurysm screening Abdominal Aortic Aneurysm Screening [facility] Anion gap measurement [facility] Work Phone: Bacteria identified in Urine by Culture Urine Culture [facility] Bacteria identified in Urine by Culture [facility] BUN/Creatinine ratio [facility] Work Phone: Calcium [Mass/volume ] in Serum or Plasma [facility] Work Phone: Carbon dioxide, tota l [Moles/volume] in Serum or Plasma [facility] Work Phone: Cardiac event recording [facility] Chloride [Moles/volu me] in Serum or Plasma [facility] Work Phone: Creatinine [Moles/vo lume] in Serum or Plasma [facility] Work Phone: Glucose [Mass/volume ] in Serum or Plasma [facility] Work Phone: Hematocrit [Volume Fraction] of Blood [facility] Work Phone: Hemoglobin [Mass/vol ume] in Blood [facility] Work Phone: Leukocytes [#/volume ] in Blood [facility] Work Phone: Mean corpuscular hemoglobin concentration determination [facility] Work Phone: Mean corpuscular hemoglobin determination [facility] Work Phone: Measurement of renal function [facility] Work Phone: Neutrophil count [facility] Work Phone: Neutrophil percent differential count [facility] Work Phone: Patient Education [facility] Work Phone: Patient referral [facility] Work Phone: Platelets [#/volume] in Blood [facility] Work Phone: Potassium [Moles/vol ume] in Serum or Plasma [facility] Work Phone: Procalcitonin [Mass/volume] in Serum or Plasma [facility] Red blood cell count [facility] Work Phone: Red cell distributio n width determination [facility] Work Phone: Sodium [Moles/volume ] in Serum or Plasma [facility] Work Phone: Urea nitrogen [Mass/volume] in Serum or Plasma [facility] Work Phone: Immunizations Immunization Date Immunization Notes Care Provider [facility] 05-25-2023 influenza (HD-IIV4) vaccine, age 65+ yr, high dose, quadrivalent, PF (FLUZONE HIGH-DOSE) Gloria Graves MD Work Phone: [facility] 05-25-2023 influenza virus vaccine, unspecified formulation Gloria Graves MD Work Phone: [facility] 04-17-2022 influenza (HD-IIV4) vaccine, age 65+ yr, high dose, quadrivalent, PF (FLUZONE HIGH-DOSE) lGoria Graves MD Work Phone: [facility] 04-04-2021 influenza (HD-IIV4) vaccine, age 65+ yr, high dose, quadrivalent, PF (FLUZONE HIGH-DOSE) Gloria Graves MD Work Phone: [facility] 04-05-2020 Fluzone Quad 2020-20 21 (PF) (flu vacc [id number] 6mos up(PF)) 60 mcg (15 mcg x [facility] Work Phone: 05-26-2019 flu vac qs 2018(4 yr up)CD(PF) [facility] Work Phone: Payers Date Payer Category Payer Self-pay [id number] 2023 Unknown [id number] 2020 Unknown [employer]IC[employer] SUPPLEMENT [id number] 2020-Present [phone] [id number] [place] [address] [employer] [id number] 2020 Medicare [id number] 2014 Medicare MEDICARE MEDICAR E A AND B [id number] 2014-Present [phone] [address] [address] [place] [address] Medicare [id number] 2014 Medicare [id number] Unknown [id number] Unknown [id number] Unknown [id number] Unknown [id number] Unknown [id number] Unknown [id number] Unknown [id number] Social History Date Type Detail Facility Start: 11-01-2021 End: 08-24-2023 Tobacco smoking status SCIS Unknown if ever smoked [facility] Start: 1950 Sex Assigned At Male [facility] Start: 12-05-2023 Tobacco smoking stat us SCIS Ex-smoker [facility] End: 06-18-2014 History of tobacco use Current smoker [facility] End: 06-18-2014 History of tobacco use Cigarette Smoker [facility] Start: 12-05-2023 End: 12-17-2023 Cigarettes smoked current (pack per day) - Reported 1.3 [facility] Start: 12-05-2023 Tobacco use and exposure Smokeless tobacco non-user [facility] Start: 12-17-2023 Alcohol intake Current drinke r of alcohol (finding) [facility] Start: 02-27-2019 End: 12-17-2023 Tobacco use panel [facility] PHQ2 Score 0 [facility] Start: 05-14-2017 Alcohol Comment occasional with bowl ing [facility] Start: 10-03-2023 Gender identity Identifies as male gender (finding) [facility] Start: 10-03-2023 Sexual orientation Heterosexual (sandi riddle) [facility] Medical Equipment Procedure Code Equipment Code Equipment Origin al Text Equipment Identifier Dates Cystoscopic insertion of stent Polymeric ureteral stent [id number] FDA Start: 10-08-2022 ([id number]) Polymeric ureter al stent [id number] FDA Start: 08-08-2023 Ligation clip, synthetic polymer, non-bioabsorbable [id number] FDA Start: 08-08-2023 Goals Date Patient Goal Desired Activity /State Personal health goal Functional Status Date Assessment Result Facility 08-25-2023 Functional status Ambulates;Up ad tami [facility] Work Phone: 08-10-2023 Functional status [facility] Work Phone: Mental Status Date Assessment Result Facility 08-25-2023 Cognitive function Voice/Name [facility] Work Phone: 08-10-2023 Cognitive function Voice/Name [facility] Work Phone: 10-08-2022 Cognitive function Voice/Name [facility] Work Phone: Clinical Notes 10-08-2022 to 12-17-2023 Gloria Graves MD - 12/17/2023 10:20 AM EDT Note Date & Type Note Facility 12-17-2023 History of Present illness Narrative PRIMARY CARE PHYSICIAN: Esperanza Avina ([facility]) [address] [address] REFERRING PHYSICIAN: Felicita Suh [address] [address] Patient Care Team: Esperanza Avina, ERIN.INCIDENT HANDLER as PCP - General (Family Medicine) Felicita Suh MD as Specialty Filter Helper (Cardiology) Group, [facility] as Specialty Filter Helper (Cardiology) CHIEF COMPLAINT: Evaluation for arrhythmia HISTORY OF PRESENT ILLNESS: Mr. Lamb is a 73 year old male who presents today for evaluation of arrhythmia, referred by Dr. Suh of [facility]. He states at age 18 or 19 years of age he had kidney problem, had surgery on ureter. This became a chronic issue. He was having backaches last year, he needed to have a ureteral stent but didn't work. He had surgery to have the tube fixed. A few days after the surgery had abdominal pain, he states he had blood clots in his spleen. This was [facility]. He had some type of arrhythmia. He wore heart monitor for a few weeks. The monitor showed some abnormality so he was evaluated at [facility]. There is mention in Dr. Suh's notes that EKG showed sinus bradycardia, competing junctional rhythm. Mr. Lamb states Dr. Suh was concerned about his heart chambers and valves not being in sync. Dr. Suh was concerned about sinus node dysfunction and chronotropic incompetence. He had stress test completed 12/13/2023 (this was treadmill study to evaluate for chronotropic incompetence). He states that during the stress test he was told that he reached the target heart rate (presumably this was the usual 85% MPHR target). Cardiac monitoring for about 14 days in August 2023 revealed some moderate bradycardia, no high degree heart blocks, some brief PSVT (? Atrial tachycardia). Overall Mr. Lamb states he typically feels ok. No exertional symptoms, not unusually limited in his activities. He does get short of breath with more extreme physical activities, like running up the side of a mountain when he is hunting. No severe lightheadedness, near syncope or syncope. He has only occasional brief palpitations or rapid heart beats, not much bothered by this. I have confirmed and edited as necessary, the PFSH and ROS obtained by others. 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/16/2023 SSS (sick sinus syndrome) ([facility]) 12/16/2023 SVT (supraventricular tachycardia) ([facility]) 12/16/2023 PAST SURGICAL HISTORY Procedure Laterality Date ARTHRP KNE CONDYLE&PLATU MEDIAL&LAT COMPARTMENTS Left 2018 COLONOSCOPY FLX DX W/COLLJ SPEC WHEN PFRMD 12/02/2019 Colonoscopy COLSC FLX W/RMVL OF TUMOR POLYP LESION SNARE TQ 2010 2 polyps - recommened follow up in 2014 COLSC FLX W/RMVL OF TUMOR POLYP LESION SNARE TQ 09/28/15 small adenomatous polyp - 5 year follow up EGD TRANSORAL BIOPSY SINGLE/MULTIPLE 09/28/15 normal ESOPHAGOGASTRODUODENOSCOPY TRANSORAL DIAGNOSTIC 12/02/2019 EGD LAPAROSCOPY SURG CHOLECYSTECTOMY 05/23/2017 Hogan TREAT LOWER LEG FRACTURE multiple additional fractures URETER DISSECTION Left 1967 SOCIAL HISTORY Social History Tobacco Use Smoking status: Former Packs/day: 1.25 Years: 40.00 Additional pack years: 0.00 Total pack years: 50.00 Types: Cigarettes Quit date: 06/18/2014 Years since quittin.5 Smokeless tobacco: Never Substance Use Topics Alcohol use: Yes Comment: occasional with bowling Drug use: No FAMILY HISTORY Problem Relation Age of Onset Arthritis Mother Parkinson s Disease Mother other (Heart valve issue) Father Heart disease Father Emphysema Father worked in [employer], also a smoker No Known Problems Sister other ( in infancy) Brother Colon Cancer Daughter No Known Problems Son ALLERGIES: ALLERGIES No Known Allergies MEDICATIONS: folic acid 1 mg tablet Take 1 mg by mouth once daily. aspirin 81 mg cap Take 1 capsule by mouth once daily. tamsulosin ER (FLOMAX) 0.4 mg cp24 REVIEW OF SYSTEMS: Review of Systems Constitutional: Negative for chills and fever. Respiratory: Negative for cough, hemoptysis, sputum production and shortness of breath. Cardiovascular: Positive for palpitations. Negative for chest pain, orthopnea, claudication, leg swelling and PND. Gastrointestinal: Negative for abdominal pain, blood in stool, melena, nausea and vomiting. Genitourinary: Negative for dysuria, flank pain and hematuria. Musculoskeletal: Negative for falls. Skin: Negative for rash. Neurological: Negative for dizziness, focal weakness, seizures and loss of consciousness. PHYSICAL EXAMINATION: BP 145/86 Pulse 64 Wt 160 lb 3.2 oz (72.7kg) SpO2 95% Physical Exam Vitals reviewed. Constitutional: General: He is not in acute distress. Appearance: Normal appearance. HENT: Head: Normocephalic and atraumatic. Cardiovascular: Rate and Rhythm: Regular rhythm. Bradycardia present. Heart sounds: Normal heart sounds, S1 normal and S2 normal. No murmur heard. No friction rub. Pulmonary: Effort: Pulmonary effort is normal. No respiratory distress. Breath sounds: Normal breath sounds. No wheezing, rhonchi or rales. Musculoskeletal: Cervical back: Neck supple. Right lower leg: No edema. Left lower leg: No edema. Skin: General: Skin is warm and dry. Neurological: General: No focal deficit present. Mental Status: He is alert and oriented to person, place, and time. Psychiatric: Mood and Affect: Mood normal. Behavior: Behavior normal. Thought Content: Thought content normal. CARDIOVASCULAR MEDICINE TESTING: Electrocardiogram: Unusual P wave axis, possible ectopic atrial bradycardia 54 bpm; normal IA interval 170 ms; right bundle branch block and left anterior fascicular block (QRS 130 ms); QTc 417 ms I have personally reviewed the Electrocardiogram. Cardiac monitoring report dated August 2023 reviewed ([facility]). 1. SSS (sick sinus syndrome) ([facility]) - ICD9: 427.81, ICD10: I49.5 (primary diagnosis) 2. Sinus bradycardia - ICD9: 427.89, ICD10: R00.1 3. SVT (supraventricular tachycardia) ([facility]) - ICD9: 427.89, ICD10: I47.10 4. Palpitations - ICD9: 785.1, ICD10: R00.2 5. Right bundle branch block (RBBB) with left anterior fascicular block (LAFB) - ICD9: 426.52, ICD10: I45.2 IMPRESSION: Mr. Lamb probably does have to some degree sinus node dysfunction, as evidenced by the sinus bradycardia and evidently at times a competing junctional rhythm. The competition between sinus node and secondary pacemaker site such as AV junction is normal physiology and typically is not necessarily symptomatic. He did have a different secondary pacemaker site by EKG in our office today, an ectopic atrial bradycardia. None of this would be dangerous for Mr. Lamb. The decision to implant a pacemaker would be entirely based upon the severity of symptoms. Mr. Lamb has not experienced severe symptoms. The recent cardiac stress testing reportedly showed that Mr. Lamb is capable of achieving appropriate heart rates with exercise, so technically he does not have chronotropic incompetence. But I need to obtain the report of that stress test to review. But again, the decision for a pacemaker in sinus node dysfunction is based upon the presence or absence of excessively bothersome symptoms (ie, quality of life). Right now Mr. Lamb does not have sufficiently severe symptoms to warrant cardiac pacing. The sinus node dysfunction can be followed over time and if he develops sufficiently bothersome symptoms attributable to the condition a cardiac pacemaker would be a consideration. 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 Most patients with this type of delay or block in the bundle branches do not progress to complete heart block, but this is a possibility over time for Mr. Lamb so would need to be monitored as well. This condition right now does not indicate the need for cardiac pacing. I would avoid AV warren blocking medications however. Cardiac monitoring in August 2023 did not reveal anything very substantial, certainly nothing that would indicate the need for cardiac pacing. I had a detailed discussion with Mr. Lamb regarding my evaluation and recommendations. After our discussion, Mr. Lamb expressed his understanding and I answered all his questions to his apparent satisfaction. PLAN AND RECOMMENDATIONS: I do not at this point recommend cardiac pacing. Obtain copy of stress test performed at [facility] 12/13/2023 He will continue to follow up with Dr. Suh, [facility]. I would be happy to see him again if he develops symptomatic sinus node dysfunction to the extent that a cardiac pacemaker is warranted. Gloria Graves MD 12/17/2023 Medical Decision Making: Problems: Moderate: New problem with uncertain prognosis Data: Unique source(s) for external note(s) reviewed: 1 Unique test result(s) reviewed: 3+ Unique test(s) ordered: 1 Risk: Moderate: Moderate risk from testing/treatment, Drug management and Decision on minor surgery w/ risk factors Medical Decision Making Level: 4 - Moderate documented in this encounter [facility] 12-17-2023 Note HNO ID: [id number] Author: GLORIA GRAVES MD Service: ? Author Type: Physician Type: Progress Notes Filed: 12/20/2023 10:36 Note Text: PRIMARY CARE PHYSICIAN: Esperanza Avina ([facility]) [address] [address] REFERRING PHYSICIAN: Felicita Suh [address] [address] Patient Care Team: Esperanza Avina, ERIN.INCIDENT HANDLER as PCP - General (Family Medicine) Felicita Suh MD as Specialty Filter Helper (Cardiology) Group, [facility] as Specialty Filter Helper (Cardiology) CHIEF COMPLAINT: Evaluation for arrhythmia HISTORY OF PRESENT ILLNESS: Mr. Lamb is a 73 year old male who presents today for evaluation of arrhythmia, referred by Dr. Suh of [facility]. He states at age 18 or 19 years of age he had kidney problem, had surgery on ureter. This became a chronic issue. He was having backaches last year, he needed to have a ureteral stent but didn't work. He had surgery to have the tube fixed. A few days after the surgery had abdominal pain, he states he had blood clots in his spleen. This was [facility]. He had some type of arrhythmia. He wore heart monitor for a few weeks. The monitor showed some abnormality so he was evaluated at [facility]. There is mention in Dr. Suh's notes that EKG showed sinus bradycardia, competing junctional rhythm. Mr. Lamb states Dr. Suh was concerned about his heart chambers and valves not being in sync. Dr. Suh was concerned about sinus node dysfunction and chronotropic incompetence. He had stress test completed 12/13/2023 (this was treadmill study to evaluate for chronotropic incompetence). He states that during the stress test he was told that he reached the target heart rate (presumably this was the usual 85% MPHR target). Cardiac monitoring for about 14 days in August 2023 revealed some moderate bradycardia, no high degree heart blocks, some brief PSVT (? Atrial tachycardia). Overall Mr. Lamb states he typically feels ok. No exertional symptoms, not unusually limited in his activities. He does get short of breath with more extreme physical activities, like running up the side of a mountain when he is hunting. No severe lightheadedness, near syncope or syncope. He has only occasional brief palpitations or rapid heart beats, not much bothered by this. I have confirmed and edited as necessary, the PFSH and ROS obtained by others. 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/16/2023 SSS (sick sinus syndrome) (HCC) 12/16/2023 SVT (supraventricular tachycardia) (HCC) 12/16/2023 PAST SURGICAL HISTORY Procedure Laterality Date ARTHRP KNE CONDYLEANDPLATU MEDIALANDLAT COMPARTMENTS Left 2018 COLONOSCOPY FLX DX W/COLLJ SPEC WHEN PFRMD 12/02/2019 Colonoscopy COLSC FLX W/RMVL OF TUMOR POLYP LESION SNARE TQ 2010 2 polyps - recommened follow up in 2014 COLSC FLX W/RMVL OF TUMOR POLYP LESION SNARE TQ 09/28/15 small adenomatous polyp - 5 year follow up EGD TRANSORAL BIOPSY SINGLE/MULTIPLE 09/28/15 normal ESOPHAGOGASTRODUODENOSCOPY TRANSORAL DIAGNOSTIC 12/02/2019 EGD LAPAROSCOPY SURG CHOLECYSTECTOMY 05/23/2017 [place] TREAT LOWER LEG FRACTURE multiple additional fractures URETER DISSECTION Left 1968 SOCIAL HISTORY Social History Tobacco Use Smoking status: Former Packs/day: 1.25 Years: 40.00 Additional pack years: 0.00 Total pack years: 50.00 Types: Cigarettes Quit date: 06/18/2014 Years since quittin.5 Smokeless tobacco: Never Substance Use Topics Alcohol use: Yes Comment: occasional with bowling Drug use: No FAMILY HISTORY Problem Relation Age of Onset Arthritis Mother Parkinson?s Disease Mother other (Heart valve issue) Father Heart disease Father Emphysema Father worked in [email or web address], also a smoker No Known Problems Sister other ( in infancy) Brother Colon Cancer Daughter No Known Problems Son ALLERGIES: ALLERGIES No Known Allergies MEDICATIONS: folic acid 1 mg tablet Take 1 mg by mouth once daily. aspirin 81 mg cap Take 1 capsule by mouth once daily. tamsulosin ER (FLOMAX) 0.4 mg cp24 REVIEW OF SYSTEMS: Review of Systems Constitutional: Negative for chills and fever. Respiratory: Negative for cough, hemoptysis, sputum production and shortness of breath. Cardiovascular: Positive for palpitations. Negative for chest pain, orthopnea, claudication, leg swelling and PND. Gastrointestinal: Negative for abdominal pain, blood in stool, melena, nausea and vomiting. Genitourinary: Negative for dysuria, flank pain and hematuria. Musculoskeletal: Negative for falls. Skin: Negative for rash. (more content not included)... [facility] 08-24-2023 Progress note Note Date/Time August 24, 2023 6:32 pm [facility] Medical Records Department [address] [address] Progress Note - Hospitalist 08/24/23 1827 MR#: [id number] Acct: [id number] Name: FEDERICO LAMB Rep #:[id number] : 1950 73 From: Lalo maciel DO PCP: Esperanza Avina, POST PRODUCTION ASSISTANT-C Status:ADM IN Location: [place] [address] Hospitalist Note Patient presented earlier this morning with acute onset epigastric abdominal pain. He was found to have a splenic infarct on imaging of unclear etiology. He was given IV pain medications in the ED with good resolution of his pain. Was then started on heparin drip and admitted for further evaluation. I saw patient at the bedside later in the morning. At that time he was sitting up comfortably in bed, conversing normally and in no acute distress. Stated that his abdominal pain had essentially resolved at this point. He denied any pain or discomfort with urination. No other acute concerns at this time. Patient had TTE done today that showed a normal EF, no other concerning findings. Will continue heparin drip for now and plan to transition to an oral anticoagulant tomorrow if he remains stable overnight. Possible discharge tomorrow. Full progress note to follow tomorrow. 08/24/23 1832 <Electronically signed by Lalo Lindsay DO> Cosigner Signature (if applicable): CC: ~ Signed [facility] Work Phone: [phone] 799-506003-08-2024 Discharge summary Author Abel Reid [facility] August 24, 2023 7:25am Note Date/Time August 24, 2023 3:30 am [facility] Medical Records Department [address] [place] [address] Emergency Department Summary 08/24/23 MR#: [id number] Acct: [id number] Name: FEDERICO LAMB Rep #:[id number] : 1950 73 From: Abel Reid MD PCP: AGAPITO Craft Status:ADM IN Location: [place] [address] HPI HPI - GI History of Present Illness Chief Complaint: Abd Pain Detail of Chief Complaint: Epigastric pain at 1 AM that awoke him from sleep. Informant: patient Abdominal Pain/Flank Pain Onset: Today and Hours Context: Sudden Onset Timing: Continuous Quality: Aching Location: Epigastric Current Severity: Moderate Maximum Severity: Moderate Worsened by: Nothing Relieved by: Nothing Nausea/Vomiting/Emesis GI Symptom: Positive for Nausea Severity: Mild Diarrhea/Melena/Hematochezia GI Symptom: Negative for Diarrhea, Melena or Hematochezia Associated Symptoms Associated Symptoms: Negative for Dysuria, Frequency, Hematuria or Urgency Narrative Narrative: 73-year-old male history of cholecystectomy and recent left ureter surgery due to stenosis and hydronephrosis on the left. That surgery was done here by urology and he was hospitalized for 2 days. Patient states has been doing well. He went to bed he was fine last night. At 1 AM this morning he awoke with epigastric abdominal pain. No radiation to his back. No prior history. Possibly some mild radiation to his lower chest. He has been peeing well. Having bowel movements. Denies any fever. He has been doing well since the surgery. Prior similar symptoms: No Recent Illness/Hospitalization: Yes [facility] Medical History (Updated 08/24/23 @ 04:[address] 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 Abel Reid MD) CHOLECYSTECTOMY W/ INTRAOPERATIVE CHOLANGIOGRAM History of cystoscopy S/P ureteral stent placement Social History household members: none Smoking Status: Former smoker second hand exposure: No alcohol intake: current substance use type: does not use ROS ROS ED ROS Narrative Epigastric pain. Mild nausea. Review of Systems ROS Unobtainable: Denies due to encephalopathy Constitutional Constitutional ED: Denies chills or fever(s) ENT ENT ED: Denies ear pain Cardiovascular Cardiovascular: Denies chest pain Respiratory/Chest Respiratory/Chest: Denies cough or dyspnea Gastrointestinal Gastrointestinal: Reports abdominal pain and nausea; Denies constipation, diarrhea, melena or vomiting Genitourinary Genitourinary ED: Denies dysuria or hematuria Musculoskeletal Musculoskeletal: Denies arthralgias or back pain Integumentary Denies abscess or Abrasions Neurologic Neurologic: Denies headache(s) Psychiatric Psychiatric: Denies anxiety or depression Endocrine Endocrinology: Denies polydipsia or polyphagia Hematologic/Lymphatic Hematologic/Lymphatic: Denies easy bleeding, easy bruising or lymphadenopathy Allergic/Immunologic Allergic/Immunologic ED: Denies mouth swelling, tongue swelling or urticaria EXAM Physical Exam Narrative Exam Narrative: 73-year-old male no acute distress. Vital signs stable afebrile. Pulse ox 93% on room air no signs hypoxia. HEENT exam unremarkable. Moist weeks membranes. Neck nontender no JVD. No lymphadenopathy. Lungs clear to auscultation bilaterally. Heart regular rhythm rate about 80 no murmur. Chest wall and ribsnontender. Abdomen soft nondistended normal bowel sounds no peritoneal signs. Well-healed laparoscopic incisions. Mild epigastric tenderness. No pulsatile mass. No right upper or right lower quadrant tenderness. No obstruction. Moving all 4 extremities. Nontender no edema no cords. Neurologically is awakeand alert with no focal motor deficits. Answering questions and following commands. Const Vital Signs: 08/24/23 03:16 Temperature 97.5 F L Temperature Source Oral Pulse Rate 81 Respiratory Rate 14 Blood Pressure 143/88 H Blood Pressure Mean 106 Pulse Ox 93 Oxygen Delivery Method Room Air Positive well nourished and well developed; Negative for obese, cachectic, contractures or unkempt General Appearance ED: well developed and NAD; Negative for unkempt, cachectic, contractures or pallor Nutritional Appearance: Negative for cachectic or obese HEENT Reports moist mucous membranes; Denies dry mucous membranes normocephalic and atraumatic; Negative for trauma or tenderness Mouth ED: No dry mucous membranes Mouth: No dry mucous membranes Eyes PERRL and EOMs intact bilaterally General Eye ED: Negative for pale conjunctiva or scleral icterus Neck no lymphadenopathy, supple and no JVD General: Negative for tenderness Carotids: Negative for other Resp normal respiratory effort and clear to auscultation bilaterally Effort and Inspection: Negative for respiratory distress Auscultation: Negative for rales, rhonchi, wheezes or diminished lung sounds Cardio regular rate, regular rhythm, S1 normal heart sound, S2 normal heart sound and no murmurs Rate: Negative for bradycardia or tachycardic Rhythm: Negative for abnormal rhythm GI non-distended and no masses; Negative for non-tender Inspection: Negative for abdominal distention Auscultation: normoactive bowel sounds Palpation: soft and tender; Negative for guarding or rebound tenderness present Back/Spine no CVA tenderness General Back: Negative for CVA tenderness Cervical Spine: Negative for cervical spine tenderness Thoracic Spine / Upper Back: Negative for thoracic spinal tenderness Lumbar Spine / Lower Back: Negative for lumbar spinal tenderness Coccyx: Negative for other Extremity full ROM General Extremety ED: Negative for edema or tenderness General Extremity: Negative for edema Neuro CN's II-XII intact bilaterally and moves all extremities Sensorium / Orientation: alert, oriented to person, oriented to place and oriented to time; Negative for orientation impaired, confused, lethargic or stuporous Motor Exam: strength 5/5 throughout Psych mental status grossly normal and thought process normal Appearance: Negative for unkempt Attitude: No agitated Mood & Affect: Negative for depressed, anxious or tearful Skin no wounds General Skin Exam: Negative for jaundice or pallor Lesions: no lesions Rashes: no rashes Trauma: Negative for abrasion Nails: Negative for discolored MDM MDM MDM Narrative Medical decision making narrative: 73-year-old male status post recent left ureter surgery with a stent. Complain of epigastric abdominal pain that began abruptly tonight around 1 AM that awoke him from sleep. No prior history. Differential is wide. Could include gastritis, pancreatitis. His gallbladder is out. Could be a postop complication. I do not think this is cardiac but that is in the differential. Will undergo abdominal cardiac workup with an EKG and troponin. Abdominal labs and a CAT scan with IV contrast. Patient being treated with morphine and Zofranfor pain and nausea. Repeat exam patient is doing well. I will give him a second dose of IV pain medication. The patient's CAT scan shows what appears to be a new splenic infarct. I have already discussed this with the patient the hospitalist. He will be admitted on a heparin bolus and drip. I will make his urologist aware since he had recent surgery. The urine does not look grossly infected nor is hehaving urinary symptoms. The inflammation is most likely from the stent. I will send a urine culture. Hospitalist will be down to evaluate the patient andadmit him. History & Record Review Discussion w/independent historian: Patient Additional record(s) reviewed:: Prior inpatient record, Prior outpatient record,Prior ED visit and Prior labs Lab Data Attestation: I reviewed the patient's lab results. Lab results narrative: CBC unremarkable. White count of 10. H&H of 15 and 46. Platelets 405. EKG unchanged from prior Chemistries show a gap of 6. BUN 19 creatinine 1.1. Glucose 118. Liver enzymes unremarkable. Lipase normal at 39. Urinalysis is positive nitrates 10-25 red cells no white cells 1+ bacteria he does have a ureteral stent. Labs: Laboratory Results - last 24 hr 08/24/23 08/24/23 03:25 03:28 WBC 10.6 RBC 5.10 Hgb 15.3 Hct 46.8 MCV 91.8 MCH 30.0 MCHC 32.7 RDW Std Deviation 43.3 RDW Coeff of Hector 12.8 Plt Count 405 MPV 10.1 Immature Gran % (Auto) 1.200 H Neut % (Auto) 62.9 Lymph % (Auto) 25.1 [place] % (Auto) 8.1 Eos % (Auto) 1.7 Baso % (Auto) 1.0 Absolute Neuts (auto) 6.7 Absolute Lymphs (auto) 2.66 Nucleated RBC % 0 Sodium 140 Potassium 3.9 Chloride 104 Carbon Dioxide 30.0 Anion Gap 6 BUN 19 H Creatinine 1.10 Estim Creat Clear Calc 57.00 Est GFR (MDRD) Af Amer 84 Est GFR (MDRD) Non-Af 70 BUN/Creatinine Ratio 17.3 Glucose 118 H Calcium 9.5 Total Bilirubin 1.90 H AST 13 L ALT 14 L Alkaline Phosphatase 88 Troponin I High Sens 30 Total Protein 6.9 Albumin 3.7 Globulin 3.2 Albumin/Globulin Ratio 1.2 Lipase 39 Urine Color Shira Urine Clarity Clear Urine pH 5.0 Ur Specific [place] 1.030 Urine Protein 100 H Urine Glucose (UA) Normal Urine Ketones Negative Urine Occult Blood 250 H Urine Nitrite Positive H Urine Bilirubin 6 H Urine Urobilinogen 8 H Ur Leukocyte Esterase 25 H Urine RBC 10-25 SEEN Urine WBC 0-5 SEEN Ur Squamous Epith Cells 0 SEEN Urine Bacteria 1+ Urine Mucus 0 SEEN Radiography Chest X-Ray - ED: 1 View, Read by ED Physician, Heart, Lungs, Mediastinum, Bony Structures, No Acute Disease and Chronic Changes Diagnostic Testing: Clinical Impression(s) from Imaging Studies Abdomen/Pelvis CT 08/24/23 03:23 IMPRESSION: Splenic infarcts. Left-sided double-J stent is in place, which appears appropriately positioned. Mild left hydronephrosis with associated peripelvic inflammatory change, which may be related to stent in place, although infection should be considered. Thick linear consolidation bilaterally, likely atelectasis versus scarring, although somewhat atypical appearing. Recommend follow-up to resolution is neoplastic process is not excluded. Electronically Signed: Yordan Spangler MD at 4:20 EST , Rhythm Strip Rhythm Strip: Sinus bradycardia Rate: 57 Ectopy: None EKG Initial EKG: Attestation: I personally reviewed and interpreted this EKG as follows: Interpretation: Sinus Rhythm and Sinus Bradycardia Comments: Sinus bradycardia rate of 57. Right bundle branch block and left anterior fascicular block. No acute signs of CO or ischemia. No acute change from prior EKG from July. Prior EKG tracings: available for review Prior: Unchanged Discharge Plan Triage Chief Complaint: Abd Pain ED Provider: Abel Reid Dx/Rx/DC Orders Clinical Impression: History of urologic surgery, Splenic infarct Prescriptions: No Action tamsulosin 0.4 mg capsule 0.4 mg PO DAILY Qty: 30 12RF phenazopyridine [Pyridium] 100 mg tablet 100 mg PO TID PRN (Reason: burning) Qty: 20 0RF Primary Care Provider: Esperanza Avina NP Referrals: Esperanza Avina NP, POST PRODUCTION ASSISTANT-C [Primary Care Provider] - Disposition Disposition: Acute Care Hospital [facility] What to do if you have Problems For any increased pain, shortness of breath, bleeding, nausea or vomiting, chestpain, or any unexpected problems, contact your Primary Care Provider. Call [employer] [facility] ([phone]) or report to the closest Emergency Room. Call 911 if necessary. 08/24/23724 <Electronically signed by Abel Reid MD> Cosigner Signature (if applicable): CC: POST PRODUCTION ASSISTANT-C Esperanza Avina ~ Signed [facility] Work Phone: 1(813) 271-771103-08-2024 History and physical note Author Debora Lamb [facility] August 24, 2023 5:10am Note Date/Time August 24, 2023 4:55 am [facility] Medical Records Department [address] [place] [address] H&P Exam - Hospitalist 08/24/23 0450 MR#: [id number] Acct: [id number] Name: FEDERICO LAMB Rep #:[id number] : 1950 73 From: Debora Lamb MD PCP: Esperanza Avina, POST PRODUCTION ASSISTANT-C Status:ADM IN [facility] H[facility] - General General Date of Admission: 08/24/23 Date of Service: 08/24/23 Chief Complaint: Abdominal pain, nausea. HPI Narrative The patient is a 73 y/o M w/ PMHx: BPH, OA, Former tobacco use, HLD, Hx Hawkins's palsy, recent 08/08/23 laparoscopic robotic assisted left pyeloplasty and antegrade stent placement secondary to left UPJ obstruction recurrent who presents to the [facility] ED on 08/24/23 with history of onset of epigastric discomfort at approximately 1 AM that awoke him from sleep noted to be continuous, aching in nature with associated nausea with no emesis with mild radiation just to the lower chest with no recent dysuria or any issues with urination reporting that he has been doing well since surgery with no fevers however given ongoing discomfort prompted ED evaluation. He notes when the pain first woke him up it was 10 out of 10 in severity and has mildly improved since ED interventions currently rating it 4 out of 10 in severity. He denies any worsening of the pain with deep inspiratory effort. Workup in the ED included T97.5, heart rate 81, BP 143/88, respiratory rate 14, 93% on room air, CBC with WBC 10.6, and 115.3, platelets 405 with increased immature granulocytes, CMP with BUN/creatinine 19/1.10, glucose 118, T. bili 1.90, AST/ALT 13/14 otherwise hepatic profile not marked appearing, lipase 39, troponin 30, urinalysis with specific gravity 1.030, protein 100, ketone negative, occult blood 250, urine nitrite positive, urine bilirubin 6, urine urobilinogen 8, leukocyte Estrace 25, urine RBCs 10-25,urine WBC 0-5 with 1+ bacteria, urine culture pending per ED, CT abdomen and pelvis with splenic infarcts, left-sided double J stent in place appropriately positioned, mild left hydronephrosis with peripelvic inflammatory change possibly related to the stent in place although infection could be considered, thick linear consolidation bilaterally likely atelectasis versus scarring, although somewhat atypical appearing, chest x-ray with no acute cardiopulmonary findings. Discussed plan of care with ED physician and patient will be initiated on heparin drip with bolus. Additionally in the ED patient administered Zofran 4 mg IV x 1 and morphine 4 mg IV x 1. [facility] Medical History (Updated 08/24/23 @ 04:[address] Debora Lamb MD) Arthritis BPH (benign prostatic hyperplasia) Former smoker Gastric reflux High cholesterol History of nephrolithiasis Hydronephrosis (Unknown) Left-sided Hawkins's palsy Ureteral stent present Wears dentures Wears glasses Home Medications tamsulosin 0.4 mg capsule 0.4 mg PO DAILY BPH #30 caps 10/20/22 [Rx Last Taken Unknown] phenazopyridine 100 mg tablet (Pyridium) 100 mg PO TID PRN burning #20 tabs 08/08/23 [Rx Last Taken Unknown] Allergy/AdvReac Type Severity Reaction Status Date / Time No Known Allergies Allergy Verified 08/24/23 03:19 Family History (Updated 08/24/23 @ 05:[address] Debora Lamb MD) Mother Parkinson's disease Father Lung disease, emphysema Surgical History CHOLECYSTECTOMY W/ INTRAOPERATIVE CHOLANGIOGRAM History of cystoscopy S/P ureteral stent placement Social History household members: none Smoking Status: Former smoker second hand exposure: No alcohol intake: current substance use type: does not use ROS ROS Narrative Admission Review of Systems: CONSTITUTIONAL: No weight loss, fever, chills, + weakness or fatigue. HEENT: Eyes: No visual loss, blurred vision, double vision or yellow sclerae. Ears, Nose, Throat: No hearing loss, sneezing, congestion, runny nose or sore throat. SKIN: No rash or itching, lesions, wounds. CARDIOVASCULAR: No chest pain, chest pressure or chest discomfort, palpitations,edema, orthopnea, syncopal events. RESPIRATORY: No shortness of breath, cough or sputum, wheezing, hemoptysis. GASTROINTESTINAL: + Nausea, abdominal pain, anorexia. No vomiting, diarrhea, melena, BRBPR. GENITOURINARY: + History of recent ureteral stent. Denies any recent dysuria, frequency, urgency or retention. NEUROLOGICAL: No headache, dizziness, syncope, paralysis, ataxia, numbness or tingling in the extremities, focal weakness, change in bowel or bladder control,seizure. MUSCULOSKELETAL: + muscle, back pain, joint pain or stiffness. HEMATOLOGIC: No anemia, bleeding or bruising. LYMPHATICS: No enlarged nodes. No history of splenectomy. PSYCHIATRIC: No history of depression or anxiety. ENDOCRINOLOGIC: No reports of sweating, cold or heat intolerance. No polyuria orpolydipsia. ALLERGIES: No history of asthma, hives, eczema or rhinitis. Vital Signs Vital Signs Vital Signs: 08/24/23 03:16 Temperature 97.5 F L Temperature Source Oral Pulse Rate 81 Respiratory Rate 14 Blood Pressure 143/88 H Blood Pressure Mean 106 Pulse Ox 93 Oxygen Delivery Method Room Air Weight Weight: 157 lb 6.561 oz Body Mass Index (BMI) 23.9 Physical Exam Narrative Physical Examination: General: Awake, alert, oriented x 3 and cooperative, seated upright in the ED bed in no apparent distress, currently rates pain 4-10 in severity. Skin: Normal color, normal turgor, no icterus, no cyanosis. HEENT: AT/NC, EOMI, PERRLA, mildly dry MM, no carotid bruits or JVD noted. Lungs: CTA bilaterally, moderate effort, mild decrease BL bases, no rales, ronchi or wheezing. Heart: Regular rate and rhythm; no gallop, rub audible. Abdomen: Soft, unable to elicit any discomfort with palpation, no rebound or guarding, no distention, distant bowel sounds, no appreciated HSM. He describeshis pain is more internal and unable to be reproduced with palpation even including again palpation of the left upper quadrant. He points primarily to the pain being in the right upper quadrant just beneath his ribs in the mid region. Extremities: No cyanosis, clubbing, or edema, no pain with calf palpation. Neurological: Patient awake, alert, oriented as noted, cognitive function intact; pupils equally reactive to light and accommodation, cranial nerves II-XII grossly normal, moving all 4 extremities, no focal deficits, strength mildly globally decreased secondary to acute presentation complaints. Psychiatric: Affect appears fatigued otherwise normal, no acute evidence of depressive or anxiety feelings. Results Lab / Micro Data 08/24/23 03:25 08/24/23 03:25 Labs: Laboratory Results - last 24 hr 08/24/23 03:25: WBC 10.6, RBC 5.10, Hgb 15.3, Hct 46.8, MCV 91.8, MCH 30.0, MCHC32.7, RDW Std Deviation 43.3, RDW Coeff of Hector 12.8, Plt Count 405, MPV 10.1, Immature Gran % (Auto) 1.200 H, Neut % (Auto) 62.9, Lymph % (Auto) 25.1, Teton % (Auto) 8.1, Eos % (Auto) 1.7, Baso % (Auto) 1.0, Absolute Neuts (auto) 6.7, Absolute Lymphs (auto) 2.66, Nucleated RBC % 0, Sodium 140, Potassium 3.9, Chloride 104, Carbon Dioxide 30.0, Anion Gap 6, BUN 19 H, Creatinine 1.10, EstimCreat Clear Calc 57.00, Est GFR (MDRD) Af Amer 84, Est GFR (MDRD) Non-Af 70, BUN/Creatinine Ratio 17.3, Glucose 118 H, Calcium 9.5, Total Bilirubin 1.90 H, AST 13 L, ALT 14 L, Alkaline Phosphatase 88, Troponin I High Sens 30, Total Protein 6.9, Albumin 3.7, Globulin 3.2, Albumin/Globulin Ratio 1.2, Lipase 39 08/24/23 03:28: Urine Color Shira, Urine Clarity Clear, Urine pH 5.0, Ur Specific [place] 1.030, Urine Protein 100 H, Urine Glucose (UA) Normal, Urine Ketones Negative, Urine Occult Blood 250 H, Urine Nitrite Positive H, Urine Bilirubin 6 H, Urine Urobilinogen 8 H, Ur Leukocyte Esterase 25 H, Urine RBC 10-25 SEEN, Urine WBC 0-5 SEEN, Ur Squamous Epith Cells 0 SEEN, Urine Bacteria 1+, Urine Mucus 0 SEEN Rhythm Strip Rhythm Strip: Sinus bradycardia Rate: 57 Ectopy: None Imaging Radiology Impression Abdomen/Pelvis CT 08/24/23 03:23 IMPRESSION: Splenic infarcts. Left-sided double-J stent is in place, which appears appropriately positioned. Mild left hydronephrosis with associated peripelvic inflammatory change, which may be related to stent in place, although infection should be considered. Thick linear consolidation bilaterally, likely atelectasis versus scarring, although somewhat atypical appearing. Recommend follow-up to resolution is neoplastic process is not excluded. Electronically Signed: Yordan Spangler MD at 4:20 EST , Chest X-Ray 08/24/23 03:52 IMPRESSION: Chest with no acute disease. Electronically Signed: Yordan Spangler MD at 4:42 EST , Assessment & Plan Assessment/Plan (1) Splenic infarct: PLAN: Plan The patient is a 73 y/o M w/ PMHx: BPH, OA, Former tobacco use, HLD, Hx Hawkins's palsy, recent 08/08/23 laparoscopic robotic assisted left pyeloplasty and antegrade stent placement secondary to left UPJ obstruction recurrent who presents to the [facility] ED on 08/24/23 with history of onset of epigastric discomfort at approximately 1 AM that awoke him from sleep noted to be continuous, aching in nature with associated nausea with no emesis with mild radiation just to the lower chest with no recent dysuria or any issues with urination reporting that he has been doing well since surgery with no fevers however given ongoing discomfort prompted ED evaluation. #1. Abdominal pain, discomfort suspected secondary to acute splenic infarct: Will admit to PCU, maintain on cardiac telemetry, will continue heparin bolus with drip initiated in the ED pending further evaluation with plan transition following to NOAC once appropriate with case management/social work input for oral regimen cost, to be cautious would plan to obtain CTPA in 24 hours with continue judicious hydration to protect the kidneys, troponin 30, BNP will also be requested, will have as needed pain regimen and antiemetic regimen. #2. Recent left UPJ obstruction, recurrent: 08/08/23 laparoscopic robotic assisted left pyeloplasty and antegrade stent placement, will continue ED initiated consultation given CT imaging with noted peripelvic inflammatory changes possibly related with a stent to assure no antibiotic therapy necessary,UA not marked appearing, urine culture pending per ED. Urology consulted, pending. #3. Elevated BP without hypertensive diagnosis: BP mildly elevated upon presentation, likely pain related given acute presentation, will continue to monitor and if appropriate add oral regimen, in the interim as needed IV hydralazine. #4. Hyperlipidemia: Not on regimen, defer to outpatient. #5. Former tobacco use: Encourage continued tobacco cessation. #6. GERD: Not on any chronic regimen, will have as needed Mylanta. #7. BPH: We will continue patient home Flomax regimen. #8. DVT prophylaxis: Will continue heparin drip as noted. #9. CODE STATUS: Full code. Charges/Coding Visit Charges Inpatient E&M: 60101 Init Hosp L3 08/24/23 0510 <Electronically signed by Debora Lamb MD> Cosigner Signature (if applicable): CC: POST PRODUCTION ASSISTANT-C Esperanza Avina; Dr. Debora Lamb MD~ Signed [facility] Work Phone: 1(338) 688-171202-22-2024 Consult note Author [facility] August 09, 2023 10:47am Note Date/Time August 09, 2023 10:47am [facility] Medical Records Department [address] [place] [address] Counseling Note - Pharmacy 08/09/23 1047 MR#: [id number] Acct: [id number] Name: FEDERICO LAMB OBEY Rep #:[id number] : 1950 73 From: Mirela Goodwin PCP: AGAPITO Craft Status:ADM ANA Y Location: [place] [address] Pharmacy [facility] Service has performed discharge medication reconciliation and counseling for this patient. The patient's discharge medication list was reviewed for discrepancies and discrepancies were resolved. The patient was counseled on the following discharge medications and changes in medications for homegoing were reviewed. 1. CIPRO 2. PYRIDIUM 3. OXYCODONE The Reason for Use, instructions for use, and potential side effects were reviewed for all new medications. The patient's questions regarding all of their medications were answered. The patient was able to verbally demonstrate an understanding of their dischargemedications. The patient was counselled by [place] PharmD Candidate 08/09/23 1047 <Electronically signed by Mirela Goodwin > Date _ Mirela Goodwin Cosigner Signature (if applicable): Date CC: ~ Signed [facility] Work Phone: 1(344) 732-652002-22-2024 Progress note Author Mateus Starr [facility] August 09, 2023 7:25am Note Date/Time August 09, 2023 7:25am [facility] Medical Records Department [address] [place] [address] Progress Note - Urology 08/09/23723 MR#: [id number] Acct: [id number] Name: FEDERICO LAMB Rep #:[id number] : 1950 73 From: Mateus Starr MD PCP: AGAPITO Craft Status:ADM ANA Location: [place] [address] Subjective Subjective doing well s/p redo pyeloplasty repair. home wiht matthews to leg bag Objective Data Objective Data Vital Signs: Vital Signs Temp Pulse Resp BP Pulse Ox O2 Del Method O2 Flow Rate 98 F 57 L 16 106/52 L 95 Room Air 2 08/09/23 06:42 08/09/23 06:42 08/09/23 06:42 08/09/23 06:42 08/09/23 06:42 08/09/23 06:42 08/08/23 14:58 Oxygen Flow Rate (L/min) 2 Oxygen Delivery Method Room Air Weight: 70.307 kg Body Mass Index (BMI) 23.6 Intake & Output: Intake and Output for Last 24 Hours 08/07/23 08/08/23 08/09/23 23:59 23:59 23:59 Intake Total 2430.92 / 2630.92 1329.17 / 1329.17 Output Total 475 / 825 1050 / 1050 Balance 1955.92 / 1805.92 279.17 / 279.17 08/09/23 0725 <Electronically signed by Mateus Starr MD> Cosigner Signature (if applicable): CC: ~ Signed [facility] Work Phone: 1(217) 719-745902-22-2024 Discharge summary Author Mateus Starr [facility] August 09, 2023 7:24am Note Date/Time August 09, 2023 7:24am [facility] Medical Records Department [address] [place] [address] Instructions for Home/Discharge Instructions 08/09/23723 MR#: [id number] Acct: [id number] Name: FEDERICO LAMB Rep #:[id number] : 1950 73 From: Mateus Starr MD PCP: Esperanza Avina NP-C Status:ADM ANA Discharge Instructions Diet Discharge Diet: No restrictions, Light diet - advance as tolerated and Soft diet Dressing / Incision Suture Line Care: Avoid Pulling/Pushing and Avoid Pinching/Bending Cleanse incision/area with: Soap & Water and Normal Saline Catheter: Matthews to leg bag and Matthews to large bag Drain: [place] Follow Up Care Please Follow Up With: Mateus Starr MD When: 1 week for follow up Test Results: Test results from this visit will be discussed in further detail at your follow- up appointment, if applicable. Discharge Plan Admission Admit Date/Time: 08/08/23 14:16 Primary Reason for Your Visit: Left robotic lap laparoscopic pyeloplasty repair Attending Provider: Mateus Starr Primary Care Provider: Esperanza Avina NP Discharge Orders/Prescriptions Prescriptions: New oxycodone 5 mg tablet 5 mg PO Q6H PRN (Reason: pain) 7 Days Qty: 14 0RF ciprofloxacin HCl [Cipro] 500 mg tablet 500 mg PO Q12H Qty: 10 0RF phenazopyridine [Pyridium] 100 mg tablet 100 mg PO TID PRN (Reason: burning) Qty: 20 0RF No Action tamsulosin 0.4 mg capsule 0.4 mg PO DAILY Qty: 30 12RF Referrals / Follow Up: Mateus Starr MD [Med Staff - Active Staff] - Esperanza Avina NP, POST PRODUCTION ASSISTANT-C [Primary Care Provider] - 08/09/23723<Electronically signed by Mateus Starr MD>Mateus Starr MD CC: POST PRODUCTION ASSISTANT-C Esperanza Avina ~ Signed [facility] Work Phone: 1(334) 991-967802-21-2024 Discharge summary Author Mateus Starr [facility] August 08, 2023 1:33pm Note Date/Time August 08, 2023 1:33pm [facility] Medical Records Department [address] [place] [address] Instructions for Home/Discharge Instructions 08/08/23 1333 MR#: [id number] Acct: [id number] Name: FEDERICO LAMB Rep #:[id number] : 1950 73 From: Mateus Starr MD PCP: AGAPITO Craft Status:REG [facility] Discharge Instructions Diet Discharge Diet: No restrictions, Light diet - advance as tolerated and Soft diet Activity Discharge Activity: Return to Normal Activity Dressing / Incision Suture Line Care: Avoid Pulling/Pushing and Avoid Pinching/Bending Cleanse incision/area with: Soap & Water and Normal Saline Follow Up Care Please Follow Up With: Mateus Starr MD When: 2 weeks Test Results: Test results from this visit will be discussed in further detail at your follow- up appointment, if applicable. Discharge Plan Admission Primary Reason for Your Visit: Left robotic lap laparoscopic pyeloplasty repair Attending Provider: Mateus Starr Primary Care Provider: Esperanza Avina NP Discharge Orders/Prescriptions Prescriptions: New oxycodone 5 mg tablet 5 mg PO Q6H PRN (Reason: pain) 7 Days Qty: 14 0RF ciprofloxacin HCl [Cipro] 500 mg tablet 500 mg PO Q12H Qty: 10 0RF phenazopyridine [Pyridium] 100 mg tablet 100 mg PO TID PRN (Reason: burning) Qty: 20 0RF No Action tamsulosin 0.4 mg capsule 0.4 mg PO DAILY Qty: 30 12RF Referrals / Follow Up: Mateus Starr MD [Med Staff - Active Staff] - Esperanza Avina NP, NP-C [Primary Care Provider] - Disposition Disposition (needs filled in before D/C Order can be placed): Home, Self Care 08/08/23 1333<Electronically signed by Mateus Starr MD>Mateus Starr MD CC: POST PRODUCTION ASSISTANT-C Esperanza Avina ~ Signed [facility] Work Phone: 1(935) 354-734002-21-2024 History and physical note Author Mateus Starr [facility] August 08, 2023 1:33pm Note Date/Time August 08, 2023 1:33pm [facility] Medical Records Department [address] [place] [address] History & Physical Exam 08/08/23 1332 MR#: [id number] Acct: [id number] Name: FEDERICO LAMB Rep #:[id number] : 1950 73 From: Mateus Starr MD PCP: AGAPITO Craft Status:[facility] Location: [place] [address] HPI - General General Date of Service: 08/08/23 Chief Complaint: Left UPJ obstruction recurrent HPI Narrative FEDERICO LAMB, is a 73 M who presents for a laparoscopic robotic left pyeloplastythis was a reoperative case he had a prior left UPJ open repair over 20 years ago he has recurrence of stricture PFSH Medical History (Updated 07/25/23 @ 11:04 by Patti Keller) Arthritis BPH (benign prostatic hyperplasia) Former smoker Gastric reflux Heartburn High cholesterol History of steroid therapy Left renal stone 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 Prostate disease Ureteral stent present Wears dentures Wears glasses Home Medications tamsulosin 0.4 mg capsule 0.4 mg PO DAILY BPH #30 caps 10/20/22 [Rx Last Taken Unknown] ciprofloxacin HCl 500 mg tablet (Cipro) 500 mg PO Q12H #10 tabs 08/08/23 [Rx Last Taken Unknown] oxycodone 5 mg tablet 5 mg PO Q6H PRN pain 7 days #14 tabs 08/08/23 [Rx Last Taken Unknown] phenazopyridine 100 mg tablet (Pyridium) 100 mg PO TID PRN burning #20 tabs 08/08/23 [Rx Last Taken Unknown] Allergy/AdvReac Type Severity Reaction Status Date / Time No Known Allergies Allergy Verified 08/08/23 09:48 Family History Other BPH (benign prostatic hyperplasia) Surgical History (Updated 07/25/23 @ 11:04 by Patti Keller) CHOLECYSTECTOMY W/ INTRAOPERATIVE CHOLANGIOGRAM History of cystoscopy Social History Smoking Status: Former smoker second hand exposure: No alcohol intake: current substance use type: does not use Vital Signs Vital Signs Vital Signs: 08/08/23 09:48 08/08/23 09:48 Temperature 97.8 F Temperature Source Temporal Pulse Rate 82 Respiratory Rate 16 Respiratory Pattern Normal Blood Pressure 129/71 H Blood Pressure Mean 90 Blood Pressure Source Monitor Blood Pressure Position Semi-Fowlers Blood Pressure Location Left Arm Pulse Ox 98 Oxygen Delivery Method Room Air Weight Weight: 70.307 kg Body Mass Index (BMI) 23.6 08/08/23 1333 <Electronically signed by Mateus Starr MD> Cosigner Signature (if applicable): CC: PAIGE-Nhi Avina; Dr. Mateus Starr MD~ Signed [facility] Work Phone: 1(147) 759-992402-21-2024 Procedure [facility] 06-30-2023 Discharge summary Author Dariojennifer Suazo [facility] July 01, 2023 12:46am Note Date/Time June 30, 2023 1 1:04pm [facility] Medical Records Department [address] [place] [address] Emergency Department Summary 06/30/23 MR#: [id number] Acct: [id number] Name: FEDERICO LAMB Rep #:[id number] : 1950 73 From: Dario uSazo DO PCP: AGAPITO Craft Status:REG ER Location: ED HPI History of Present Illness Chief Complaint: Shortness of Breath Narrative Narrative: 73-year-old male presenting with cough, dyspnea. Patient states that he has been sick since he flew to [place] on an airplane a few days ago. Has not had a fever, chills, which is but does however complain of some nasal congestion. He tested himself for COVID with a home test but was negative. He also states he is not sure how to use it. Patient denies chest pain. When asked objectively about his shortness of breath he states he was able to walk all the way [place] both airports without any difficulty. He states his biggest complaint is congestion which is associated with rhinorrhea as well. Patient has tried DayQuil and NyQuil without relief. Patient's cough is not productive of sputum. 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 Ureteral stent present Home Medications gabapentin 100 mg capsule 200 mg (2 x 100 mg) PO .qid PRN burning pain 30 days #240 caps 10/20/22 [Rx Last Taken Unknown] tamsulosin 0.4 mg capsule 0.4 mg PO DAILY BPH #30 caps 10/20/22 [Rx Last Taken Unknown] amoxicillin 875 mg-potassium clavulanate 125 mg tablet 1 tab PO BID #20 tabs 02/14/23 [Rx Last Taken Unknown] prednisone 50 mg tablet 50 mg PO DAILY #4 tabs 07/01/23 [Rx Last Taken Unknown] Allergy/AdvReac Type Severity Reaction Status Date / Time No Known Allergies Allergy Verified 06/30/23 22:48 Family History Other BPH (benign prostatic hyperplasia) Surgical History CHOLECYSTECTOMY W/ INTRAOPERATIVE CHOLANGIOGRAM Social History Smoking Status: Former smoker second hand exposure: No alcohol intake: current substance use type: does not use ROS ROS ED Constitutional Constitutional ED: Denies chills, fever(s) or sweats Eyes Eyes: Denies blurry vision or change in vision ENT ENT ED: Reports rhinorrhea and sore throat; Denies ear pain Cardiovascular Cardiovascular: Denies chest pain, palpitations or racing heartbeat Respiratory/Chest Respiratory/Chest: Reports cough, dyspnea and dyspnea on exertion; Denies sputum Gastrointestinal Gastrointestinal: Denies abdominal pain, constipation, diarrhea, nausea or vomiting Genitourinary Genitourinary ED: Denies dysuria, hematuria or urinary frequency Musculoskeletal Musculoskeletal: Denies arthralgias, myalgias or neck pain Integumentary Denies abscess, Abrasions or rash Neurologic Neurologic: Denies headache(s), paresthesias or weakness Psychiatric Psychiatric: Denies anxiety, depression, suicidal ideation or suicidal thoughts Endocrine Endocrinology: Denies polydipsia or polyuria EXAM Physical Exam Const Vital Signs: 06/30/23 22:45 06/30/23 23:01 06/30/23 23:18 Temperature 97.0 F L Temperature Source Temporal Pulse Rate 72 64 Respiratory Rate 15 13 Respiratory Effort Normal Respiratory Pattern Normal Blood Pressure 130/79 H Blood Pressure Mean 96 Pulse Ox 96 Oxygen Delivery Method Room Air Positive well nourished General Appearance ED: NAD HEENT Reports other other Nose: nasal discharge clear Eyes PERRL and EOMs intact bilaterally Neck no lymphadenopathy and supple Resp normal respiratory effort Auscultation: wheezes scattered wheezes Cardio regular rate Extremity normal to inspection Neuro oriented x3 and CN's II-XII intact bilaterally Sensorium / Orientation: alert Motor Exam: strength 5/5 throughout Psych mental status grossly normal Skin no wounds MDM MDM MDM Narrative Medical decision making narrative: Patient presenting with mild respiratory symptoms. Vital signs are stable he isafebrile. He will be tested for COVID, influenza, RSV. He does have some scantscattered wheezes on examination. He will be treated with Solu-Medrol and breathing treatments. He is given Afrin for his nasal congestion. At this point I do not believe he needs any lab work or imaging. RSV came back positive. After breathing treatments the patient feels better. He states Afrinhelped with his congestion. Patient will be given albuterol inhaler and a prednisone burst for home. Impression: 1. RSV 2. Bronchitis Lab Data Attestation: I reviewed the patient's lab results. Discharge Plan Triage Chief Complaint: Shortness of Breath ED Provider: Dario Suazo Dx/Rx/DC Orders Instructions: ED RSV Bronchiolitis, ED Bronchitis with Wheezing (Adult) Prescriptions: New prednisone 50 mg tablet 50 mg PO DAILY Qty: 4 0RF No Action tamsulosin 0.4 mg capsule 0.4 mg PO DAILY Qty: 30 12RF gabapentin 100 mg capsule 200 mg PO .qid PRN (Reason: burning pain ) 30 Days Qty: 240 2RF amoxicillin-pot clavulanate 875-125 mg tablet 1 tab PO BID Qty: 20 0RF Primary Care Provider: Esperanza Avina NP Referrals: Esperanza Avina NP, POST PRODUCTION ASSISTANT-C [Primary Care Provider] - Disposition Disposition: Home, Self Care What to do if you have Problems For any increased pain, shortness of breath, bleeding, nausea or vomiting, chestpain, or any unexpected problems, contact your Primary Care Provider. Call [facility] ([phone]) or report to the closest Emergency Room. Call 911 if necessary. 07/01/23 0046 <Electronically signed by Dario Suazo DO> Cosigner Signature (if applicable): CC: POST PRODUCTION ASSISTANT-C Esperanza Avina ~ Signed [facility] Work Phone: 1(609) 350-749204-23-[address] Starr [facility] October 08, 2022 12:55pm Note Date/Time October 08, 2022 12: 55pm [facility] Medical Records Department [address] [place] [id number] Instructions for Home/Discharge Instructions 10/08/22 1255 MR#: [id number] Acct: [id number] Name: FEDERICO LAMB Rep #:[id number] : 1950 72 From: Mateus Starr MD PCP: AGAPITO Craft Status:REG [facility] Discharge Instructions Diet Discharge Diet: No restrictions, Light diet - advance as tolerated and Soft diet Activity Discharge Activity: Return to Normal Activity Follow Up Care Please Follow Up With: Mateus Starr MD When: call for appt. Test Results: Test results from this visit will be discussed in further detail at your follow- up appointment, if applicable. Discharge Plan Admission Primary Reason for Your Visit: stent placement Attending Provider: Mateus Starr Primary Care Provider: Esperanza Avina NP Discharge Orders/Prescriptions Prescriptions: New cephalexin 500 mg capsule 500 mg PO BID Qty: 6 0RF No Action tamsulosin 0.4 mg capsule 0.4 mg PO DAILY Referrals / Follow Up: Mateus Starr MD [[facility] Staff - Active Staff] - Esperanza Avina NP, NP-C [Primary Care Provider] - Disposition Disposition (needs filled in before D/C Order can be placed): Home, Self Care 10/08/22 1255<Electronically signed by Mateus Starr MD>Mateus Starr MD CC: PAIGE-C Esperanza Avina ~ Signed [facility] Work Phone: 1(315) 297-284804-23-2023 History and physical note Author Dr. Starr [facility] October 08, 2022 11:46am Note Date/Time October 08, 2022 11: 46am [facility] Medical Records Department [address] [address] History & Physical Exam 10/08/22 1143 MR#: [id number] Acct: [id number] Name: FEDERICO LAMB Rep #:[id number] : 1950 72 From: Mateus Starr MD PCP: AGAPITO Craft Status:REG ER Location: ED HPI - General HPI Narrative FEDERICO LAMB, is a 72 M who presents has aknow UPJ stricture left, repaired longtime ago and recurrence s/p balloon dilation and stent recently, I was planning to removed stent in 6 weeks but presented with severe flank pain, stent in proper position but worse hydro, plan to take to surgery today to up size stent. NPO team called. [facility] Medical History (Updated 10/08/22 @ 11:[address] 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 Ureteral stent present Home Medications tamsulosin 0.4 mg capsule 0.4 mg PO DAILY BPH 10/08/22 [History Last Taken 10/08/22] Allergy/AdvReac Type Severity Reaction Status Date / Time No Known Allergies Allergy Verified 10/08/22 08:25 Family History Other BPH (benign prostatic hyperplasia) Surgical History CHOLECYSTECTOMY W/ INTRAOPERATIVE CHOLANGIOGRAM Social History Smoking Status: Former smoker second hand exposure: No alcohol intake: current substance use type: does not use ROS Constitutional Constitutional: Denies chills, fever(s) or malaise Eyes Eyes: Denies blurry vision or change in vision ENT HEENT: Reports none Cardiovascular Cardiovascular: Denies chest pain or palpitations Respiratory/Chest Respiratory/Chest: Denies cough or shortness of breath with exertion Gastrointestinal Gastrointestinal: Denies abdominal pain, constipation or diarrhea Musculoskeletal Musculoskeletal: Denies back pain, joint stiffness or joint swelling Integumentary Integumentary: Denies dry skin, jaundice, lesions or rash Neurologic Neurologic: Denies confusion, syncope or weakness Psychiatric Psychiatric: Reports none; Denies anxiety or depression Endocrine Endocrinology: Denies excessive sweating, fatigue or flushing Hematologic/Lymphatic Hematologic/Lymphatic: Denies anemia, easy bleeding or easy bruising Vital Signs Vital Signs Vital Signs: 10/08/22 08:24 10/08/22 09:11 10/08/22 10:24 Temperature 97.1 F L 97.8 F Temperature Source Temporal Oral Pulse Rate 103 H 64 Respiratory Rate 16 16 16 Blood Pressure 146/93 H 131/75 H Blood Pressure Mean 110 93 Pulse Ox 97 94 Oxygen Delivery Method Room Air Room Air 10/08/22 11:19 Temperature 97.8 F Temperature Source Oral Pulse Rate 65 Respiratory Rate 18 Blood Pressure 133/69 H Blood Pressure Mean 90 Pulse Ox 97 Oxygen Delivery Method Room Air Weight Weight: 72.121 kg Body Mass Index (BMI) 24.1 Physical Exam Const alert and oriented x3 General Appearance: cooperative HEENT normocephalic, head/scalp atraumatic, EAC's normal and TM's normal bilaterally Eyes PERRL and EOMs intact bilaterally Pupil: sluggish Neck no lymphadenopathy, supple and no JVD General: trachea midline Lymph Lymphatic: no lymphadenopathy noted, lymphedema and lymphadenopathy Resp normal respiratory effort, normal air movement and clear to auscultation bilaterally Cardio regular rate, regular rhythm and peripheral pulses 2+ throughout GI soft to palpation, non-tender and non-distended Extremity normal capillary refill and no clubbing, cyanosis or edema General Extremity: no tenderness to palpation of joints or extremities Skin no rashes or lesions noted General Skin Exam: turgor normal Lesions: no lesions Rashes: no rashes Neuro CN's II-XII intact bilaterally Speech: speech normal Motor Exam: strength 5/5 throughout; Negative for general weakness Psych thought process normal, cooperative and affect normal Appearance: appropriate Results Lab / Micro Data Result Diagrams: 10/08/22 08:47 10/08/22 08:47 Labs: Laboratory Results - last 24 hr 10/08/22 08:47: WBC 13.6 H, RBC 4.72, Hgb 14.2, Hct 44.5, MCV 94.3 H, MCH 30.1, MCHC 31.9 L, RDW Std Deviation 45.2 H, RDW Coeff of Hector 13.0, Plt Count 348, MPV10.3, Immature Gran % (Auto) 1.500 H, Neut % (Auto) 64.7, Lymph % (Auto) 21.0, [place]eton % (Auto) 10.4 H, Eos % (Auto) 1.4, Baso % (Auto) 1.0, Absolute Neuts (auto)8.8 H, Absolute Lymphs (auto) 2.86, Nucleated RBC % 0 10/08/22 08:47: Sodium 139, Potassium 3.8, Chloride 109 H, Carbon Dioxide 28.0, Anion Gap 2 L, BUN 15, Creatinine 0.98, Estim Creat Clear Calc 64.95, Est GFR (MDRD) Af Amer 96, Est GFR (MDRD) Non-Af 80, BUN/Creatinine Ratio 15.3, Glucose 109 H, Calcium 9.2 10/08/22 08:47: Urine Color Yellow, Urine Clarity Clear, Urine pH 6.0, Ur Specific [place] 1.025, Urine Protein 100 H, Urine Glucose (UA) Normal, Urine Ketones Negative, Urine Occult Blood 250 H, Urine Nitrite Negative, Urine Bilirubin Negative, Urine Urobilinogen Normal, Ur Leukocyte Esterase 500 H, Urine RBC 5-10 SEEN, Urine WBC 10-25 SEEN, Ur Squamous Epith Cells 0 SEEN, UrineBacteria 1+, Urine Mucus 0 SEEN Radiology Impression Abdomen/Pelvis CT 10/08/22 08:32 IMPRESSION: 1. Worsening of now more pronounced left hydronephrosis despite interval placement of left double-J stent. Double-J stent stent exchange will be helpful. 2. No other additional findings or changes. Electronically Signed: Carlitos Dalton MD at 9:53 EDT , Assessment & Plan Assessment/Plan (1) Obstruction of left ureteropelvic junction (UPJ): PLAN: plan to take to surgery today to decompress left kidney and place large stent. NPO surgery now 10/08/22 1146 <Electronically signed by Mateus Starr MD> Cosigner Signature (if applicable): CC: AGAPITO Avina; Dr. Mateus Starr MD~ Signed [facility] Work Phone: 1(623) 518-163904-23-2023 Procedure [facility] Discharge summary Author Dario Suazo [facility] July 03, 2023 10:54am Note Date/Time July 03, 2023 9 :34am [facility] Medical Records Department [address] [place] [address] Emergency Department Summary 07/03/23 MR#: [id number] Acct: [id number] Name: FEDERICO LAMB Rep #:[id number] : 1950 73 From: Dario Suazo DO PCP: AGAPITO Craft Status:REG ER Location: ED HPI History of Present Illness Chief Complaint: Back Narrative Narrative: 73-year-old male recently seen for treatment of RSV. Apparently had recent travel out of [facility] and developed symptoms of viral URI. He was treated for this. Is been on prednisone as an outpatient and has an albuterol inhaler. He reports back pain which is worse on the left. Patient states that he has a history of hydronephrosis on the left which is not due to kidney stone. Previous had a stent placed by Dr. Starr. He states that he recently was in touch with the office status post to have a outpatient CT scan to assess his stent. Patient denies dysuria or hematuria. He does have some burning in his epigastrium. He states this is new. 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 Ureteral stent present Home Medications gabapentin 100 mg capsule 200 mg (2 x 100 mg) PO .qid PRN burning pain 30 days #240 caps 10/20/22 [Rx Last Taken Unknown] tamsulosin 0.4 mg capsule 0.4 mg PO DAILY BPH #30 caps 10/20/22 [Rx Last Taken Unknown] amoxicillin 875 mg-potassium clavulanate 125 mg tablet 1 tab PO BID #20 tabs 02/14/23 [Rx Last Taken Unknown] prednisone 50 mg tablet 50 mg PO DAILY #4 tabs 07/01/23 [Rx Last Taken Unknown] famotidine 20 mg tablet (Pepcid) 20 mg PO BID PRN epigastric pain 5 days #10 tabs 07/03/23 [Rx Last Taken Unknown] ondansetron 4 mg disintegrating tablet 4 mg PO Q8H PRN PRN Nausea #10 tabs 07/03/23 [Rx Last Taken Unknown] Allergy/AdvReac Type Severity Reaction Status Date / Time No Known Allergies Allergy Verified 06/30/23 22:48 Family History Other BPH (benign prostatic hyperplasia) Surgical History CHOLECYSTECTOMY W/ INTRAOPERATIVE CHOLANGIOGRAM Social History Smoking Status: Former smoker second hand exposure: No alcohol intake: current substance use type: does not use ROS ROS ED Constitutional Constitutional ED: Denies chills, fever(s) or sweats Eyes Eyes: Denies blurry vision or change in vision ENT ENT ED: Denies ear pain or sore throat Cardiovascular Cardiovascular: Denies chest pain, palpitations or racing heartbeat Respiratory/Chest Respiratory/Chest: Denies cough, dyspnea or sputum Gastrointestinal Gastrointestinal: Reports abdominal pain and other Details: Dyspepsia ; Denies constipation, diarrhea or vomiting Genitourinary Genitourinary ED: Denies dysuria, hematuria or urinary frequency Musculoskeletal Musculoskeletal: Reports back pain; Denies arthralgias, myalgias or neck pain Integumentary Denies abscess, Abrasions or rash Neurologic Neurologic: Denies headache(s), paresthesias or weakness Psychiatric Psychiatric: Denies anxiety, depression, suicidal ideation or suicidal thoughts Endocrine Endocrinology: Denies polydipsia or polyuria EXAM Physical Exam Const Vital Signs: 07/03/23 07:21 Temperature 96.0 F L Temperature Source Temporal Pulse Rate 82 Respiratory Rate 18 Blood Pressure 141/75 H Blood Pressure Mean 97 Pulse Ox 95 Oxygen Delivery Method Room Air Positive well nourished General Appearance ED: Negative for pallor HEENT Reports moist mucous membranes Eyes PERRL and EOMs intact bilaterally Resp normal respiratory effort Cardio regular rate and regular rhythm GI GI Narrative: Mild epigastric tenderness. Back/Spine General Back: CVA tenderness left Extremity normal to inspection Neuro oriented x3 Sensorium / Orientation: alert Motor Exam: strength 5/5 throughout Psych mental status grossly normal Skin no rashes or lesions noted General Skin Exam: Negative for jaundice or pallor MDM MDM MDM Narrative Medical decision making narrative: Patient presenting with epigastric tenderness and dyspepsia. He also has lower back pain on the left. He states he has a history of renal stent on the left secondary to hydronephrosis which was not caused by a kidney stone. Previous had a stent placed by Dr. Starr. Patient denies dysuria or hematuria. Differential includes UTI, pyelonephritis, kidney stone, obstructive uropathy, gastritis, GERD, peptic ulcer disease. Patient given GI cocktail. CBC was obtained to assess white blood cell count, hemoglobin, platelets. BMP to assessrenal function, electrolytes, glucose. Urinalysis to assess for UTI and occult blood. CBC shows leukocytosis 17.8. Hemoglobin stable at 14.6. Creatinine is elevated 1.40 and patient was given IV fluids. Electrolytes are normal. Urinalysis negative for infection. Will obtain CT of the abdomen pelvis withoutcontrast to assess for urinary outlet obstruction. CBC likely reactive due to recent prednisone. CT of the abdomen pelvis shows left- sided hydronephrosis which appears stable. Discussed the case with urology who recommended outpatient follow-up. Patient given GI cocktail here to help with his epigastric discomfort. Will be discharged home on Pepcid and Zofran. Return precautions discussed. Impression: 1. Gastritis 2. Left-sided hydronephrosis 3. Left ureteral stenosis Lab Data Labs: Laboratory Results - last 24 hr 07/03/23 07/03/23 08:14 08:16 WBC 17.8 H RBC 4.75 Hgb 14.6 Hct 43.7 MCV 92.0 MCH 30.7 MCHC 33.4 RDW Std Deviation 44.0 H RDW Coeff of Hector 13.0 Plt Count 323 MPV 10.3 Immature Gran % (Auto) 0.800 Neut % (Auto) 72.7 H Lymph % (Auto) 15.6 L [place] % (Auto) 10.6 H Eos % (Auto) 0.1 Baso % (Auto) 0.2 Absolute Neuts (auto) 12.9 H Absolute Lymphs (auto) 2.78 Nucleated RBC % 0 Differential Comment SCANNED Diff Path Review May foll Sodium 138 Potassium 3.9 Chloride 105 Carbon Dioxide 30.0 Anion Gap 3 L BUN 21 H Creatinine 1.40 H Estim Creat Clear Calc 44.79 Est GFR (MDRD) Af Amer 64 Est GFR (MDRD) Non-Af 53 L BUN/Creatinine Ratio 15.0 Glucose 92 Calcium 9.2 Urine Color Yellow Urine Clarity Clear Urine pH 6.0 Ur Specific [place] 1.025 Urine Protein 30 H Urine Glucose (UA) Normal Urine Ketones Negative Urine Occult Blood Negative Urine Nitrite Negative Urine Bilirubin Negative Urine Urobilinogen Normal Ur Leukocyte Esterase 25 H Urine RBC 0 SEEN Urine WBC 0-5 SEEN Ur Squamous Epith Cells 0-5 SEEN Urine Bacteria 0 SEEN Urine Mucus 0 SEEN Radiography Diagnostic Testing: Clinical Impression(s) from Imaging Studies Abdomen/Pelvis CT 07/03/23 09:21 IMPRESSION: Stable marked degree of a left hydronephrosis most likely secondary to possible left ureteral pelvic stenosis. No obstructive calculus is seen at this time. Prostatic enlargement. Status post cholecystectomy. Electronically Signed: Sung Durbin MD at 9:58 EST , Discharge Plan Triage Chief Complaint: Back ED Provider: Dario Suazo Dx/Rx/DC Orders Instructions: Understanding Hydronephrosis, ED Dehydration (Adult), ED Gastritis (Adult) Prescriptions: New famotidine [Pepcid] 20 mg tablet 20 mg PO BID PRN (Reason: epigastric pain) 5 Days Qty: 10 0RF ondansetron 4 mg tablet,disintegrating 4 mg PO Q8H PRN PRN (Reason: Nausea) Qty: 10 0RF No Action tamsulosin 0.4 mg capsule 0.4 mg PO DAILY Qty: 30 12RF gabapentin 100 mg capsule 200 mg PO .qid PRN (Reason: burning pain ) 30 Days Qty: 240 2RF amoxicillin-pot clavulanate 875-125 mg tablet 1 tab PO BID Qty: 20 0RF prednisone 50 mg tablet 50 mg PO DAILY Qty: 4 0RF Primary Care Provider: Esperanza Avina NP Referrals: Mateus Starr MD [Med Staff - Active Staff] - 3-5 Days Esperanza Avina NP, POST PRODUCTION ASSISTANT-C [Primary Care Provider] - Disposition Disposition: Home, Self Care Capacity [employer] Reflex Medical hold order details:: IF a medical hold is selected below, a suggested order for a MEDICAL HOLD will reflex upon signing the document. Next of kin: [place] law dictates a PRIORITY LIST for identifying legal decision-maker/legal next of kin in the following order (LNOK): 1st: The patient?s legal guardian, if any 2nd: The patient's spouse (if status is questionable, consult Risk Management) 3rd: The patient?s adult child(abhay) (majority, if multiple children) 4th: The patient?s parents 5th: The patient?s adult siblings (majority, if multiple children siblings) What to do if you have Problems For any increased pain, shortness of breath, bleeding, nausea or vomiting, chestpain, or any unexpected problems, contact your Primary Care Provider. Call [facility] ([phone]) or report to the closest Emergency Room. Call 911 if necessary. 07/03/23 1054 <Electronically signed by Dario Suazo DO> Cosigner Signature (if applicable): CC: POST PRODUCTION ASSISTANT-C Esperanza Avina ~ Signed [facility] Work Phone: Discharge summary [facility] August 25, 2023 12:01pm Note Date/Time August 25, 2023 11:5 9am [facility] Medical Records Department [address] [place] [address] Instructions for Home/Discharge Instructions 08/25/23 1159 MR#: [id number] Acct: [id number] Name: FEDERICO LAMB Rep #:[id number] : 1950 73 From: Lalo maciel DO PCP: Esperanza Avina, POST PRODUCTION ASSISTANT-C Status:ADM IN Discharge Instructions Diet Discharge Diet: No restrictions Activity Discharge Activity: No Restrictions Weight Bearing Status: Full weight bearing Follow Up Care Test Results: Test results from this visit will be discussed in further detail at your follow- up appointment, if applicable. Discharge Plan Admission Admit Date/Time: 08/24/23 04:52 Primary Reason for Your Visit: abdominal pain Attending Provider: Lalo Lindsay Primary Care Provider: Esperanza Avina NP Consulting Providers: Mateus Starr; Debora Lamb Instructions Additional Instructions / Restrictions: The 30-day event recorder will be mailed to you in the next few days, please useas instructed. Follow-up with your primary care doctor as needed. Discharge Orders/Prescriptions Prescriptions: Continued tamsulosin 0.4 mg capsule 0.4 mg PO DAILY Qty: 30 12RF phenazopyridine [Pyridium] 100 mg tablet 100 mg PO TID PRN (Reason: burning) Qty: 20 0RF Other Ambulatory Orders: 30 Day Event Recorder Preventi (Urgent) Timeframe: 1 Month Facility: [facility] - Location: Cardiovascular Services Ordered By: Dr. Lalo Lindsay Referrals / Follow Up: Esperanza Avina NP, POST PRODUCTION ASSISTANT-C [Primary Care Provider] - Disposition Disposition (needs filled in before D/C Order can be placed): Home, Self Care 08/25/23 1201<Electronically signed by Lalo Lindsay DO>Lalo Lindsay DO CC: PAIGE-C Esperanza Avina; Dr. Debora Lamb MD; Dr. Mateus Starr MD ~ Signed [facility] Work Phone: Evaluation note* Diagnosis Onset Date Resolution Status BPH (benign prostatic hyperplasia) acute High cholesterol acute [facility] Work Phone: Evaluation noteNo assessment information available [facility] Work Phone: Evaluation note* Diagnosis Onset Date Resolution Status Left flank pain, chronic acu te Left renal stone acute [facility] Work Phone: Evaluation note* Diagnosis Onset Date Resolution Status Left flank pain, chronic acu te Hydronephrosis acute Obstruction of left ureteropelvic junction (UPJ) acute [facility] Work Phone: Evaluation note* Diagnosis Onset Date Resolution Status History of urologic surgery acute Splenic infarct acute [facility] Work Phone: Evaluation note* Diagnosis SSS (sick sinus syndrome) ([facility])- Primary Sinoatrial node dysfunction Sinus bradycardia Other specified cardiac dysrhythmias SVT (supraventricular tachycardia) (HCC) Other specified cardiac dysrhythmias Palpitations Right bundle branch block (RBBB) with left anterior fascicular block (LAFB) [facility]. St[facility] October 08, 2022 11:46am Note Date/Time October 08, 2022 11: 46am [facility] Medical Records Department [address] [place] [address] History & Physical Exam 10/08/22 1143 MR#: [id number] Acct: [id number] Name: FEDERICO LAMB Rep #:[id number] : 1950 72 From: Mateus Starr MD PCP: AGAPITO Craft Status:REG ER Location: ED HPI - General HPI Narrative FEDERICO LAMB, is a 72 M who presents has aknow UPJ stricture left, repaired longtime ago and recurrence s/p balloon dilation and stent recently, I was planning to removed stent in 6 weeks but presented with severe flank pain, stent in proper position but worse hydro, plan to take to surgery today to up size stent. NPO team called. [facility] Medical History (Updated 10/08/22 @ 11:[address] 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 Ureteral stent present Home Medications tamsulosin 0.4 mg capsule 0.4 mg PO DAILY BPH 10/08/22 [History Last Taken 10/08/22] Allergy/AdvReac Type Severity Reaction Status Date / Time No Known Allergies Allergy Verified 10/08/22 08:25 Family History Other BPH (benign prostatic hyperplasia) Surgical History CHOLECYSTECTOMY W/ INTRAOPERATIVE CHOLANGIOGRAM Social History Smoking Status: Former smoker second hand exposure: No alcohol intake: current substance use type: does not use ROS Constitutional Constitutional: Denies chills, fever(s) or malaise Eyes Eyes: Denies blurry vision or change in vision ENT HEENT: Reports none Cardiovascular Cardiovascular: Denies chest pain or palpitations Respiratory/Chest Respiratory/Chest: Denies cough or shortness of breath with exertion Gastrointestinal Gastrointestinal: Denies abdominal pain, constipation or diarrhea Musculoskeletal Musculoskeletal: Denies back pain, joint stiffness or joint swelling Integumentary Integumentary: Denies dry skin, jaundice, lesions or rash Neurologic Neurologic: Denies confusion, syncope or weakness Psychiatric Psychiatric: Reports none; Denies anxiety or depression Endocrine Endocrinology: Denies excessive sweating, fatigue or flushing Hematologic/Lymphatic Hematologic/Lymphatic: Denies anemia, easy bleeding or easy bruising Vital Signs Vital Signs Vital Signs: 10/08/22 08:24 10/08/22 09:11 10/08/22 10:24 Temperature 97.1 F L 97.8 F Temperature Source Temporal Oral Pulse Rate 103 H 64 Respiratory Rate 16 16 16 Blood Pressure 146/93 H 131/75 H Blood Pressure Mean 110 93 Pulse Ox 97 94 Oxygen Delivery Method Room Air Room Air 10/08/22 11:19 Temperature 97.8 F Temperature Source Oral Pulse Rate 65 Respiratory Rate 18 Blood Pressure 133/69 H Blood Pressure Mean 90 Pulse Ox 97 Oxygen Delivery Method Room Air Weight Weight: 72.121 kg Body Mass Index (BMI) 24.1 Physical Exam Const alert and oriented x3 General Appearance: cooperative HEENT normocephalic, head/scalp atraumatic, EAC's normal and TM's normal bilaterally Eyes PERRL and EOMs intact bilaterally Pupil: sluggish Neck no lymphadenopathy, supple and no JVD General: trachea midline Lymph Lymphatic: no lymphadenopathy noted, lymphedema and lymphadenopathy Resp normal respiratory effort, normal air movement and clear to auscultation bilaterally Cardio regular rate, regular rhythm and peripheral pulses 2+ throughout GI soft to palpation, non-tender and non-distended Extremity normal capillary refill and no clubbing, cyanosis or edema General Extremity: no tenderness to palpation of joints or extremities Skin no rashes or lesions noted General Skin Exam: turgor normal Lesions: no lesions Rashes: no rashes Neuro CN's II-XII intact bilaterally Speech: speech normal Motor Exam: strength 5/5 throughout; Negative for general weakness Psych thought process normal, cooperative and affect normal Appearance: appropriate Results Lab / Micro Data Result Diagrams: 10/08/22 08:47 10/08/22 08:47 Labs: Laboratory Results - last 24 hr 10/08/22 08:47: WBC 13.6 H, RBC 4.72, Hgb 14.2, Hct 44.5, MCV 94.3 H, MCH 30.1, MCHC 31.9 L, RDW Std Deviation 45.2 H, RDW Coeff of Hector 13.0, Plt Count 348, MPV10.3, Immature Gran % (Auto) 1.500 H, Neut % (Auto) 64.7, Lymph % (Auto) 21.0, Teton % (Auto) 10.4 H, Eos % (Auto) 1.4, Baso % (Auto) 1.0, Absolute Neuts (auto)8.8 H, Absolute Lymphs (auto) 2.86, Nucleated RBC % 0 10/08/22 08:47: Sodium 139, Potassium 3.8, Chloride 109 H, Carbon Dioxide 28.0, Anion Gap 2 L, BUN 15, Creatinine 0.98, Estim Creat Clear Calc 64.95, Est GFR (MDRD) Af Amer 96, Est GFR (MDRD) Non-Af 80, BUN/Creatinine Ratio 15.3, Glucose 109 H, Calcium 9.2 10/08/22 08:47: Urine Color Yellow, Urine Clarity Clear, Urine pH 6.0, Ur Specific [place] 1.025, Urine Protein 100 H, Urine Glucose (UA) Normal, Urine Ketones Negative, Urine Occult Blood 250 H, Urine Nitrite Negative, Urine Bilirubin Negative, Urine Urobilinogen Normal, Ur Leukocyte Esterase 500 H, Urine RBC 5-10 SEEN, Urine WBC 10-25 SEEN, Ur Squamous Epith Cells 0 SEEN, UrineBacteria 1+, Urine Mucus 0 SEEN Radiology Impression Abdomen/Pelvis CT 10/08/22 08:32 IMPRESSION: 1. Worsening of now more pronounced left hydronephrosis despite interval placement of left double-J stent. Double-J stent stent exchange will be helpful. 2. No other additional findings or changes. Electronically Signed: Carlitos Dalton MD at 9:53 EDT Reading Location ID and State: [facility] / [place] , Service support , Assessment & Plan Assessment/Plan (1) Obstruction of left ureteropelvic junction (UPJ): PLAN: plan to take to surgery today to decompress left kidney and place large stent. NPO surgery now 10/08/22 1146 <Electronically signed by Mateus Starr MD> Cosigner Signature (if applicable): CC: POST PRODUCTION ASSISTANT-Nhi Avina; Dr. Mateus Starr MD~ Signed [facility] Work Phone: History and physical note Author Debora Lamb [facility] August 24, 2023 5:10am Note Date/Time August 24, 2023 4:55 am [facility] Medical Records Department [address] [address] H&P Exam - Hospitalist 08/24/23 0450 MR#: [id number] Acct: [id number] Name: FEDERICO LAMB Rep #:[id number] : 1950 73 From: Debora Lamb MD PCP: AGAPITO Craft Status:ADM IN Location: [place] [address] HPI - General General Date of Admission: 08/24/23 Date of Service: 08/24/23 Chief Complaint: Abdominal pain, nausea. HPI Narrative The patient is a 73 y/o M w/ PMHx: BPH, OA, Former tobacco use, HLD, Hx Hawkins's palsy, recent 08/08/23 laparoscopic robotic assisted left pyeloplasty and antegrade stent placement secondary to left UPJ obstruction recurrent who presents to the [facility] ED on 08/24/23 with history of onset of epigastric discomfort at approximately 1 AM that awoke him from sleep noted to be continuous, aching in nature with associated nausea with no emesis with mild radiation just to the lower chest with no recent dysuria or any issues with urination reporting that he has been doing well since surgery with no fevers however given ongoing discomfort prompted ED evaluation. He notes when the pain first woke him up it was 10 out of 10 in severity and has mildly improved since ED interventions currently rating it 4 out of 10 in severity. He denies any worsening of the pain with deep inspiratory effort. Workup in the ED included T97.5, heart rate 81, BP 143/88, respiratory rate 14, 93% on room air, CBC with WBC 10.6, and 115.3, platelets 405 with increased immature granulocytes, CMP with BUN/creatinine 19/1.10, glucose 118, T. bili 1.90, AST/ALT 13/14 otherwise hepatic profile not marked appearing, lipase 39, troponin 30, urinalysis with specific gravity 1.030, protein 100, ketone negative, occult blood 250, urine nitrite positive, urine bilirubin 6, urine urobilinogen 8, leukocyte Estrace 25, urine RBCs 10-25,urine WBC 0-5 with 1+ bacteria, urine culture pending per ED, CT abdomen and pelvis with splenic infarcts, left-sided double J stent in place appropriately positioned, mild left hydronephrosis with peripelvic inflammatory change possibly related to the stent in place although infection could be considered, thick linear consolidation bilaterally likely atelectasis versus scarring, although somewhat atypical appearing, chest x-ray with no acute cardiopulmonary findings. Discussed plan of care with ED physician and patient will be initiated on heparin drip with bolus. Additionally in the ED patient administered Zofran 4 mg IV x 1 and morphine 4 mg IV x 1. [facility] Medical History (Updated 08/24/23 @ 04:[address] Debora Lamb MD) Arthritis BPH (benign prostatic hyperplasia) Former smoker Gastric reflux High cholesterol History of nephrolithiasis Hydronephrosis (Unknown) Left-sided Hawkins's palsy Ureteral stent present Wears dentures Wears glasses Home Medications tamsulosin 0.4 mg capsule 0.4 mg PO DAILY BPH #30 caps 10/20/22 [Rx Last Taken Unknown] phenazopyridine 100 mg tablet (Pyridium) 100 mg PO TID PRN burning #20 tabs 08/08/23 [Rx Last Taken Unknown] Allergy/AdvReac Type Severity Reaction Status Date / Time No Known Allergies Allergy Verified 08/24/23 03:19 Family History (Updated 08/24/23 @ 05:[address] Debora Lamb MD) Mother Parkinson's disease Father Lung disease, emphysema Surgical History CHOLECYSTECTOMY W/ INTRAOPERATIVE CHOLANGIOGRAM History of cystoscopy S/P ureteral stent placement Social History household members: none Smoking Status: Former smoker second hand exposure: No alcohol intake: current substance use type: does not use ROS ROS Narrative Admission Review of Systems: CONSTITUTIONAL: No weight loss, fever, chills, + weakness or fatigue. HEENT: Eyes: No visual loss, blurred vision, double vision or yellow sclerae. Ears, Nose, Throat: No hearing loss, sneezing, congestion, runny nose or sore throat. SKIN: No rash or itching, lesions, wounds. CARDIOVASCULAR: No chest pain, chest pressure or chest discomfort, palpitations,edema, orthopnea, syncopal events. RESPIRATORY: No shortness of breath, cough or sputum, wheezing, hemoptysis. GASTROINTESTINAL: + Nausea, abdominal pain, anorexia. No vomiting, diarrhea, melena, BRBPR. GENITOURINARY: + History of recent ureteral stent. Denies any recent dysuria, frequency, urgency or retention. NEUROLOGICAL: No headache, dizziness, syncope, paralysis, ataxia, numbness or tingling in the extremities, focal weakness, change in bowel or bladder control,seizure. MUSCULOSKELETAL: + muscle, back pain, joint pain or stiffness. HEMATOLOGIC: No anemia, bleeding or bruising. LYMPHATICS: No enlarged nodes. No history of splenectomy. PSYCHIATRIC: No history of depression or anxiety. ENDOCRINOLOGIC: No reports of sweating, cold or heat intolerance. No polyuria orpolydipsia. ALLERGIES: No history of asthma, hives, eczema or rhinitis. Vital Signs Vital Signs Vital Signs: 08/24/23 03:16 Temperature 97.5 F L Temperature Source Oral Pulse Rate 81 Respiratory Rate 14 Blood Pressure 143/88 H Blood Pressure Mean 106 Pulse Ox 93 Oxygen Delivery Method Room Air Weight Weight: 157 lb 6.561 oz Body Mass Index (BMI) 23.9 Physical Exam Narrative Physical Examination: General: Awake, alert, oriented x 3 and cooperative, seated upright in the ED bed in no apparent distress, currently rates pain 4-10 in severity. Skin: Normal color, normal turgor, no icterus, no cyanosis. HEENT: AT/NC, EOMI, PERRLA, mildly dry MM, no carotid bruits or JVD noted. Lungs: CTA bilaterally, moderate effort, mild decrease BL bases, no rales, ronchi or wheezing. Heart: Regular rate and rhythm; no gallop, rub audible. Abdomen: Soft, unable to elicit any discomfort with palpation, no rebound or guarding, no distention, distant bowel sounds, no appreciated HSM. He describeshis pain is more internal and unable to be reproduced with palpation even including again palpation of the left upper quadrant. He points primarily to the pain being in the right upper quadrant just beneath his ribs in the mid region. Extremities: No cyanosis, clubbing, or edema, no pain with calf palpation. Neurological: Patient awake, alert, oriented as noted, cognitive function intact; pupils equally reactive to light and accommodation, cranial nerves II-XII grossly normal, moving all 4 extremities, no focal deficits, strength mildly globally decreased secondary to acute presentation complaints. Psychiatric: Affect appears fatigued otherwise normal, no acute evidence of depressive or anxiety feelings. Results Lab / Micro Data 08/24/23 03:25 08/24/23 03:25 Labs: Laboratory Results - last 24 hr 08/24/23 03:25: WBC 10.6, RBC 5.10, Hgb 15.3, Hct 46.8, MCV 91.8, MCH 30.0, MCHC32.7, RDW Std Deviation 43.3, RDW Coeff of Hector 12.8, Plt Count 405, MPV 10.1, Immature Gran % (Auto) 1.200 H, Neut % (Auto) 62.9, Lymph % (Auto) 25.1, Teton % (Auto) 8.1, Eos % (Auto) 1.7, Baso % (Auto) 1.0, Absolute Neuts (auto) 6.7, Absolute Lymphs (auto) 2.66, Nucleated RBC % 0, Sodium 140, Potassium 3.9, Chloride 104, Carbon Dioxide 30.0, Anion Gap 6, BUN 19 H, Creatinine 1.10, EstimCreat Clear Calc 57.00, Est GFR (MDRD) Af Amer 84, Est GFR (MDRD) Non-Af 70, BUN/Creatinine Ratio 17.3, Glucose 118 H, Calcium 9.5, Total Bilirubin 1.90 H, AST 13 L, ALT 14 L, Alkaline Phosphatase 88, Troponin I High Sens 30, Total Protein 6.9, Albumin 3.7, Globulin 3.2, Albumin/Globulin Ratio 1.2, Lipase 39 08/24/23 03:28: Urine Color Shira, Urine Clarity Clear, Urine pH 5.0, Ur Specific [place] 1.030, Urine Protein 100 H, Urine Glucose (UA) Normal, Urine Ketones Negative, Urine Occult Blood 250 H, Urine Nitrite Positive H, Urine Bilirubin 6 H, Urine Urobilinogen 8 H, Ur Leukocyte Esterase 25 H, Urine RBC 10-25 SEEN, Urine WBC 0-5 SEEN, Ur Squamous Epith Cells 0 SEEN, Urine Bacteria 1+, Urine Mucus 0 SEEN Rhythm Strip Rhythm Strip: Sinus bradycardia Rate: 57 Ectopy: None Imaging Radiology Impression Abdomen/Pelvis CT 08/24/23 03:23 IMPRESSION: Splenic infarcts. Left-sided double-J stent is in place, which appears appropriately positioned. Mild left hydronephrosis with associated peripelvic inflammatory change, which may be related to stent in place, although infection should be considered. Thick linear consolidation bilaterally, likely atelectasis versus scarring, although somewhat atypical appearing. Recommend follow-up to resolution is neoplastic process is not excluded. Electronically Signed: Yordan Spangler MD at 4:20 EST , Chest X-Ray 08/24/23 03:52 IMPRESSION: Chest with no acute disease. Electronically Signed: Yordan Spangler MD at 4:42 EST , Assessment & Plan Assessment/Plan (1) Splenic infarct: PLAN: Plan The patient is a 73 y/o M w/ PMHx: BPH, OA, Former tobacco use, HLD, Hx Hawkins's palsy, recent 08/08/23 laparoscopic robotic assisted left pyeloplasty and antegrade stent placement secondary to left UPJ obstruction recurrent who presents to the [facility] ED on 08/24/23 with history of onset of epigastric discomfort at approximately 1 AM that awoke him from sleep noted to be continuous, aching in nature with associated nausea with no emesis with mild radiation just to the lower chest with no recent dysuria or any issues with urination reporting that he has been doing well since surgery with no fevers however given ongoing discomfort prompted ED evaluation. #1. Abdominal pain, discomfort suspected secondary to acute splenic infarct: Will admit to PCU, maintain on cardiac telemetry, will continue heparin bolus with drip initiated in the ED pending further evaluation with plan transition following to NOAC once appropriate with case management/social work input for oral regimen cost, to be cautious would plan to obtain CTPA in 24 hours with continue judicious hydration to protect the kidneys, troponin 30, BNP will also be requested, will have as needed pain regimen and antiemetic regimen. #2. Recent left UPJ obstruction, recurrent: 08/08/23 laparoscopic robotic assisted left pyeloplasty and antegrade stent placement, will continue ED initiated consultation given CT imaging with noted peripelvic inflammatory changes possibly related with a stent to assure no antibiotic therapy necessary,UA not marked appearing, urine culture pending per ED. Urology consulted, pending. #3. Elevated BP without hypertensive diagnosis: BP mildly elevated upon presentation, likely pain related given acute presentation, will continue to monitor and if appropriate add oral regimen, in the interim as needed IV hydralazine. #4. Hyperlipidemia: Not on regimen, defer to outpatient. #5. Former tobacco use: Encourage continued tobacco cessation. #6. GERD: Not on any chronic regimen, will have as needed Mylanta. #7. BPH: We will continue patient home Flomax regimen. #8. DVT prophylaxis: Will continue heparin drip as noted. #9. CODE STATUS: Full code. Charges/Coding Visit Charges Inpatient E&M: 72421 Init Hosp L3 08/24/23 0510 <Electronically signed by Debora Lamb MD> Cosigner Signature (if applicable): CC: POST PRODUCTION ASSISTANTIdris Avina; Dr. Debora Lamb MD~ Signed [facility] Work Phone: Hospital Discharge instructions Additional Instructions [facility] Additional Instructions [facility] Work Phone: [facility]charge instructions Additional Instructions The 30-day event recorder will be mailed to you in the next few days, please use as instructed. Follow-up with your primary care doctor as needed.[facility] Work Phone: Progress note Author Mateus Starr [facility] August 10, 2023 7:36am Note Date/Time August 10, 2023 7:36am [facility] Medical Records Department [address] [place] [address] Progress Note - Urology 08/10/23 0736 MR#: [id number] Acct: [id number] Name: FEDERICO LAMB Rep #:[id number] : 1950 73 From: Mateus Starr MD PCP: Esperanza Avina POST PRODUCTION ASSISTANT-C Status:ADM IN [place] [facility] [place] Subjective Subjective pt kept one more night b/c low bp, h/h was okay this am bp is much better, pt doing well d/c zachary today Objective Data Objective Data Vital Signs: Vital Signs Temp Pulse Resp BP Pulse Ox O2 Del Method O2 Flow Rate 98 F 60 16 121/74 H 91 Room Air 2 08/10/23 05:29 08/10/23 05:29 08/10/23 05:29 08/10/23 05:29 08/10/23 06:48 08/10/23 06:48 08/10/23 06:19 Oxygen Flow Rate (L/min) 2 Oxygen Delivery Method Room Air Weight: 70.307 kg Body Mass Index (BMI) 23.6 Intake & Output: Intake and Output for Last 24 Hours 08/08/23 08/09/23 08/10/23 23:59 23:59 23:59 Intake Total 2430.92 / 2630.92 4027.09 / 4227.09 1400 / 1400 Output Total 475 / 825 1350 / 2000 1550 / 1550 Balance 1955.92 / 1805.92 2677.09 / 2227.09 -150 / -150 Lab / Micro Data 08/09/23 10:20 08/09/23 10:20 Labs: Laboratory Results - last 24 hr 08/09/23 10:20: WBC 13.7 H, RBC 3.94 L, Hgb 11.8 L, Hct 35.8 L, MCV 90.9, MCH 29.9, MCHC 33.0, RDW Std Deviation 41.8, RDW Coeff of Hector 12.6, Plt Count 273, MPV 10.6, Immature Gran % (Auto) 0.600, Neut % (Auto) 72.8 H, Lymph % (Auto) 16.4 L, [place]eton % (Auto) 9.9, Eos % (Auto) 0.1, Baso % (Auto) 0.2, Absolute Neuts (auto) 10.0 H, Absolute Lymphs (auto) 2.24, Nucleated RBC % 0, Sodium 137, Potassium 4.0, Chloride 106, Carbon Dioxide 29.0, Anion Gap 2 L, BUN 15, Creatinine 1.19, Estim Creat Clear Calc 52.69, Est GFR (MDRD) Af Amer 77, Est GFR (MDRD) Non-Af 63, BUN/Creatinine Ratio 12.6, Glucose 110 H, Calcium 8.8 08/10/23 0736 <Electronically signed by Mateus Starr MD> Cosigner Signature (if applicable): CC: ~ Signed [facility] Work Phone: Summary Purpose Family History No Family History Records Found Relationship Condition Age at Onset Recorded Date/T nathen Not Specified Benign prostatic hyperplasia Unknown Relationship Condition Age at Onset Recorded Date/T nathen mother Parkinson's disease Unknown father Pulmonary emphysema Unknown Advance Directives No Advanced Directives Records Found Advance Directive Response Recorded Date/ Time Living Will No October 08, 2022 9:11am Power of Drapery Hemmer Automatic No October 08 9:11am Advance Directive Response Recorded Date/ Time Living Will No June 30 11:00pm Power of Drapery Hemmer Automatic No June 30, 2023 11:00pm Advance Directive Response Recorded Date/ Time Living Will No July 03 7:21am Power of Drapery Hemmer Automatic No July 03, 2023 7:21am Advance Directive Response Recorded Date/ Time Living Will No August 08, 3:27pm Power of Drapery Hemmer Automatic No August 08, 2023 3:27pm Advance Directive Response Recorded Date/ Time Living Will No August 24, 2023 3:18am Power of Drapery Hemmer Automatic No August 23 3:18am Advance Directive Response Recorded Date/ Time Living Will No August 24, 2023 5:42am Power of Drapery Hemmer Automatic No August 23 5:42am Chief Complaint and Reason for Visit Chief Complaint Med Refill Reason for Visit BPH (benign prostati c hyperplasia) High cholesterol Chief Complaint ABD Chief Complaint ABD Back pain & Vomiting KIDNEY STONE LT FLANK Reason for Visit Left flank pain, chr onic Left renal stone Chief Complaint ABD Back pain & Vomiting KIDNEY STONE LT FLANK CONGENITAL OCCLUSION OF URETEROPELVIC JUNCTION Reason for Visit Left flank pain, chr onic Left renal stone Chief Complaint ABD Back pain & Vomiting KIDNEY STONE LT FLANK CONGENITAL OCCLUSION OF URETEROPELVIC JUNCTION PRE-OP TESTING/LABWORK SCANNED PRE-OP Reason for Visit Left flank pain, chr onic Left renal stone Chief Complaint ABD Back pain & Vomiting KIDNEY STONE LT FLANK CONGENITAL OCCLUSION OF URETEROPELVIC JUNCTION PRE-OP TESTING/LABWORK SCANNED PRE-OP STENT EXCHANGE Reason for Visit Left flank pain, chr onic Hydronephrosis Obstruction of left ureteropelvic junction (UPJ) Chief Complaint SOB, CONGESTION Chief Complaint SOB, CONGESTION back pain Chief Complaint SOB, CONGESTION back pain CONGENITAL OCCLUSION OF URETEROPELVIC JUNCTION Chief Complaint SOB, CONGESTION back pain CONGENITAL OCCLUSION OF URETEROPELVIC JUNCTION PREOP LAP ROBOTIC PYELOPLASTY, STENT PLACEMENT, LEFT Chief Complaint SOB, CONGESTION back pain CONGENITAL OCCLUSION OF URETEROPELVIC JUNCTION PREOP LAP ROBOTIC PYELOPLASTY, STENT PLACEMENT, LEFT ABDOMINAL PAIN, SPLENIC INFARCT Reason for Visit History of urologic surgery Splenic infarct Additional Source Comments (unrecognized sect ion and content) No Status Records FoundNo Status Records FoundNo Status Records FoundNo Status Records FoundNo Status Records Found INFORMATION SOURCE (unrecogn ized section and content) DATE CREATED AUTHOR 02/26/2019 [facility] DATE CREATED AUTHOR AUTHOR'S ORGANIZ ATION 01/04/2020 [facility] DATE CREATED AUTHOR AUTHOR'S ORGANIZ ATION 10/16/2023 [facility] DATE CREATED AUTHOR AUTHOR'S ORGANIZ ATION 12/21/2023 [facility] DATE CREATED AUTHOR AUTHOR'S ORGANIZ ATION 11/13/2024 [facility] Goals (unrecognized section and content) Goals may be documented in a n alternate sectionGoals may be documented in an alternate sectionGoals may be documented in an alternate sectionGoals may be documented in an alternate sectionGoals may be documented in an alternate sectionGoals may be documented in an alternate sectionGoals may be documented in an alternate sectionGoals may be documented in an alternate sectionGoals may be documented in an alternate sectionGoals may be documented in an alternate sectionGoals may be documented in an alternate sectionGoals may be documented in an alternate sectionGoals may be documented in an alternate section Care Teams (unrecognized sec tion and content) Team Status: Active Member Role Status Dates Esperanza Avina POST PRODUCTION ASSISTANT, POST PRODUCTION ASSISTANT-C Primary Care Provider Active Team Status: Active Member Role Status Dates Esperanza Avina POST PRODUCTION ASSISTANT, POST PRODUCTION ASSISTANT-C Primary Care Provider Active Dr. Emerson Perez MD Attending Provider Active Dr. Gavin Porter MD Referring Provider Active Team Status: Inactive Member Role Status Dates Esperanza Avina POST PRODUCTION ASSISTANT, POST PRODUCTION ASSISTANT-C Primary Care Provider Active Dr. Dario Suazo DO Attending Provider, Emergency Provider Active Team Status: Inactive Member Role Status Dates Esperanza Avina POST PRODUCTION ASSISTANT, POST PRODUCTION ASSISTANT-C Primary Care Provider Active Dr. Mateus Starr MD Admit Provid er, Attending Provider, Referring Provider Active Team Status: Inactive Member Role Status Dates Esperanza Avina POST PRODUCTION ASSISTANT, POST PRODUCTION ASSISTANT-C Primary Care Provider Active Dr. Mateus Starr MD Attending Provider, Referr ing Provider Active Team Status: Inactive Member Role Status Dates Esperanza Avina POST PRODUCTION ASSISTANT, POST PRODUCTION ASSISTANT-C Primary Care Provider Active Dr. Dario Suazo DO Emergency Provider Active Team Status: Active Member Role Status Dates Esperanza Avina POST PRODUCTION ASSISTANT, POST PRODUCTION ASSISTANT-C Primary Care Provider Active Dr. Felicita Suh MD Attending Provider Active Dr. Mateus Starr MD Referring Provider Active Team Status: Inactive Member Role Status Dates Esperanza Avina POST PRODUCTION ASSISTANT, POST PRODUCTION ASSISTANT-C Primary Care Pr ovider, Attending Provider, Referring Provider Active Team Status: Inactive Member Role Status Dates Esperanza Avina POST PRODUCTION ASSISTANT, POST PRODUCTION ASSISTANT-C Primary Care Provider Active Ed Physician Provider Attending Provider, Emergency Pr ovider Active Team Status: Inactive Member Role Status Dates Esperanza Avina POST PRODUCTION ASSISTANT, POST PRODUCTION ASSISTANT-C Primary Care Provider, Attend ing Provider Active Team Status: Inactive Member Role Status Dates Esperanza Avina POST PRODUCTION ASSISTANT, POST PRODUCTION ASSISTANT-C Primary Care Provider Active Dr. Mateus Starr MD Attending Provider Active Team Status: Active Member Role Status Dates Esperanza Avina POST PRODUCTION ASSISTANT, POST PRODUCTION ASSISTANT-C Primary Care Provider, Attend ing Provider Active Team Status: Active Member Role Status Dates Esperanza Avina POST PRODUCTION ASSISTANT, POST PRODUCTION ASSISTANT-C Primary Care Provider Active Dr. Mateus Starr MD Attending Provider Active Team Status: Active Member Role Status Dates Esperanza Avina POST PRODUCTION ASSISTANT, POST PRODUCTION ASSISTANT-C Primary Care Provider Active Dr. Billie Egan MD Emergency Provider Active Dr. Mateus Starr MD Attending Provider Active Team Status: Inactive Member Role Status Dates Esperanza Avina POST PRODUCTION ASSISTANT, POST PRODUCTION ASSISTANT-C Primary Care Provider Active Dr. Billie Egan MD Emergency Provider Active Dr. Mateus Starr MD Admit Provider, Attending Provider Active Team Status: Active Member Role Status Dates Esperanza Avina NP, POST PRODUCTION ASSISTANT-C Primary Care Provider Active Dr. Abel Reid MD Emergency Provider Active Dr. Debora Lamb MD Admit Provider, Attending Prov ider Active Team Status: Active Member Role Status Dates Esperanza Avina POST PRODUCTION ASSISTANT, POST PRODUCTION ASSISTANT-C Primary Care Provider Active Dr. Kody Mcallister MD Attending Provider Activ e Team Status: Inactive Member Role Status Dates Esperanza Avina POST PRODUCTION ASSISTANT, POST PRODUCTION ASSISTANT-C Primary Care Provider Active Dr. Abel Reid MD Emergency Provider Active Dr. Debora Lamb MD Admit Provider, Other Provider Active Dr. Mateus Starr MD Other Provider Active Dr. Lalo Lindsay DO Attending Provider Active Freight Trucker Relationship Specialty Start Date End Date Esperanza Avina, MARINE FIRER.INCIDENT HANDLER [address] [place], [place] [id number] PCP - General Family Medicine 02/26/19 Felicita Suh MD [address] [place], [place] [id number] Specialty Filter Helper Cardiology 12/16/23 [facility] [address] [place], [place] [address] Specialty Filter Helper Cardiology 12/17/23 Source Comments (unrecognize d section and content) In the event this informatio n is protected by the Federal Confidentiality of Alcohol and Drug Abuse Patient Records regulations: The Federal rules restrict any use of the information to criminally investigate or prosecute any alcohol or drug abuse patient.[facility] Reason for Visit (unrecogniz ed section and content) Reason Comments CARD New Patient Consult FOR RECORDS PERTAINING TO PATIENTS WHO ARE [...] BE BASED ON THE PRIMARY CLINICAL RECORDS. [facility] [employer] [facility] provides no warranty or guarantee of the accuracy or completeness of information in this document.
[2024-11-19 23:21] LABS: Absolute Lymphocyte Count 2.31 X10^3/uL (0.83-4.51); Absolute Neutrophil Count 4.3 X10^3/uL (2.0-7.7); Basophil# 0.06 X10^3/uL; Basophil% 0.8 % (0-1); Eosinophil# 0.32 X10^3/uL; Eosinophils% 4.1 % (0-5); Hematocrit 43.2 % (40-54); Hemoglobin 14.2 g/dL (13.0-16.5); Lymphocyte # 2.31 X10^3/ul (0.83-4.51); Lymphocyte % 29.5 % (19-41); Mean Corp Hgb Conc 32.9 g/dL (32-36); Mean Corpuscular Hgb 30.2 pg (27.0-32.0); Mean Corpuscular Volume 91.9 fL (80-94); Mean Platelet Vol. 11.5 fl (6.2-12.0); Monocyte# 0.88 X10^3/uL; Monocyte% 11.2 % (0-10); NRBC Flagged by Analyzer 0 % (0-5); Neutrophil # 4.25 X10^3/uL (2.7-7.7); Neutrophil % 54.1 % (47-70); Platelet Count 365 K/mm3 (150-450); RBC Distribution Width CV 13.3 % (11.6-14.6); RBC Distribution Width SD 45.5 fl (35.1-43.9); White Blood Count 7.8 K/mm3 (4.4-11.0)
[2024-11-20 00:36] LABS: ALB/GLOB Ratio 1.7 RATIO (0.9-2.4); AST(SGOT) 26 U/L (<=37); Alanine Aminotransfer ALT/SGPT 18 U/L (<=46); Albumin, Serum 4.1 g/dL (3.4-4.8); Alkaline Phosphatase 85 U/L (40-129); Anion Gap 12 (5-15); BUN 17 mg/dL (4-19); BUN/Creat Ratio 16.4 RATIO (10-20); Calcium,Total 9.2 mg/dL (7.6-11.0); Carbon Dioxide 22.1 mmol/L (21.0-32.0); Chloride 103 mmol/L (98-108); Cholesterol 149 mg/dL (<=200); Creatinine, Serum 1.06 mg/dL (0.70-1.20); EST Glomerular Filtration Rate 73 (>60); Globulin 2.4 g/dL (2.2-4.2); Glucose 152 mg/dL (70-99); High Density Lipoprotein 50 mg/dL; Low Density Lipoprotein Calc. 75 mg/dL; Protein, Total 6.4 g/dL (5.9-8.4); Sodium Level 137 mmol/L (133-145); Total Bilirubin 1.63 mg/dL (0.00-1.30); Triglycerides 118 mg/dL; Very Low Density Lipoprotein 24 mg/dL (5-40); cholesterol:hdl ratio screen 2.97
== END | disposition home or self-care (01) ==
PROVIDERS: PCP Nurse Practitioner; Referring Provider Nurse Practitioner; Visit Provider Nurse Practitioner
DX: R03.0 Elevated blood-pressure reading, without diagnosis of hypertension (principal); R00.2 Palpitations; K21.9 Gastro-esophageal reflux disease without esophagitis; E78.00 Pure hypercholesterolemia, unspecified
CPT/HCPCS: 80053; 80061; 85025